=== PATIENT | male | born 1955 | race Caucasian/White ===

== ENCOUNTER 2021-01-30 19:45 | Inpatient (IN) ==
[2021-01-30] MEDS ORDERED: SODIUM CHLORIDE 0.9% 1000ML 2,000 ML IV ONE (20:04)
[2021-01-30 20:20] LABS: Basophils # (auto) 0.01 K/uL (0-0.2); Basophils % (auto) 0.1 %; Eosinophils # (auto) 0.13 K/uL (0-0.5); Eosinophils % (auto) 1.6 %; Hematocrit (blood only) 47.1 % (42-52); Hemoglobin 16.8 g/dL (14.0-18.0); Immature Granulocytes # (auto) 0.02 K/uL (0.00-0.02); Immature Granulocytes % (auto) 0.2 %; Lymphocytes # (auto) 2.66 K/uL (1.2-3.4); Mean Corpuscular Hemoglobin 31.1 pg (25-34); Mean Corpuscular Hgb Conc 35.7 g/dL (32-36); Mean Corpuscular Volume 87.1 fL (80-100); Mean Platelet Volume 11.1 fL (7.4-10.4); Monocytes # (auto) 0.68 K/uL (0.11-0.59); Monocytes % (auto) 8.2 %; Neutrophils % (auto) 57.9 %; Platelet Count 219 K/uL (130-400); RDW Coefficient of Variation 13.7 % (11.5-14.5); RDW Standard Deviation 43.4 fL (36.4-46.3); Red Blood Count 5.41 M/uL (4.7-6.1)
--- NOTE | 2021-01-30 20:26 | XRay Report ---
XR chest 1V portable HISTORY: 65 years-old Male SEPSIS acute sepsis COMPARISON: None TECHNIQUE: Portable AP view of the chest FINDINGS: Cardiomediastinal and hilar silhouettes are within normal limits. No pneumothorax, pleural effusion o r overt pulmonary edema. Ill-defined right lung base airspace opacities. The bones appear grossly int act. IMPRESSION: Right lung base opacities suggest pneumonia versus aspiration pneumonitis. ACT 112: Negative or not required by law. The above report was generated using voice recognition software. It may contain grammatical, syntax o r spelling errors. Electronically signed by: Shukri Vera M.D. 01/30/2021 8:24 PM
[2021-01-30 20:31] LABS: INR 1.1 (0.9-1.1); Partial Thromboplastin Time 26.8 Seconds (21.0-31.0); Prothrombin Time 11.3 Seconds (9.0-12.0)
[2021-01-30] MEDS ORDERED: fentaNYL citrate 100 MCG/2 ML VIAL IV STA (20:40)
[2021-01-30 20:46] LABS: Appearance Urine Clear (Clear); Bacteria Urine Automated Negative (Negative); Bilirubin Urine Negative (Negative); Blood Urine Negative (Negative); Color Urine Dark Yellow; Glucose Urine UA Negative (Negative); Ketones Urine Negative (Negative); Leukocyte Esterase Urine Negative (Negative); Nitrite Urine Negative (Negative); Protein Urine Trace (Negative); RBC Urine Automated 0-4 /hpf (0-4); Specific Gravity Urine 1.019 (1.000-1.030); Urobilinogen Urine Negative (Negative)
[2021-01-30 20:49] LABS: Albumin Globulin Ratio 0.9 (0.9-2); Albumin Level 2.8 gm/dl (3.4-5.0); BUN Creatinine Ratio 12.7 (10-20); Bilirubin,Total 1.3 mg/dl (0.2-1); Calcium 8.6 mg/dl (8.5-10.1); Creatinine Clr Calc Pharmacy 67.3 ml/min; Est GFR (African American) 78.6; Est GFR (Non-African American) 67.8; Magnesium 0.8 mg/dl (1.8-2.4); Potassium 2.8 mmol/L (3.5-5.1); Total Protein 5.8 gm/dl (6.4-8.2); Troponin I 0.025 ng/ml (0-0.045)
[2021-01-30] MEDS ORDERED: POTASSIUM CHLORIDE 10 MEQ TABCR PO STA (20:51)
[2021-01-30] MEDS ORDERED: VANCOMYCIN HCL 2,000 MG in SODIUM CHLORIDE 0.9% 500 ML IV ONE (20:56)
[2021-01-30] MEDS ORDERED: VANCOMYCIN CONSULT ACTIVE PRN (20:56)
[2021-01-30] MEDS ORDERED: CEFEPIME 2,000 MG/20 ML VIAL IV STA (20:56)
[2021-01-30] MEDS: MAGNESIUM SULFATE / D5W 1 GM/100 ML BAG IV SCH ×2 (21:00→22:18)
[2021-01-30] MEDS ORDERED: OPTIRAY 350 500ml IV ONE (21:57)
[2021-01-30 23:00] LABS: Adenovirus PCR Not Detected (NotDetected); Bordetella parapertussis PCR Not Detected (NotDetected); Bordetella pertussis PCR Not Detected (NotDetected); Chlamydia pneumoniae PCR Not Detected (NotDetected); Coronavirus 229E PCR Not Detected (NotDetected); Coronavirus CoV-2 (COVID19)PCR Not Detected (NotDetected); Coronavirus HKU1 PCR Not Detected (NotDetected); Coronavirus NL63 PCR Not Detected (NotDetected); Coronavirus OC43PCR Not Detected (NotDetected); Human Metapneumovirus PCR Not Detected (NotDetected); Influenza A PCR Not Detected (NotDetected); Influenza B PCR Not Detected (NotDetected); Mycoplasma pneumoniae PCR Not Detected (NotDetected); Parainfluenza Virus 1 PCR Not Detected (NotDetected); Parainfluenza Virus 2 PCR Not Detected (NotDetected); Parainfluenza Virus 3 PCR Not Detected (NotDetected); Parainfluenza Virus 4 PCR Not Detected (NotDetected); Respiratory Syncytial VirusPCR Not Detected (NotDetected); Rhinovirus/Enterovirus PCR Not Detected (NotDetected)
[2021-01-30] MEDS ORDERED: STAT IV Infusion **Titration per Protocol STA (23:05)
[2021-01-30] MEDS ORDERED: PHENYLEPHRINE HCL 20 MG in DEXTROSE 5% 500 ML IV SCH (23:15)
[2021-01-30] MEDS ORDERED: SODIUM CHLORIDE 0.9% 1000ML 1,000 ML IV SCH (23:15)
[2021-01-30] MEDS ORDERED: MAGNESIUM OXIDE 400 MG TAB PO STA (23:22)
--- NOTE | 2021-01-30 23:24 | Critical Care Consultation ---
Date of Consultation January 30, 2021 Assessment & Plan (1) Admitted to intensive care unit: Reason Critically Ill: 65-year-old male with severe sepsis with septic shock secondary to RIGHT lower lobe pneumonia requiring close hemodynamic monitoring with addition of vasopressor support in the setting of active extremities. NEURO - * CAM ICU: NEGATIVE * CT Head/Brain w/o acute findings. * Chronic Pain/Anxiety/Depression: * Continue home Rx as tolerated. * Marijuana abuse. CARDIAC/VASCULAR - * Hypotension/Tachycardia: * Compensatory in the setting of profound sepsis w/ hypovolemia as well. * Initially received 3L IVF. * Will add ongoing fluid rate. * Will start w/ Raf as patient is w/ HRs in the 120s-130s. * Will obtain AM echo to assess cardiac status for further appropriate pressor management. * EKG: Sinus Tach @ [address]/T-Wave changes noted. QTc 430 ms * Monitor on telemetry. RESPIRATORY - * RLL Pneumonia: * Concerning as the patient does admit to vomiting several times over the past few months. * Antibiotics broadened to cover anaerobes. * Requiring supplemental O2 currently. * Patient is a vasculopath and I question accuracy of BP/SaO2 monitoring currently. Will check ABG. * Goal SaO2 90% GI/NUTRITION - * NPO while requiring high dose pressors. * Prophylaxis: Famotidine RENAL/LYTES - * Hypokalemia/Hypomagnesemia: * Replaced in the ED. * Will monitor closely, replace as needed. * Hypovolemia: * Trend CVP for IVF resuscitation. * IVF: Normosol @ 150mL/hr - * Bhatti in place - Strict I&Os. ENDO - * Hypothyroidism * Check TSH/Free T4 levels. HEME - * Stable H&H ID - * Severe sepsis w/ septic shock 2/2 RLL Pneumonia: * Received Cefepime, Vanc in the ED. * Agree w/ addition of Zosyn for anaerobic coverage w/ concerns for possible aspiration. * D/C Cefepime. D/C Vanc if MRSA negative. * PCT/Lactate elevated. Will trend. * COVID 19 Negative LINES/IV ACCESS - * PIVs x2 * RIGHT IJ CVL * LEFT Radial Art Line * Bhatti DVT PROPHYLAXIS - * Lovenox * SCDs I have personally spent 68 minutes of critical care time in the direct management of this patient. This is a life/limb threatening event. This includes time spent evaluating patient, direct bedside care, chart review, placing orders, interpretation of diagnostic studies, discussion with consultants, patient, and family members, as well as other required patient management activities. This time is exclusive of all separately billable procedures, and teaching time and separate from and in addition to any other critical care service time. Thank you for allowing us to participate in the care of this patient. Please refer to my attending physician's documentation for any further recommendations. (2) Septic shock: (3) Pneumonia: (4) Right lower lobe pneumonia: (5) Anxiety with depression: (6) Insomnia: (7) COPD (chronic obstructive pulmonary disease): (8) BPH w urinary obs/LUTS: (9) Hypothyroid: (10) GERD (gastroesophageal reflux disease): History of Present Illness History of Present Illness Patient is a 65-year-old male with a significant past medical history of hypothyroidism, chronic pain, previous spinal surgeries, BPH, COPD, prior history of IV drug abuse, and daily marijuana use. Patient's is currently admitted at the [facility] for pneumonia. She is COVID-19 negative. The patient does report that he went to see her a few days ago. He states that he has felt ill and has been out of bed minimally over the last 3 days. Apparently, he is been drinking, but has not been eating much. He states that he smokes marijuana daily and has been taking his daily medications as prescribed. He does admit to smoking meth approximately 3 to 4 days ago. None of these things are atypical for the patient. He presented to the emergency department with hypotension and tachycardia. Chest x-ray and CT concerning for RIGHT lower lobe infiltrate. He received IV cefepime and vancomycin. Potassium and magnesium were both critically low. Despite aggressive IV fluid resuscitation, the patient remained hypotensive. Upon evaluation in the emergency department, the patient is awake, alert, and oriented. He complains of diffuse back pain which she states is not abnormal for him. He describes a cough. He does admit to having vomited several times over the last few months. He is uncertain if he aspirated. Patient denies any complaints of chest pain, shortness of breath, pleuritic pain, abdominal pain, headaches, blurry vision, or double vision. Allergies Allergy/AdvReac Type Severity Reaction Status Date / Time adhesive tape Allergy REDNESS & Verified 01/30/21 21:03 BLACK & BLUE ibuprofen Allergy SWELLING, Verified 01/30/21 21:02 HIVES & SOB Home Medications Medication Instructions Recorded Confirmed Type albuterol sulfate 2 inh INHALATION UD PRN 01/30/21 01/30/21 History dutasteride [Avodart] 0.5 mg PO HS 01/30/21 01/30/21 History finasteride [Proscar] 5 mg PO DAILY 01/30/21 01/30/21 History hydroxyzine HCl 75 - 100 mg PO HS PRN 01/30/21 01/30/21 History levothyroxine 75 mcg PO DAILY 01/30/21 01/30/21 History ondansetron 4 mg PO Q8H PRN 01/30/21 01/30/21 History pantoprazole 40 mg PO DAILY 01/30/21 01/30/21 History pregabalin [Lyrica] 300 mg PO BID 01/30/21 01/30/21 History sucralfate [Carafate] 1 g PO ACHS 01/30/21 01/30/21 History tamsulosin [Flomax] 0.4 mg PO DAILY 01/30/21 01/30/21 History trazodone 150 mg PO HS 01/30/21 01/30/21 History umeclidinium-vilanterol [Anoro 1 inh INHALATION UD 01/30/21 01/30/21 History Ellipta] Patient History Medical History Anxiety with depression BPH w urinary obs/LUTS COPD (chronic obstructive pulmonary disease) GERD (gastroesophageal reflux disease) Hypothyroid Insomnia No pertinent family history Surgical History No pertinent past surgical history Social History Smoking Status: Current every day smoker Tobacco Type: Cigarettes Hx Substance Use: Yes Beliefs That Will Affect Care: None Current Living Situation: Family Feels Safe at Home: Yes Safety Concerns: Feels Safe At This Time Review of Systems Review of Systems: A complete 10 point review of systems was reviewed with the patient with pertinent positives and negatives as per history of present illness. All else were negative. Physical Exam Physical Exam: VITAL SIGNS - Vital signs and nursing notes were reviewed. GENERAL - 65-year-old male appearing his stated age who is in no acute distress. Communicates well with provider and answers questions appropriately. SKIN - Diffuse areas of ecchymosis noted. HEAD - NC/AT. EYES - PERRL with EOMI bilaterally. Sclera anicteric. EARS - No deformities of external structures noted on gross examination bilaterally. NOSE - Midline and without cyanosis. MOUTH/OROPHARYNX - Without perioral cyanosis. Buccal mucosa pink and dry. NECK - Neck with FROM. Supple to palpation. No lymphadenopathy noted. No nuchal rigidity. LUNGS - Chest wall symmetric without accessory muscle use, intercostals retractions, or central cyanosis. Normal vesicular breath sounds CTA B/L. CARDIAC - RRR with S1/S2. No murmur, rubs, or gallops appreciated. ABDOMEN - Abdominal contour flat without pulsations or visible masses. BS normoactive all four quadrants. No tenderness, palpable masses, hepatosplenomegaly, or ascites noted. EXTREMITIES - No clubbing or peripheral cyanosis. No pretibial edema present. +3/5 radial pulses palpated throughout. +5/5 strength noted in UE/LE bilaterally. NEUROLOGIC - Cranial nerves II through XII grossly intact. Sensory intact to light touch throughout. PSYCH - A&Ox3 and cooperates fully with examiner. Pt is very pleasant and interacts well with examiner. Results & Data Results & Data ([facility]) Vital Signs (Past 12 Hours) Vital Signs Temp Pulse Pulse Resp BP Pulse Ox 01/30/21 22:26 124 H 20 78/63 L 98 01/30/21 22:25 133 H 17 99 01/30/21 22:24 74/53 L 98 01/30/21 21:47 142 H 18 93 01/30/21 21:45 142 H 15 74/55 L 92 01/30/21 21:44 130 H 15 81/63 L 01/30/21 21:42 141 H 15 90 01/30/21 21:40 133 H 19 94/60 L 92 01/30/21 21:39 145 H 23 66/46 L 88 L 01/30/21 21:37 129 H 21 93 01/30/21 21:36 140 H 18 72/44 L 94 01/30/21 21:01 147 H 16 95/68 L 96 04/30/21 21:00 146 H 27 H 95 01/30/21 20:50 91 01/30/21 20:46 154 H 17 91 01/30/21 20:45 161 H 27 H 85/68 L 90 01/30/21 20:43 157 H 15 80/60 L 93 01/30/21 20:33 163 H 17 95 01/30/21 20:32 166 H 20 123/93 92 01/30/21 20:30 164 H 20 68/50 L 71 L 01/30/21 20:18 162 H 28 H 88/67 L 93 01/30/21 20:15 143 H 23 94 01/30/21 20:08 92 01/30/21 20:01 138 H 19 72/51 L 90 01/30/21 20:00 147 H 23 90 01/30/21 19:59 149 H 17 88 L 01/30/21 19:54 36.1 C L 141 H 16 72/51 L 92 Coding Level of Care Code Critical Care 1st 30-74 mins Diagnoses Admitted to intensive care unit Z78.9 Septic shock A41.9; R65.21 Pneumonia J18.9 Laterality: right Lung location: lower lobe of lung Pneumonia type: due to unspecified organism Right lower lobe pneumonia J18.9 Anxiety with depression F41.8 Insomnia G47.00 COPD (chronic obstructive pulmonary disease) J44.9 BPH w urinary obs/LUTS N40.1; N13.8 Hypothyroid E03.9 GERD (gastroesophageal reflux disease) K21.9 Time Spent (min) 68 (1) Pneumonia Laterality: right Lung location: lower lobe of lung Pneumonia type: due to unspecified organism Qualified Code(s): J18.9 - Pneumonia, unspecified organism
--- NOTE | 2021-01-30 23:27 | History & Physical Report ---
Date of Service January 30, 2021 Assessment & Plan (1) Admitted to intensive care unit: Admitted to ICU/septic shock/right lower lobe pneumonia/COPD- Vancomycin IV per pharmacokinetic monitoring Zosyn 4.5 g IV every 8 hours Duonebs every 4 hours while awake and every 2 hours when necessary. Nasal cannula oxygen, titrate to keep pulse ox 94 to 95% Consult road boss Pressor support norepinephrine/phenylephrine per protocol Normosol IV Present on Admission?: Yes (2) Septic shock: See above Present on Admission?: Yes (3) Right lower lobe pneumonia: See above Present on Admission?: Yes (4) GERD (gastroesophageal reflux disease): Pantoprazole 40 mg p.o. daily Famotidine 20 mg IV every 12 hours Present on Admission?: Yes (5) Hypothyroid: Continue levothyroxine 75 mcg daily Present on Admission?: Yes (6) BPH w urinary obs/LUTS: Continue tamsulosin, dutasteride and finasteride Present on Admission?: Yes (7) Anxiety with depression: Anxiety with depression/insomnia Continue pregabalin, trazodone and as needed hydroxyzine Present on Admission?: Yes (8) Insomnia: See above Present on Admission?: Yes (9) COPD (chronic obstructive pulmonary disease): See above Present on Admission?: Yes History of Present Illness Chief Complaint: The patient presents to the emergency department with complaint of generalized weakness over the past few days Primary Care Provider: NO PCP The patient is a 65-year-old male with a past medical history including BPH with LUTS, hypothyroidism, GERD, anxiety, insomnia and COPD. He reports that his is recently been hospitalized, and since has been noted to take care of him at home, he has been lying in bed the past several days and smoking marijuana every day. He reports history of drug abuse in the past, but nothing anytime recently. He said history of alcohol abuse but stopped drinking 1 year ago. Work-up in the emergency department included following abnormal laboratories: Potassium 2.8, magnesium 0.8, total bilirubin 1.3, albumin 2.8. Pulse ox at his lowest was 71% on room air. Blood pressure at its lowest was 66/46, and did not improve significantly above the mid 70s despite IV fluid rehydration. Due to sepsis and hypotension, patient was started on pressors while in ED, and will be admitted to the ICU. Imaging studies: Chest x-ray and CT of chest showed right lower lobe pneumonia. CT head was negative. CT cervical spine showed hardware fusion at C3-7 levels Allergies Allergy/AdvReac Type Severity Reaction Status Date / Time adhesive tape Allergy REDNESS & Verified 01/30/21 21:03 BLACK & BLUE ibuprofen Allergy SWELLING, Verified 01/30/21 21:02 HIVES & SOB Home Medications Medication Instructions Recorded Confirmed Type albuterol sulfate 2 inh INHALATION UD PRN 01/30/21 01/30/21 History dutasteride [Avodart] 0.5 mg PO HS 01/30/21 01/30/21 History finasteride [Proscar] 5 mg PO DAILY 01/30/21 01/30/21 History hydroxyzine HCl 75 - 100 mg PO HS PRN 01/30/21 01/30/21 History levothyroxine 75 mcg PO DAILY 01/30/21 01/30/21 History ondansetron 4 mg PO Q8H PRN 01/30/21 01/30/21 History pantoprazole 40 mg PO DAILY 01/30/21 01/30/21 History pregabalin [Lyrica] 300 mg PO BID 01/30/21 01/30/21 History sucralfate [Carafate] 1 g PO ACHS 01/30/21 01/30/21 History tamsulosin [Flomax] 0.4 mg PO DAILY 01/30/21 01/30/21 History trazodone 150 mg PO HS 01/30/21 01/30/21 History umeclidinium-vilanterol [Anoro 1 inh INHALATION UD 01/30/21 01/30/21 History Ellipta] Past Med/Surg History Medical History (Updated 01/31/21 @ 04:09 by Martin Jimenez MD) Anxiety with depression BPH w urinary obs/LUTS COPD (chronic obstructive pulmonary disease) GERD (gastroesophageal reflux disease) Hypothyroid Insomnia No pertinent family history Surgical History (Updated 01/30/21 @ 23:47 by Yosef Hughes) No pertinent past surgical history Social History Smoking Status: Current every day smoker Tobacco Type: Cigarettes Hx Substance Use: Yes Beliefs That Will Affect Care: None Current Living Situation: Family Feels Safe at Home: Yes Safety Concerns: Feels Safe At This Time Review of Systems Review of Systems: The patient denies chest pain, palpitations, lower extremity swelling, sore throat, fevers, chills, sweats, nausea, vomiting, diarrhea , constipation, abdominal pain, pelvic pain, blood in urine or stool, loss of consciousness, rash, abnormal bruising or bleeding, imbalance, focal weakness, numbness or tingling in arms or legs, neck pain, or night sweats. The review of systems is otherwise negative other than for that already noted above, and at least 10 systems have been reviewed. Physical Exam Physical Exam: The patient is awake, alert and oriented 3, normocephalic and atraumatic, lying in bed and in no acute distress. HEENT--PERRL, EOMI, mucous membranes and oropharynx dry. Neck--supple. No JVD. No bruits. Thyroid normal, trachea midline, no adenopathy. Heart--normal S1 and S2. No murmurs, rubs or gallops. Lungs--coarse breath sounds bilaterally, right base worse than left. no respiratory distress, no accessory muscle use. Abdomen--normal bowel sounds and soft. Nontender. Nondistended, no hernias or masses, no organomegaly. Extremities/dermatologic--no cyanosis or clubbing. No edema. Neurologic--cranial nerves II through XII grossly intact. Rheumatologic--normal range of motion. Psychiatric--normal affect. Results & Data Results & Data ([facility]) Vital Signs (Past 12 Hours) Vital Signs Temp Pulse Pulse Resp BP Pulse Ox 01/30/21 22:26 124 H 20 78/63 L 98 01/30/21 22:25 133 H 17 99 01/30/21 22:24 74/53 L 98 01/30/21 21:47 142 H 18 93 01/30/21 21:45 142 H 15 74/55 L 92 01/30/21 21:44 130 H 15 81/63 L 01/30/21 21:42 141 H 15 90 01/30/21 21:40 133 H 19 94/60 L 92 01/30/21 21:39 145 H 23 66/46 L 88 L 01/30/21 21:37 129 H 21 93 01/30/21 21:36 140 H 18 72/44 L 94 01/30/21 21:01 147 H 16 95/68 L 96 01/30/21 21:00 146 H 27 H 95 01/30/21 20:50 91 01/30/21 20:46 154 H 17 91 01/30/21 20:45 161 H 27 H 85/68 L 90 01/30/21 20:43 157 H 15 80/60 L 93 01/30/21 20:33 163 H 17 95 01/30/21 20:32 166 H 20 123/93 92 01/30/21 20:30 164 H 20 68/50 L 71 L 01/30/21 20:18 162 H 28 H 88/67 L 93 01/30/21 20:15 143 H 23 94 01/30/21 20:08 92 01/30/21 20:01 138 H 19 72/51 L 90 01/30/21 20:00 147 H 23 90 01/30/21 19:59 149 H 17 88 L 01/30/21 19:54 97.0 F L 141 H 16 72/51 L 92 Laboratory Results Laboratory Results WBC 8.30 K/uL (4.8-10.8) 01/30/21 20:00 RBC 5.41 M/uL (4.7-6.1) 01/30/21 20:00 Hgb 16.8 g/dL (14.0-18.0) 01/30/21 20:00 Hct 47.1 % (42-52) 01/30/21 20:00 MCV 87.1 fL (80-100) 01/30/21 20:00 MCH 31.1 pg (25-34) 01/30/21 20:00 MCHC 35.7 g/dL (32-36) 01/30/21 20:00 RDW Std Deviation 43.4 fL (36.4-46.3) 01/30/21 20:00 RDW Coeff of Karen 13.7 % (11.5-14.5) 01/30/21 20:00 Plt Count 219 K/uL (130-400) 01/30/21 20:00 MPV 11.1 fL (7.4-10.4) H 01/30/21 20:00 Immature Gran % (Auto) 0.2 % 01/30/21 20:00 Neut % (Auto) 57.9 % 01/30/21 20:00 Lymph % (Auto) 32.0 % 01/30/21 20:00 [facility] % (Auto) 8.2 % 01/30/21 20:00 Eos % (Auto) 1.6 % 01/30/21 20:00 Baso % (Auto) 0.1 % 01/30/21 20:00 Neut # (Auto) 4.80 K/uL (1.4-6.5) 01/30/21 20:00 Lymph # (Auto) 2.66 K/uL (1.2-3.4) 01/30/21 20:00 [facility] # (Auto) 0.68 K/uL (0.11-0.59) H 01/30/21 20:00 Eos # (Auto) 0.13 K/uL (0-0.5) 01/30/21 20:00 Baso # (Auto) 0.01 K/uL (0-0.2) 01/30/21 20:00 Immature Gran # (Auto) 0.02 K/uL (0.00-0.02) 01/30/21 20:00 PT 11.3 Seconds (9.0-12.0) 01/30/21 20:00 INR 1.1 (0.9-1.1) 01/30/21 20:00 APTT 26.8 Seconds (21.0-31.0) 01/30/21 20:00 PTT Ratio 1.0 01/30/21 20:00 POC pH 7.30 (7.35-7.45) L 01/31/21 02:35 POC pCO2 32 mmHg (35-46) L 01/31/21 02:35 POC pO2 82 mmHg (80-95) 01/31/21 02:35 POC HCO3 16 remy/L (19-24) L 01/31/21 02:35 POC Total CO2 17 mmol/L (24-31) L 01/31/21 02:35 POC Base Excess -11.0 remy/L (-9-1.8) L 01/31/21 02:35 POC ABG O2 Sat 95.0 % (90-95) 01/31/21 02:35 Sodium 141 mmol/L (136-145) 01/30/21 20:00 Potassium 2.8 mmol/L (3.5-5.1) L 01/30/21 20:00 Chloride 110 mmol/L (98-107) H 01/30/21 20:00 Carbon Dioxide 24 mmol/L (21-32) 01/30/21 20:00 Anion Gap 7.0 (3-11) 01/30/21 20:00 BUN 14 mg/dl (7-18) 01/30/21 20:00 Creatinine 1.13 mg/dl (0.6-1.4) 01/30/21 20:00 Est Cr Clr Drug Dosing 67.3 ml/min 01/30/21 20:00 Est GFR ( Amer) 78.6 01/30/21 20:00 Est GFR (Non-Af Amer) 67.8 01/30/21 20:00 BUN/Creatinine Ratio 12.7 (10-20) 01/30/21 20:00 Glucose 144 mg/dl (70-99) H 01/30/21 20:00 Lactate 3.2 mmol/L (0.4-2.0) H* 01/30/21 22:53 Calcium 8.6 mg/dl (8.5-10.1) 01/30/21 20:00 Magnesium 0.8 mg/dl (1.8-2.4) L* 01/30/21 20:00 Total Bilirubin 1.3 mg/dl (0.2-1) H 01/30/21 20:00 AST 14 U/L (15-37) L 01/30/21 20:00 ALT 18 U/L (12-78) 01/30/21 20:00 Alkaline Phosphatase 90 U/L (45-117) 01/30/21 20:00 Total Creatine Kinase 76 U/L (39-308) 01/30/21 20:00 Troponin I 0.025 ng/ml (0-0.045) 01/30/21 20:00 Total Protein 5.8 gm/dl (6.4-8.2) L 01/30/21 20:00 Albumin 2.8 gm/dl (3.4-5.0) L 01/30/21 20:00 Globulin 3.0 gm/dl (2.5-4.0) 01/30/21 20:00 Albumin/Globulin Ratio 0.9 (0.9-2) 01/30/21 20:00 Lipase 84 U/L (73-393) 01/30/21 20:00 Procalcitonin 5.49 ng/ml (0-0.5) H 01/30/21 20:00 Urine Color Dark Yellow 01/30/21 20:30 Urine Appearance Clear (Clear) 01/30/21 20:30 Urine pH 6.0 (4.5-7.5) 01/30/21 20:30 Ur Specific [place] 1.019 (1.000-1.030) 01/30/21 20:30 Urine Protein Trace (Negative) H 01/30/21 20:30 Urine Glucose (UA) Negative (Negative) 01/30/21 20:30 Urine Ketones Negative (Negative) 01/30/21 20:30 Urine Blood Negative (Negative) 01/30/21 20:30 Urine Nitrite Negative (Negative) 01/30/21 20:30 Urine Bilirubin Negative (Negative) 01/30/21 20:30 Urine Urobilinogen Negative (Negative) 01/30/21 20:30 Ur Leukocyte Esterase Negative (Negative) 01/30/21 20:30 Urine WBC (Auto) 1-5 /hpf (0-5) 01/30/21 20:30 Urine RBC (Auto) 0-4 /hpf (0-4) 01/30/21 20:30 U Hyaline Cast (Auto) 1-5 /lpf (0-5) 01/30/21 20:30 U Epithel Cells (Auto) 5-10 /lpf (0-5) H 01/30/21 20:30 Urine Bacteria (Auto) Negative (Negative) 01/30/21 20:30 Adenovirus (PCR) Not Detected (NotDetected) 01/30/21 20:30 B. pertussis DNA (PCR) Not Detected (NotDetected) 01/30/21 20:30 B.parapertussis DNA PCR Not Detected (NotDetected) 01/30/21 20:30 C. pneumoniae DNA (PCR) Not Detected (NotDetected) 01/30/21 20:30 Coronavirus OC43 (PCR) Not Detected (NotDetected) 01/30/21 20:30 Coronavirus HKU1 (PCR) Not Detected (NotDetected) 01/30/21 20:30 Coronavirus 229E (PCR) Not Detected (NotDetected) 01/30/21 20:30 COVID-19 Eval Order RESPNP at [facility] 01/30/21 20:30 SARS-CoV-2 (PCR) Not Detected (NotDetected) 01/30/21 20:30 Coronavirus NL63 (PCR) Not Detected (NotDetected) 01/30/21 20:30 Human Metapneumovir PCR Not Detected (NotDetected) 01/30/21 20:30 Influenza Type A (PCR) Not Detected (NotDetected) 01/30/21 20:30 Influenza Type B (PCR) Not Detected (NotDetected) 01/30/21 20:30 M. pneumoniae (PCR) Not Detected (NotDetected) 01/30/21 20:30 Parainfluenza 1 (PCR) Not Detected (NotDetected) 01/30/21 20:30 Parainfluenza 2 (PCR) Not Detected (NotDetected) 01/30/21 20:30 Parainfluenza 3 (PCR) Not Detected (NotDetected) 01/30/21 20:30 Parainfluenza 4 (PCR) Not Detected (NotDetected) 01/30/21 20:30 RSV (PCR) Not Detected (NotDetected) 01/30/21 20:30 Entero/Rhino (PCR) Not Detected (NotDetected) 01/30/21 20:30 Diagnostic Findings [facility] Patient: KRISTAL OLIVEROS (Male) : 55 Status: ER Date: 01/30/21 22:13 Room #: History: SEPSIS SOB Slices: [id number] Priors: Tech: Shawn Harding @ [phone] Exams: CT CHEST With Contrast Contrast: IV Amt: 120 Accession Numbers: [id number] Preliminary Findings Only See Final Report For Complete Findings CT CHEST With Contrast: No pulmonary embolism. No acute aortic syndrome. Right lower lobe airspace opacity consistent with pneumonia. Radiologist: Ted Whittington MD Study ready at 22:21 and initial results transmitted at 22:25 *This report constitutes a preliminary interpretation only. Non-acute findings felt to be unrelated to the clinical presentation may not be discussed in this report. The study will be interpreted and a final report will be generated by the local Radiologist the following shift. To reach the hospital radiology department call [phone]. If a discrepancy is found between the preliminary and final interpretations of this study, please notify us via our Client Portal at [email or web address]: [email or web address] under [email or web address] [email or web address].You can also fax this report with a description of the discrepancy, or include the final report, to our daytime fax number [phone].If faxing, please indicate the severity of discrepancy using one of the following categories: [ ] 1 - Agree/Informational [ ] 2 - Unlikely to Affect Management [ ] 3 - Possible Eventual Change of Management [ ] 4 - Probable Immediate Change of Management For all other patient related information, please fax us at [phone]. [id number] [facility] Patient: KRISTAL OLIVEROS (Male) : 55 Status: ER Date: 01/30/21 21:37 Room #: History: FALL Slices: [id number] Priors: Tech: Shawn Harding @ [phone] Exams: CT HEAD Contrast: Accession Numbers: [id number] Preliminary Findings Only See Final Report For Complete Findings CT HEAD: No ICH, mass effect or edema. No skull fracture. Partial mastoid effusions. Radiologist: Ted Whittington MD Study ready at 21:39 and initial results transmitted at 21:51 *This report constitutes a preliminary interpretation only. Non-acute findings felt to be unrelated to the clinical presentation may not be discussed in this report. The study will be interpreted and a final report will be generated by the local Radiologist the following shift. To reach the hospital radiology department call [phone]. If a discrepancy is found between the preliminary and final interpretations of this study, please notify us via our Client Portal at [email or web address] under [email or web address].You can also fax this report with a description of the discrepancy, or include the final report, to our daytime fax number [phone].If faxing, please indicate the severity of discrepancy using one of the following categories: [ ] 1 - Agree/Informational [ ] 2 - Unlikely to Affect Management [ ] 3 - Possible Eventual Change of Management [ ] 4 - Probable Immediate Change of Management For all other patient related information, please fax us at [phone]. [id number] [facility] Patient: KRISTAL OLIVEROS (Male) : 55 Status: ER Date: 01/30/21 21:37 Room #: History: FALL Slices: [id number] Priors: Tech: [place], Shawn @ [phone] Exams: CT C SPINE Contrast: Accession Numbers: [id number] Preliminary Findings Only See Final Report For Complete Findings CT C SPINE: No acute fracture. C3-7 instrumented fusion and multilevel decompression without hardware complication. Radiologist: Ted Whittington MD Study ready at 21:49 and initial results transmitted at 21:54 *This report constitutes a preliminary interpretation only. Non-acute findings felt to be unrelated to the clinical presentation may not be discussed in this report. The study will be interpreted and a final report will be generated by the local Radiologist the following shift. To reach the hospital radiology department call [phone]. If a discrepancy is found between the preliminary and final interpretations of this study, please notify us via our Client Portal at [email or web address] under [email or web address].You can also fax this report with a description of the discrepancy, or include the final report, to our daytime fax number [phone].If faxing, please indicate the severity of discrepancy using one of the following categories: [ ] 1 - Agree/Informational [ ] 2 - Unlikely to Affect Management [ ] 3 - Possible Eventual Change of Management [ ] 4 - Probable Immediate Change of Management For all other patient related information, please fax us at [phone]. [id number] [facility] Patient: KRISTAL OLIVEROS (Male) : 55 Status: ER Date: 01/30/21 21:38 Room #: History: FALL SEPSIS Slices: [id number] Priors: Tech: Meaghan, Shawn @ [phone] Exams: CT ABDOMEN & PELVIS With Contrast Contrast: IV Amt: 88 Accession Numbers: [id number] Preliminary Findings Only See Final Report For Complete Findings CT ABDOMEN & PELVIS With Contrast: Airspace opacity in the right lower lobe most likely representing pneumonia. Somewhat groundglass appearance of this opacity and well demarcated border suggests that coronary infarct could have a similar appearance. Correlate clinically. No traumatic injury. Severe degenerative spondylosis in the lumbar spine. No acute abnormality along the GI tract. No free fluid, fluid collection, or free air. Radiologist: Ted Whittington MD Study ready at 21:40 and initial results transmitted at 21:56 *This report constitutes a preliminary interpretation only. Non-acute findings felt to be unrelated to the clinical presentation may not be discussed in this report. The study will be interpreted and a final report will be generated by the local Radiologist the following shift. To reach the hospital radiology department call [phone]. If a discrepancy is found between the preliminary and final interpretations of this study, please notify us via our Client Portal at [email or web address] under [email or web address].You can also fax this report with a description of the discrepancy, or include the final report, to our daytime fax number [phone].If faxing, please indicate the severity of discrepancy using one of the following categories: [ ] 1 - Agree/Informational [ ] 2 - Unlikely to Affect Management [ ] 3 - Possible Eventual Change of Management [ ] 4 - Probable Immediate Change of Management For all other patient related information, please fax us at [phone]. [id number] Code Status & VTE Plan Code Status Full code VTE Prophylaxis Plan VTE Prophylaxis will be ordered: Yes Critical Care Time Critical Care Time: Yes Total Critical Care Time: 45 PG Care Time/CCT Total # of Minutes Spent Total Time Spent with Patient: Total time spent is greater than 50% in coordination of care (as documented) at patient's floor/unit and/or counseling patient: Critical Care Time: Yes Total Critical Care Time: 45 Coding Level of Care Code 99065 Initial Inpt Care Lvl 3 Diagnoses Admitted to intensive care unit Z78.9 Septic shock A41.9; R65.21 Right lower lobe pneumonia J18.9 GERD (gastroesophageal reflux disease) K21.9 Hypothyroid E03.9 BPH w urinary obs/LUTS N40.1; N13.8 Anxiety with depression F41.8 Insomnia G47.00 COPD (chronic obstructive pulmonary disease) J44.9 Additional Codes Critical Care Time - Critical Care Time: Yes ([id number]) Time Spent (min) 45
--- NOTE | 2021-01-30 23:46 | Emergency Department Note ---
History of Present Illness General Chief complaint: Weakness Time Seen by Provider: 01/30/21 20:03 History of Present Illness Provider complaint: Weakness Maximum Pain Intensity: 8 Associated symptoms: + weakness; no chest pain, no cough, no fever/chills, no headaches, no nausea/vomiting and no shortness of breath 65-year-old male presents emergency department with weakness. Patient states he has felt weak over the last few days. Patient states he has been lying in bed all day. He states that his was recently admitted to an outside facility with pneumonia. He states she tested negative for Covid. He states since she has been gone there is no one to take care of him. Patient states he has been lying in bed and smoking marijuana every day. He states he smokes marijuana every day since the age of 11. Patient states he has not done any other illicit substances but has a history of drug abuse in the past. Patient states he stopped drinking a year ago. Patient states he did fall recently. He is reporting lower back pain. No chest pain or difficulty breathing. Patient is reporting dysuria also. No hematuria. No fevers. Patient is not vaccinated against COVID-19. No loss of taste or smell. Home Medications Medication Instructions Recorded Confirmed Type albuterol sulfate 2 inh INHALATION UD PRN 01/30/21 01/30/21 History dutasteride [Avodart] 0.5 mg PO HS 01/30/21 01/30/21 History finasteride [Proscar] 5 mg PO DAILY 01/30/21 01/30/21 History hydroxyzine HCl 75 - 100 mg PO HS PRN 01/30/21 01/30/21 History levothyroxine 75 mcg PO DAILY 01/30/21 01/30/21 History ondansetron 4 mg PO Q8H PRN 01/30/21 01/30/21 History pantoprazole 40 mg PO DAILY 01/30/21 01/30/21 History pregabalin [Lyrica] 300 mg PO BID 01/30/21 01/30/21 History sucralfate [Carafate] 1 g PO ACHS 01/30/21 01/30/21 History tamsulosin [Flomax] 0.4 mg PO DAILY 01/30/21 01/30/21 History trazodone 150 mg PO HS 01/30/21 01/30/21 History umeclidinium-vilanterol [Anoro 1 inh INHALATION UD 01/30/21 01/30/21 History Ellipta] Allergies Allergy/AdvReac Type Severity Reaction Status Date / Time adhesive tape Allergy REDNESS & Verified 01/30/21 21:03 BLACK & BLUE ibuprofen Allergy SWELLING, Verified 01/30/21 21:02 HIVES & SOB Past Med/Surg History Medical History (Updated 01/31/21 @ 00:00 by Yosef Hughes) GERD (gastroesophageal reflux disease) Hypothyroid No pertinent family history Surgical History (Updated 01/30/21 @ 23:47 by Yosef Hughes) No pertinent past surgical history Social History Smoking Status: Current every day smoker Tobacco Type: Cigarettes Feels Safe at Home: Yes Review of Systems A total of 10 systems reviewed and were otherwise negative Physical Exam Vital Signs Vital Signs - 24 hr 01/30/21 19:54 01/30/21 19:59 01/30/21 20:00 Temperature 36.1 C L Temperature Source Oral Pulse Rate 141 H 149 H 147 H Pulse Rate [Right Radial] Pulse Rate from SpO2 Sensor 148 H 146 H Pulse Rhythm [Right Radial] Respiratory Rate 16 17 23 Respiratory Effort / Characteristics Respiratory Depth Normal Blood Pressure 72/51 L Blood Pressure Mean 58 Pulse Oximetry 92 88 L 90 Oxygen Delivery Method Room Air Oxygen Flow Rate Sepsis Recent Fever Within 48 Hours No Sepsis New/Unexplained Change in Mental Status No Sepsis Action Taken by Nursing No Action Required 01/30/21 20:01 01/30/21 20:08 01/30/21 20:15 Temperature Temperature Source Pulse Rate 138 H 143 H Pulse Rate [Right Radial] Pulse Rate from SpO2 Sensor 136 H 143 H Pulse Rhythm [Right Radial] Respiratory Rate 19 23 Respiratory Effort / Characteristics Non-Labored Spontaneous Respiratory Depth Blood Pressure 72/51 L Blood Pressure Mean 58 Pulse Oximetry 90 92 94 Oxygen Delivery Method Room Air Oxygen Flow Rate Sepsis Recent Fever Within 48 Hours Sepsis New/Unexplained Change in Mental Status Sepsis Action Taken by Nursing 01/30/21 20:18 01/30/21 20:30 01/30/21 20:32 Temperature Temperature Source Pulse Rate 162 H 164 H 166 H Pulse Rate [Right Radial] Pulse Rate from SpO2 Sensor 161 H 169 H 164 H Pulse Rhythm [Right Radial] Respiratory Rate 28 H 20 20 Respiratory Effort / Characteristics Respiratory Depth Blood Pressure 88/67 L 68/50 L 123/93 Blood Pressure Mean 74 56 103 Pulse Oximetry 93 71 L 92 Oxygen Delivery Method Oxygen Flow Rate Sepsis Recent Fever Within 48 Hours Sepsis New/Unexplained Change in Mental Status Sepsis Action Taken by Nursing 01/30/21 20:33 01/30/21 20:43 01/30/21 20:45 Temperature Temperature Source Pulse Rate 157 H 161 H Pulse Rate [Right Radial] 163 H Pulse Rate from SpO2 Sensor 152 H 164 H Pulse Rhythm [Right Radial] Regular Respiratory Rate 17 15 27 H Respiratory Effort / Characteristics Respiratory Depth Blood Pressure 80/60 L 85/68 L Blood Pressure Mean 66 73 Pulse Oximetry 95 93 90 Oxygen Delivery Method Room Air Oxygen Flow Rate Sepsis Recent Fever Within 48 Hours Sepsis New/Unexplained Change in Mental Status Sepsis Action Taken by Nursing 01/30/21 20:46 01/30/21 20:50 01/30/21 21:00 Temperature Temperature Source Pulse Rate 154 H 146 H Pulse Rate [Right Radial] Pulse Rate from SpO2 Sensor 151 H 146 H Pulse Rhythm [Right Radial] Respiratory Rate 17 27 H Respiratory Effort / Characteristics Non-Labored Spontaneous Respiratory Depth Blood Pressure Blood Pressure Mean Pulse Oximetry 91 91 95 Oxygen Delivery Method Room Air Oxygen Flow Rate 3 Sepsis Recent Fever Within 48 Hours Sepsis New/Unexplained Change in Mental Status Sepsis Action Taken by Nursing 01/30/21 21:01 01/30/21 21:36 01/30/21 21:37 Temperature Temperature Source Pulse Rate 147 H 140 H 129 H Pulse Rate [Right Radial] Pulse Rate from SpO2 Sensor 144 H 139 H 127 H Pulse Rhythm [Right Radial] Respiratory Rate 16 18 21 Respiratory Effort / Characteristics Respiratory Depth Blood Pressure 95/68 L 72/44 L Blood Pressure Mean 77 53 Pulse Oximetry 96 94 93 Oxygen Delivery Method Oxygen Flow Rate Sepsis Recent Fever Within 48 Hours Sepsis New/Unexplained Change in Mental Status Sepsis Action Taken by Nursing 01/30/21 21:39 01/30/21 21:40 01/30/21 21:42 Temperature Temperature Source Pulse Rate 145 H 133 H 141 H Pulse Rate [Right Radial] Pulse Rate from SpO2 Sensor 141 H 134 H 141 H Pulse Rhythm [Right Radial] Respiratory Rate 23 19 15 Respiratory Effort / Characteristics Respiratory Depth Blood Pressure 66/46 L 94/60 L Blood Pressure Mean 52 71 Pulse Oximetry 88 L 92 90 Oxygen Delivery Method Oxygen Flow Rate Sepsis Recent Fever Within 48 Hours Sepsis New/Unexplained Change in Mental Status Sepsis Action Taken by Nursing 01/30/21 21:44 01/30/21 21:45 01/30/21 21:47 Temperature Temperature Source Pulse Rate 130 H 142 H 142 H Pulse Rate [Right Radial] Pulse Rate from SpO2 Sensor 139 H 142 H Pulse Rhythm [Right Radial] Respiratory Rate 15 15 18 Respiratory Effort / Characteristics Respiratory Depth Blood Pressure 81/63 L 74/55 L Blood Pressure Mean 69 61 Pulse Oximetry 92 93 Oxygen Delivery Method Oxygen Flow Rate Sepsis Recent Fever Within 48 Hours Sepsis New/Unexplained Change in Mental Status Sepsis Action Taken by Nursing 01/30/21 22:24 01/30/21 22:25 01/30/21 22:26 Temperature Temperature Source Pulse Rate 133 H 124 H Pulse Rate [Right Radial] Pulse Rate from SpO2 Sensor 119 H 136 H 124 H Pulse Rhythm [Right Radial] Respiratory Rate 17 20 Respiratory Effort / Characteristics Respiratory Depth Blood Pressure 74/53 L 78/63 L Blood Pressure Mean 60 68 Pulse Oximetry 98 99 98 Oxygen Delivery Method Oxygen Flow Rate Sepsis Recent Fever Within 48 Hours Sepsis New/Unexplained Change in Mental Status Sepsis Action Taken by Nursing 01/30/21 22:27 01/30/21 22:30 01/30/21 22:31 Temperature Temperature Source Pulse Rate 122 H 121 H 120 H Pulse Rate [Right Radial] Pulse Rate from SpO2 Sensor 122 H 121 H 122 H Pulse Rhythm [Right Radial] Respiratory Rate 16 16 19 Respiratory Effort / Characteristics Respiratory Depth Blood Pressure 80/52 L Blood Pressure Mean 61 Pulse Oximetry 98 99 100 Oxygen Delivery Method Oxygen Flow Rate Sepsis Recent Fever Within 48 Hours Sepsis New/Unexplained Change in Mental Status Sepsis Action Taken by Nursing 01/30/21 22:45 01/30/21 22:46 01/30/21 23:00 Temperature Temperature Source Pulse Rate 116 H 126 H 112 H Pulse Rate [Right Radial] Pulse Rate from SpO2 Sensor 116 H 124 H 113 H Pulse Rhythm [Right Radial] Respiratory Rate 17 24 26 H Respiratory Effort / Characteristics Respiratory Depth Blood Pressure 75/54 L 68/56 L Blood Pressure Mean 61 60 Pulse Oximetry 96 95 94 Oxygen Delivery Method Oxygen Flow Rate Sepsis Recent Fever Within 48 Hours Sepsis New/Unexplained Change in Mental Status Sepsis Action Taken by Nursing 01/30/21 23:01 01/30/21 23:02 01/30/21 23:15 Temperature Temperature Source Pulse Rate 112 H 128 H 123 H Pulse Rate [Right Radial] Pulse Rate from SpO2 Sensor 113 H 129 H 127 H Pulse Rhythm [Right Radial] Respiratory Rate 23 19 18 Respiratory Effort / Characteristics Respiratory Depth Blood Pressure 78/62 L 97/60 L Blood Pressure Mean 67 72 Pulse Oximetry 94 95 92 Oxygen Delivery Method Oxygen Flow Rate Sepsis Recent Fever Within 48 Hours Sepsis New/Unexplained Change in Mental Status Sepsis Action Taken by Nursing 01/30/21 23:16 01/30/21 23:30 01/30/21 23:31 Temperature Temperature Source Pulse Rate 135 H 123 H 122 H Pulse Rate [Right Radial] Pulse Rate from SpO2 Sensor 136 H 123 H 122 H Pulse Rhythm [Right Radial] Respiratory Rate 18 17 16 Respiratory Effort / Characteristics Respiratory Depth Blood Pressure 80/60 L Blood Pressure Mean 66 Pulse Oximetry 92 91 91 Oxygen Delivery Method Oxygen Flow Rate Sepsis Recent Fever Within 48 Hours Sepsis New/Unexplained Change in Mental Status Sepsis Action Taken by Nursing 01/30/21 23:45 01/30/21 23:46 Temperature Temperature Source Pulse Rate 125 H 124 H Pulse Rate [Right Radial] Pulse Rate from SpO2 Sensor 124 H 124 H Pulse Rhythm [Right Radial] Respiratory Rate 17 16 Respiratory Effort / Characteristics Respiratory Depth Blood Pressure 79/58 L Blood Pressure Mean 65 Pulse Oximetry 90 91 Oxygen Delivery Method Oxygen Flow Rate Sepsis Recent Fever Within 48 Hours Sepsis New/Unexplained Change in Mental Status Sepsis Action Taken by Nursing Physical Exam GENERAL: Patient is ill-appearing. HENT: Exam performed. - Head: Normocephalic and atraumatic. - Right Ear: External ear normal. No mastoid tenderness. - Left Ear: External ear normal. No mastoid tenderness. - Mouth/Throat: The oropharynx is clear and moist. No trismus in the jaw. No dental abscesses or uvula swelling. No oropharyngeal exudate or tonsillar abscesses. EYES: Conjunctivae and EOM are normal. Pupils are equal, round, and reactive to light. Right eye exhibits no discharge. Left eye exhibits no discharge. No scleral icterus. NECK: Normal range of motion. Neck supple. No JVD present. No spinous process tenderness present. No carotid bruit present. No rigidity. No tracheal deviation and normal range of motion present. No Brudzinski's sign and no Kernig's sign noted. CV: Tachycardic rate, regular rhythm, normal heart sounds and intact distal pulses. There is no peripheral edema. Palpable radial pulses bue. PULM/CHEST: Rhonchi bilaterally. ABD: The abdomen is soft. MUSC/SKEL: Pelvis stable. LYMPH: No cervical adenopathy. NEURO: He is alert and oriented to person, place, and time. He has normal strength. No cranial nerve deficit or sensory deficit. Coordination and gait normal. GCS eye subscore is 4. GCS verbal subscore is 5. GCS motor subscore is 6. Cerebellar tests wnl. SKIN: Diffuse ecchymosis of the bilateral upper extremities. Course Course 2002: The patient was evaluated in room B3. A complete history and physical exam was performed Cardiac monitoring: An order was placed for continuous cardiac monitoring. The monitor shows a rate of 140 with sinus tachycardia rhythm Patient was found to be tachycardic and hypotensive. Sepsis protocols were initiated. 2100: Patient's blood pressure improved with IV fluids. Labs show magnesium of 0.8 and potassium of 2.8. Magnesium were replaced first in the emergency department and then potassium. X-ray shows right-sided pneumonia. Patient will be treated with cefepime and vancomycin for his severe sepsis. 2145: On arrival from CT scan the patient was found to have a 20 point differential and systolic blood pressures between his upper extremities. Left upper extremity has systolic blood pressure in the 90s and right upper extremity had a systolic blood pressure in the 70s. Patient has received 2 L of normal saline. There is concern with the patient's tachycardia hypotension and differential and the blood pressures the upper extremities to the patient could have dissection. Patient will be sent back to CT for rule out dissection. 2320: Imaging shows no dissection. Lactic acid is elevated at 4.3. Procalcitonin is elevated at 5.49. Bio fire negative. Urinalysis negative. Patient will be admitted to the [facility] Hospitalist team for sepsis antibiotic started. Patient has received 3 L IV fluid bolus and is starting on maintenance was 125 an hour. Discussed with [facility] hospitalist Dr. Chamberlain. [facility] ICU PA has been notified and will come down to evaluate the patient. Administered Medications Phenylephrine HCl 20 mg/ (Dextrose) 502 mls @ 56.927 mls/hr IV .Q8H50M [facility]; Protocol Stop: 03/01/21 23:14 Last Admin: 01/30/21 23:43 Dose: 0.5 mcg/kg/min, 56.9 mls/hr Documented by: Discontinued Medications Fentanyl Citrate (Fentanyl Citrate 100 Mcg/2 Ml Vial) 50 mcg IV NOW STA Stop: 01/30/21 20:41 Last Admin: 01/30/21 20:45 Dose: 50 mcg Documented by: [id number] Sodium Chloride (Nss 1000ml) 2,000 mls @ 999 mls/hr IV .Q2H1M ONE Stop: 01/30/21 22:04 Last Infusion: 01/30/21 22:38 Dose: 0 mls/hr Documented by: [id number] Admin: 01/30/21 20:09 Dose: 999 mls/hr Documented by: [id number] Magnesium Sulfate/Dextrose (Magnesium Sulfate / D5w) 1 gm in 100 mls @ 100 mls/hr IV Q1H MARAL Stop: 01/30/21 22:50 Last Infusion: 01/30/21 23:18 Dose: 0 mls/hr Documented by: [id number] Admin: 01/30/21 22:18 Dose: 100 mls/hr Documented by: [id number] Infusion: 01/30/21 22:00 Dose: 100 mls/hr Documented by: [id number] Admin: 01/30/21 21:00 Dose: 100 mls/hr Documented by: [id number] Cefepime HCl (Maxipime) 2,000 mg in 20 mls @ 5 mls/min IV NOW STA; Protocol Stop: 01/30/21 20:59 Last Admin: 01/30/21 21:41 Dose: 5 mls/min Documented by: [id number] Vancomycin HCl 2,000 mg/ (Sodium Chloride) 540 mls @ 200 mls/hr IV NOW ONE Stop: 01/30/21 23:37 Last Admin: 01/30/21 22:18 Dose: 200 mls/hr Documented by: [id number] Sodium Chloride (Nss 1000ml) 1,000 mls @ 125 mls/hr IV .Q8H MARAL Stop: 03/01/21 23:14 Last Admin: 01/30/21 23:10 Dose: 125 mls/hr Documented by: [id number] Ioversol (Optiray 350 500ml) 120 ml IV ONCE ONE Stop: 01/30/21 21:58 Last Admin: 01/30/21 22:01 Dose: 120 ml Documented by: [id number] Potassium Chloride (Potassium Chloride 10 Meq Tabcr) 40 meq PO NOW STA Stop: 01/30/21 20:52 Last Admin: 01/30/21 21:00 Dose: 40 meq Documented by: [id number] Critical Care Time Critical Care Time: Yes Total Critical Care Time: 120 I have personally spent greater than 120 minutes of critical care time in the direct management of this patient. This includes bedside care, interpretation of diagnostic studies, and testing, discussion with consultants, patient, and family members, and other required patient management activities. This 120 minutes is in excess of all separately billable procedures. Medical Decision Making Laboratory Data Result diagrams: 01/30/21 20:00 01/30/21 20:00 Lab Results 01/30/21 01/30/21 01/30/21 Range/Units 20:00 20:00 20:00 WBC 8.30 (4.8-10.8) K/uL RBC 5.41 (4.7-6.1) M/uL Hgb 16.8 (14.0-18.0) g/dL Hct 47.1 (42-52) % MCV 87.1 (80-100) fL MCH 31.1 (25-34) pg MCHC 35.7 (32-36) g/dL RDW Std Deviation 43.4 (36.4-46.3) fL RDW Coeff of Karen 13.7 (11.5-14.5) % Plt Count 219 (130-400) K/uL MPV 11.1 H (7.4-10.4) fL Immature Gran % (Auto) 0.2 % Neut % (Auto) 57.9 % Lymph % (Auto) 32.0 % [place] % (Auto) 8.2 % Eos % (Auto) 1.6 % Baso % (Auto) 0.1 % Neut # (Auto) 4.80 (1.4-6.5) K/uL Lymph # (Auto) 2.66 (1.2-3.4) K/uL [place] # (Auto) 0.68 H (0.11-0.59) K/uL Eos # (Auto) 0.13 (0-0.5) K/uL Baso # (Auto) 0.01 (0-0.2) K/uL Immature Gran # (Auto) 0.02 (0.00-0.02) K/uL PT 11.3 (9.0-12.0) Seconds INR 1.1 (0.9-1.1) APTT 26.8 (21.0-31.0) Seconds PTT Ratio 1.0 Sodium 141 (136-145) mmol/L Potassium 2.8 L (3.5-5.1) mmol/L Chloride 110 H (98-107) mmol/L Carbon Dioxide 24 (21-32) mmol/L Anion Gap 7.0 (3-11) BUN 14 (7-18) mg/dl Creatinine 1.13 (0.6-1.4) mg/dl Est Cr Clr Drug Dosing 67.3 ml/min Est GFR ( Amer) 78.6 Est GFR (Non-Af Amer) 67.8 BUN/Creatinine Ratio 12.7 (10-20) Glucose 144 H (70-99) mg/dl Lactate (0.4-2.0) mmol/L Calcium 8.6 (8.5-10.1) mg/dl Magnesium 0.8 L* (1.8-2.4) mg/dl Total Bilirubin 1.3 H (0.2-1) mg/dl AST 14 L (15-37) U/L ALT 18 (12-78) U/L Alkaline Phosphatase 90 (45-117) U/L Total Creatine Kinase 76 (39-308) U/L Troponin I 0.025 (0-0.045) ng/ml Total Protein 5.8 L (6.4-8.2) gm/dl Albumin 2.8 L (3.4-5.0) gm/dl Globulin 3.0 (2.5-4.0) gm/dl Albumin/Globulin Ratio 0.9 (0.9-2) Lipase 84 (73-393) U/L Procalcitonin (0-0.5) ng/ml Urine Color Urine Appearance (Clear) Urine pH (4.5-7.5) Ur Specific [place] (1.000-1.030) Urine Protein (Negative) Urine Glucose (UA) (Negative) Urine Ketones (Negative) Urine Blood (Negative) Urine Nitrite (Negative) Urine Bilirubin (Negative) Urine Urobilinogen (Negative) Ur Leukocyte Esterase (Negative) Urine WBC (Auto) (0-5) /hpf Urine RBC (Auto) (0-4) /hpf U Hyaline Cast (Auto) (0-5) /lpf U Epithel Cells (Auto) (0-5) /lpf Urine Bacteria (Auto) (Negative) Adenovirus (PCR) (NotDetected) B. pertussis DNA (PCR) (NotDetected) B.parapertussis DNA PCR (NotDetected) C. pneumoniae DNA (PCR) (NotDetected) Coronavirus OC43 (PCR) (NotDetected) Coronavirus HKU1 (PCR) (NotDetected) Coronavirus 229E (PCR) (NotDetected) COVID-19 Eval Order SARS-CoV-2 (PCR) (NotDetected) Coronavirus NL63 (PCR) (NotDetected) Human Metapneumovir PCR (NotDetected) Influenza Type A (PCR) (NotDetected) Influenza Type B (PCR) (NotDetected) M. pneumoniae (PCR) (NotDetected) Parainfluenza 1 (PCR) (NotDetected) Parainfluenza 2 (PCR) (NotDetected) Parainfluenza 3 (PCR) (NotDetected) Parainfluenza 4 (PCR) (NotDetected) RSV (PCR) (NotDetected) Entero/Rhino (PCR) (NotDetected) 01/30/21 01/30/21 01/30/21 Range/Units 20:00 20:27 20:30 WBC (4.8-10.8) K/uL RBC (4.7-6.1) M/uL Hgb (14.0-18.0) g/dL Hct (42-52) % MCV (80-100) fL MCH (25-34) pg MCHC (32-36) g/dL RDW Std Deviation (36.4-46.3) fL RDW Coeff of Karen (11.5-14.5) % Plt Count (130-400) K/uL MPV (7.4-10.4) fL Immature Gran % (Auto) % Neut % (Auto) % Lymph % (Auto) % [place] % (Auto) % Eos % (Auto) % Baso % (Auto) % Neut # (Auto) (1.4-6.5) K/uL Lymph # (Auto) (1.2-3.4) K/uL [place] # (Auto) (0.11-0.59) K/uL Eos # (Auto) (0-0.5) K/uL Baso # (Auto) (0-0.2) K/uL Immature Gran # (Auto) (0.00-0.02) K/uL PT (9.0-12.0) Seconds INR (0.9-1.1) APTT (21.0-31.0) Seconds PTT Ratio Sodium (136-145) mmol/L Potassium (3.5-5.1) mmol/L Chloride (98-107) mmol/L Carbon Dioxide (21-32) mmol/L Anion Gap (3-11) BUN (7-18) mg/dl Creatinine (0.6-1.4) mg/dl Est Cr Clr Drug Dosing ml/min Est GFR ( Amer) Est GFR (Non-Af Amer) BUN/Creatinine Ratio (10-20) Glucose (70-99) mg/dl Lactate 4.3 H* (0.4-2.0) mmol/L Calcium (8.5-10.1) mg/dl Magnesium (1.8-2.4) mg/dl Total Bilirubin (0.2-1) mg/dl AST (15-37) U/L ALT (12-78) U/L Alkaline Phosphatase (45-117) U/L Total Creatine Kinase (39-308) U/L Troponin I (0-0.045) ng/ml Total Protein (6.4-8.2) gm/dl Albumin (3.4-5.0) gm/dl Globulin (2.5-4.0) gm/dl Albumin/Globulin Ratio (0.9-2) Lipase (73-393) U/L Procalcitonin 5.49 H (0-0.5) ng/ml Urine Color Dark Yellow Urine Appearance Clear (Clear) Urine pH 6.0 (4.5-7.5) Ur Specific [place] 1.019 (1.000-1.030) Urine Protein Trace H (Negative) Urine Glucose (UA) Negative (Negative) Urine Ketones Negative (Negative) Urine Blood Negative (Negative) Urine Nitrite Negative (Negative) Urine Bilirubin Negative (Negative) Urine Urobilinogen Negative (Negative) Ur Leukocyte Esterase Negative (Negative) Urine WBC (Auto) 1-5 (0-5) /hpf Urine RBC (Auto) 0-4 (0-4) /hpf U Hyaline Cast (Auto) 1-5 (0-5) /lpf U Epithel Cells (Auto) 5-10 H (0-5) /lpf Urine Bacteria (Auto) Negative (Negative) Adenovirus (PCR) (NotDetected) B. pertussis DNA (PCR) (NotDetected) B.parapertussis DNA PCR (NotDetected) C. pneumoniae DNA (PCR) (NotDetected) Coronavirus OC43 (PCR) (NotDetected) Coronavirus HKU1 (PCR) (NotDetected) Coronavirus 229E (PCR) (NotDetected) COVID-19 Eval Order SARS-CoV-2 (PCR) (NotDetected) Coronavirus NL63 (PCR) (NotDetected) Human Metapneumovir PCR (NotDetected) Influenza Type A (PCR) (NotDetected) Influenza Type B (PCR) (NotDetected) M. pneumoniae (PCR) (NotDetected) Parainfluenza 1 (PCR) (NotDetected) Parainfluenza 2 (PCR) (NotDetected) Parainfluenza 3 (PCR) (NotDetected) Parainfluenza 4 (PCR) (NotDetected) RSV (PCR) (NotDetected) Entero/Rhino (PCR) (NotDetected) 01/30/21 01/30/21 01/30/21 Range/Units 20:30 20:30 22:53 WBC (4.8-10.8) K/uL RBC (4.7-6.1) M/uL Hgb (14.0-18.0) g/dL Hct (42-52) % MCV (80-100) fL MCH (25-34) pg MCHC (32-36) g/dL RDW Std Deviation (36.4-46.3) fL RDW Coeff of Karen (11.5-14.5) % Plt Count (130-400) K/uL MPV (7.4-10.4) fL Immature Gran % (Auto) % Neut % (Auto) % Lymph % (Auto) % [place] % (Auto) % Eos % (Auto) % Baso % (Auto) % Neut # (Auto) (1.4-6.5) K/uL Lymph # (Auto) (1.2-3.4) K/uL [place] # (Auto) (0.11-0.59) K/uL Eos # (Auto) (0-0.5) K/uL Baso # (Auto) (0-0.2) K/uL Immature Gran # (Auto) (0.00-0.02) K/uL PT (9.0-12.0) Seconds INR (0.9-1.1) APTT (21.0-31.0) Seconds PTT Ratio Sodium (136-145) mmol/L Potassium (3.5-5.1) mmol/L Chloride (98-107) mmol/L Carbon Dioxide (21-32) mmol/L Anion Gap (3-11) BUN (7-18) mg/dl Creatinine (0.6-1.4) mg/dl Est Cr Clr Drug Dosing ml/min Est GFR ( Amer) Est GFR (Non-Af Amer) BUN/Creatinine Ratio (10-20) Glucose (70-99) mg/dl Lactate 3.2 H* (0.4-2.0) mmol/L Calcium (8.5-10.1) mg/dl Magnesium (1.8-2.4) mg/dl Total Bilirubin (0.2-1) mg/dl AST (15-37) U/L ALT (12-78) U/L Alkaline Phosphatase (45-117) U/L Total Creatine Kinase (39-308) U/L Troponin I (0-0.045) ng/ml Total Protein (6.4-8.2) gm/dl Albumin (3.4-5.0) gm/dl Globulin (2.5-4.0) gm/dl Albumin/Globulin Ratio (0.9-2) Lipase (73-393) U/L Procalcitonin (0-0.5) ng/ml Urine Color Urine Appearance (Clear) Urine pH (4.5-7.5) Ur Specific [place] (1.000-1.030) Urine Protein (Negative) Urine Glucose (UA) (Negative) Urine Ketones (Negative) Urine Blood (Negative) Urine Nitrite (Negative) Urine Bilirubin (Negative) Urine Urobilinogen (Negative) Ur Leukocyte Esterase (Negative) Urine WBC (Auto) (0-5) /hpf Urine RBC (Auto) (0-4) /hpf U Hyaline Cast (Auto) (0-5) /lpf U Epithel Cells (Auto) (0-5) /lpf Urine Bacteria (Auto) (Negative) Adenovirus (PCR) Not Detected (NotDetected) B. pertussis DNA (PCR) Not Detected (NotDetected) B.parapertussis DNA PCR Not Detected (NotDetected) C. pneumoniae DNA (PCR) Not Detected (NotDetected) Coronavirus OC43 (PCR) Not Detected (NotDetected) Coronavirus HKU1 (PCR) Not Detected (NotDetected) Coronavirus 229E (PCR) Not Detected (NotDetected) COVID-19 Eval Order [facility] at [facility] SARS-CoV-2 (PCR) Not Detected (NotDetected) Coronavirus NL63 (PCR) Not Detected (NotDetected) Human Metapneumovir PCR Not Detected (NotDetected) Influenza Type A (PCR) Not Detected (NotDetected) Influenza Type B (PCR) Not Detected (NotDetected) M. pneumoniae (PCR) Not Detected (NotDetected) Parainfluenza 1 (PCR) Not Detected (NotDetected) Parainfluenza 2 (PCR) Not Detected (NotDetected) Parainfluenza 3 (PCR) Not Detected (NotDetected) Parainfluenza 4 (PCR) Not Detected (NotDetected) RSV (PCR) Not Detected (NotDetected) Entero/Rhino (PCR) Not Detected (NotDetected) Imaging Data Radiologist's Impression: Chest X-Ray 01/30/21 20:04 XR chest 1V portable HISTORY: 65 years-old Male SEPSIS acute sepsis COMPARISON: None TECHNIQUE: Portable AP view of the chest FINDINGS: Cardiomediastinal and hilar silhouettes are within normal limits. No pneumo thorax, pleural effusion or overt pulmonary edema. Ill-defined right lung base airspace opacities. The bones appear grossly intact. IMPRESSION: Right lung base opacities suggest pneumonia versus aspiration pneumonitis. ACT 112: Negative or not required by law. The above report was generated using voice recognition software. It may contain grammatical, syntax or spelling errors. Electronically signed by: Shukri Vera M.D. 01/30/2021 8:24 PM Preliminary Findings Only See Final Report For Complete Findings CT CHEST With Contrast: No pulmonary embolism. No acute aortic syndrome. Right lower lobe airspace opacity consistent with pneumonia. Radiologist: Ted Whittington MD Study ready at 22:21 and initial results transmitted at 22:25 Preliminary Findings Only See Final Report For Complete Findings CT HEAD: No ICH, mass effect or edema. No skull fracture. Partial mastoid effusions. Radiologist: Ted Whittington MD Study ready at 21:39 and initial results transmitted at 21:51 Preliminary Findings Only See Final Report For Complete Findings CT C SPINE: No acute fracture. C3-7 instrumented fusion and multilevel decompression without hardware complication. Radiologist: Ted Whittington MD Study ready at 21:49 and initial results transmitted at 21:54 Preliminary Findings Only See Final Report For Complete Findings CT ABDOMEN & PELVIS With Contrast: Airspace opacity in the right lower lobe most likely representing pneumonia. Somewhat groundglass appearance of this opacity and well demarcated border suggests that coronary infarct could have a similar appearance. Correlate clinically. No traumatic injury. Severe degenerative spondylosis in the lumbar spine. No acute abnormality along the GI tract. No free fluid, fluid collection, or free air. Radiologist: Ted Whittington MD Study ready at 21:40 and initial results transmitted at 21:56 ECG Data Additional Comments: EKG #1 in 1953: Sinus tachycardia with a rate of 157. VT and QTc intervals within normal limits. QRS 74. PVCs present. No ST elevation or ST depression. EKG #2 at 2151: Sinus tachycardia with rate of 138. VT and QTc intervals are within normal limits. QRS 74. No ST elevation or ST depression. MDM Narrative 2002: The patient was evaluated in room B3. A complete history and physical exam was performed Cardiac monitoring: An order was placed for continuous cardiac monitoring. The monitor shows a rate of 140 with sinus tachycardia rhythm Patient was found to be tachycardic and hypotensive. Sepsis protocols were initiated. 2100: Patient's blood pressure improved with IV fluids. Labs show magnesium of 0.8 and potassium of 2.8. Magnesium were replaced first in the emergency department and then potassium. X-ray shows right-sided pneumonia. Patient will be treated with cefepime and vancomycin for his severe sepsis. 5: On arrival from CT scan the patient was found to have a 20 point differential and systolic blood pressures between his upper extremities. Left upper extremity has systolic blood pressure in the 90s and right upper extremity had a systolic blood pressure in the 70s. Patient has received 2 L of normal saline. There is concern with the patient's tachycardia hypotension and differential and the blood pressures the upper extremities to the patient could have dissection. Patient will be sent back to CT for rule out dissection. 2320: Imaging shows no dissection. Lactic acid is elevated at 4.3. Procalcitonin is elevated at 5.49. Bio fire negative. Urinalysis negative. Patient will be admitted to the [facility]ist team for sepsis antibiotic started. Patient has received 3 L IV fluid bolus and is starting on maintenance was 125 an hour. Discussed with [facility] hospitalist Dr. Chamberlain. [facility] ICU PA has been notified and will come down to evaluate the patient. Impression & Plan Septic shock, Pneumonia Discharge Plan Visit Data Chief Complaint: Weakness ED Provider: Yosef Hughes Discharge Problem: Septic shock, Pneumonia Patient Disposition: Admitted As Inpatient Forms Stand Alone Forms: My [facility] Prescriptions Prescriptions: No Action sucralfate [Carafate] 1 gram tablet 1 g PO ACHS RF: 0 hydroxyzine HCl 50 mg tablet 75 - 100 mg PO HS PRN (Reason: sleep/anxiety) RF: 0 levothyroxine 75 mcg tablet 75 mcg PO DAILY RF: 0 tamsulosin [Flomax] 0.4 mg capsule 0.4 mg PO DAILY RF: 0 pantoprazole 40 mg Tablet,Delayed Release (Dr/Ec) 40 mg PO DAILY RF: 0 trazodone 150 mg tablet 150 mg PO HS RF: 0 albuterol sulfate 90 mcg/actuation HFA aerosol inhaler 2 inh INHALATION UD PRN (Reason: Shortness Of Breath Or Wheezing) RF: 0 ondansetron 4 mg Tablet,Disintegrating 4 mg PO Q8H PRN (Reason: Nausea) RF: 0 finasteride [Proscar] 5 mg tablet 5 mg PO DAILY RF: 0 dutasteride [Avodart] 0.5 mg capsule 0.5 mg PO HS RF: 0 pregabalin [Lyrica] 300 mg capsule 300 mg PO BID RF: 0 Anoro Ellipta 62.5-25 mcg/actuation blister with device 1 inh INHALATION UD RF: 0 Referrals Referrals: PCP,NO [Primary Care Provider] - Discharge Problem: Pneumonia Qualifiers: Pneumonia type: due to unspecified organism Laterality: right Lung location: lower lobe of lung Qualified Code(s): J18.9 - Pneumonia, unspecified organism
[2021-01-31] MEDS ORDERED: metroNIDAZOLE 500 MG/100 ML BAG IV SCH
[2021-01-31] MEDS ORDERED: VANCOMYCIN CONSULT ACTIVE PRN (00:32)
[2021-01-31] MEDS ORDERED: ICU PROTOCOL FOR HYPERGLYCEMIA PRN ×2 (00:32→21:54)
[2021-01-31] MEDS ORDERED: hydrOXYzine HCl 25 MG TAB PO PRN (00:32)
[2021-01-31] MEDS ORDERED: PIPERACILL/TAZOBAC CONSULT ACTIVE PRN (00:32)
[2021-01-31] MEDS ORDERED: PNEUMOCOCCAL POLYSACCHARIDES 25 MCG/0.5 ML VIAL/SYR IM ONE (00:54)
[2021-01-31] MEDS ORDERED: PNEUMOCOCCAL ADMINISTRATION CHARGE ONE (00:54)
--- NOTE | 2021-01-31 01:35 | Procedure Note ---
Procedure Note Date of Service January 31, 2021 Procedure: Internal Jugular Central Line Placement Attending: Dr. Do APC: Jared Tabor PA-C Indication: Central Drug Administration, Poor Venous Access, Multiple Lab Draws Necessary, etc. Anesthesia: Lidocaine 1% Emergent consent implied in the setting of actively decompensating patient requiring escalating doses of vasopressors as well as multiple drips with poor peripheral access and the patient with a history of IV drug abuse. Risks, benefits, and alternatives discussed the patient. He verbally consents to any/all procedures necessary. A time-out was completed verifying correct patient, procedure, site, positioning, and implants(s) or special equipment if applicable. Patients RIGHT Neck was cleansed and draped in the typical sterile fashion using Chloraprep. The Internal Jugular Vein and Carotid Artery were identified using ultrasound. The superficial tissue was anesthetized using 4.0 mL of 1% lidocaine without epinephrine under direct visualization with the ultrasound. After adequate anesthetization was achieved, the Internal Jugular vein was cannulated under dir ect ultrasound guidance using an introducer needle on a syringe. Good venous blood return was maintained prior to removal of syringe from introducer needle. Using Seldinger Technique, a guide wire was advanced through the introducer needle without resistance. The introducer needle was removed and ultrasound images were obtained of the guide wire within the Internal Jugular Vein and saved to the patients medical record. The dilator was advanced to the vessel without resistance. The dilator was exchanged for the triple lumen catheter which was advanced into the vessel without resistance. The guide wire was removed intact from the catheter without issue. Claves were placed on each catheter tip with confirmation of good blood flow from each lumen. Each port was easily flushed with sterile saline. The catheter was placed at 16 cm and sutured in place. BioPatch was applied to the catheter and a sterile Tegaderm dressing was applied over the catheter with careful attention to sterility. Pat ient tolerated procedure well. No immediate complications were met. Post procedure x-ray was completed, placement was appropriate and no pneumothorax was noted. Images obtained are saved for permanent record Procedural Ultrasound Guidance: Procedure Date: 01/31/2021 Indication: Pressors, Poor Peripheral Access, Frequent lab draws Attending: Dr. Do APC: Jared Tabor PA-C Artery AND Vein visualized: YES Compressible Vein: YES Guidewire or Short Catheter seen in vein prior to dilation: YES Line confirmed in Vein with ultrasound: YES Images obtained are saved for permanent record. Coding CPT Codes Tubes, Drains, and Vasc Access - Tubes, Drains, and Vasc Access: [id number] Insertion Of Non-tunneled Catheter Age 5 Yrs> ([id number]) Tubes, Drains, and Vasc Access - Tubes, Drains, and Vasc Access: [id number] Ultrasound Guidance For Vascular ([id number]) [facility] [place] Procedure Codes (Charges) Tubes, Drains, and Vasc Access Procedure 1: Tubes, Drains, and Vasc Access: [id number] Insertion Of Non-tunneled Catheter Age 5 Yrs> Procedure 2: Tubes, Drains, and Vasc Access: [id number] Ultrasound Guidance For Vascular
[2021-01-31] MEDS: NORMOSOL-R 1,000 ML IV SCH ×3 (01:40→06:07)
[2021-01-31] MEDS: POTASSIUM CHLORIDE / WTR 10 MEQ/100 ML PLCT IV SCH ×2 (01:52→02:46)
[2021-01-31] MEDS: FAMOTIDINE 20 MG in SYRINGE 3 ML IV SCH ×3 (01:54→21:05)
--- NOTE | 2021-01-31 01:55 | Procedure Note ---
Procedure Note Date of Service January 31, 2021 Procedure: Arterial Line Placement Attending: Dr. Do APC: Jared Tabor PA-C Indication: Monitoring on Pressors Anesthesia: Lidocaine 1% Emergent consent implied in the setting of actively decompensating patient requiring escalating doses of vasopressors as well as multiple drips with poor peripheral access and the patient with a history of IV drug abuse. Risks, benefits, and alternatives discussed the patient. He verbally consents to any/all procedures necessary. A time-out was completed verifying correct patient, procedure, site, positioning, and implant(s) or special equipment if applicable. Allens test was performed to ensure adequate perfusion. Patients RIGHT wrist was prepped and draped in the usual sterile fashion. Ultrasound guidance was used to aid needle placement. A 20g Arrow arterial line was introduced into the RIGHT Radial artery. Catheter was threaded, and the needle was removed with appropriate blood return. Good waveform was observed. The patient tolerated the procedure well. Confirmation of placement with ultrasound. Blood Loss: Minimal Complications: On initial attempt on the LEFT wrist, I was unable to thread catheter despite appropriate arterial blood return. Attempt was aborted as CVL was more necessary at the time. Procedural Ultrasound Guidance: Procedure Date: 01/31/2021 Indication: Pressors, Frequent labs, Poor peripheral access. Attending: Dr. Do APC: Jared Tabor PA-C Artery Identified: YES Line confirmed in Artery with ultrasound: YES Complications: NONE Patient tolerated procedure: WELL Coding CPT Codes Tubes, Drains, and Vasc Access - Tubes, Drains, and Vasc Access: [id number] Place Catheter In Artery ([id number]) [facility] [place] C[place] (Charges) Tubes, Drains, and Vasc Access Procedure 3: Tubes, Drains, and Vasc Access: [id number] Place Catheter In Artery
[2021-01-31] MEDS ORDERED: PIPERACILLIN/TAZOBACTAM 3.375 GM in DEXTROSE 5% 100 ML IV ONE (02:00)
[2021-01-31] MEDS: PREGABALIN 150 MG CAP PO SCH ×3 (02:07→21:13)
[2021-01-31] MEDS ORDERED: STAT IV Infusion **Titration per Protocol STA ×2 (02:36→11:06)
[2021-01-31] MEDS ORDERED: NOREPINEPHRINE/D5W 8 MG/508 ML IV ONE ×2 (02:40→18:04)
[2021-01-31] MEDS ORDERED: NOREPINEPHRINE/D5W 8 MG/508 ML BAG IV SCH (02:45)
[2021-01-31 02:48] LABS: iSTAT Arterial Blood Gas HCO3 16 meg/L (19-24); iSTAT Arterial Blood Gas pCO2 32 mmHg (35-46); iSTAT Arterial Blood Gas pO2 82 mmHg (80-95); iSTAT Carbon Dioxide 17 mmol/L (24-31)
[2021-01-31] MEDS ORDERED: NORMOSOL-R 1,000 ML IV ONE ×2 (03:26→03:30)
[2021-01-31] MEDS: PHENYLEPHRINE HCL 40 MG in DEXTROSE 5% 500 ML IV SCH ×4 (03:36→17:35)
[2021-01-31 05:28] LABS: INR 1.3 (0.9-1.1); Partial Thromboplastin Ratio 1.5; Partial Thromboplastin Time 40.4 Seconds (21.0-31.0); Prothrombin Time 13.1 Seconds (9.0-12.0)
[2021-01-31 05:43] LABS: Albumin Level 1.8 gm/dl (3.4-5.0); BUN Creatinine Ratio 16.1 (10-20); Calcium 6.5 mg/dl (8.5-10.1); Est GFR (African American) 91.1; Est GFR (Non-African American) 78.6; Magnesium 1.4 mg/dl (1.8-2.4); Potassium 3.9 mmol/L (3.5-5.1)
[2021-01-31 05:51] LABS: Albumin Globulin Ratio 0.8 (0.9-2); Globulin 2.3 gm/dl (2.5-4.0); Thyroid Stimulating Hormone 0.131 uIu/ml (0.300-4.500); Total Protein 4.1 gm/dl (6.4-8.2)
[2021-01-31 06:04] LABS: T4 Free Thyroxine 1.83 ng/dl (0.8-1.6)
[2021-01-31] MEDS ORDERED: POTASSIUM PHOS 3 MMOL/1 ML INFUSION IV STA (06:04)
[2021-01-31] MEDS: LEVOTHYROXINE SODIUM 75 MCG TABLET PO SCH (06:04)
[2021-01-31] MEDS ORDERED: CALCIUM GLUCONATE 10% 2,000 MG in SODIUM CHLORIDE 0.9% 50 ML IV ONE (06:04)
[2021-01-31] MEDS: PIPERACILLIN/TAZOBACTAM 3.375 GM in DEXTROSE 5% 100 ML IV SCH ×3 (06:04→21:07)
[2021-01-31 06:21] LABS: Basophils # (auto) 0.02 K/uL (0-0.2); Basophils % (auto) 0.4 %; Eosinophils # (auto) 0.07 K/uL (0-0.5); Eosinophils % (auto) 1.4 %; Hematocrit (blood only) 38.4 % (42-52); Hemoglobin 13.6 g/dL (14.0-18.0); Lymphocytes # (auto) 1.95 K/uL (1.2-3.4); Lymphocytes % (auto) 38.8 %; Mean Corpuscular Hemoglobin 30.4 pg (25-34); Mean Corpuscular Hgb Conc 35.4 g/dL (32-36); Mean Corpuscular Volume 85.9 fL (80-100); Mean Platelet Volume 11.1 fL (7.4-10.4); Monocytes # (auto) 0.38 K/uL (0.11-0.59); Monocytes % (auto) 7.6 %; Neutrophils # (auto) 2.61 K/uL (1.4-6.5); Neutrophils % (auto) 51.8 %; Platelet Count 190 K/uL (130-400); RDW Coefficient of Variation 13.7 % (11.5-14.5); Red Blood Count 4.47 M/uL (4.7-6.1); White Blood Count 5.03 K/uL (4.8-10.8)
[2021-01-31] MEDS: MAGNESIUM SULFATE / D5W 1 GM/100 ML BAG IV SCH ×2 (06:33→08:43)
[2021-01-31] MEDS: ALBUT/IPRATROP 3MG/0.5MG NEB 3 ML VIAL INH SCH ×4 (07:09→19:47)
[2021-01-31] MEDS ORDERED: POTASSIUM PHOSPHATE 24 MMOL in SODIUM CHLORIDE 0.9% 500 ML IV ONE (07:15)
--- NOTE | 2021-01-31 07:29 | CT Scan Report ---
CT head/brain wo con CLINICAL HISTORY: Pain status post trauma COMPARISON STUDY: No previous studies for comparison. TECHNIQUE: Axial CT of the brain is performed from the vertex to the skull base. IV contrast was not administered for this examination. A dose lowering technique was utilized adhering to the principles of ALARA. CT DOSE: FINDINGS: No intra or extra-axial mass lesions are visualized. There is no CT evidence of acute cortical infarc tion. There is no evidence of midline shift. There is no acute hemorrhage. No calvarial fractures ar e visualized. There are patchy white matter hypodensities likely on a small vessel basis. There is no evidence of pathologic ventricular dilatation. There are bilateral mastoid effusions right larger than left. IMPRESSION: No acute intracranial findings ACT 112: Negative or not required by law. Electronically signed by: Tramaine Jo M.D. 01/31/2021 7:28 AM
--- NOTE | 2021-01-31 07:45 | CT Scan Report ---
CT cervical spine wo con CLINICAL HISTORY: 65 years-old Male with fall. Acute head and neck injury status post fall COMPARISON: Head CT of same day TECHNIQUE: Multiple axial CT images of the cervical spine were obtained without contrast. A dose low ering technique was utilized adhering to the principles of ALARA. FINDINGS: Posterior interbody ananth and screw fusion hardware at 3-C7. Screws extend into facet articul ations bilaterally. Lucency surrounds the bilateral C7 screws. Discectomy changes at C3-C4 through C6 -C7. The disc spacer at the C6 and C7 interspace extends 3 mm anterior to the anterior cortex. There is partial incomplete bony fusion of the fused levels. Moderate disc space narrowing with vacuum disc phenomenon at C7-T1. Multilevel spondylitic spurring. No acute fracture or subluxation. Mid cervical dextroscoliosis. Small left and large right mastoid effusions. Metallic density foci are noted withi n the right neck and oral cavity distribution. Multilevel neural foraminal narrowing. Lung apices are clear. No pneumothorax. No prevertebral edema. IMPRESSION: 1. No acute fracture or subluxation. 2. Discectomy with posterior interbody ananth and screw fusion at C3-C7. Lucency surrounding the C7 pedi willem screws suggests loosening. The C6-C7 intervertebral disc spacer extend 3 mm volar to the anterior cortex. ACT 112: Negative or not required by law. The above report was generated using voice recognition software. It may contain grammatical, syntax o r spelling errors. Electronically signed by: Shukri Vera M.D. 01/31/2021 7:44 AM
[2021-01-31] MEDS: SUCRALFATE 1 GM TAB PO SCH ×4 (07:58→21:06)
[2021-01-31] MEDS: FINASTERIDE 5 MG TAB PO SCH (07:59)
[2021-01-31] MEDS: ENOXAPARIN INJ 30 MG/0.3 ML SYR SQ SCH (07:59)
[2021-01-31] MEDS: TAMSULOSIN HCL 0.4 MG CAP PO SCH (07:59)
[2021-01-31] MEDS: PANTOprazole 40 MG TAB PO SCH (07:59)
[2021-01-31] MEDS ORDERED: AVODART~ORDER AWAITING ACTION SCH (08:00)
--- NOTE | 2021-01-31 08:14 | CT Scan Report ---
CT SCAN OF THE ABDOMEN AND PELVIS WITHOUT CONTRAST CLINICAL HISTORY: Sepsis. Dysuria. Trauma. COMPARISON STUDY: No previous studies for comparison. TECHNIQUE: CT scan of the abdomen and pelvis was performed from the lung bases to the proximal femurs . Images are reviewed in the axial, sagittal, and coronal planes. IV contrast was not administered fo r this examination. A dose lowering technique was utilized adhering to the principles of ALARA. CT DOSE: 1617.94 mGy.cm FINDINGS: Lower chest: There are right lower lobe airspace opacities suspicious for pneumonia. Liver: The unenhanced liver is normal in size, contour, and attenuation. There is no intrahepatic elvi iary ductal dilatation. Gallbladder: Unremarkable. Spleen: Normal in size and attenuation. Pancreas: Unremarkable. Adrenal glands: Unremarkable. Kidneys: A punctate right renal calcifications likely vascular. No ureteral or bladder calculi are vi sualized. Bowel: There are no transition zones indicate bowel obstruction. There is no evidence of acute divert iculitis. The appendix appears normal. Peritoneum: There is no intraperitoneal free air or abdominal ascites. Vasculature: The abdominal aorta is normal in course and caliber. Adenopathy: None. Pelvic viscera: There is an indwelling Bhatti catheter. There is bladder wall thickening. There is art ifact From a total left hip arthroplasty Skeletal structures: There are postsurgical changes present within the lumbar spine. There are advanc ed arthritic changes present. There is discogenic endplate erosive change. There is retrolisthesis of L3 and L4 and L2 on L3. There is evidence for prior L1 vertebroplasty. There is a spinal catheter pr esent. IMPRESSION: 1. Right lower lobe pulmonary airspace opacity suspicious for pneumonia 2. No evidence of bowel obstruction. No evidence of free air 3. Normal appendix. No evidence of acute diverticulitis 4. No renal, ureteral, or bladder calculi identified 5. Bladder wall thickening. Indwelling Bhatti catheter ACT 112: Negative or not required by law. Electronically signed by: Tramaine Jo M.D. 01/31/2021 8:13 AM
--- NOTE | 2021-01-31 08:28 | CT Scan Report ---
CT angiography OF THE CHEST WITHOUT AND WITH IV CONTRAST CLINICAL HISTORY: Atypical chest pain. Possible dissection COMPARISON STUDY: No previous studies for comparison. TECHNIQUE: Noncontrast images were obtained through the thorax. Following the IV administration of 12 0 mL of Optiray, CT angiography of the thorax was performed from the thoracic inlet to the lung bases . MIP images were acquired. Images are reviewed in the axial, sagittal, and coronal planes. IV contra st was administered without complication. A dose lowering technique was utilized adhering to the monie sergei of LUANNE. CT DOSE: 624.35 mGy.cm FINDINGS: Thyroid: Imaged portions of the thyroid gland are normal in appearance. Thoracic aorta: Noncontrast images reveal no evidence of acute thoracic hematoma. Postcontrast images reveal atheromatous changes within the thoracic aorta. There is no evidence of dissection. Pulmonary vasculature: The pulmonary trunk is normal in caliber. There are no central filling defects identified to suggest pulmonary embolus. Note that this examination was not protocoled for the evalu ation of pulmonary emboli. HEART: There are coronary artery calcifications. There is no significant pericardial effusion. Lungs and pleural spaces: There are no pleural effusions. There is dense consolidation of the right l ower lobe consistent with a pneumonia. There is a small right pleural effusion. Mediastinum: There is no evidence of pathologic mediastinal lymphadenopathy. Shannan: There is no evidence of pathologic hilar adenopathy. Axilla: There is no is a pathologic axillary lymphadenopathy. Upper abdomen: Partially visualized upper abdominal viscera is within normal limits. Skeletal structures: There are no lytic or blastic osseous lesions. IMPRESSION: 1. No evidence of thoracic aortic aneurysm or dissection 2. No evidence of acute pulmonary embolism 3. Right lower lobe pulmonary consolidation consistent with pneumonia. Radiographic follow-up recomme nded 4. Small right pleural effusion ACT 112: Negative or not required by law. Electronically signed by: Tramaine Jo M.D. 01/31/2021 8:27 AM
--- NOTE | 2021-01-31 08:40 | XRay Report ---
XR chest 1V portable CLINICAL HISTORY: Chest x-ray status post central line placement COMPARISON STUDY: 01/30/2021 FINDINGS: The heart is the upper limits of normal in size. There is been interval placement of a righ t internal jugular central venous catheter. The tip projects over the superior vena cava. There is no pneumothorax. There is radiographic evidence of mild congestive failure/fluid overload. There is a s ubpulmonic right pleural effusion. There are right basilar airspace opacities consistent with pneumon ia or asymmetric edema.[ IMPRESSION: 1. No evidence of pneumothorax status post placement of a right internal jugular central venous sree ter 2. Mild pulmonary vascular congestion with a small right pleural effusion 3. Right lower lung zone airspace opacities consistent with pneumonia, or asymmetric edema. ACT 112: Negative or not required by law. Electronically signed by: Tramaine Jo M.D. 01/31/2021 8:39 AM
[2021-01-31] MEDS: Double Conc 32mcg/mL; 16mg in 500mL IV SCH ×3 (09:04→22:09)
--- NOTE | 2021-01-31 09:39 | XCELERA ---
[id number] \\[id number]
[2021-01-31] MEDS: VANCOMYCIN HCL 1,000 MG in SODIUM CHLORIDE 0.9% 250 ML IV SCH ×2 (10:21→21:06)
--- NOTE | 2021-01-31 11:08 | Pharmacy Report ---
Pharmacy Abx Dose Short Note - Date of Service January 31, 2021 - Assessment & Plan Assessment 65 year presenting with hypotension, tachycardia. Chest xray concerning for lower lobe infiltrate. PMHx significant for COPD, prior hx of IV drug abuse, daily marijuana use. Per notes, patient's currently admitted at OSH for pneumonia. Started on zosyn and vancomycin empirically. Plan Vancomycin * Received loading dose of vancomycin 2000 mg x 1 last evening * Started on vanco 1 gm iv q 12 hrs based upon vancomycin AUC nomogram dosing * Trough level ordered for tomorrow AM * Blood cultures with Gm positive cocci - likely can deescalate once finalized. MRSA swab negative Zosyn * 3.375 gm iv q 8 hr - continue same Pharmacy will continue to follow and will adjust dose/frequency as necessary. Thank you.
--- NOTE | 2021-01-31 11:12 | Critical Care Progress Note ---
Date of Service January 31, 2021 Assessment & Plan (1) Admitted to intensive care unit: Reason Critically Ill: 65-year-old male with severe sepsis with septic shock secondary to RIGHT lower lobe pneumonia requiring close hemodynamic monitoring with addition of vasopressor support in the setting of active extremities. NEURO - * CAM ICU: NEGATIVE * CT Head/Brain w/o acute findings. * Chronic Pain/Anxiety/Depression: * Continue home Rx as tolerated. * Marijuana abuse. CARDIAC/VASCULAR - * Septic shock. Maintain mean arterial pressures above 65. Echo reviewed with a normal LVEF. We will hold on fluid administration at this time. We will titrate titrate phenylephrine off and add vasopressin to help wean down the Levophed. Patient continues to have significant sinus tachycardia. Will consider the addition of esmolol. Adding hydrocortisone for stress dose steroids. RESPIRATORY - * RLL Pneumonia: * Likely aspiration pneumonia. * Antibiotics broadened to cover anaerobes. * Requiring supplemental O2 currently. * Patient is a vasculopath and I question accuracy of BP/SaO2 monitoring cur rently. Will check ABG. * Goal SaO2 90% * Low threshold for intubation. GI/NUTRITION - * NPO while requiring high dose pressors. * Prophylaxis: Famotidine RENAL/LYTES - * Hypokalemia/Hypomagnesemia: * Replaced in the ED. * Will monitor closely, replace as needed. * Hypovolemia: * Trend CVP for IVF resuscitation. * IVF: We will hold fluids as the patient is becoming hypoxic and has an increased work of breathing. - * Bhatti in place - Strict I&Os. ENDO - * Hypothyroidism * Check TSH/Free T4 levels. HEME - * Stable H&H ID - * Severe sepsis w/ septic shock 2/ RLL Pneumonia: * Blood cultures growing gram-positive cocci. Continue vancomycin and Zosyn. MRSA screen from the blood cultures pending. LINES/IV ACCESS - * PIVs x2 * RIGHT IJ CVL * LEFT Radial Art Line * Bhatti DVT PROPHYLAXIS - * Lovenox * SCDs I have personally spent 40 minutes of critical care time in the direct management of this patient. This is a life/limb threatening event. This includes time spent evaluating patient, direct bedside care, chart review, placing orders, interpretation of diagnostic studies, discussion with consultants, patient, and family members, as well as other required patient management activities. This time is exclusive of all separately billable procedures, and teaching time and separate from and in addition to any other critical care service time. Thank you for allowing us to participate in the care of this patient. Please refer to my attending physician's documentation for any further recommendations. (2) Septic shock: (3) Pneumonia: (4) Right lower lobe pneumonia: (5) Anxiety with depression: (6) Insomnia: (7) COPD (chronic obstructive pulmonary disease): (8) BPH w urinary obs/LUTS: (9) Hypothyroid: (10) GERD (gastroesophageal reflux disease): Admission and Anticipated Discharge Date Admission Date: January 30, 2021 Subjective Patient seen and examined. He is delirious at times but follows simple commands. Falls asleep easily. He is currently on 7 L of oxygen via oxygen mask. He is requiring high doses of norepinephrine and phenylephrine. He has received approximately 5 L of fluid since hospital admission. Review of Systems Review of Systems: All systems reviewed & are unremarkable except as noted in HPI & below Physical Exam Physical Exam: VITAL SIGNS - Vital signs and nursing notes were reviewed. GENERAL - 65-year-old male appearing his stated age who is in no acute distress. Communicates well with provider and answers questions appropriately. SKIN - Diffuse areas of ecchymosis noted. HEAD - NC/AT. EYES - PERRL with EOMI bilaterally. Sclera anicteric. EARS - No deformities of external structures noted on gross examination bilaterally. NOSE - Midline and without cyanosis. MOUTH/OROPHARYNX - Without perioral cyanosis. Buccal mucosa pink and dry. NECK - Neck with FROM. Supple to palpation. No lymphadenopathy noted. No nuchal rigidity. LUNGS - Chest wall symmetric without accessory muscle use, intercostals retractions, or central cyanosis. Normal vesicular breath sounds CTA B/L. CARDIAC - RRR with S1/S2. No murmur, rubs, or gallops appreciated. ABDOMEN - Abdominal contour flat without pulsations or visible masses. BS normoactive all four quadrants. No tenderness, palpable masses, hepatosplenomegaly, or ascites noted. EXTREMITIES - No clubbing or peripheral cyanosis. No pretibial edema present. +3/5 radial pulses palpated throughout. +5/5 strength noted in UE/LE bilaterally. NEUROLOGIC - Cranial nerves II through XII grossly intact. Sensory intact to light touch throughout. PSYCH - A&Ox3 and cooperates fully with examiner. Pt is very pleasant and interacts well with examiner. Results & Data Results & Data ([facility]) Vital Signs (Past 12 Hours) Vital Signs Temp Pulse Pulse Pulse Resp BP BP 01/31/21 09:00 118 H 16 91/67 L 01/31/21 08:00 104 H 19 100/63 01/31/21 07:10 113 H 18 01/31/21 07:00 101 H 25 H 93/67 L 01/31/21 06:15 118 H 21 75/57 L 01/31/21 06:10 117 H 23 86/65 L 01/31/21 06:05 103 H 12 102/60 01/31/21 06:00 105 H 13 88/57 L 01/31/21 05:55 106 H 18 105/68 01/31/21 05:50 104 H 7 L 84/54 L 01/31/21 05:45 104 H 21 96/53 L 01/31/21 05:40 112 H 10 L 85/58 L 01/31/21 05:35 101 H 12 93/58 L 01/31/21 05:30 120 H 15 77/66 L 01/31/21 05:25 113 H 11 L 77/38 L 01/31/21 05:20 109 H 19 77/57 L 01/31/21 05:15 109 H 17 88/62 L 01/31/21 05:10 116 H 23 84/62 L 01/31/21 05:05 119 H 27 H 88/66 L 01/31/21 05:00 116 H 16 99/63 L 01/31/21 04:55 102 H 15 79/54 L 01/31/21 04:46 111 H 14 01/31/21 04:45 108 H 17 89/53 L 01/31/21 04:40 105 H 22 82/54 L 01/31/21 04:35 107 H 16 103/77 01/31/21 04:30 100 H 14 93/66 L 01/31/21 04:25 101 H 13 90/61 L 01/31/21 04:20 102 H 23 102/65 01/31/21 04:15 101 H 12 95/66 L 01/31/21 04:00 97.3 F L 106 H 20 118/71 01/31/21 03:55 99 H 32 H 99/64 L 01/31/21 03:50 98 H 17 95/64 L 01/31/21 03:46 101 H 10 L 01/31/21 03:45 95 H 8 L 100/63 01/31/21 03:40 98 H 9 L 93/60 L 01/31/21 03:34 108 H 15 88/59 L 01/31/21 03:30 104 H 16 75/58 L 01/31/21 03:25 103 H 11 L 81/54 L 01/31/21 03:19 105 H 18 72/53 L 01/31/21 03:15 100 H 14 77/64 L 01/31/21 03:09 106 H 10 L 78/57 L 01/31/21 03:04 105 H 31 H 89/58 L 01/31/21 02:59 105 H 17 77/56 L 01/31/21 02:54 105 H 21 80/58 L 01/31/21 02:49 106 H 14 73/54 L 01/31/21 02:44 110 H 19 63/53 L 01/31/21 02:39 105 H 20 68/53 L 01/31/21 02:34 106 H 18 76/54 L 01/31/21 02:29 109 H 20 81/55 L 01/31/21 02:24 116 H 17 89/64 L 01/31/21 02:20 121 H 21 84/63 L 01/31/21 02:16 118 H 22 87/57 L 01/31/21 02:15 119 H 33 H 01/31/21 02:09 124 H 18 85/53 L 01/31/21 01:54 117 H 25 H 77/57 L 01/31/21 01:44 122 H 18 84/64 L 01/31/21 01:40 125 H 16 71/53 L 01/31/21 01:35 122 H 37 H 108/71 01/31/21 01:29 118 H 22 90/57 L 01/31/21 01:24 119 H 24 78/57 L 01/31/21 01:19 120 H 33 H 82/56 L 01/31/21 01:15 124 H 24 73/57 L 01/31/21 01:09 131 H 26 H 89/62 L 01/31/21 01:04 121 H 21 84/62 L 01/31/21 00:59 121 H 24 85/58 L 01/31/21 00:54 126 H 20 101/76 01/31/21 00:50 131 H 25 H 85/60 L 01/31/21 00:48 97.3 F L 139 H 22 67/51 L 01/31/21 00:47 126 H 27 H 84/61 L 01/31/21 00:45 132 H 22 01/30/21 23:46 124 H 16 01/30/21 23:45 125 H 17 79/58 L 01/30/21 23:31 122 H 16 01/30/21 23:30 123 H 17 80/60 L 01/30/21 23:16 135 H 18 01/30/21 23:15 123 H 18 97/60 L Pulse Ox 01/31/21 09:00 91 01/31/21 08:00 92 01/31/21 07:10 92 01/31/21 07:00 91 01/31/21 06:15 93 01/31/21 06:10 94 01/31/21 06:05 01/31/21 06:00 01/31/21 05:55 01/31/21 05:50 01/31/21 05:45 01/31/21 05:40 93 01/31/21 05:35 01/31/21 05:30 94 01/31/21 05:25 01/31/21 05:20 01/31/21 05:15 01/31/21 05:10 01/31/21 05:05 01/31/21 05:00 01/31/21 04:55 01/31/21 04:46 92 01/31/21 04:45 92 01/31/21 04:40 91 01/31/21 04:35 90 01/31/21 04:30 95 01/31/21 04:25 93 01/31/21 04:20 01/31/21 04:15 01/31/21 04:00 01/31/21 03:55 01/31/21 03:50 01/31/21 03:46 94 01/31/21 03:45 93 01/31/21 03:40 93 01/31/21 03:34 93 01/31/21 03:30 93 01/31/21 03:25 93 01/31/21 03:19 94 01/31/21 03:15 92 01/31/21 03:09 93 01/31/21 03:04 93 01/31/21 02:59 95 01/31/21 02:54 94 01/31/21 02:49 97 01/31/21 02:44 96 01/31/21 02:39 94 01/31/21 02:34 94 01/31/21 02:29 85 L 01/31/21 02:24 94 01/31/21 02:20 92 01/31/21 02:16 92 01/31/21 02:15 91 01/31/21 02:09 01/31/21 01:54 01/31/21 01:44 94 01/31/21 01:40 95 01/31/21 01:35 92 01/31/21 01:29 97 01/31/21 01:24 01/31/21 01:19 01/31/21 01:15 01/31/21 01:09 93 01/31/21 01:04 94 01/31/21 00:59 01/31/21 00:54 97 01/31/21 00:50 97 01/31/21 00:48 89 L 01/31/21 00:47 90 01/31/21 00:45 01/30/21 23:46 91 01/30/21 23:45 90 01/30/21 23:31 91 01/30/21 23:30 91 01/30/21 23:16 92 01/30/21 23:15 92 vital signs, labs and imaging reviewed. CT chest with evidence of significant right-sided infiltrate. Coding Level of Care Code Critical Care 1st 30-74 mins Diagnoses Admitted to intensive care unit Z78.9 Septic shock A41.9; R65.21 Pneumonia J18.9 Laterality: right Lung location: lower lobe of lung Pneumonia type: due to unspecified organism Right lower lobe pneumonia J18.9 Anxiety with depression F41.8 Insomnia G47.00 COPD (chronic obstructive pulmonary disease) J44.9 BPH w urinary obs/LUTS N40.1; N13.8 Hypothyroid E03.9 GERD (gastroesophageal reflux disease) K21.9 Time Spent (min) 40 (1) Pneumonia Laterality: right Lung location: lower lobe of lung Pneumonia type: due to unspecified organism Qualified Code(s): J18.9 - Pneumonia, unspecified organism
[2021-01-31] MEDS: VASOPRESSIN 20 UNITS in 0.9 % SODIUM CHLORIDE 100 ML IV SCH ×2 (11:37→17:06)
[2021-01-31] MEDS: HYDROCORTISONE SOD 50 MG in SYRINGE 0 ML IV SCH ×3 (11:38→23:29)
--- NOTE | 2021-01-31 12:08 | Hospitalist Progress Note ---
Date of Service January 31, 2021 Assessment & Plan (1) Right lower lobe pneumonia: 65-year-old male with a past medical history including BPH with LUTS, hypothyroidism, GERD, anxiety, insomnia and COPD presents with generalized weakness admitted with severe sepsis with septic shock secondary to RLL PNA requiring close hemodynamic monitoring with addition of vasopressor support. 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 MRSA screen pending -Vancomycin IV per pharmacokinetic monitoring, Zosyn 4.5 g IV every 8 hours for anaerobes -Duonebs every 4 hours while awake and every 2 hours when necessary. -Nasal cannula oxygen, titrate to keep pulse ox 94 to 95%. Wean as tolerated -Pressor support norepinephrine/phenylephrine per protocol -Echo reviewed with a normal LVEF GERD -Pantoprazole 40 mg p.o. daily -Famotidine 20 mg IV every 12 hours Hypothyroidism Continue levothyroxine 75 mcg daily BPH w urinary obs/LUTS: -Continue tamsulosin, dutasteride and finasteride Anxiety with depression/insomnia -Continue pregabalin, trazodone and as needed hydroxyzine Hypokalemia/Hypomagnesemia/Hypophosphatemia -trend daily and replete as needed FEN/GI: HH Diet DVT PROPHYLAXIS: Lovenox, SCDs CODE STATUS: Full Code Dispo: Remains in ICU Admission and Anticipated Discharge Date Admission Date: January 30, 2021 Supervising Physician Co-Signing Physician Notes I personally examined the patient and verified all silver points of history and exam, discussed case, and agree with decision making with Dr Reid no HPI or ROS vitals noted in bed on oxygen mask on multiple drips. Breathing unlabored at the time I see him. No focal neuro deficits at rest. Severe community-acquired pneumonia with sepsis/septic shock present on admissioncontinue antibiotics, supportive care, ICU level care. Otherwise as above Subjective Seen at bedside, no acute overnight events. Pt falls asleep easily, subjective somewhat limited. Able to follow commands. On 6 L oxymask. Still requiring high doses of norepinephrine and phenylephrine. No other acute concerns or complaints. Review of Systems Review of Systems: All systems reviewed & are unremarkable except as noted in HPI & below Physical Exam Constitutional: WD/WN, vitals as above Eyes: PERRL, conjunctivae normal, anicteric sclerae ENMT: external ear and nose normal, oropharynx normal Respiratory: normal respiratory effort; no respiratory distress and no labored breathing Auscultation: + lungs not clear to auscultation (coarse b/l) Cardiovascular: Rate/Rhythm: regular rhythm and + tachycardic Gastrointestinal (Abdomen): normal bowel sounds, soft, nontender, no hepatosplenomegaly Skin: no rashes, warm and dry Psychiatric: A+Ox3, euthymic affect Results & Data Results & Data ([facility]) Vital Signs (Past 12 Hours) Vital Signs Temp Pulse Pulse Pulse Resp BP BP 01/31/21 11:00 132 H 17 88/56 L 01/31/21 10:00 117 H 21 99/61 L 01/31/21 09:00 118 H 16 91/67 L 01/31/21 08:00 104 H 19 100/63 01/31/21 07:10 113 H 18 01/31/21 07:00 101 H 25 H 93/67 L 01/31/21 06:15 118 H 21 75/57 L 01/31/21 06:10 117 H 23 86/65 L 01/31/21 06:05 103 H 12 102/60 01/31/21 06:00 105 H 13 88/57 L 01/31/21 05:55 106 H 18 105/68 01/31/21 05:50 104 H 7 L 84/54 L 01/31/21 05:45 104 H 21 96/53 L 01/31/21 05:40 112 H 10 L 85/58 L 01/31/21 05:35 101 H 12 93/58 L 01/31/21 05:30 120 H 15 77/66 L 01/31/21 05:25 113 H 11 L 77/38 L 01/31/21 05:20 109 H 19 77/57 L 01/31/21 05:15 109 H 17 88/62 L 01/31/21 05:10 116 H 23 84/62 L 01/31/21 05:05 119 H 27 H 88/66 L 01/31/21 05:00 116 H 16 99/63 L 01/31/21 04:55 102 H 15 79/54 L 01/31/21 04:46 111 H 14 01/31/21 04:45 108 H 17 89/53 L 01/31/21 04:40 105 H 22 82/54 L 01/31/21 04:35 107 H 16 103/77 01/31/21 04:30 100 H 14 93/66 L 01/31/21 04:25 101 H 13 90/61 L 01/31/21 04:20 102 H 23 102/65 01/31/21 04:15 101 H 12 95/66 L 01/31/21 04:00 36.3 C L 106 H 20 118/71 01/31/21 03:55 99 H 32 H 99/64 L 01/31/21 03:50 98 H 17 95/64 L 01/31/21 03:46 101 H 10 L 01/31/21 03:45 95 H 8 L 100/63 01/31/21 03:40 98 H 9 L 93/60 L 01/31/21 03:34 108 H 15 88/59 L 01/31/21 03:30 104 H 16 75/58 L 01/31/21 03:25 103 H 11 L 81/54 L 01/31/21 03:19 105 H 18 72/53 L 01/31/21 03:15 100 H 14 77/64 L 01/31/21 03:09 106 H 10 L 78/57 L 01/31/21 03:04 105 H 31 H 89/58 L 01/31/21 02:59 105 H 17 77/56 L 01/31/21 02:54 105 H 21 80/58 L 01/31/21 02:49 106 H 14 73/54 L 01/31/21 02:44 110 H 19 63/53 L 01/31/21 02:39 105 H 20 68/53 L 01/31/21 02:34 106 H 18 76/54 L 01/31/21 02:29 109 H 20 81/55 L 01/31/21 02:24 116 H 17 89/64 L 01/31/21 02:20 121 H 21 84/63 L 01/31/21 02:16 118 H 22 87/57 L 01/31/21 02:15 119 H 33 H 01/31/21 02:09 124 H 18 85/53 L 01/31/21 01:54 117 H 25 H 77/57 L 01/31/21 01:44 122 H 18 84/64 L 01/31/21 01:40 125 H 16 71/53 L 01/31/21 01:35 122 H 37 H 108/71 01/31/21 01:29 118 H 22 90/57 L 01/31/21 01:24 119 H 24 78/57 L 01/31/21 01:19 120 H 33 H 82/56 L 01/31/21 01:15 124 H 24 73/57 L 01/31/21 01:09 131 H 26 H 89/62 L 01/31/21 01:04 121 H 21 84/62 L 01/31/21 00:59 121 H 24 85/58 L 01/31/21 00:54 126 H 20 101/76 01/31/21 00:50 131 H 25 H 85/60 L 01/31/21 00:48 36.3 C L 139 H 22 67/51 L 01/31/21 00:47 126 H 27 H 84/61 L 01/31/21 00:45 132 H 22 Pulse Ox 01/31/21 11:00 91 01/31/21 10:00 01/31/21 09:00 01/31/21 08:00 92 01/31/21 07:10 92 01/31/21 07:00 91 01/31/21 06:15 93 01/31/21 06:10 94 01/31/21 06:05 01/31/21 06:00 01/31/21 05:55 01/31/21 05:50 01/31/21 05:45 01/31/21 05:40 01/31/21 05:35 01/31/21 05:30 01/31/21 05:25 94 01/31/21 05:20 01/31/21 05:15 01/31/21 05:10 01/31/21 05:05 01/31/21 05:00 01/31/21 04:55 01/31/21 04:46 01/31/21 04:45 01/31/21 04:40 91 01/31/21 04:35 90 01/31/21 04:30 95 01/31/21 04:25 93 01/31/21 04:20 93 01/31/21 04:15 01/31/21 04:00 92 01/31/21 03:55 93 01/31/21 03:50 92 01/31/21 03:46 94 01/31/21 03:45 93 01/31/21 03:40 93 01/31/21 03:34 93 01/31/21 03:30 93 01/31/21 03:25 93 01/31/21 03:19 94 01/31/21 03:15 92 01/31/21 03:09 93 01/31/21 03:04 93 01/31/21 02:59 95 01/31/21 02:54 94 01/31/21 02:49 97 01/31/21 02:44 96 01/31/21 02:39 94 01/31/21 02:34 94 01/31/21 02:29 85 L 01/31/21 02:24 94 01/31/21 02:20 92 01/31/21 02:16 92 01/31/21 02:15 91 01/31/21 02:09 01/31/21 01:54 01/31/21 01:44 94 01/31/21 01:40 95 01/31/21 01:35 92 01/31/21 01:29 97 01/31/21 01:24 01/31/21 01:19 01/31/21 01:15 01/31/21 01:09 93 01/31/21 01:04 94 01/31/21 00:59 01/31/21 00:54 97 01/31/21 00:50 97 01/31/21 00:48 89 L 01/31/21 00:47 90 01/31/21 00:45 Laboratory Results Laboratory Results - last 24 hr 01/30/21 01/30/21 01/30/21 20:00 20:00 20:00 WBC 8.30 RBC 5.41 Hgb 16.8 Hct 47.1 MCV 87.1 MCH 31.1 MCHC 35.7 RDW Std Deviation 43.4 RDW Coeff of Karen 13.7 Plt Count 219 MPV 11.1 H Immature Gran % (Auto) 0.2 Neut % (Auto) 57.9 Lymph % (Auto) 32.0 Thayer % (Auto) 8.2 Eos % (Auto) 1.6 Baso % (Auto) 0.1 Neut # (Auto) 4.80 Lymph # (Auto) 2.66 Thayer # (Auto) 0.68 H Eos # (Auto) 0.13 Baso # (Auto) 0.01 Immature Gran # (Auto) 0.02 PT 11.3 INR 1.1 APTT 26.8 PTT Ratio 1.0 POC pH POC pCO2 POC pO2 POC HCO3 POC Total CO2 POC Base Excess POC ABG O2 Sat Sodium 141 Potassium 2.8 L Chloride 110 H Carbon Dioxide 24 Anion Gap 7.0 BUN 14 Creatinine 1.13 Est Cr Clr Drug Dosing 67.3 Est GFR ( Amer) 78.6 Est GFR (Non-Af Amer) 67.8 BUN/Creatinine Ratio 12.7 Glucose 144 H Lactate Calcium 8.6 Phosphorus Magnesium 0.8 L* Total Bilirubin 1.3 H AST 14 L ALT 18 Alkaline Phosphatase 90 Total Creatine Kinase 76 Troponin I 0.025 Total Protein 5.8 L Albumin 2.8 L Globulin 3.0 Albumin/Globulin Ratio 0.9 Lipase 84 Procalcitonin TSH Free T4 Random Cortisol Urine Color Urine Appearance Urine pH Ur Specific Thayer Urine Protein Urine Glucose (UA) Urine Ketones Urine Blood Urine Nitrite Urine Bilirubin Urine Urobilinogen Ur Leukocyte Esterase Urine WBC (Auto) Urine RBC (Auto) U Hyaline Cast (Auto) U Epithel Cells (Auto) Urine Bacteria (Auto) Nasal Screen MRSA (PCR) Adenovirus (PCR) B. pertussis DNA (PCR) B.parapertussis DNA PCR C. pneumoniae DNA (PCR) Coronavirus OC43 (PCR) Coronavirus HKU1 (PCR) Coronavirus 229E (PCR) COVID-19 Eval Order SARS-CoV-2 (PCR) Coronavirus NL63 (PCR) Human Metapneumovir PCR Influenza Type A (PCR) Influenza Type B (PCR) M. pneumoniae (PCR) Parainfluenza 1 (PCR) Parainfluenza 2 (PCR) Parainfluenza 3 (PCR) Parainfluenza 4 (PCR) RSV (PCR) Entero/Rhino (PCR) 01/30/21 01/30/21 01/30/21 20:00 20:27 20:30 WBC RBC Hgb Hct MCV MCH MCHC RDW Std Deviation RDW Coeff of Karen Plt Count MPV Immature Gran % (Auto) Neut % (Auto) Lymph % (Auto) Thayer % (Auto) Eos % (Auto) Baso % (Auto) Neut # (Auto) Lymph # (Auto) Thayer # (Auto) Eos # (Auto) Baso # (Auto) Immature Gran # (Auto) PT INR APTT PTT Ratio POC pH POC pCO2 POC pO2 POC HCO3 POC Total CO2 POC Base Excess POC ABG O2 Sat Sodium Potassium Chloride Carbon Dioxide Anion Gap BUN Creatinine Est Cr Clr Drug Dosing Est GFR ( Amer) Est GFR (Non-Af Amer) BUN/Creatinine Ratio Glucose Lactate 4.3 H* Calcium Phosphorus Magnesium Total Bilirubin AST ALT Alkaline Phosphatase Total Creatine Kinase Troponin I Total Protein Albumin Globulin Albumin/Globulin Ratio Lipase Procalcitonin 5.49 H TSH Free T4 Random Cortisol Urine Color Dark Yellow Urine Appearance Clear Urine pH 6.0 Ur Specific Thayer 1.019 Urine Protein Trace H Urine Glucose (UA) Negative Urine Ketones Negative Urine Blood Negative Urine Nitrite Negative Urine Bilirubin Negative Urine Urobilinogen Negative Ur Leukocyte Esterase Negative Urine WBC (Auto) 1-5 Urine RBC (Auto) 0-4 U Hyaline Cast (Auto) 1-5 U Epithel Cells (Auto) 5-10 H Urine Bacteria (Auto) Negative Nasal Screen MRSA (PCR) Adenovirus (PCR) B. pertussis DNA (PCR) B.parapertussis DNA PCR C. pneumoniae DNA (PCR) Coronavirus OC43 (PCR) Coronavirus HKU1 (PCR) Coronavirus 229E (PCR) COVID-19 Eval Order SARS-CoV-2 (PCR) Coronavirus NL63 (PCR) Human Metapneumovir PCR Influenza Type A (PCR) Influenza Type B (PCR) M. pneumoniae (PCR) Parainfluenza 1 (PCR) Parainfluenza 2 (PCR) Parainfluenza 3 (PCR) Parainfluenza 4 (PCR) RSV (PCR) Entero/Rhino (PCR) 01/30/21 01/30/21 01/30/21 20:30 20:30 22:53 WBC RBC Hgb Hct MCV MCH MCHC RDW Std Deviation RDW Coeff of Karen Plt Count MPV Immature Gran % (Auto) Neut % (Auto) Lymph % (Auto) Thayer % (Auto) Eos % (Auto) Baso % (Auto) Neut # (Auto) Lymph # (Auto) Thayer # (Auto) Eos # (Auto) Baso # (Auto) Immature Gran # (Auto) PT INR APTT PTT Ratio POC pH POC pCO2 POC pO2 POC HCO3 POC Total CO2 POC Base Excess POC ABG O2 Sat Sodium Potassium Chloride Carbon Dioxide Anion Gap BUN Creatinine Est Cr Clr Drug Dosing Est GFR ( Amer) Est GFR (Non-Af Amer) BUN/Creatinine Ratio Glucose Lactate 3.2 H* Calcium Phosphorus Magnesium Total Bilirubin AST ALT Alkaline Phosphatase Total Creatine Kinase Troponin I Total Protein Albumin Globulin Albumin/Globulin Ratio Lipase Procalcitonin TSH Free T4 Random Cortisol Urine Color Urine Appearance Urine pH Ur Specific Thayer Urine Protein Urine Glucose (UA) Urine Ketones Urine Blood Urine Nitrite Urine Bilirubin Urine Urobilinogen Ur Leukocyte Esterase Urine WBC (Auto) Urine RBC (Auto) U Hyaline Cast (Auto) U Epithel Cells (Auto) Urine Bacteria (Auto) Nasal Screen MRSA (PCR) Adenovirus (PCR) Not Detected B. pertussis DNA (PCR) Not Detected B.parapertussis DNA PCR Not Detected C. pneumoniae DNA (PCR) Not Detected Coronavirus OC43 (PCR) Not Detected Coronavirus HKU1 (PCR) Not Detected Coronavirus 229E (PCR) Not Detected COVID-19 Eval Order RESPNP at [facility] SARS-CoV-2 (PCR) Not Detected Coronavirus NL63 (PCR) Not Detected Human Metapneumovir PCR Not Detected Influenza Type A (PCR) Not Detected Influenza Type B (PCR) Not Detected M. pneumoniae (PCR) Not Detected Parainfluenza 1 (PCR) Not Detected Parainfluenza 2 (PCR) Not Detected Parainfluenza 3 (PCR) Not Detected Parainfluenza 4 (PCR) Not Detected RSV (PCR) Not Detected Entero/Rhino (PCR) Not Detected 01/31/21 01/31/21 01/31/21 00:30 02:35 05:06 WBC 5.03 RBC 4.47 L Hgb 13.6 L D Hct 38.4 L MCV 85.9 MCH 30.4 MCHC 35.4 RDW Std Deviation 43.0 RDW Coeff of Karen 13.7 Plt Count 190 MPV 11.1 H Immature Gran % (Auto) 0.0 Neut % (Auto) 51.8 Lymph % (Auto) 38.8 Thayer % (Auto) 7.6 Eos % (Auto) 1.4 Baso % (Auto) 0.4 Neut # (Auto) 2.61 Lymph # (Auto) 1.95 Thayer # (Auto) 0.38 Eos # (Auto) 0.07 Baso # (Auto) 0.02 Immature Gran # (Auto) 0.00 PT INR APTT PTT Ratio POC pH 7.30 L POC pCO2 32 L POC pO2 82 POC HCO3 16 L POC Total CO2 17 L POC Base Excess -11.0 L POC ABG O2 Sat 95.0 Sodium Potassium Chloride Carbon Dioxide Anion Gap BUN Creatinine Est Cr Clr Drug Dosing Est GFR ( Amer) Est GFR (Non-Af Amer) BUN/Creatinine Ratio Glucose Lactate Calcium Phosphorus Magnesium Total Bilirubin AST ALT Alkaline Phosphatase Total Creatine Kinase Troponin I Total Protein Albumin Globulin Albumin/Globulin Ratio Lipase Procalcitonin TSH Free T4 Random Cortisol Urine Color Urine Appearance Urine pH Ur Specific Thayer Urine Protein Urine Glucose (UA) Urine Ketones Urine Blood Urine Nitrite Urine Bilirubin Urine Urobilinogen Ur Leukocyte Esterase Urine WBC (Auto) Urine RBC (Auto) U Hyaline Cast (Auto) U Epithel Cells (Auto) Urine Bacteria (Auto) Nasal Screen MRSA (PCR) Negative Adenovirus (PCR) B. pertussis DNA (PCR) B.parapertussis DNA PCR C. pneumoniae DNA (PCR) Coronavirus OC43 (PCR) Coronavirus HKU1 (PCR) Coronavirus 229E (PCR) COVID-19 Eval Order SARS-CoV-2 (PCR) Coronavirus NL63 (PCR) Human Metapneumovir PCR Influenza Type A (PCR) Influenza Type B (PCR) M. pneumoniae (PCR) Parainfluenza 1 (PCR) Parainfluenza 2 (PCR) Parainfluenza 3 (PCR) Parainfluenza 4 (PCR) RSV (PCR) Entero/Rhino (PCR) 01/31/21 01/31/21 01/31/21 05:06 05:06 05:06 WBC RBC Hgb Hct MCV MCH MCHC RDW Std Deviation RDW Coeff of Karen Plt Count MPV Immature Gran % (Auto) Neut % (Auto) Lymph % (Auto) Thayer % (Auto) Eos % (Auto) Baso % (Auto) Neut # (Auto) Lymph # (Auto) Thayer # (Auto) Eos # (Auto) Baso # (Auto) Immature Gran # (Auto) PT 13.1 H INR 1.3 H APTT 40.4 H PTT Ratio 1.5 POC pH POC pCO2 POC pO2 POC HCO3 POC Total CO2 POC Base Excess POC ABG O2 Sat Sodium 140 Potassium 3.9 D Chloride 112 H Carbon Dioxide 21 Anion Gap 7.0 BUN 16 Creatinine 1.00 Est Cr Clr Drug Dosing 76.0 Est GFR ( Amer) 91.1 Est GFR (Non-Af Amer) 78.6 BUN/Creatinine Ratio 16.1 Glucose 195 H Lactate 3.0 H* Calcium 6.5 L D Phosphorus 1.0 L* Magnesium 1.4 L Total Bilirubin 1.0 AST 14 L ALT 12 Alkaline Phosphatase 51 Total Creatine Kinase Troponin I Total Protein 4.1 L D Albumin 1.8 L Globulin 2.3 L Albumin/Globulin Ratio 0.8 L Lipase Procalcitonin TSH 0.131 L Free T4 1.83 H Random Cortisol Urine Color Urine Appearance Urine pH Ur Specific Thayer Urine Protein Urine Glucose (UA) Urine Ketones Urine Blood Urine Nitrite Urine Bilirubin Urine Urobilinogen Ur Leukocyte Esterase Urine WBC (Auto) Urine RBC (Auto) U Hyaline Cast (Auto) U Epithel Cells (Auto) Urine Bacteria (Auto) Nasal Screen MRSA (PCR) Adenovirus (PCR) B. pertussis DNA (PCR) B.parapertussis DNA PCR C. pneumoniae DNA (PCR) Coronavirus OC43 (PCR) Coronavirus HKU1 (PCR) Coronavirus 229E (PCR) COVID-19 Eval Order SARS-CoV-2 (PCR) Coronavirus NL63 (PCR) Human Metapneumovir PCR Influenza Type A (PCR) Influenza Type B (PCR) M. pneumoniae (PCR) Parainfluenza 1 (PCR) Parainfluenza 2 (PCR) Parainfluenza 3 (PCR) Parainfluenza 4 (PCR) RSV (PCR) Entero/Rhino (PCR) 01/31/21 01/31/21 01/31/21 05:06 05:06 08:52 WBC RBC Hgb Hct MCV MCH MCHC RDW Std Deviation RDW Coeff of Karen Plt Count MPV Immature Gran % (Auto) Neut % (Auto) Lymph % (Auto) Thayer % (Auto) Eos % (Auto) Baso % (Auto) Neut # (Auto) Lymph # (Auto) Thayer # (Auto) Eos # (Auto) Baso # (Auto) Immature Gran # (Auto) PT INR APTT PTT Ratio POC pH POC pCO2 POC pO2 POC HCO3 POC Total CO2 POC Base Excess POC ABG O2 Sat Sodium Potassium Chloride Carbon Dioxide Anion Gap BUN Creatinine Est Cr Clr Drug Dosing Est GFR ( Amer) Est GFR (Non-Af Amer) BUN/Creatinine Ratio Glucose Lactate 3.0 H* Calcium Phosphorus Magnesium Total Bilirubin AST ALT Alkaline Phosphatase Total Creatine Kinase Troponin I Total Protein Albumin Globulin Albumin/Globulin Ratio Lipase Procalcitonin 28.06 H TSH Free T4 Random Cortisol 17.46 Urine Color Urine Appearance Urine pH Ur Specific Thayer Urine Protein Urine Glucose (UA) Urine Ketones Urine Blood Urine Nitrite Urine Bilirubin Urine Urobilinogen Ur Leukocyte Esterase Urine WBC (Auto) Urine RBC (Auto) U Hyaline Cast (Auto) U Epithel Cells (Auto) Urine Bacteria (Auto) Nasal Screen MRSA (PCR) Adenovirus (PCR) B. pertussis DNA (PCR) B.parapertussis DNA PCR C. pneumoniae DNA (PCR) Coronavirus OC43 (PCR) Coronavirus HKU1 (PCR) Coronavirus 229E (PCR) COVID-19 Eval Order SARS-CoV-2 (PCR) Coronavirus NL63 (PCR) Human Metapneumovir PCR Influenza Type A (PCR) Influenza Type B (PCR) M. pneumoniae (PCR) Parainfluenza 1 (PCR) Parainfluenza 2 (PCR) Parainfluenza 3 (PCR) Parainfluenza 4 (PCR) RSV (PCR) Entero/Rhino (PCR) Medications Administered Current Inpatient Medications Albuterol (Albut/Ipratrop 3mg/0.5mg Neb 3 Ml Vial) 3 ml INH QIDR MARAL Stop: 03/02/21 06:59 Last Admin: 01/31/21 11:12 Dose: Not Given Documented by: Dutasteride (Dutasteride) 1 ea PO HS MARAL Stop: 03/02/21 20:59 Enoxaparin Sodium (Enoxaparin Inj 30 Mg/0.3 Ml Syr) 30 mg SQ Q24H MARAL Stop: 03/02/21 08:59 Last Admin: 01/31/21 07:59 Dose: 30 mg Documented by: Finasteride (Finasteride 5 Mg Tab) 5 mg PO DAILY MARAL Stop: 03/02/21 08:59 Last Admin: 01/31/21 07:59 Dose: 5 mg Documented by: Hydroxyzine HCl (Hydroxyzine Hcl 25 Mg Tab) 75 mg PO HS PRN PRN Reason: sleep/anxiety Stop: 03/02/21 00:31 Famotidine 20 mg/ Syringe 5 mls @ 2.5 mls/min IV Q12 MARAL Stop: 03/02/21 00:31 Last Admin: 01/31/21 08:01 Dose: 2.5 mls/min Documented by: Vancomycin HCl 1,000 mg/ (Sodium Chloride) 270 mls @ 200 mls/hr IV Q12H MARAL; Protocol Stop: 02/07/21 08:59 Last Admin: 01/31/21 10:21 Dose: 200 mls/hr Documented by: Piperacillin Sod/Tazobactam (Sod 3.375 gm/ Dextrose) 115 mls @ 28.75 mls/hr IV Q8H MARAL; Protocol Stop: 02/07/21 05:59 Last Infusion: 01/31/21 10:20 Dose: Infused Documented by: Phenylephrine HCl 40 mg/ (Dextrose) 504 mls @ 125.738 mls/hr IV .Q4H1M MARAL; Protocol Stop: 03/02/21 03:29 Last Titration: 01/31/21 10:38 Dose: Infused Documented by: Norepinephrine Bitartrate (Levophed/D5w) 16 mg in 500 mls @ 43.013 mls/hr IV .[id number] [facility]; Protocol Stop: 03/02/21 05:59 Last Titration: 01/31/21 10:38 Dose: 0.31 mcg/kg/min, 43 mls/hr Documented by: Potassium Phosphate 24 mmol/ (Sodium Chloride) 508 mls @ 88 mls/hr IV ONE ONE Stop: 01/31/21 13:01 Last Admin: 01/31/21 07:57 Dose: 88 mls/hr Documented by: Vasopressin 20 units/ Sodium (Chloride) 101 mls @ 12.12 mls/hr IV .Q8H20M [facility] Stop: 03/02/21 11:14 Last Admin: 01/31/21 11:37 Dose: 0.04 unit/min, 12.1 mls/hr Documented by: Hydrocortisone Sodium (Succinate 50 mg/ Syringe) 1 mls @ 4 mls/min IV Q6H [facility] Stop: 03/02/21 11:14 Last Admin: 01/31/21 11:38 Dose: 4 mls/min Documented by: Levothyroxine Sodium (Levothyroxine Sodium 75 Mcg Tablet) 75 mcg PO DAILYBB [facility] Stop: 03/02/21 06:29 Last Admin: 01/31/21 06:04 Dose: 75 mcg Documented by: Miscellaneous (Icu Protocol For Hyperglycemia) 1 ea N/A PRN PRN; Protocol PRN Reason: Hyperglycemia Protocol Stop: 02/02/21 00:31 Miscellaneous Information (Vancomycin Consult Active) 1 ea N/A UD PRN PRN Reason: Consult Stop: 03/02/21 00:31 Miscellaneous Information (Piperacill/Tazobac Consult Active) 1 ea N/A UD PRN PRN Reason: Consult Stop: 03/02/21 00:31 Pantoprazole Sodium (Pantoprazole 40 Mg Tab) 40 mg PO DAILY MARAL Stop: 03/02/21 08:59 Last Admin: 01/31/21 07:59 Dose: 40 mg Documented by: Pregabalin (Pregabalin 150 Mg Cap) 300 mg PO BID MARAL Stop: 03/02/21 00:31 Last Admin: 01/31/21 08:01 Dose: 300 mg Documented by: Sucralfate (Sucralfate 1 Gm Tab) 1 gm PO ACHS MARAL Stop: 03/02/21 07:29 Last Admin: 01/31/21 07:58 Dose: 1 gm Documented by: Tamsulosin HCl (Tamsulosin Hcl 0.4 Mg Cap) 0.4 mg PO DAILY MARAL Stop: 03/02/21 08:59 Last Admin: 01/31/21 07:59 Dose: 0.4 mg Documented by: Trazodone HCl (Trazodone Hcl 50 Mg Tab) 150 mg PO HS [facility] Stop: 03/02/21 20:59 Resident Activity Tracking Resident Involvement: Resident Care Provided Care Provided: Adult Hospital Medicine
--- NOTE | 2021-01-31 14:01 | Billing Data ---
Date of Service January 31, 2021 Coding Level of Care Code 80222 Subseq Hosp Care Lvl 1
[2021-01-31] MEDS: traZODone HCL 50 MG TAB PO SCH (21:05)
[2021-01-31] MEDS: DUTASTERIDE PO SCH (21:06)
[2021-01-31 22:33] LABS: BUN Creatinine Ratio 16.4 (10-20); Calcium 7.4 mg/dl (8.5-10.1); Creatinine Clr Calc Pharmacy 67.3 ml/min; Est GFR (African American) 78.6; Est GFR (Non-African American) 67.8; Magnesium 1.6 mg/dl (1.8-2.4); Potassium 3.8 mmol/L (3.5-5.1)
[2021-01-31] MEDS ORDERED: INSULIN REGULAR 250 UNITS in SODIUM CHLORIDE 0.9% 247.5 ML IV SCH (22:45)
[2021-01-31] MEDS ORDERED: GLUCOSE 10 TABS/TUBE PO PRN (22:45)
[2021-01-31] MEDS ORDERED: NovoLIN-R BOLUS FROM BAG IV ONE (22:45)
[2021-01-31] MEDS ORDERED: DEXTROSE 50% 50 ML SYRINGE IV PRN (22:45)
[2021-01-31] MEDS ORDERED: GLUCAGON FOR INJ 1 MG VIAL IM PRN (22:45)
[2021-01-31] MEDS ORDERED: GLUCOSE 40% GEL 15 GM TUBE PO PRN (22:45)
[2021-01-31] MEDS ORDERED: CARBOHYDRATES FOR HYPOGLYCEMIA PO PRN (22:45)
[2021-01-31 22:46] LABS: Beta-Hydroxybutyrate 4.48 mg/dl (0.2-2.81)
[2021-01-31 23:06] LABS: Phosphorus 3.9 mg/dl (2.5-4.9)
[2021-01-31] MEDS ORDERED: NORMOSOL-R 250 ML IV ONE (23:15)
[2021-01-31] MEDS ORDERED: NORMOSOL-R 1,000 ML IV SCH (23:15)
[2021-01-31] MEDS ORDERED: MAGNESIUM SULFATE / D5W 1 GM/100 ML BAG IV ONE (23:15)
[2021-01-31] MEDS ORDERED: POTASSIUM CHLORIDE / WTR 20 MEQ/100 ML PLCT IV ONE (23:15)
[2021-02-01] MEDS: VASOPRESSIN 20 UNITS in 0.9 % SODIUM CHLORIDE 100 ML IV SCH ×3 (01:52→19:54)
[2021-02-01] MEDS ORDERED: NOREPINEPHRINE BIT IV SCH ×2 (03:00→03:15)
[2021-02-01] MEDS ORDERED: SODIUM CHLORIDE 0.9% IV SCH ×3 (03:00→06:00)
[2021-02-01 03:45] LABS: Hematocrit (blood only) 36.8 % (42-52); Hemoglobin 13.6 g/dL (14.0-18.0); Mean Corpuscular Hemoglobin 30.9 pg (25-34); Mean Corpuscular Volume 83.6 fL (80-100); Mean Platelet Volume 11.6 fL (7.4-10.4); Platelet Count 149 K/uL (130-400); RDW Coefficient of Variation 13.9 % (11.5-14.5); RDW Standard Deviation 42.4 fL (36.4-46.3); White Blood Count 10.89 K/uL (4.8-10.8)
[2021-02-01 03:56] LABS: Allen Test Pos (Pos); Base Excess ABG -7.9 mEq/L (-9-1.8); HCO3 ABG 16 mmol/L (19-24); Oxygen Saturation ABG 89.1 % (90-95); PCO2 ABG 26 mmHg (35-46); PO2 ABG 53 mmHg (80-95); pH ABG 7.39 (7.35-7.45)
[2021-02-01 04:06] LABS: INR 1.6 (0.9-1.1); Partial Thromboplastin Ratio 1.9; Prothrombin Time 15.5 Seconds (9.0-12.0)
[2021-02-01 04:25] LABS: Albumin Globulin Ratio 0.6 (0.9-2); Albumin Level 1.7 gm/dl (3.4-5.0); BUN Creatinine Ratio 18.1 (10-20); Est GFR (African American) 91.1; Est GFR (Non-African American) 78.6; Globulin 2.7 gm/dl (2.5-4.0); Potassium 3.8 mmol/L (3.5-5.1); Total Protein 4.4 gm/dl (6.4-8.2)
[2021-02-01] MEDS ORDERED: CALCIUM GLUCONATE 10% 2,000 MG in SODIUM CHLORIDE 0.9% 50 ML IV ONE (04:29)
[2021-02-01 04:41] LABS: Beta-Hydroxybutyrate 0.94 mg/dl (0.2-2.81)
[2021-02-01] MEDS: HYDROCORTISONE SOD 50 MG in SYRINGE 0 ML IV SCH ×4 (04:48→22:48)
[2021-02-01 05:01] LABS: Basophils # (auto) 0.01 K/uL (0-0.2); Basophils % (auto) 0.1 %; Echinocytes 1+; Eosinophils # (auto) 0.02 K/uL (0-0.5); Eosinophils % (auto) 0.2 %; Immature Granulocytes # (auto) 0.58 K/uL (0.00-0.02); Immature Granulocytes % (auto) 5.3 %; Lymphocytes # (auto) 0.52 K/uL (1.2-3.4); Lymphocytes % (auto) 4.8 %; Monocytes # (auto) 0.44 K/uL (0.11-0.59); Neutrophils # (auto) 9.32 K/uL (1.4-6.5); Neutrophils % (auto) 85.6 %
[2021-02-01 05:29] LABS: Appearance Urine Clear (Clear); Bacteria Urine Automated Negative (Negative); Bilirubin Urine Negative (Negative); Blood Urine Trace (Negative); Color Urine Yellow; Glucose Urine UA Trace (Negative); Ketones Urine Negative (Negative); Leukocyte Esterase Urine Negative (Negative); Nitrite Urine Negative (Negative); Protein Urine Trace (Negative); RBC Urine Automated >30 /hpf (0-4); Specific Gravity Urine 1.022 (1.000-1.030); Urobilinogen Urine Negative (Negative)
[2021-02-01] MEDS ORDERED: TAZOBACTAM IV SCH (06:00)
[2021-02-01] MEDS ORDERED: PIPERACILLIN IV SCH (06:00)
[2021-02-01] MEDS: LEVOTHYROXINE SODIUM 75 MCG TABLET PO SCH (06:02)
[2021-02-01] MEDS ORDERED: PHARMACY GLYCEMIC MGMT CONSULT PRN (07:22)
[2021-02-01] MEDS: ALBUT/IPRATROP 3MG/0.5MG NEB 3 ML VIAL INH SCH ×2 (07:40→11:29)
[2021-02-01] MEDS ORDERED: VANCOMYCIN TROUGH ONE (08:30)
[2021-02-01] MEDS: PREGABALIN 150 MG CAP PO SCH (08:53)
[2021-02-01] MEDS: FAMOTIDINE 20 MG in SYRINGE 3 ML IV SCH ×2 (08:53→20:17)
[2021-02-01] MEDS: ENOXAPARIN INJ 30 MG/0.3 ML SYR SQ SCH (08:53)
[2021-02-01] MEDS: cefTRIAXone SODIUM 2,000 MG in DEXTROSE 5% 50 ML IV SCH (08:54)
[2021-02-01] MEDS: SUCRALFATE 1 GM TAB PO SCH ×4 (08:54→20:18)
[2021-02-01] MEDS: PANTOprazole 40 MG TAB PO SCH (08:57)
[2021-02-01] MEDS: TAMSULOSIN HCL 0.4 MG CAP PO SCH (08:57)
[2021-02-01] MEDS: FINASTERIDE 5 MG TAB PO SCH (08:57)
[2021-02-01] MEDS: INSULIN ASPART 100 UNITS/ML 3 ML PEN SC SCH ×4 (08:58→23:05)
--- NOTE | 2021-02-01 09:06 | XRay Report ---
XR chest 1V portable CLINICAL HISTORY: Sepsis. Shortness of breath. COMPARISON STUDY: 01/31/2021 FINDINGS: The cardiac and mediastinal contours remain stable. There is aortic tortuosity/ectasia. Pos tsurgical changes are present within the cervical spine. There is no change in position of the right internal jugular central venous catheter. There are persistent right lower lobe airspace opacities. T here is elevation of the interstitium is normal development of left midlung zone airspace opacities, pulmonary edema versus pneumonia. There is a suspected small right pleural effusion[ IMPRESSION: 1. Persistent right lower lobe pulmonary airspace opacities consistent with the patient's reported pn eumonia. Small right pleural effusion 2. Interval development of left midlung zone airspace opacities. Asymmetric pulmonary edema versus a multifocal pneumonia. ACT 112: Negative or not required by law. Electronically signed by: Tramaine Jo M.D. 02/01/2021 9:05 AM
--- NOTE | 2021-02-01 09:11 | Critical Care Progress Note ---
Date of Service February 01, 2021 Assessment & Plan (1) Admitted to intensive care unit: Reason Critically Ill: 65-year-old male with severe sepsis with septic shock secondary to RIGHT lower lobe pneumonia requiring close hemodynamic monitoring with addition of vasopressor support in the setting of active extremities. NEURO - * CAM ICU: NEGATIVE * CT Head/Brain w/o acute findings. * Chronic Pain/Anxiety/Depression: * Continue home Rx as tolerated. * Marijuana abuse. CARDIAC/VASCULAR - * Septic shock. Maintain mean arterial pressures above 65. Echo reviewed with a normal LVEF. We will hold on fluid administration at this time. We will titrate titrate phenylephrine off and add vasopressin to help wean down the Levophed. Patient continues to have significant sinus tachycardia. Will consider the addition of esmolol. Adding hydrocortisone for stress dose steroids. RESPIRATORY - * RLL Pneumonia: * Likely aspiration pneumonia. * Antibiotics broadened to cover anaerobes. * Requiring supplemental O2 currently. * Patient is a vasculopath and I question accuracy of BP/SaO2 monitoring cur rently. Will check ABG. * Goal SaO2 90% * Low threshold for intubation. GI/NUTRITION - * NPO while requiring high dose pressors. * Prophylaxis: Famotidine RENAL/LYTES - * Hypokalemia/Hypomagnesemia: * Replaced in the ED. * Will monitor closely, replace as needed. * Hypovolemia: * Trend CVP for IVF resuscitation. * IVF: We will hold fluids as the patient is becoming hypoxic and has an increased work of breathing. - * Bhatti in place - Strict I&Os. ENDO - * Hypothyroidism * Check TSH/Free T4 levels. HEME - * Stable H&H ID - * Severe sepsis w/ septic shock 2/ RLL Pneumonia: * Blood cultures growing gram-positive cocci. Continue vancomycin and Zosyn. MRSA screen from the blood cultures pending. LINES/IV ACCESS - * PIVs x2 * RIGHT IJ CVL * LEFT Radial Art Line * Bhatti DVT PROPHYLAXIS - * Lovenox * SCDs I have personally spent 40 minutes of critical care time in the direct management of this patient. This is a life/limb threatening event. This includes time spent evaluating patient, direct bedside care, chart review, placing orders, interpretation of diagnostic studies, discussion with consultants, patient, and family members, as well as other required patient management activities. This time is exclusive of all separately billable procedures, and teaching time and separate from and in addition to any other critical care service time. Thank you for allowing us to participate in the care of this patient. Please refer to my attending physician's documentation for any further recommendations. (2) Septic shock: (3) Pneumonia: (4) Right lower lobe pneumonia: (5) Anxiety with depression: (6) Insomnia: (7) COPD (chronic obstructive pulmonary disease): (8) BPH w urinary obs/LUTS: (9) Hypothyroid: (10) GERD (gastroesophageal reflux disease): Admission and Anticipated Discharge Date Admission Date: January 30, 2021 Results & Data Results & Data ([facility]) Vital Signs (Past 12 Hours) Vital Signs Temp Pulse Pulse Resp BP Pulse Ox 02/01/21 07:41 84 20 89 L 02/01/21 05:40 78 16 116/79 89 L 02/01/21 05:36 95 H 12 117/74 02/01/21 05:31 86 17 93 02/01/21 05:30 87 19 123/82 88 L 02/01/21 05:25 88 16 111/76 90 02/01/21 05:20 88 16 117/79 90 02/01/21 05:15 86 15 118/76 88 L 02/01/21 05:10 91 H 21 129/74 90 02/01/21 05:07 99 H 18 132/84 80 L 02/01/21 05:01 97.5 F L 97 H 30 H 85 L 02/01/21 05:00 93 H 19 115/67 93 02/01/21 04:55 94 H 26 H 92/67 L 02/01/21 04:50 94 H 21 92/55 L 02/01/21 04:46 97 H 21 77/54 L 02/01/21 04:40 92 H 17 129/81 81 L 02/01/21 04:36 96 H 25 H 124/87 67 L 02/01/21 04:30 87 18 140/101 H 02/01/21 04:20 92 H 21 123/72 88 L 02/01/21 04:15 90 29 H 109/85 86 L 02/01/21 04:10 89 21 103/69 84 L 02/01/21 04:05 88 22 118/69 88 L 02/01/21 04:01 22 88 L 02/01/21 04:00 100 H 21 121/101 H 83 L 02/01/21 03:55 92 H 29 H 104/74 89 L 02/01/21 03:49 88 24 105/73 90 02/01/21 03:45 89 24 120/72 93 02/01/21 03:40 93 H 19 85/65 L 90 02/01/21 03:35 87 15 114/69 92 02/01/21 03:31 90 20 88 L 02/01/21 03:30 92 H 14 109/67 90 02/01/21 03:25 86 13 103/62 88 L 02/01/21 03:19 85 15 103/71 89 L 02/01/21 03:15 85 13 100/69 90 02/01/21 03:09 85 13 115/72 88 L 02/01/21 03:05 82 16 112/78 92 02/01/21 03:01 86 18 89 L 02/01/21 03:00 84 22 114/74 83 L 02/01/21 02:54 87 20 123/84 91 02/01/21 02:50 83 16 106/75 88 L 02/01/21 02:45 83 21 102/58 L 89 L 02/01/21 02:39 83 13 100/61 88 L 02/01/21 02:34 85 15 108/62 87 L 02/01/21 02:31 84 14 87 L 02/01/21 02:29 86 16 114/68 87 L 02/01/21 02:24 84 13 104/60 90 02/01/21 02:19 80 15 102/68 87 L 02/01/21 02:14 82 13 114/62 89 L 02/01/21 02:10 83 16 102/70 92 02 02:04 84 14 107/63 90 02 02:01 82 21 92 02 00:49 86 13 107/64 91 02 00:44 83 14 110/66 93 02 00:39 84 13 104/73 90 02 00:34 87 13 106/74 91 02 00:30 87 17 92 02 00:29 89 12 103/69 93 02 00:24 90 15 112/68 92 02/01/21 00:19 89 12 110/82 91 02/01/21 00:14 89 14 123/72 91 02/01/21 00:09 80 13 129/79 92 02/01/21 00:04 86 19 142/79 H 92 02/01/21 00:00 97.7 F 98 H 40 H 80 L 01/31/21 23:54 95 H 18 166/88 H 91 01/31/21 23:49 89 13 148/92 H 92 01/31/21 23:44 86 13 139/86 90 01/31/21 23:39 93 H 15 140/98 93 01/31/21 23:34 97 H 18 148/83 H 92 01/31/21 23:30 83 13 93 01/31/21 23:29 81 14 153/82 H 93 01/31/21 23:24 96 H 17 134/83 89 L 01/31/21 23:19 86 21 111/76 90 01/31/21 23:14 93 H 12 115/63 91 01/31/21 23:09 86 12 129/82 91 01/31/21 23:03 100 H 16 133/91 93 01/31/21 23:00 89 17 88 L 01/31/21 22:59 89 15 118/67 88 L 01/31/21 22:54 88 13 106/70 89 L 01/31/21 22:51 86 01/31/21 22:48 87 14 112/63 89 L 01/31/21 22:43 88 13 100/64 88 L 01/31/21 22:39 88 12 104/64 90 01/31/21 22:33 89 15 101/66 90 01/31/21 22:30 87 17 88 L 01/31/21 22:29 90 12 93/64 L 88 L 01/31/21 22:24 91 H 13 99/62 L 86 L 01/31/21 22:18 92 H 12 94/73 L 87 L 01/31/21 22:14 92 H 13 100/65 87 L 01/31/21 22:09 93 H 10 L 110/70 88 L 01/31/21 22:03 98 H 12 110/66 89 L 01/31/21 22:00 97 H 13 90 01/31/21 21:58 96 H 13 105/68 90 01/31/21 21:54 98 H 15 89/63 L 92 01/31/21 21:49 98 H 15 108/74 92 01/31/21 21:43 93 H 26 H 134/81 91 01/31/21 21:39 107 H 20 125/108 H 90 01/31/21 21:34 113 H 21 161/101 H 80 L 01/31/21 21:31 117 H 16 87 L 01/31/21 21:29 110 H 33 H 84 L 01/31/21 21:25 98 H 27 H 115/82 01/31/21 21:18 99 H 19 115/82 94 01/31/21 21:13 94 H 18 102/82 94 Coding Diagnoses Admitted to intensive care unit Z78.9 Septic shock A41.9; R65.21 Pneumonia J18.9 Laterality: right Lung location: lower lobe of lung Pneumonia type: due to unspecified organism Right lower lobe pneumonia J18.9 Anxiety with depression F41.8 Insomnia G47.00 COPD (chronic obstructive pulmonary disease) J44.9 BPH w urinary obs/LUTS N40.1; N13.8 Hypothyroid E03.9 GERD (gastroesophageal reflux disease) K21.9 (1) Pneumonia Laterality: right Lung location: lower lobe of lung Pneumonia type: due to unspecified organism Qualified Code(s): J18.9 - Pneumonia, unspecified organism
[2021-02-01 09:20] LABS: Phosphorus 2.5 mg/dl (2.5-4.9)
[2021-02-01] MEDS ORDERED: FUROSEMIDE 20 MG in SYRINGE 0 ML IV ONE (09:30)
--- NOTE | 2021-02-01 09:35 | Critical Care Progress Note ---
Date of Service February 01, 2021 Assessment & Plan (1) Admitted to intensive care unit: Reason Critically Ill: 65-year-old male with severe sepsis with septic shock secondary to RIGHT lower lobe pneumonia requiring close hemodynamic monitoring with addition of vasopressor support in the setting of active extremities. NEURO - * CAM ICU: NEGATIVE * CT Head/Brain w/o acute findings. * Chronic Pain/Anxiety/Depression: * Continue home Rx as tolerated. * Marijuana abuse. CARDIAC/VASCULAR - * Septic shock. Maintain mean arterial pressures above 65. Echo reviewed with a normal LVEF. Continue Levophed and vasopressin. Continue stress dose steroids. Maintain mean arterial pressure above 65. RESPIRATORY - * RLL Pneumonia: * Blood cultures positive for Streptococcus pneumonia. Follow-up cultures pending. Antibiotics deescalated to ceftriaxone. Patient continues to have mild hypoxia on 6 L of oxygen. Lasix given. GI/NUTRITION - * NPO while requiring high dose pressors. * Prophylaxis: Famotidine RENAL/LYTES - * IV Lasix given today. Continue to monitor creatinine and electrolytes close ly. Evidence of DKA last night. Bicarbonate is improving. - * Bhatti in place - Strict I&Os. ENDO - * TSH is mildly low and free T4 is elevated consistent with possible hyperthyroidism. Patient currently on hydrocortisone which should help prevent peripheral conversion of T4 and T3. HEME - * Stable H&H ID - Septic shock. Patient growing Streptococcus pneumonia in the blood cultures. Repeat blood cultures pending. Antibiotics deescalated to Rocephin. LINES/IV ACCESS - * PIVs x2 * RIGHT IJ CVL * LEFT Radial Art Line * Bhatti DVT PROPHYLAXIS - * Lovenox * SCDs I have personally spent 30 minutes of critical care time in the direct management of this patient. This is a life/limb threatening event. This includes time spent evaluating patient, direct bedside care, chart review, placing or ders, interpretation of diagnostic studies, discussion with consultants, patient, and family members, as well as other required patient management activities. This time is exclusive of all separately billable procedures, and teaching time and separate from and in addition to any other critical care service time. Thank you for allowing us to participate in the care of this patient. Please refer to my attending physician's documentation for any further recommendations. (2) Septic shock: (3) Pneumonia: (4) Right lower lobe pneumonia: (5) Anxiety with depression: (6) Insomnia: (7) COPD (chronic obstructive pulmonary disease): (8) BPH w urinary obs/LUTS: (9) Hypothyroid: (10) GERD (gastroesophageal reflux disease): Admission and Anticipated Discharge Date Admission Date: January 30, 2021 Subjective Patient seen and examined this morning. Agitated at times. Follows commands intermittently. Blood sugars continue to creep up overnight and he is currently on an insulin drip. Remains on Levophed and vasopressin. Review of Systems 2 Review of Systems: All systems reviewed & are unremarkable except as noted in HPI & below Physical Exam Physical Exam: VITAL SIGNS - Vital signs and nursing notes were reviewed. GENERAL - 65-year-old male appearing his stated age who is in no acute distress. Communicates well with provider and answers questions appropriately. SKIN - Diffuse areas of ecchymosis noted. HEAD - NC/AT. EYES - PERRL with EOMI bilaterally. Sclera anicteric. EARS - No deformities of external structures noted on gross examination bilaterally. NOSE - Midline and without cyanosis. MOUTH/OROPHARYNX - Without perioral cyanosis. Buccal mucosa pink and dry. NECK - Neck with FROM. Supple to palpation. No lymphadenopathy noted. No nuchal rigidity. LUNGS - Chest wall symmetric without accessory muscle use, intercostals retractions, or central cyanosis. Normal vesicular breath sounds CTA B/L. CARDIAC - RRR with S1/S2. No murmur, rubs, or gallops appreciated. ABDOMEN - Abdominal contour flat without pulsations or visible masses. BS normoactive all four quadrants. No tenderness, palpable masses, hepatosple nomegaly, or ascites noted. EXTREMITIES - No clubbing or peripheral cyanosis. No pretibial edema present. +3/5 radial pulses palpated throughout. +5/5 strength noted in UE/LE bilaterally. NEUROLOGIC - Cranial nerves II through XII grossly intact. Sensory intact to light touch throughout. PSYCH - A&Ox3 and cooperates fully with examiner. Pt is very pleasant and interacts well with examiner. Results & Data Results & Data ([facility]) Vital Signs (Past 12 Hours) Vital Signs Temp Pulse Pulse Resp BP Pulse Ox 02/01/21 09:30 94 H 19 92 02/01/21 09:16 99 H 24 111/67 90 02/01/21 09:11 98 H 25 H 93 02/01/21 09:06 87 19 120/92 90 02/01/21 09:00 103 H 26 H 108/85 92 02/01/21 08:57 104 H 22 129/82 91 02/01/21 08:51 95 H 25 H 113/53 L 88 L 02/01/21 08:45 92 H 15 124/72 87 L 02/01/21 08:41 92 H 17 126/65 86 L 02/01/21 08:36 91 H 15 126/74 88 L 02/01/21 08:30 92 H 17 88 L 02/01/21 08:20 98 H 15 114/70 87 L 02/01/21 08:15 89 19 107/68 87 L 02/01/21 08:10 95 H 19 113/77 89 L 02/01/21 08:02 98.1 F 93 H 19 117/65 02/01/21 08:00 103 H 18 90 02/01/21 07:55 90 13 119/67 90 02/01/21 07:50 88 16 123/73 91 02/01/21 07:46 87 15 117/72 90 02/01/21 07:41 91 H 84 18 112/80 89 L 02/01/21 07:35 86 12 117/73 87 L 02/01/21 07:30 87 13 112/77 86 L 02/01/21 07:26 86 15 129/68 90 02/01/21 07:20 83 15 113/68 02/01/21 07:15 82 14 123/74 88 L 02/01/21 07:10 82 16 125/74 02/01/21 07:06 92 H 17 128/69 91 02/01/21 07:01 90 22 02/01/21 07:00 81 15 114/72 02/01/21 05:40 78 16 116/79 89 L 02/01/21 05:36 95 H 12 117/74 02 05:31 86 17 93 02 05:30 87 19 123/82 88 L 02 05:25 88 16 111/76 90 02/01/21 05:20 88 16 117/79 90 02/01/21 05:15 86 15 118/76 88 L 02/01/21 05:10 91 H 21 129/74 90 02/01/21 05:07 99 H 18 132/84 80 L 05/02/21 05:01 97.5 F L 97 H 30 H 85 L 02/01/21 05:00 93 H 19 115/67 93 02/01/21 04:55 94 H 26 H 92/67 L 02/01/21 04:50 94 H 21 92/55 L 02/01/21 04:46 97 H 21 77/54 L 02/01/21 04:40 92 H 17 129/81 81 L 02/01/21 04:36 96 H 25 H 124/87 67 L 02/01/21 04:30 87 18 140/101 H 02/01/21 04:20 92 H 21 123/72 88 L 02/01/21 04:15 90 29 H 109/85 86 L 02/01/21 04:10 89 21 103/69 84 L 02/01/21 04:05 88 22 118/69 88 L 02/01/21 04:01 22 88 L 02/01/21 04:00 100 H 21 121/101 H 83 L 02/01/21 03:55 92 H 29 H 104/74 89 L 02/01/21 03:49 88 24 105/73 90 02/01/21 03:45 89 24 120/72 93 02/01/21 03:40 93 H 19 85/65 L 90 02/01/21 03:35 87 15 114/69 92 02/01/21 03:31 90 20 88 L 02/01/21 03:30 92 H 14 109/67 90 02/01/21 03:25 86 13 103/62 88 L 02/01/21 03:19 85 15 103/71 89 L 02/01/21 03:15 85 13 100/69 90 02/01/21 03:09 85 13 115/72 88 L 02/01/21 03:05 82 16 112/78 92 02/01/21 03:01 86 18 89 L 02/01/21 03:00 84 22 114/74 83 L 02/01/21 02:54 87 20 123/84 91 02/01/21 02:50 83 16 106/75 88 L 02/01/21 02:45 83 21 102/58 L 89 L 02/01/21 02:39 83 13 100/61 88 L 02/01/21 02:34 85 15 108/62 87 L 02/01/21 02:31 84 14 87 L 02/01/21 02:29 86 16 114/68 87 L 02/01/21 02:24 84 13 104/60 90 02/01/21 02:19 80 15 102/68 87 L 02/01/21 02:14 82 13 114/62 89 L 02/01/21 02:10 83 16 102/70 92 02/01/21 02:04 84 14 107/63 90 02/01/21 02:01 82 21 92 02/01/21 00:49 86 13 107/64 91 02/01/21 00:44 83 14 110/66 93 02/01/21 00:39 84 13 104/73 90 02/01/21 00:34 87 13 106/74 91 02/01/21 00:30 87 17 92 02/01/21 00:29 89 12 103/69 93 02/01/21 00:24 90 15 112/68 92 02/01/21 00:19 89 12 110/82 91 02/01/21 00:14 89 14 123/72 91 02/01/21 00:09 80 13 129/79 92 02/01/21 00:04 86 19 142/79 H 92 02/01/21 00:00 97.7 F 98 H 40 H 80 L 01/31/21 23:54 95 H 18 166/88 H 91 01/31/21 23:49 89 13 148/92 H 92 01/31/21 23:44 86 13 139/86 90 01/31/21 23:39 93 H 15 140/98 93 01/31/21 23:34 97 H 18 148/83 H 92 01/31/21 23:30 83 13 93 01/31/21 23:29 81 14 153/82 H 93 01/31/21 23:24 96 H 17 134/83 89 L 01/31/21 23:19 86 21 111/76 90 01/31/21 23:14 93 H 12 115/63 91 01/31/21 23:09 86 12 129/82 91 01/31/21 23:03 100 H 16 133/91 93 01/31/21 23:00 89 17 88 L 01/31/21 22:59 89 15 118/67 88 L 01/31/21 22:54 88 13 106/70 89 L 01/31/21 22:51 86 01/31/21 22:48 87 14 112/63 89 L 01/31/21 22:43 88 13 100/64 88 L 01/31/21 22:39 88 12 104/64 90 01/31/21 22:33 89 15 101/66 90 01/31/21 22:30 87 17 88 L 01/31/21 22:29 90 12 93/64 L 88 L 01/31/21 22:24 91 H 13 99/62 L 86 L 01/31/21 22:18 92 H 12 94/73 L 87 L 01/31/21 22:14 92 H 13 100/65 87 L 01/31/21 22:09 93 H 10 L 110/70 88 L 01/31/21 22:03 98 H 12 110/66 89 L 01/31/21 22:00 97 H 13 90 01/31/21 21:58 96 H 13 105/68 90 01/31/21 21:54 98 H 15 89/63 L 92 01/31/21 21:49 98 H 15 108/74 92 01/31/21 21:43 93 H 26 H 134/81 91 01/31/21 21:39 107 H 20 125/108 H 90 Vital signs, labs and imaging reviewed Coding Level of Care Code Critical Care 1st 30-74 mins Diagnoses Admitted to intensive care unit Z78.9 Septic shock A41.9; R65.21 Pneumonia J18.9 Laterality: right Lung location: lower lobe of lung Pneumonia type: due to unspecified organism Right lower lobe pneumonia J18.9 Anxiety with depression F41.8 Insomnia G47.00 COPD (chronic obstructive pulmonary disease) J44.9 BPH w urinary obs/LUTS N40.1; N13.8 Hypothyroid E03.9 GERD (gastroesophageal reflux disease) K21.9 Time Spent (min) 30 (1) Pneumonia Laterality: right Lung location: lower lobe of lung Pneumonia type: due to unspecified organism Qualified Code(s): J18.9 - Pneumonia, unspecified organism
[2021-02-01] MEDS: Double Conc 32mcg/mL; 16mg in 500mL IV SCH (09:48)
--- NOTE | 2021-02-01 10:50 | Pharmacy Report ---
Pharmacy Glycemic Short Note 2 - Date of Service February 01, 2021 - Glycemic Short BSG Results (Last 24 hours): 01/31/21 01/31/21 02/01/21 21:39 22:03 00:05 Glucose 397 H* POC Glucose (other) 390 H* 352 H* 02/01/21 02/01/21 02/01/21 01:09 02:04 03:04 Glucose POC Glucose (other) 356 H* 351 H* 321 H 02/01/21 02/01/21 02/01/21 03:30 04:15 06:00 Glucose 320 H* POC Glucose (other) 283 H 216 H 02/01/21 02/01/21 02/01/21 06:59 08:19 09:19 Glucose POC Glucose (other) 184 H 148 H 125 H OUTPATIENT ANTIDIABETIC REGIMEN: * n/a ASSESSMENT: * 65-year-old male with severe sepsis with septic shock secondary to RLL pneumonia, on IV ceftriaxone for strep pneumonia growing in BCs, on pressors * Insulin drip started last night per ICU protocol, currently running at 6.6 units/hr with blood sugars at goal. PLAN FOR INPATIENT GLYCEMIC CONTROL: * Continue IV insulin infusion * goal 110-180mg/dl * Bolus insulin * NovoLog per scale ACHS for CHO consumed * CR per drip protocol
[2021-02-01] MEDS ORDERED: ALBUT/IPRATROP 3MG/0.5MG NEB 3 ML VIAL INH PRN (11:28)
--- NOTE | 2021-02-01 12:19 | Hospitalist Progress Note ---
Date of Service February 01, 2021 Assessment & Plan (1) Right lower lobe pneumonia: 65-year-old male with a past medical history including BPH with LUTS, hypothyroidism, GERD, anxiety, insomnia and COPD presents with generalized weakness admitted with severe sepsis with septic shock secondary to RLL PNA requiring close hemodynamic monitoring with addition of vasopressor support. Septic shock /2 RLL PNA w/underlying COPD -Admitted to ICU -Repeat CXR 02/01: Persistent right lower lobe pulmonary airspace opacities. Small right pleural effusion. Interval development of left midlung zone airspace opacities. Asymmetric pulmonary edema versus a multifocal pneumonia. -Blood cultures positive for Streptococcus pneumonia. Follow-up cultures pending -DC'd Vancomycin and Zosyn. Antibiotics deescalated to ceftriaxone -Duonebs every 4 hours while awake and every 2 hours when necessary. -Nasal cannula oxygen, titrate to keep pulse ox 94 to 95%. Wean as tolerated. Still on 6 L oxymask -Pressor support norepinephrine/phenylephrine per protocol. Continue stress dose steroids -Echo reviewed with a normal LVEF GERD -Pantoprazole 40 mg p.o. daily -Famotidine 20 mg IV every 12 hours Hypothyroidism -Continue levothyroxine 75 mcg daily BPH w urinary obs/LUTS: -Continue tamsulosin, dutasteride and finasteride Anxiety with depression/insomnia -Continue pregabalin, trazodone and as needed hydroxyzine Hypokalemia/Hypomagnesemia/Hypophosphatemia -trend daily and replete as needed FEN/GI: HH Diet DVT PROPHYLAXIS: Lovenox, SCDs CODE STATUS: Full Code Dispo: Remains in ICU Admission and Anticipated Discharge Date Admission Date: January 30, 2021 Supervising Physician Co-Signing Physician Notes I personally examined the patient and verified all silver points of history and exam, discussed case, and agree with decision making with Dr Reid no HPI or ROS obtainable from patient. Nursing notes that he will desaturate fairly easily as he pulls his oxygen mask off, and will take quite a while to climb back to reasonable O2 sats. vitals noted in bed on oxygen mask on multiple drips. Lungs show very coarse rales all throughout the right, seem to be referred to the left, although can be heard diffusely. Severe community-acquired pneumonia with sepsis/septic shock present on admission as well as bacteremiapresumably strep pneumoniaecontinue antibiotics, supportive care, ICU level care. Otherwise as above Subjective Seen at bedside, no acute overnight events. Pt falls asleep easily, subjective somewhat limited. Mostly agitated. Able to follow commands. On 6 L oxymask. Still requiring high doses of norepinephrine and phenylephrine. No other acute concerns or complaints Review of Systems Review of Systems: All systems reviewed & are unremarkable except as noted in HPI & below Physical Exam Constitutional: WD/WN, vitals as above Eyes: PERRL, conjunctivae normal, anicteric sclerae ENMT: external ear and nose normal, oropharynx normal Respiratory: normal respiratory effort; no respiratory distress and no labored breathing Auscultation: + lungs not clear to auscultation (coarse b/l) Cardiovascular: Rate/Rhythm: regular rhythm and + tachycardic Gastrointestinal (Abdomen): normal bowel sounds, soft, nontender, no hepatosplenomegaly Skin: no rashes, warm and dry Psychiatric: A+Ox3, euthymic affect Results & Data Results & Data ([facility]) Vital Signs (Past 12 Hours) Vital Signs Temp Pulse Pulse Resp BP Pulse Ox 02/01/21 09:30 94 H 19 92 02/01/21 09:16 99 H 24 111/67 90 02/01/21 09:11 98 H 25 H 93 02/01/21 09:06 87 19 120/92 90 02/01/21 09:00 103 H 26 H 108/85 92 02/01/21 08:57 104 H 22 129/82 91 02/01/21 08:51 95 H 25 H 113/53 L 88 L 02/01/21 08:45 92 H 15 124/72 87 L 02/01/21 08:41 92 H 17 126/65 86 L 02/01/21 08:36 91 H 15 126/74 88 L 02/01/21 08:30 92 H 17 88 L 02/01/21 08:20 98 H 15 114/70 87 L 02/01/21 08:15 89 19 107/68 87 L 02/01/21 08:10 95 H 19 113/77 89 L 02/01/21 08:02 36.7 C 93 H 19 117/65 02/01/21 08:00 103 H 18 90 02/01/21 07:55 90 13 119/67 90 02/01/21 07:50 88 16 123/73 91 02/01/21 07:46 87 15 117/72 90 02/01/21 07:41 91 H 84 18 112/80 89 L 02/01/21 07:35 86 12 117/73 87 L 02/01/21 07:30 87 13 112/77 86 L 02/01/21 07:26 86 15 129/68 90 02/01/21 07:20 83 15 113/68 02/01/21 07:15 82 14 123/74 88 L 02/01/21 07:10 82 16 125/74 02/01/21 07:06 92 H 17 128/69 91 02/01/21 07:01 90 22 02/01/21 07:00 81 15 114/72 02/01/21 05:40 78 16 116/79 89 L 02/01/21 05:36 95 H 12 117/74 02/01/21 05:31 86 17 93 02/01/21 05:30 87 19 123/82 88 L 02/01/21 05:25 88 16 111/76 90 02/01/21 05:20 88 16 117/79 90 02/01/21 05:15 86 15 118/76 88 L 02/01/21 05:10 91 H 21 129/74 90 02/01/21 05:07 99 H 18 132/84 80 L 02/01/21 05:01 36.4 C L 97 H 30 H 85 L 02/01/21 05:00 93 H 19 115/67 93 02/01/21 04:55 94 H 26 H 92/67 L 02/01/21 04:50 94 H 21 92/55 L 02/01/21 04:46 97 H 21 77/54 L 02/01/21 04:40 92 H 17 129/81 81 L 02/01/21 04:36 96 H 25 H 124/87 67 L 02/01/21 04:30 87 18 140/101 H 02/01/21 04:20 92 H 21 123/72 88 L 02/01/21 04:15 90 29 H 109/85 86 L 02/01/21 04:10 89 21 103/69 84 L 02/01/21 04:05 88 22 118/69 88 L 02/01/21 04:01 22 88 L 02/01/21 04:00 100 H 21 121/101 H 83 L 02/01/21 03:55 92 H 29 H 104/74 89 L 02/01/21 03:49 88 24 105/73 90 02/01/21 03:45 89 24 120/72 93 02/01/21 03:40 93 H 19 85/65 L 90 02/01/21 03:35 87 15 114/69 92 02/01/21 03:31 90 20 88 L 02/01/21 03:30 92 H 14 109/67 90 02/01/21 03:25 86 13 103/62 88 L 02/01/21 03:19 85 15 103/71 89 L 02/01/21 03:15 85 13 100/69 90 02/01/21 03:09 85 13 115/72 88 L 02/01/21 03:05 82 16 112/78 92 02/01/21 03:01 86 18 89 L 02/01/21 03:00 84 22 114/74 83 L 02/01/21 02:54 87 20 123/84 91 02/01/21 02:50 83 16 106/75 88 L 02/01/21 02:45 83 21 102/58 L 89 L 02/01/21 02:39 83 13 100/61 88 L 02/01/21 02:34 85 15 108/62 87 L 02/01/21 02:31 84 14 87 L 02/01/21 02:29 86 16 114/68 87 L 02/01/21 02:24 84 13 104/60 90 02/01/21 02:19 80 15 102/68 87 L 02/01/21 02:14 82 13 114/62 89 L 02/01/21 02:10 83 16 102/70 92 02/01/21 02:04 84 14 107/63 90 02/01/21 02:01 82 21 92 02/01/21 00:49 86 13 107/64 91 02 00:44 83 14 110/66 93 02 00:39 84 13 104/73 90 02 00:34 87 13 106/74 91 02 00:30 87 17 92 02 00:29 89 12 103/69 93 02 00:24 90 15 112/68 92 02/01/21 00:19 89 12 110/82 91 02/01/21 00:14 89 14 123/72 91 Laboratory Results Laboratory Results - last 24 hr 01/31/21 01/31/21 01/31/21 21:39 22:03 22:03 WBC RBC Hgb Hct MCV MCH MCHC RDW Std Deviation RDW Coeff of Karen Plt Count MPV Immature Gran % (Auto) Neut % (Auto) Lymph % (Auto) [place] % (Auto) Eos % (Auto) Baso % (Auto) Neut # (Auto) Lymph # (Auto) [place] # (Auto) Eos # (Auto) Baso # (Auto) Immature Gran # (Auto) Echinocytes PT INR APTT PTT Ratio ABG pH ABG pCO2 ABG pO2 ABG HCO3 ABG O2 Saturation ABG Base Excess Juan Manuel Test Barometric Pressure Oxygen Given Sodium 137 Potassium 3.8 Chloride 110 H Carbon Dioxide 14 L Anion Gap 13.0 H BUN 19 H Creatinine 1.13 Est Cr Clr Drug Dosing 67.3 Est GFR ( Amer) 78.6 Est GFR (Non-Af Amer) 67.8 BUN/Creatinine Ratio 16.4 Glucose 397 H* POC Glucose (other) 390 H* Estimat Average Glucose Hemoglobin A1c Lactate 5.3 H* Calcium 7.4 L Phosphorus 3.9 D Magnesium 1.6 L Total Bilirubin AST ALT Alkaline Phosphatase Total Protein Albumin Globulin Albumin/Globulin Ratio Beta-Hydroxybutyric Acd 4.48 H Procalcitonin Urine Color Urine Appearance Urine pH Ur Specific [place] Urine Protein Urine Glucose (UA) Urine Ketones Urine Blood Urine Nitrite Urine Bilirubin Urine Urobilinogen Ur Leukocyte Esterase Urine WBC (Auto) Urine RBC (Auto) U Hyaline Cast (Auto) U Epithel Cells (Auto) Urine Bacteria (Auto) 02/01/21 02/01/21 02/01/21 00:05 01:09 02:04 WBC RBC Hgb Hct MCV MCH MCHC RDW Std Deviation RDW Coeff of Karen Plt Count MPV Immature Gran % (Auto) Neut % (Auto) Lymph % (Auto) [place] % (Auto) Eos % (Auto) Baso % (Auto) Neut # (Auto) Lymph # (Auto) [place] # (Auto) Eos # (Auto) Baso # (Auto) Immature Gran # (Auto) Echinocytes PT INR APTT PTT Ratio ABG pH ABG pCO2 ABG pO2 ABG HCO3 ABG O2 Saturation ABG Base Excess Juan Manuel Test Barometric Pressure Oxygen Given Sodium Potassium Chloride Carbon Dioxide Anion Gap BUN Creatinine Est Cr Clr Drug Dosing Est GFR ( Amer) Est GFR (Non-Af Amer) BUN/Creatinine Ratio Glucose POC Glucose (other) 352 H* 356 H* 351 H* Estimat Average Glucose Hemoglobin A1c Lactate Calcium Phosphorus Magnesium Total Bilirubin AST ALT Alkaline Phosphatase Total Protein Albumin Globulin Albumin/Globulin Ratio Beta-Hydroxybutyric Acd Procalcitonin Urine Color Urine Appearance Urine pH Ur Specific [place] Urine Protein Urine Glucose (UA) Urine Ketones Urine Blood Urine Nitrite Urine Bilirubin Urine Urobilinogen Ur Leukocyte Esterase Urine WBC (Auto) Urine RBC (Auto) U Hyaline Cast (Auto) U Epithel Cells (Auto) Urine Bacteria (Auto) 02/01/21 02/01/21 02/01/21 03:04 03:30 03:30 WBC 10.89 H RBC 4.40 L Hgb 13.6 L Hct 36.8 L MCV 83.6 MCH 30.9 MCHC 37.0 H RDW Std Deviation 42.4 RDW Coeff of Karen 13.9 Plt Count 149 MPV 11.6 H Immature Gran % (Auto) 5.3 Neut % (Auto) 85.6 Lymph % (Auto) 4.8 [place] % (Auto) 4.0 Eos % (Auto) 0.2 Baso % (Auto) 0.1 Neut # (Auto) 9.32 H Lymph # (Auto) 0.52 L [place] # (Auto) 0.44 Eos # (Auto) 0.02 Baso # (Auto) 0.01 Immature Gran # (Auto) 0.58 H Echinocytes 1+ PT 15.5 H INR 1.6 H APTT 51.0 H* PTT Ratio 1.9 ABG pH ABG pCO2 ABG pO2 ABG HCO3 ABG O2 Saturation ABG Base Excess Juan Manuel Test Barometric Pressure Oxygen Given Sodium Potassium Chloride Carbon Dioxide Anion Gap BUN Creatinine Est Cr Clr Drug Dosing Est GFR ( Amer) Est GFR (Non-Af Amer) BUN/Creatinine Ratio Glucose POC Glucose (other) 321 H Estimat Average Glucose Hemoglobin A1c Lactate Calcium Phosphorus Magnesium Total Bilirubin AST ALT Alkaline Phosphatase Total Protein Albumin Globulin Albumin/Globulin Ratio Beta-Hydroxybutyric Acd Procalcitonin Urine Color Urine Appearance Urine pH Ur Specific [place] Urine Protein Urine Glucose (UA) Urine Ketones Urine Blood Urine Nitrite Urine Bilirubin Urine Urobilinogen Ur Leukocyte Esterase Urine WBC (Auto) Urine RBC (Auto) U Hyaline Cast (Auto) U Epithel Cells (Auto) Urine Bacteria (Auto) 02/01/21 02/01/21 02/01/21 03:30 03:30 03:30 WBC RBC Hgb Hct MCV MCH MCHC RDW Std Deviation RDW Coeff of Karen Plt Count MPV Immature Gran % (Auto) Neut % (Auto) Lymph % (Auto) [place] % (Auto) Eos % (Auto) Baso % (Auto) Neut # (Auto) Lymph # (Auto) [place] # (Auto) Eos # (Auto) Baso # (Auto) Immature Gran # (Auto) Echinocytes PT INR APTT PTT Ratio ABG pH ABG pCO2 ABG pO2 ABG HCO3 ABG O2 Saturation ABG Base Excess Juan Manuel Test Barometric Pressure Oxygen Given Sodium 138 Potassium 3.8 Chloride 111 H Carbon Dioxide 17 L Anion Gap 10.0 BUN 18 Creatinine 1.00 Est Cr Clr Drug Dosing 76.0 Est GFR ( Amer) 91.1 Est GFR (Non-Af Amer) 78.6 BUN/Creatinine Ratio 18.1 Glucose 320 H* POC Glucose (other) Estimat Average Glucose Pending Hemoglobin A1c Pending Lactate 4.5 H* Calcium 7.0 L Phosphorus 2.5 D Magnesium 2.0 Total Bilirubin 1.0 AST 23 ALT 16 Alkaline Phosphatase 49 Total Protein 4.4 L Albumin 1.7 L Globulin 2.7 Albumin/Globulin Ratio 0.6 L Beta-Hydroxybutyric Acd 0.94 Procalcitonin Urine Color Urine Appearance Urine pH Ur Specific [place] Urine Protein Urine Glucose (UA) Urine Ketones Urine Blood Urine Nitrite Urine Bilirubin Urine Urobilinogen Ur Leukocyte Esterase Urine WBC (Auto) Urine RBC (Auto) U Hyaline Cast (Auto) U Epithel Cells (Auto) Urine Bacteria (Auto) 02/01/21 02/01/21 02/01/21 03:30 03:30 04:15 WBC RBC Hgb Hct MCV MCH MCHC RDW Std Deviation RDW Coeff of Karen Plt Count MPV Immature Gran % (Auto) Neut % (Auto) Lymph % (Auto) [place] % (Auto) Eos % (Auto) Baso % (Auto) Neut # (Auto) Lymph # (Auto) [place] # (Auto) Eos # (Auto) Baso # (Auto) Immature Gran # (Auto) Echinocytes PT INR APTT PTT Ratio ABG pH 7.39 ABG pCO2 26 L ABG pO2 53 L ABG HCO3 16 L ABG O2 Saturation 89.1 L ABG Base Excess -7.9 Juan Manuel Test Pos Barometric Pressure 726.6 Oxygen Given 6L Sodium Potassium Chloride Carbon Dioxide Anion Gap BUN Creatinine Est Cr Clr Drug Dosing Est GFR ( Amer) Est GFR (Non-Af Amer) BUN/Creatinine Ratio Glucose POC Glucose (other) 283 H Estimat Average Glucose Hemoglobin A1c Lactate Calcium Phosphorus Magnesium Total Bilirubin AST ALT Alkaline Phosphatase Total Protein Albumin Globulin Albumin/Globulin Ratio Beta-Hydroxybutyric Acd Procalcitonin 33.32 H Urine Color Urine Appearance Urine pH Ur Specific [place] Urine Protein Urine Glucose (UA) Urine Ketones Urine Blood Urine Nitrite Urine Bilirubin Urine Urobilinogen Ur Leukocyte Esterase Urine WBC (Auto) Urine RBC (Auto) U Hyaline Cast (Auto) U Epithel Cells (Auto) Urine Bacteria (Auto) 02/01/21 02/01/21 02/01/21 04:20 06:00 06:59 WBC RBC Hgb Hct MCV MCH MCHC RDW Std Deviation RDW Coeff of Karen Plt Count MPV Immature Gran % (Auto) Neut % (Auto) Lymph % (Auto) [place] % (Auto) Eos % (Auto) Baso % (Auto) Neut # (Auto) Lymph # (Auto) [place] # (Auto) Eos # (Auto) Baso # (Auto) Immature Gran # (Auto) Echinocytes PT INR APTT PTT Ratio ABG pH ABG pCO2 ABG pO2 ABG HCO3 ABG O2 Saturation ABG Base Excess Juan Manuel Test Barometric Pressure Oxygen Given Sodium Potassium Chloride Carbon Dioxide Anion Gap BUN Creatinine Est Cr Clr Drug Dosing Est GFR ( Amer) Est GFR (Non-Af Amer) BUN/Creatinine Ratio Glucose POC Glucose (other) 216 H 184 H Estimat Average Glucose Hemoglobin A1c Lactate Calcium Phosphorus Magnesium Total Bilirubin AST ALT Alkaline Phosphatase Total Protein Albumin Globulin Albumin/Globulin Ratio Beta-Hydroxybutyric Acd Procalcitonin Urine Color Yellow Urine Appearance Clear Urine pH 5.0 Ur Specific [place] 1.022 Urine Protein Trace H Urine Glucose (UA) Trace H Urine Ketones Negative Urine Blood Trace H Urine Nitrite Negative Urine Bilirubin Negative Urine Urobilinogen Negative Ur Leukocyte Esterase Negative Urine WBC (Auto) 1-5 Urine RBC (Auto) >30 H U Hyaline Cast (Auto) 5-10 H U Epithel Cells (Auto) 10-20 H Urine Bacteria (Auto) Negative 02/01/21 02/01/21 02/01/21 08:19 09:19 10:44 WBC RBC Hgb Hct MCV MCH MCHC RDW Std Deviation RDW Coeff of Karen Plt Count MPV Immature Gran % (Auto) Neut % (Auto) Lymph % (Auto) [place] % (Auto) Eos % (Auto) Baso % (Auto) Neut # (Auto) Lymph # (Auto) [place] # (Auto) Eos # (Auto) Baso # (Auto) Immature Gran # (Auto) Echinocytes PT INR APTT PTT Ratio ABG pH ABG pCO2 ABG pO2 ABG HCO3 ABG O2 Saturation ABG Base Excess Juan Manuel Test Barometric Pressure Oxygen Given Sodium Potassium Chloride Carbon Dioxide Anion Gap BUN Creatinine Est Cr Clr Drug Dosing Est GFR ( Amer) Est GFR (Non-Af Amer) BUN/Creatinine Ratio Glucose POC Glucose (other) 148 H 125 H 90 Estimat Average Glucose Hemoglobin A1c Lactate Calcium Phosphorus Magnesium Total Bilirubin AST ALT Alkaline Phosphatase Total Protein Albumin Globulin Albumin/Globulin Ratio Beta-Hydroxybutyric Acd Procalcitonin Urine Color Urine Appearance Urine pH Ur Specific [place] Urine Protein Urine Glucose (UA) Urine Ketones Urine Blood Urine Nitrite Urine Bilirubin Urine Urobilinogen Ur Leukocyte Esterase Urine WBC (Auto) Urine RBC (Auto) U Hyaline Cast (Auto) U Epithel Cells (Auto) Urine Bacteria (Auto) 02/01/21 11:52 WBC RBC Hgb Hct MCV MCH MCHC RDW Std Deviation RDW Coeff of Karen Plt Count MPV Immature Gran % (Auto) Neut % (Auto) Lymph % (Auto) [place] % (Auto) Eos % (Auto) Baso % (Auto) Neut # (Auto) Lymph # (Auto) [place] # (Auto) Eos # (Auto) Baso # (Auto) Immature Gran # (Auto) Echinocytes PT INR APTT PTT Ratio ABG pH ABG pCO2 ABG pO2 ABG HCO3 ABG O2 Saturation ABG Base Excess Juan Manuel Test Barometric Pressure Oxygen Given Sodium Potassium Chloride Carbon Dioxide Anion Gap BUN Creatinine Est Cr Clr Drug Dosing Est GFR ( Amer) Est GFR (Non-Af Amer) BUN/Creatinine Ratio Glucose POC Glucose (other) 94 Estimat Average Glucose Hemoglobin A1c Lactate Calcium Phosphorus Magnesium Total Bilirubin AST ALT Alkaline Phosphatase Total Protein Albumin Globulin Albumin/Globulin Ratio Beta-Hydroxybutyric Acd Procalcitonin Urine Color Urine Appearance Urine pH Ur Specific [place] Urine Protein Urine Glucose (UA) Urine Ketones Urine Blood Urine Nitrite Urine Bilirubin Urine Urobilinogen Ur Leukocyte Esterase Urine WBC (Auto) Urine RBC (Auto) U Hyaline Cast (Auto) U Epithel Cells (Auto) Urine Bacteria (Auto) Medications Administered Current Inpatient Medications Albuterol (Albut/Ipratrop 3mg/0.5mg Neb 3 Ml Vial) 3 ml INH Q4R PRN PRN Reason: Wheezing Stop: 02/08/21 11:27 Dextrose (Dextrose 50% 50 Ml Syringe) 25 - 50 ml IV UD PRN; Protocol PRN Reason: Hypoglycemia Protocol Stop: 03/02/21 22:44 Dutasteride (Dutasteride) 1 ea PO HS [facility]AL Stop: 03/02/21 20:59 Last Admin: 01/31/21 21:06 Dose: 1 ea Documented by: Enoxaparin Sodium (Enoxaparin Inj 30 Mg/0.3 Ml Syr) 30 mg SQ Q24H [facility]AL Stop: 03/02/21 08:59 Last Admin: 02/01/21 08:53 Dose: 30 mg Documented by: Finasteride (Finasteride 5 Mg Tab) 5 mg PO DAILY [facility]AL Stop: 03/02/21 08:59 Last Admin: 02/01/21 08:57 Dose: 5 mg Documented by: Glucagon (Glucagon For Inj 1 Mg Vial) 1 mg IM UD PRN; Protocol PRN Reason: Hypoglycemia Protocol Stop: 03/02/21 22:44 Glucose (Glucose 40% Gel 15 Gm Tube) 15 - 30 gm PO UD PRN; Protocol PRN Reason: Hypoglycemia Protocol Stop: 03/02/21 22:44 Glucose (Glucose 10 Tabs/Tube) 4 - 8 tabs PO UD PRN; Protocol PRN Reason: Hypoglycemia Protocol Stop: 03/02/21 22:44 Hydroxyzine HCl (Hydroxyzine Hcl 25 Mg Tab) 75 mg PO HS PRN PRN Reason: sleep/anxiety Stop: 03/02/21 00:31 Famotidine 20 mg/ Syringe 5 mls @ 2.5 mls/min IV Q12 [facility]AL Stop: 03/02/21 00:31 Last Admin: 02/01/21 08:53 Dose: 2.5 mls/min Documented by: Vasopressin 20 units/ Sodium (Chloride) 101 mls @ 12.12 mls/hr IV .[id number] [facility] Stop: 03/02/21 11:14 Last Admin: 02/01/21 11:03 Dose: 0.04 unit/min, 12.1 mls/hr Documented by: Hydrocortisone Sodium (Succinate 50 mg/ Syringe) 1 mls @ 4 mls/min IV Q6H [facility] Stop: 03/02/21 11:14 Last Admin: 02/01/21 11:07 Dose: 4 mls/min Documented by: Insulin Human Regular 250 (units/ Sodium Chloride) 250 mls @ 6.6 mls/hr IV .Q24H [facility]; Protocol Stop: 03/02/21 22:44 Last Titration: 02/01/21 07:08 Dose: 6.6 units/hr, 6.6 mls/hr Documented by: Norepinephrine Bitartrate 16 (mg/ Sodium Chloride) 500 mls @ 13.875 mls/hr IV .[id number] [facility]; Protocol Stop: 03/03/21 02:59 Last Titration: 02/01/21 10:13 Dose: 0.1 mcg/kg/min, 13.9 mls/hr Documented by: Ceftriaxone Sodium 2,000 mg/ (Dextrose) 70 mls @ 100 mls/hr IV DAILY [facility]; Protocol Stop: 02/15/21 08:59 Last Infusion: 02/01/21 09:50 Dose: Infused Documented by: Insulin Aspart (Insulin Aspart 100 Units/Ml 3 Ml Pen) 0 units SC ACHS [facility] Stop: 03/03/21 07:29 Last Admin: 02/01/21 11:03 Dose: Not Given Documented by: Levothyroxine Sodium (Levothyroxine Sodium 75 Mcg Tablet) 75 mcg PO DAILYBB [facility] Stop: 03/02/21 06:29 Last Admin: 02/01/21 06:02 Dose: Not Given Documented by: Miscellaneous (Carbohydrates For Hypoglycemia ) 15 - 30 gm PO PRN PRN PRN Reason: Hypoglycemia Treatment Stop: 03/02/21 22:44 Miscellaneous Information (Pharmacy Glycemic Mgmt Consult) 1 ea N/A UD PRN PRN Reason: Consult Stop: 03/03/21 07:21 Pantoprazole Sodium (Pantoprazole 40 Mg Tab) 40 mg PO DAILY [facility] Stop: 03/02/21 08:59 Last Admin: 02/01/21 08:57 Dose: 40 mg Documented by: Pregabalin (Pregabalin 150 Mg Cap) 300 mg PO BID [facility] Stop: 03/02/21 00:31 Last Admin: 02/01/21 08:53 Dose: 300 mg Documented by: Sucralfate (Sucralfate 1 Gm Tab) 1 gm PO ACHS [facility] Stop: 03/02/21 07:29 Last Admin: 02/01/21 11:03 Dose: 1 gm Documented by: Tamsulosin HCl (Tamsulosin Hcl 0.4 Mg Cap) 0.4 mg PO DAILY [facility] Stop: 03/02/21 08:59 Last Admin: 02/01/21 08:57 Dose: 0.4 mg Documented by: Trazodone HCl (Trazodone Hcl 50 Mg Tab) 150 mg PO HS [facility] Stop: 03/02/21 20:59 Last Admin: 01/31/21 21:05 Dose: 150 mg Documented by: Resident Activity Tracking Resident Involvement: Resident Care Provided Care Provided: Adult [facility] Medicine
--- NOTE | 2021-02-01 14:34 | Billing Data ---
Date of Service February 01, 2021 Coding Level of Care Code 91090 Subseq Hosp Care Lvl 1
[2021-02-01] MEDS ORDERED: HYDROmorphone INJ 0.5 MG/0.5 ML SYR IV STA (15:03)
[2021-02-01] MEDS ORDERED: HYDROmorphone INJ 0.5 MG/0.5 ML SYR IV ONE (18:30)
[2021-02-01] MEDS: traZODone HCL 50 MG TAB PO SCH (20:17)
[2021-02-01] MEDS: DUTASTERIDE PO SCH (20:17)
--- NOTE | 2021-02-01 20:59 | Electrocardiogram Report ---
Test Reason : Blood Pressure : / mmHG Vent. Rate : 157 BPM Atrial Rate : 157 BPM P-R Int : 118 ms QRS Dur : 074 ms QT Int : 258 ms P-R-T Axes : 034 -34 065 degrees QTc Int : 417 ms Sinus tachycardia with Premature atrial complexes and Premature ventricular complexes or Fusion compl exes Left axis deviation Inferior infarct , age undetermined Abnormal ECG No previous ECGs available Confirmed by Dakota Rueda ([id number]) on 02/01/2021 8:59:13 PM Referred By: REFERRED SELF Confirmed By:Dakota Rueda
--- NOTE | 2021-02-01 21:02 | Electrocardiogram Report ---
Test Reason : Blood Pressure : / mmHG Vent. Rate : 138 BPM Atrial Rate : 138 BPM P-R Int : 126 ms QRS Dur : 074 ms QT Int : 284 ms P-R-T Axes : 039 -26 046 degrees QTc Int : 430 ms Sinus tachycardia Low voltage QRS Borderline ECG When compared with ECG of 30-JAN-2021 19:54, (unconfirmed) Premature ventricular complexes are no longer Present Premature atrial complexes are no longer Present Confirmed by Dakota Rueda ([id number]) on 02/01/2021 9:02:12 PM Referred By: REFERRED SELF Confirmed By:Dakota Rueda
[2021-02-02 05:13] LABS: Hematocrit (blood only) 36.6 % (42-52); Hemoglobin 13.4 g/dL (14.0-18.0); Immature Granulocytes # (auto) 0.24 K/uL (0.00-0.02); Lymphocytes # (auto) 0.58 K/uL (1.2-3.4); Lymphocytes % (auto) 4.8 %; Mean Corpuscular Hemoglobin 30.2 pg (25-34); Mean Corpuscular Hgb Conc 36.6 g/dL (32-36); Mean Corpuscular Volume 82.4 fL (80-100); Mean Platelet Volume 11.6 fL (7.4-10.4); Monocytes # (auto) 0.69 K/uL (0.11-0.59); Monocytes % (auto) 5.7 %; Neutrophils % (auto) 87.5 %; Platelet Count 106 K/uL (130-400); RDW Coefficient of Variation 13.8 % (11.5-14.5); Red Blood Count 4.44 M/uL (4.7-6.1); White Blood Count 12.11 K/uL (4.8-10.8)
[2021-02-02 05:26] LABS: INR 1.1 (0.9-1.1); Partial Thromboplastin Ratio 1.5; Partial Thromboplastin Time 39.8 Seconds (21.0-31.0); Prothrombin Time 11.4 Seconds (9.0-12.0)
[2021-02-02 05:31] LABS: Albumin Level 1.9 gm/dl (3.4-5.0); BUN Creatinine Ratio 25.3 (10-20); Calcium 8.5 mg/dl (8.5-10.1); Creatinine Clr Calc Pharmacy 91.6 ml/min; Est GFR (Non-African American) 92.3; Magnesium 1.7 mg/dl (1.8-2.4); Potassium 2.8 mmol/L (3.5-5.1)
[2021-02-02 05:39] LABS: Albumin Globulin Ratio 0.6 (0.9-2); Bilirubin,Total 1.2 mg/dl (0.2-1); Globulin 3.2 gm/dl (2.5-4.0); Total Protein 5.1 gm/dl (6.4-8.2)
[2021-02-02] MEDS: HYDROCORTISONE SOD 50 MG in SYRINGE 0 ML IV SCH ×3 (06:02→21:26)
[2021-02-02] MEDS: INSULIN ASPART 100 UNITS/ML 3 ML PEN SC SCH ×4 (06:02→20:13)
[2021-02-02] MEDS: LEVOTHYROXINE SODIUM 75 MCG TABLET PO SCH (06:03)
[2021-02-02] MEDS ORDERED: MAGNESIUM SULFATE / D5W 1 GM/100 ML BAG IV ONE (06:27)
[2021-02-02] MEDS: POTASSIUM CHLORIDE / WTR 20 MEQ/100 ML PLCT IV SCH ×3 (06:42→11:03)
[2021-02-02 06:53] LABS: Estimated Average Glucose 171 mg/dl; Hemoglobin A1C 7.6 % (4.5-5.6)
--- NOTE | 2021-02-02 08:06 | XRay Report ---
XR chest 1V portable HISTORY: 65 years-old Male f/u acute shortness of breath COMPARISON: Chest radiograph 02/01/2021 TECHNIQUE: Portable AP view of the chest FINDINGS: Cardiac mediastinal and hilar silhouettes are within normal limits. Right IJ central venous catheter distal tip projects over the inferior SVC. No pneumothorax or pleural effusion. Pulmonary vascular co ngestion with interstitial coarsening and ill-defined bilateral airspace opacities, mildly improved i n the interval. Cervical spinal fusion hardware. Bones appear grossly intact. IMPRESSION: Pulmonary vascular congestion with mild improvement of the bilateral pulmonary opacities. ACT 112: Negative or not required by law. The above report was generated using voice recognition software. It may contain grammatical, syntax o r spelling errors. Electronically signed by: Shukri Vera M.D. 02/02/2021 8:04 AM
[2021-02-02] MEDS: ENOXAPARIN INJ 30 MG/0.3 ML SYR SQ SCH (08:35)
[2021-02-02] MEDS: PANTOprazole 40 MG TAB PO SCH ×2 (08:35→12:26)
[2021-02-02] MEDS: FINASTERIDE 5 MG TAB PO SCH ×2 (08:35→12:27)
[2021-02-02] MEDS: SUCRALFATE 1 GM TAB PO SCH ×5 (08:35→21:27)
[2021-02-02] MEDS: cefTRIAXone SODIUM 2,000 MG in DEXTROSE 5% 50 ML IV SCH (08:41)
[2021-02-02] MEDS: FAMOTIDINE 20 MG in SYRINGE 3 ML IV SCH (08:41)
--- NOTE | 2021-02-02 08:45 | Critical Care Progress Note ---
Date of Service February 02, 2021 Assessment & Plan (1) Admitted to intensive care unit: Reason Critically Ill: 65-year-old male with severe sepsis with septic shock secondary to RIGHT lower lobe pneumonia and pneumococcal bacteremia requiring close hemodynamic monitoring with addition of vasopressor support in the setting of active extremities. 24-hour events: The patient has been weaned off of vasopressor agents. He remains on oxygen anywhere between 4 and 8 L. He intermittently becomes agitated and did require restraints for period of time. He is able to be redirected and is reasonably calm this morning. He is asking about a diet. There was some concern about potential aspiration events with his diet yesterday. Recommendations: NEURO - History of substance abuse. He becomes intermittently agitated and may have so me role. We will continue to follow. No acute intervention required currently. CARDIAC/VASCULAR - * Septic shock. Maintain mean arterial pressures above 65. Echo reviewed with a normal LVEF. Continue Levophed and vasopressin. Continue initiate wean of steroids and will decrease down to every 8 dosing. If he does okay within the next 24 to 48 hours can go to twice daily and then likely discontinuation. RESPIRATORY - * RLL Pneumonia: * Blood cultures positive for Streptococcus pneumonia. Follow-up cultures pending. Antibiotics deescalated to ceftriaxone. Patient continues to have mild hypoxia on 6 L of oxygen. Lasix given again today. Follow serum creatinine.. GI/NUTRITION - * Advancing diet. Swallow evaluation given possible aspiration issues. RENAL/LYTES - * IV Lasix given again today. Continue to monitor creatinine and electrolytes closely. ICU repletion protocol - * Bhatti in place - Strict I&Os. ENDO - * TSH is mildly low and free T4 is elevated consistent with possible hyperthyroidism. Patient currently on hydrocortisone which should help prevent peripheral conversion of T4 and T3. May represent sick euthyroid HEME - * Stable H&H ID - Septic shock. Patient growing Streptococcus pneumonia in the blood cultures. Repeat blood cultures negative to date. Will need at least 7 to 10 days of Rocephin. ID consultation may be beneficial. LINES/IV ACCESS - * PIVs x2 * RIGHT IJ CVL * LEFT Radial Art Line * Bhatti DVT PROPHYLAXIS - * Lovenox * SCDs Patient is no longer on vasopressor agents. At this point time I think he is okay to 3 out of the intensive care unit for long-term management to the hospitalist. Pulmonary critical care to sign off. Feel free to contact us if we can be of additional assistance. Patient was discussed with the bedside critical care nurse as well as on multidisciplinary rounds. A total of 35 minutes was spent evaluating managing and coordinating care including discussion with critical care overnight BUCKY in the off going fancy sewer. (2) Septic shock: (3) Pneumonia: (4) Right lower lobe pneumonia: (5) Anxiety with depression: (6) Insomnia: (7) COPD (chronic obstructive pulmonary disease): (8) BPH w urinary obs/LUTS: (9) Hypothyroid: (10) GERD (gastroesophageal reflux disease): Admission and Anticipated Discharge Date Admission Date: January 30, 2021 Subjective Patient is awake alert and conversant. When he removes his oxygen, his oxygen saturations do decrease significantly and he becomes tachycardic. He has intermittent periods of agitation but on my evaluation he is calm and able to answer questions. He states that he will leave his oxygen on if the restraints are removed. He does have somewhat of an appetite. He otherwise offers no new complaints. Review of Systems Review of Systems: All systems reviewed & are unremarkable except as noted in HPI & below Physical Exam Physical Exam: VITAL SIGNS - Vital signs and nursing notes were reviewed. GENERAL - 65-year-old male appearing his stated age who is in no acute distress. Communicates well with provider and answers questions appropriately. SKIN - Diffuse areas of ecchymosis noted. HEAD - NC/AT. EYES - PERRL with EOMI bilaterally. Sclera anicteric. EARS - No deformities of external structures noted on gross examination bilaterally. NOSE - Midline and without cyanosis. MOUTH/OROPHARYNX - Without perioral cyanosis. Buccal mucosa pink and dry. NECK - Neck with FROM. Supple to palpation. No lymphadenopathy noted. No nuchal rigidity. LUNGS - Chest wall symmetric without accessory muscle use, intercostals retractions, or central cyanosis. Normal vesicular breath sounds CTA B/L. CARDIAC - RRR with S1/S2. No murmur, rubs, or gallops appreciated. ABDOMEN - Abdominal contour flat without pulsations or visible masses. BS normoactive all four quadrants. No tenderness, palpable masses, hepatosplenomegaly, or ascites noted. EXTREMITIES - No clubbing or peripheral cyanosis. No pretibial edema present. +3/5 radial pulses palpated throughout. +5/5 strength noted in UE/LE bilaterally. NEUROLOGIC - Cranial nerves II through XII grossly intact. Sensory intact to light touch throughout. PSYCH - A&Ox3 and cooperates fully with examiner. Pt is very pleasant and interacts well with examiner. Results & Data Results & Data ([facility]) Vital Signs (Past 12 Hours) Vital Signs Temp Pulse Resp BP Pulse Ox 02/02/21 06:18 95 H 23 138/82 82 L 02/02/21 06:08 62 19 140/81 89 L 02/02/21 06:00 72 17 88 L 02/02/21 05:58 70 19 115/73 85 L 02/02/21 05:49 100 H 17 116/84 81 L 02/02/21 05:38 57 L 17 113/71 90 02/02/21 05:30 63 19 91 02/02/21 05:28 88 21 106/67 93 02/02/21 05:18 94 H 25 H 124/69 93 02/02/21 05:00 116 H 27 H 02/02/21 04:58 106 H 19 127/75 70 L 02/02/21 04:49 68 17 136/71 86 L 02/02/21 04:38 101 H 23 129/80 91 02/02/21 04:30 60 12 85 L 02/02/21 04:28 64 16 108/62 87 L 02/02/21 04:08 60 10 L 104/63 83 L 02/02/21 04:00 72 17 95 02/02/21 03:58 75 13 106/58 L 88 L 02/02/21 03:48 67 13 117/69 78 L 02/02/21 03:38 88 16 110/63 88 L 02/02/21 03:30 77 17 89 L 02/02/21 03:28 78 13 116/68 87 L 02/02/21 03:17 78 20 129/75 02/02/21 03:08 110 H 20 123/70 02/02/21 03:00 77 15 93 02/02/21 02:58 81 10 L 122/61 93 02/02/21 02:47 66 13 103/71 92 02/02/21 02:39 78 14 91 02/02/21 02:38 36.6 C 79 12 101/58 L 93 02/02/21 02:30 71 10 L 90 02/02/21 02:27 75 10 L 111/63 92 02/02/21 02:17 70 12 104/84 91 02/02/21 02:08 93 H 9 L 108/65 91 02/02/21 02:00 80 12 89 L 02/02/21 01:58 74 14 119/85 89 L 02/02/21 01:47 91 H 11 L 126/66 91 02/02/21 01:37 87 15 120/65 89 L 02/02/21 01:30 82 13 87 L 02/02/21 01:27 80 14 109/63 87 L 02/02/21 01:17 81 14 112/56 L 92 02/02/21 01:07 104 H 11 L 121/70 93 02/02/21 01:00 94 H 11 L 92 02/02/21 00:57 105 H 12 93/68 L 91 02/02/21 00:47 105 H 12 87/63 L 92 02/02/21 00:37 91 H 12 117/60 89 L 02/02/21 00:30 108 H 11 L 89 L 02/02/21 00:27 87 11 L 98/59 L 90 02/02/21 00:17 112 H 12 98/63 L 88 L 02/02/21 00:07 102 H 14 102/54 L 88 L 02/02/21 00:00 104 H 16 92 02/01/21 23:58 111 H 13 78/51 L 91 02/01/21 23:57 108 H 12 76/55 L 91 02/01/21 23:47 113 H 13 98/65 L 91 02/01/21 23:37 106 H 12 97/54 L 89 L 02/01/21 23:30 113 H 13 90 02/01/21 23:27 112 H 14 115/48 L 90 02/01/21 23:17 113 H 14 102/68 89 L 02/01/21 23:07 117 H 15 129/66 91 02/01/21 23:00 36.4 C L 104 H 15 85 L 02/01/21 22:58 112 H 17 85 L 02/01/21 22:57 117 H 15 126/71 86 L 02/01/21 22:47 122 H 14 126/71 89 L 02/01/21 22:37 118 H 15 128/78 88 L 02/01/21 22:30 116 H 14 90 02/01/21 22:27 110 H 18 135/75 90 02/01/21 22:17 107 H 15 115/79 89 L 02/01/21 22:08 105 H 19 145/80 H 93 02/01/21 22:00 108 H 18 91 02/01/21 21:57 100 H 19 116/68 92 02/01/21 21:48 98 H 21 97 02/01/21 21:47 77 37 H 129/67 93 02/01/21 21:46 76 31 H 142/85 H 88 L 02/01/21 21:37 66 33 H 148/98 H 91 02/01/21 21:30 93 H 25 H 91 02/01/21 21:27 83 24 143/75 H 89 L 02/01/21 21:17 69 24 151/75 H 91 02/01/21 21:07 82 21 126/69 92 02/01/21 21:00 90 19 90 02/01/21 20:57 81 20 126/87 92 02/01/21 20:47 81 19 134/79 83 L I/O: -[id number] Cumulative +[id number] Laboratory Results 02/02/21 05:00 Chemistry panel this morning: Sodium 141, potassium 2.8, chloride 108, bicarb 28, BUN 21, creatinine 0.83 procal decreasing from 33 to 24 surveillance cultures negative to date. Diagnostic Findings Chest x-ray from today was independently reviewed and compared to prior chest x- ray from 02/01/2021. There is improvement of the airspace opacity at the right lung base. Diaphragm is more readily visualized. Partial clearance of the left midlung zone airspace opacity also noted. Persistent bilateral patchy infiltr ates persist but overall aeration is improved. Echo unremarkable. Coding Level of Care Code 23988 Subseq Hosp Care Lvl 3 Diagnoses Admitted to intensive care unit Z78.9 Septic shock A41.9; R65.21 Pneumonia J18.9 Laterality: right Lung location: lower lobe of lung Pneumonia type: due to unspecified organism Right lower lobe pneumonia J18.9 Anxiety with depression F41.8 Insomnia G47.00 COPD (chronic obstructive pulmonary disease) J44.9 BPH w urinary obs/LUTS N40.1; N13.8 Hypothyroid E03.9 GERD (gastroesophageal reflux disease) K21.9 (1) Pneumonia Laterality: right Lung location: lower lobe of lung Pneumonia type: due to unspecified organism Qualified Code(s): J18.9 - Pneumonia, unspecified organism
[2021-02-02] MEDS ORDERED: FUROSEMIDE 20 MG in SYRINGE 0 ML IV ONE (09:00)
[2021-02-02 09:29] LABS: iSTAT Ionized Calcium 1.13 mmol/l (1.12-1.32); iSTAT Potassium 2.7 mmol/L (3.3-5.0)
--- NOTE | 2021-02-02 12:57 | Hospitalist Progress Note ---
Date of Service February 02, 2021 Assessment & Plan (1) Right lower lobe pneumonia: 65-year-old male with a past medical history of COPD presents with generalized weakness, found to have severe sepsis with septic shock secondary to RLL PNA. He was initially in the ICU for close hemodynamic monitoring with addition of vasopressor support. Last night he was able to be weaned off both vasopressors, MAPs remaining > 65. He is stable for ICU downgrade. Severe sepsis with Septic shock 2/2 RLL PNA - Patient is now hemodynamically stable without pressor support. - Repeat CXR 02/02 showing improvement of bibasilar opacities - Lactate normalized. WBC 12 up from 10. Procal trending down. - Blood cultures positive for Streptococcus pneumonia. Follow-up cultures pending but negative to date - currently satting 89% on 5L via NC. Goal 02 sat 85-89 given underlying COPD - Continue ceftriaxone; recommend duration 7-10 days. - patient was placed on stress dose hydrocortisone in the ICU - currently weaning 50mg IV q8hr Bacteremia - Initial blood cultures + for Strep Pneumo - repeat cultures ordered, but negative to date. - Continue Ceftriaxone - RLL PNA is suspected source Leukocytosis - WBC mildly elevated to 12 - suspect either from acute infection vs. steroids vs. multifactorial - Procal trending down, O2 requirement reduced. No concern for worsening of infection at this time - trend CBC Chronic COPD with exacerbation - Duonebs every 4 hours prn for wheezing - Supplemental O2 as needed to maintain saturation 85-89% - continue home Anoro Ellipta inhaler - will add prednisone once hydrocortisone lowered further. GERD -Pantoprazole 40 mg p.o. daily Hypothyroidism - TSH is mildly low and free T4 is elevated consistent with possible hyperthyroidism - Patient currently on hydrocortisone which should help prevent peripheral conversion of T4 and T3. - May represent sick euthyroid. - Continue levothyroxine 75 mcg daily BPH w urinary obs/LUTS: -Continue tamsulosin, dutasteride and finasteride Anxiety with depression/insomnia -Continue pregabalin, trazodone and as needed hydroxyzine Hypokalemia/Hypomagnesemia/Hypophosphatemia -trend daily and replete as needed FEN/GI: HH Diet DVT PROPHYLAXIS: Lovenox, SCDs CODE STATUS: Full Code Dispo: downgraded to PCU Admission and Anticipated Discharge Date Admission Date: January 30, 2021 Supervising Physician Co-Signing Physician Notes Resident Physician Supervision Note: I independently interviewed and examined the patient and verified the silver history and physical, reviewed labs and image studies, discussed the case with the resident Dr. Dawson and agree with the findings and care plan. Subjective Patient in ICU - no acute events overnight. He is doing "well" this am. -Patient apparently has some baseline O2 requirement - but he is unable to say how much oxygen he uses.; sounds to be prn Review of Systems Review of Systems: All systems reviewed & are unremarkable except as noted in HPI & below Physical Exam Constitutional: well developed and well nourished; no acute distress Eyes: + anicteric sclerae ENMT: external ear and nose normal, oropharynx normal Neck: normal visual inspection and trachea midline Respiratory: normal respiratory effort Auscultation: + rhonchi (throughout ) Cardiovascular: RRR, no murmur, no edema Heart Sounds: normal S1 and normal S2 Gastrointestinal (Abdomen): normal bowel sounds, soft, nontender, no hepatosplenomegaly Skin: no rashes, warm and dry Psychiatric: Orientation: oriented to person; + not oriented to place and + not oriented to time Results & Data Results & Data ([facility]) Vital Signs (Past 12 Hours) Vital Signs Temp Pulse Pulse Resp BP BP Pulse Ox 02/02/21 10:07 36.7 C 67 18 151/95 H 89 L 02/02/21 09:00 17 90 02/02/21 08:29 115 H 22 124/84 86 L 02/02/21 08:00 37.0 C 97 H 02/02/21 06:58 58 L 32 H 138/77 84 L 02/02/21 06:18 95 H 23 138/82 82 L 02/02/21 06:08 62 19 140/81 89 L 02/02/21 06:00 72 17 88 L 02/02/21 05:58 70 19 115/73 85 L 02/02/21 05:49 100 H 17 116/84 81 L 02/02/21 05:38 57 L 17 113/71 90 02/02/21 05:30 63 19 91 02/02/21 05:28 88 21 106/67 93 02/02/21 05:18 94 H 25 H 124/69 93 02/02/21 05:00 116 H 27 H 02/02/21 04:58 106 H 19 127/75 70 L 02/02/21 04:49 68 17 136/71 86 L 02/02/21 04:38 101 H 23 129/80 91 02/02/21 04:30 60 12 85 L 02/02/21 04:28 64 16 108/62 87 L 02/02/21 04:08 60 10 L 104/63 83 L 02/02/21 04:00 72 17 95 02/02/21 03:58 75 13 106/58 L 88 L 02/02/21 03:48 67 13 117/69 78 L 02/02/21 03:38 88 16 110/63 88 L 02/02/21 03:30 77 17 89 L 02/02/21 03:28 78 13 116/68 87 L 02/02/21 03:17 78 20 129/75 02/02/21 03:08 110 H 20 123/70 02/02/21 03:00 77 15 93 02/02/21 02:58 81 10 L 122/61 93 02/02/21 02:47 66 13 103/71 92 02/02/21 02:39 78 14 91 02/02/21 02:38 36.6 C 79 12 101/58 L 93 02/02/21 02:30 71 10 L 90 02/02/21 02:27 75 10 L 111/63 92 02/02/21 02:17 70 12 104/84 91 02/02/21 02:08 93 H 9 L 108/65 91 02/02/21 02:00 80 12 89 L 02/02/21 01:58 74 14 119/85 89 L 02/02/21 01:47 91 H 11 L 126/66 91 02/02/21 01:37 87 15 120/65 89 L 02/02/21 01:30 82 13 87 L 02/02/21 01:27 80 14 109/63 87 L 02/02/21 01:17 81 14 112/56 L 92 02/02/21 01:07 104 H 11 L 121/70 93 02/02/21 01:00 94 H 11 L 92 02/02/21 00:57 105 H 12 93/68 L 91 Resident Activity Tracking Resident Involvement: Resident Care Provided Care Provided: Adult Hospital Medicine
[2021-02-02] MEDS ORDERED: Nursing to Pharmacy Communication SCH (14:00)
[2021-02-02] MEDS ORDERED: ICU ELECTROLYTE REPLACEMENT PROTOCOL SCH (18:00)
[2021-02-02] MEDS: UMECLIDINIUM/VILANTEROL 62.5/25MCG 7 PUFFS/INHALER INH SCH (18:14)
[2021-02-02] MEDS: DUTASTERIDE PO SCH (21:26)
[2021-02-02] MEDS: traZODone HCL 50 MG TAB PO SCH (21:27)
[2021-02-03] MEDS: HYDROCORTISONE SOD 50 MG in SYRINGE 0 ML IV SCH (05:58)
[2021-02-03] MEDS: LEVOTHYROXINE SODIUM 75 MCG TABLET PO SCH (05:58)
[2021-02-03 06:52] LABS: Hematocrit (blood only) 37.9 % (42-52); Hemoglobin 13.5 g/dL (14.0-18.0); Mean Corpuscular Hemoglobin 29.8 pg (25-34); Mean Corpuscular Hgb Conc 35.6 g/dL (32-36); Mean Corpuscular Volume 83.7 fL (80-100); Mean Platelet Volume 12.3 fL (7.4-10.4); Platelet Count 89 K/uL (130-400); RDW Standard Deviation 42.9 fL (36.4-46.3); Red Blood Count 4.53 M/uL (4.7-6.1); White Blood Count 8.84 K/uL (4.8-10.8)
[2021-02-03 06:53] LABS: Dohle Bodies 1+; Giant Platelets 2+; Immature Granulocytes # (auto) 0.06 K/uL (0.00-0.02); Immature Granulocytes % (auto) 0.7 %; Lymphocytes # (auto) 0.65 K/uL (1.2-3.4); Lymphocytes % (auto) 7.4 %; Monocytes # (auto) 0.89 K/uL (0.11-0.59); Monocytes % (auto) 10.1 %; Neutrophils # (auto) 7.24 K/uL (1.4-6.5); Neutrophils % (auto) 81.8 %; Platelet Estimate Decreased (Normal)
[2021-02-03 07:09] LABS: BUN Creatinine Ratio 34.5 (10-20); Creatinine Clr Calc Pharmacy 111.4 ml/min; Est GFR (African American) 116.2; Est GFR (Non-African American) 100.2; Magnesium 1.5 mg/dl (1.8-2.4); Potassium 2.6 mmol/L (3.5-5.1)
[2021-02-03 07:13] LABS: Phosphorus 2.3 mg/dl (2.5-4.9)
[2021-02-03] MEDS: cefTRIAXone SODIUM 2,000 MG in DEXTROSE 5% 50 ML IV SCH (07:58)
[2021-02-03] MEDS: ENOXAPARIN INJ 40 MG/0.4 ML SYR SQ SCH (07:59)
[2021-02-03] MEDS: UMECLIDINIUM/VILANTEROL 62.5/25MCG 7 PUFFS/INHALER INH SCH (08:00)
[2021-02-03] MEDS: FINASTERIDE 5 MG TAB PO SCH (08:09)
[2021-02-03] MEDS: PANTOprazole 40 MG TAB PO SCH (08:09)
[2021-02-03] MEDS: SUCRALFATE 1 GM TAB PO SCH ×4 (08:10→20:41)
[2021-02-03] MEDS ORDERED: POTASSIUM PHOS 3 MMOL/1 ML INFUSION IV STA ×3 (08:25→17:36)
[2021-02-03] MEDS ORDERED: POTASSIUM CHLORIDE CRTAB 20 MEQ TABCR PO STA (08:25)
[2021-02-03] MEDS: INSULIN ASPART 100 UNITS/ML 3 ML PEN SC SCH ×4 (08:48→20:42)
--- NOTE | 2021-02-03 09:07 | Pharmacy Report ---
Pharmacy Glycemic Sign Off Nt - Date of Service February 03, 2021 - Assessment & Plan ASSESSMENT: * Pharmacy was consulted by Jared Tabor PA-C, on 01/31/21 for glycemic control and to write orders per [facility] inpatient glycemic control protocol. * Major changes made by pharmacy to antidiabetic regimen include: * Transitioning patient off insulin drip to bolus insulin regimen * Patient has required only 3 units of bolus insulin for adequate glycemic control since coming off the drip on 02/01/21 * BSGs ranging 94-144 mg/dl * Regimen has only required minor adjustments over the past 48hrs to achieve this level of control * Do not anticipate further changes in patient status that would quickly deteriorate glycemic control (i.e. patient to be NPO for upcoming procedure, steroids tapering, starting tube feedings, etc). * Please see recommendations for outpatient antidiabetic regimen below. PLAN FOR INPATIENT GLYCEMIC CONTROL: No changes needed to current regimen. * No basal insulin needed * Continue NovoLog per scale ACHS/Q6hrs while NPO * Goal range = 110-140 mg/dl * CF = 35 mg/dl/unit * CR = 1 unit for ever 12 g CHO consumed * Pharmacy is signing off of glycemic consult and will no longer be making adjustments to inpatient regimen. Please feel free to re-consult if needed. Thank you. DISCHARGE RECOMMENDATIONS: * A1c 7.6% on 02/01/21 * Start metformin 500 mg ER once daily with dinner. Continue to titrate metformin dosing upwards as recommended. Dosage increases should be made in increments of 500 mg weekly, up to 2,000 mg/day PO, given in divided doses. Doses above 2000 mg/day may be better tolerated if divided and given 3 times per day with meals. Max: 2,550 mg/day PO, in divided doses. B12 supplementation may be necessary with exterminator termite metformin.
[2021-02-03] MEDS ORDERED: POTASSIUM PHOSPHATE 40 MMOL in SODIUM CHLORIDE 0.9% 1000ML 1,000 ML IV ONE (09:15)
[2021-02-03] MEDS: MAGNESIUM SULFATE / D5W 1 GM/100 ML BAG IV SCH ×3 (09:16→13:14)
[2021-02-03] MEDS: POTASSIUM CHLORIDE / WTR 10 MEQ/100 ML PLCT IV SCH ×8 (09:16→20:40)
--- NOTE | 2021-02-03 13:07 | Hospitalist Progress Note ---
Date of Service February 03, 2021 Assessment & Plan (1) Right lower lobe pneumonia: 65-year-old male with a past medical history of COPD presents with generalized weakness, found to have severe sepsis with septic shock secondary to RLL PNA. He was initially in the ICU for close hemodynamic monitoring with addition of vasopressor support. He was downgraded on 02/02/21 as hemodynamic status stabilized. He has a central line in place - plan to remove tomorrow, 02/04/21. Severe sepsis with Septic shock 2/2 RLL PNA with bacteremia - Patient is now hemodynamically stable without pressor support. - Repeat CXR 02/02 showing improvement of bibasilar opacities - Lactate normalized. WBC normalized. Procal downtrending. - Blood cultures positive for Streptococcus pneumonia. Follow-up cultures pending but negative to date - currently satting 89% on 5L via NC. Goal 02 sat 85-89 given underlying COPD - Continue ceftriaxone (currently on day 5); recommended duration 7-10 days. - patient was placed on hydrocortisone in the ICU for septic shock - currently weaning 50mg IV q12hr -> discontinue 02/04/21 Metabolic encephalopathy - Continue to treat infection. - Likely also with some degree of hospital acquired delirium. follow Acute respiratory failure - Sec to pneumonia with underlying copd. - Currently on 4L NC - Supplemental O2 as needed to maintain saturation 85-89% Chronic COPD with exacerbation - Duonebs every 4 hours prn for wheezing - continue home Anoro Ellipta inhaler - will initiate prednisone 40mg, daily for the next 3 days Chronic back pain with ?chronic ambulatory dysfunction - patient has dilaudid pump embedded in buttock (follows with outside pain management) - medical marijuana card for additional pain control - follows with pain management as outpatient - will get history from family regarding baseline ambulatory function status GERD -Pantoprazole 40 mg p.o. daily Hypothyroidism - TSH is mildly low and free T4 is elevated consistent with possible hyperthyroidism - Patient currently on hydrocortisone which should help prevent peripheral conversion of T4 and T3. - May represent sick euthyroid. - Continue levothyroxine 75 mcg daily Type II diabetes Mellitus - HbA1c returned at 7.6 - new diagnosis for patient - recommend patient start metformin + high intensity statin upon discharge BPH w urinary obs/LUTS: -Continue tamsulosin, dutasteride and finasteride Hepatitis C - patient infected (per ); planning to undergo treatment in [place] later this month Anxiety with depression/insomnia -Continue pregabalin, trazodone and as needed hydroxyzine Hypokalemia/Hypomagnesemia/Hypophosphatemia -trend daily and replete as needed FEN/GI: HH Diet DVT PROPHYLAXIS: Lovenox, SCDs CODE STATUS: Full Code Dispo: PCU; suspect patient will require rehab stay upon discharge. (2) Diabetes mellitus type 2 in nonobese: Admission and Anticipated Discharge Date Admission Date: January 30, 2021 Supervising Physician Co-Signing Physician Notes Resident Physician Supervision Note: I independently interviewed and examined the patient and verified the silver history and physical, reviewed labs and image studies, discussed the case with the resident Dr. Dawson and agree with the findings and care plan. Subjective No acute events overnight. Spoke with patient's over the phone this morning: she says he has a history of chronic low back pain for which he has an embedded Diluadid pump - this is managed by a provider in the [place], [place] area. She says he has been on disability for his back pain since 1998. When asked about his day-to-day baseline, she reports he is dependent on her for caregiving. He wakes up each day - uses his bedside urinal, takes his morning pills, smokes a bowel of marijuana, and then falls back asleep. He will wake up and call out to the kitchen and ask her to make him breakfast - which is usually eggs and grits. It sounds as though his mobility around his house is limited - his reports he has "little motivation to do anything." He is not on any oxygen at home for his COPD. He also is positive for hepatitis C and is planning to undergo treatment later this month in [place]. When asked how he is doing this morning, Mr. Hearn reports unintelligible words. When asked if anything is bothering him, he does state his "breathing," but he is unable to elaborate. Review of Systems Review of Systems: All systems reviewed & are unremarkable except as noted in HPI & below Physical Exam Constitutional: well developed and well nourished; no acute distress Eyes: + anicteric sclerae ENMT: external ear and nose normal, oropharynx normal Neck: normal visual inspection and trachea midline Respiratory: normal respiratory effort Auscultation: + rhonchi (improved from exam on 02/02/21) Cardiovascular: RRR, no murmur, no edema Heart Sounds: normal S1 and normal S2 Gastrointestinal (Abdomen): normal bowel sounds, soft, nontender, no hepatosplenomegaly Skin: no rashes, warm and dry Psychiatric: Orientation: alert; + not oriented to person, + not oriented to place and + not oriented to time Results & Data Results & Data ([facility]) Vital Signs (Past 12 Hours) Vital Signs Temp Pulse Pulse Resp BP BP Pulse Ox 02/03/21 11:03 36.8 C 64 18 161/57 H 91 02/03/21 07:23 94 H 02/03/21 06:59 36.5 C 93 H 18 172/79 H 91 02/03/21 04:00 36.7 C 79 20 166/81 H 91 Resident Activity Tracking Resident Involvement: Resident Care Provided Care Provided: Adult Hospital Medicine
[2021-02-03 13:46] LABS: BUN Creatinine Ratio 36.2 (10-20); Calcium 8.8 mg/dl (8.5-10.1); Creatinine Clr Calc Pharmacy 114.7 ml/min; Est GFR (African American) 117.6; Est GFR (Non-African American) 101.5; Potassium 2.8 mmol/L (3.5-5.1)
[2021-02-03] MEDS ORDERED: HYDROCORTISONE SOD 50 MG in SYRINGE 0 ML IV SCH (18:00)
[2021-02-03] MEDS ORDERED: POTASSIUM PHOSPHATE 21 MMOL in SODIUM CHLORIDE 0.9% 500 ML IV ONE (18:00)
[2021-02-03] MEDS: DUTASTERIDE PO SCH (20:42)
[2021-02-03] MEDS: traZODone HCL 50 MG TAB PO SCH (20:44)
[2021-02-04] MEDS: LEVOTHYROXINE SODIUM 75 MCG TABLET PO SCH (05:48)
[2021-02-04] MEDS: SUCRALFATE 1 GM TAB PO SCH ×3 (07:29→16:38)
[2021-02-04 07:54] LABS: Mean Corpuscular Hgb Conc 36.4 g/dL (32-36)
[2021-02-04 07:58] LABS: Hematocrit (blood only) 37.4 % (42-52); Hemoglobin 13.6 g/dL (14.0-18.0); Mean Corpuscular Hemoglobin 30.3 pg (25-34); Mean Corpuscular Volume 83.3 fL (80-100); RDW Coefficient of Variation 14.1 % (11.5-14.5); RDW Standard Deviation 42.8 fL (36.4-46.3); Red Blood Count 4.49 M/uL (4.7-6.1); White Blood Count 9.26 K/uL (4.8-10.8)
[2021-02-04 07:59] LABS: Platelet Count 75 K/uL (130-400)
[2021-02-04] MEDS: INSULIN ASPART 100 UNITS/ML 3 ML PEN SC SCH ×3 (08:10→17:12)
[2021-02-04] MEDS: ENOXAPARIN INJ 40 MG/0.4 ML SYR SQ SCH (08:12)
[2021-02-04] MEDS: cefTRIAXone SODIUM 2,000 MG in DEXTROSE 5% 50 ML IV SCH (08:12)
[2021-02-04] MEDS: PANTOprazole 40 MG TAB PO SCH (08:13)
[2021-02-04] MEDS: UMECLIDINIUM/VILANTEROL 62.5/25MCG 7 PUFFS/INHALER INH SCH (08:13)
[2021-02-04] MEDS: FINASTERIDE 5 MG TAB PO SCH (08:13)
[2021-02-04 08:18] LABS: BUN Creatinine Ratio 40.2 (10-20); Calcium 8.9 mg/dl (8.5-10.1); Creatinine Clr Calc Pharmacy 126.7 ml/min; Est GFR (African American) 122.3; Est GFR (Non-African American) 105.5; Magnesium 1.5 mg/dl (1.8-2.4); Potassium 2.8 mmol/L (3.5-5.1)
[2021-02-04 08:19] LABS: Phosphorus 2.7 mg/dl (2.5-4.9)
[2021-02-04 08:20] LABS: Basophils # (auto) 0.01 K/uL (0-0.2); Basophils % (auto) 0.1 %; Eosinophils # (auto) 0.01 K/uL (0-0.5); Eosinophils % (auto) 0.1 %; Giant Platelets 1+; Immature Granulocytes # (auto) 0.05 K/uL (0.00-0.02); Immature Granulocytes % (auto) 0.5 %; Lymphocytes # (auto) 1.45 K/uL (1.2-3.4); Lymphocytes % (auto) 15.7 %; Monocytes # (auto) 1.27 K/uL (0.11-0.59); Monocytes % (auto) 13.7 %; Neutrophils # (auto) 6.47 K/uL (1.4-6.5); Neutrophils % (auto) 69.9 %
[2021-02-04] MEDS ORDERED: predniSONE 20 MG TAB PO SCH (09:00)
[2021-02-04] MEDS: POTASSIUM CHLORIDE / WTR 10 MEQ/100 ML PLCT IV SCH ×6 (09:07→14:52)
[2021-02-04] MEDS: MAGNESIUM SULFATE / D5W 1 GM/100 ML BAG IV SCH ×4 (09:07→15:56)
--- NOTE | 2021-02-04 11:01 | Hospitalist Progress Note ---
Date of Service February 04, 2021 Assessment & Plan (1) Right lower lobe pneumonia: 65-year-old male with a past medical history of COPD presents with generalized weakness, found to have severe sepsis with septic shock secondary to RLL PNA. He was initially in the ICU for close hemodynamic monitoring with addition of vasopressor support. He was downgraded on 02/02/21 as hemodynamic status stabilized. Objective signs suggest improvement from an infectious standpoint, however patient's mental status remains altered. Severe sepsis with Septic shock 2/2 RLL PNA with bacteremia - Patient is now hemodynamically stable without pressor support. - Repeat CXR 02/02 showing improvement of bibasilar opacities - Lactate normalized. WBC normalized. Procal downtrending. - Blood cultures positive for Streptococcus pneumonia. Follow-up cultures pending but negative to date - currently satting 89% on 5L via NC. Goal 02 sat 85-89 given underlying COPD - Continue ceftriaxone (currently on day 6); recommended duration 7-10 days. - patient was placed on hydrocortisone in the ICU for septic shock - discontinued Metabolic encephalopathy - ongoing - Continue to treat infection. - Na and Ca normal. TSH near normal. glucose normal. - head CT ordered today to rule out anatomic cause - Likely also with some degree of hospital acquired delirium. follow Acute respiratory failure - Sec to pneumonia with underlying copd. - Continuing to need 4L NC - Supplemental O2 as needed to maintain saturation 85-89% Chronic COPD with exacerbation - Duonebs every 4 hours prn for wheezing - continue home Anoro Ellipta inhaler - will initiate prednisone 40mg, daily for the next 3 days (end 02/06/21) Chronic back pain with ?chronic ambulatory dysfunction - patient has dilaudid pump embedded in buttock - medical marijuana card for additional pain control - follows with pain management as outpatient GERD -Pantoprazole 40 mg p.o. daily Hypothyroidism - TSH is mildly low and free T4 is elevated consistent with possible hyperthyroidism - May represent sick euthyroid. - Continue levothyroxine 75 mcg daily Type II diabetes Mellitus - HbA1c returned at 7.6 - new diagnosis for patient - recommend patient start metformin + high intensity statin upon discharge BPH w urinary obs/LUTS: -Continue tamsulosin, dutasteride and finasteride Hepatitis C - patient infected (per ); planning to undergo treatment in [place] later this month Anxiety with depression/insomnia -Continue pregabalin, trazodone and as needed hydroxyzine Hypokalemia/Hypomagnesemia/Hypophosphatemia -trend daily and replete as needed FEN/GI: HH Diet, Carb consistent DVT PROPHYLAXIS: Lovenox, SCDs CODE STATUS: Full Code Dispo: Med/Surg with tele; suspect patient will require rehab stay upon discharge. (2) Diabetes mellitus type 2 in nonobese: Admission and Anticipated Discharge Date Admission Date: January 30, 2021 Supervising Physician Co-Signing Physician Notes Resident Physician Supervision Note: I independently interviewed and examined the patient and verified the silver history and physical, reviewed labs and image studies, discussed the case with the resident Dr. Dawson and agree with the findings and care plan. Subjective no acute events overnight. reports he ambulates around the house with a walker Review of Systems Review of Systems: Unobtainable due to cognitive status Physical Exam Constitutional: well developed and well nourished; no acute distress Eyes: + anicteric sclerae ENMT: external ear and nose normal, oropharynx normal Neck: normal visual inspection and trachea midline Respiratory: normal respiratory effort Auscultation: + rhonchi (improved from exam on 02/02/21) Cardiovascular: RRR, no murmur, no edema Heart Sounds: normal S1 and normal S2 Extremities: + vascular access device (central line) Gastrointestinal (Abdomen): normal bowel sounds, soft, nontender, no hepatosplenomegaly Skin: no rashes, warm and dry Psychiatric: Orientation: alert; + not oriented to person, + not oriented to place and + not oriented to time Results & Data Results & Data ([facility]) Vital Signs (Past 12 Hours) Vital Signs Temp Pulse Pulse Resp BP Pulse Ox 02/04/21 07:39 84 02/04/21 07:19 36.7 C 118 H 20 133/93 88 L 02/04/21 02:19 36.6 C 84 20 137/91 92 02/04/21 00:46 58 L 02/04/21 00:44 87 02/03/21 23:04 36.5 C 84 20 147/76 H 90 Resident Activity Tracking Resident Involvement: Resident Care Provided Care Provided: Adult Hospital Medicine
[2021-02-04 15:12] LABS: BUN Creatinine Ratio 35.9 (10-20); Calcium 8.6 mg/dl (8.5-10.1); Creatinine Clr Calc Pharmacy 120.7 ml/min; Est GFR (African American) 119.9; Est GFR (Non-African American) 103.4; Magnesium 1.9 mg/dl (1.8-2.4); Potassium 3.3 mmol/L (3.5-5.1)
--- NOTE | 2021-02-04 15:28 | CT Scan Report ---
CT head/brain wo con CLINICAL HISTORY: Acute change in mental status COMPARISON STUDY: 01/30/2021 TECHNIQUE: Axial CT of the brain is performed from the vertex to the skull base. IV contrast was not administered for this examination. A dose lowering technique was utilized adhering to the principles of ALARA. CT DOSE: 823.94 mGycm FINDINGS: There is an acute left hemispheric subdural hematoma with a thickness of 12 mm. There is mild mass ef fect with effacement of the left hemispheric cortical sulci. There is no parenchymal hemorrhage. Ther e is no intraventricular hemorrhage. There is 2 mm of [id number] midline shift. No calvarial fractures are visualized. There is no evidence of pathologic ventricular dilatation. There are chronic bilateral mastoid effusions right larger than left. There are metallic projectile fragments visualized posterior lateral to the C1 arch. IMPRESSION: 1. Acute left hemispheric subdural hematoma with a maximal thickness of 12 mm. There is mild mass eff ect with effacement of the left hemispheric cortical sulci. ACT 112: Negative or not required by law. Electronically signed by: Tramaine Jo M.D. 02/04/2021 3:27 PM
--- NOTE | 2021-02-04 16:28 | Discharge Summary ---
Date of Service February 04, 2021 Admission HPI Per Admitting Provider The patient is a 65-year-old male with a past medical history including BPH with LUTS, hypothyroidism, GERD, anxiety, insomnia and COPD. He reports that his is recently been hospitalized, and since has been noted to take care of him at home, he has been lying in bed the past several days and smoking marijuana every day. He reports history of drug abuse in the past, but nothing anytime recently. He said history of alcohol abuse but stopped drinking 1 year ago. Work-up in the emergency department included following abnormal laboratories: Potassium 2.8, magnesium 0.8, total bilirubin 1.3, albumin 2.8. Pulse ox at his lowest was 71% on room air. Blood pressure at its lowest was 66/46, and did not improve significantly above the mid 70s despite IV fluid rehydration. Due to sepsis and hypotension, patient was started on pressors while in ED, and will be admitted to the ICU. Imaging studies: Chest x-ray and CT of chest showed right lower lobe pneumonia. CT head was negative. CT cervical spine showed hardware fusion at C3-7 levels Admission Exam Per Admitting Provider The patient is awake, alert and oriented 3, normocephalic and atraumatic, lying in bed and in no acute distress. HEENT--PERRL, EOMI, mucous membranes and oropharynx dry. Neck--supple. No JVD. No bruits. Thyroid normal, trachea midline, no adenopathy. Heart--normal S1 and S2. No murmurs, rubs or gallops. Lungs--coarse breath sounds bilaterally, right base worse than left. no respiratory distress, no accessory muscle use. Abdomen--normal bowel sounds and soft. Nontender. Nondistended, no hernias or masses, no organomegaly. Extremities/dermatologic--no cyanosis or clubbing. No edema. Neurologic--cranial nerves II through XII grossly intact. Rheumatologic--normal range of motion. Psychiatric--normal affect. Principal Diagnosis Subdural Hematoma Discharge Exam Constitutional well developed and well nourished; no acute distress Eyes + anicteric sclerae Pupils are pinpoint ENMT external ear and nose normal, oropharynx normal Neck normal visual inspection and trachea midline Respiratory normal respiratory effort Auscultation: + rhonchi (improved from exam on 02/02/21) Cardiovascular RRR, no murmur, no edema Heart Sounds: normal S1 and normal S2 Extremities: + vascular access device (central line) Gastrointestinal (Abdomen) normal bowel sounds, soft, nontender, no hepatosplenomegaly Skin no rashes, warm and dry Neurologic + confused Motor/Sensory: no tremor Does not follow commands Psychiatric Orientation: alert; + not oriented to person, + not oriented to place and + not oriented to time Discharge Data Allergies Allergy/AdvReac Type Severity Reaction Status Date / Time adhesive tape Allergy REDNESS & Verified 01/30/21 21:03 BLACK & BLUE ibuprofen Allergy SWELLING, Verified 01/30/21 21:02 HIVES & SOB Consultations 01/30/21 22:26 ED Decision to Admit Stat 01/31/21 00:32 Consult Painter Plate Routine 02/04/21 16:03 Burn CD for patient Stat Ordered Studies 01/30/21 20:09 CT abd pelvis wo con Urgent CT cervical spine wo con Urgent CT head/brain wo con Urgent 01/30/21 21:49 CT angio chest dissec wo/w con Urgent 01/31/21 00:56 US point of care ultrasound Urgent 02/04/21 13:30 CT head/brain wo con Routine Hospital Course (1) Right lower lobe pneumonia: 65-year-old male with a past medical history of COPD presents with generalized weakness, found to have severe sepsis with septic shock secondary to RLL PNA. He was initially in the ICU for close hemodynamic monitoring with addition of vasopressor support. He was downgraded on 02/02/21 as hemodynamic status stabilized. Objective signs suggest improvement from an infectious standpoint, however patient's mental status has become progressivley altered since leaving the ICU. A non-contrast head CT was obtained today at 1:30pm, which came back showing an acute left hemispheric subdural hematoma with a thickness of 12 mm. There is mild mass effect with effacement of the left hemispheric cortical sulci. There is no parenchymal hemorrhage. There is no intraventricular hemorrhage. There is 2 mm of [id number]-[id number] midline shift. Patient is not on a blood thinner or daily aspirin. His subcutaneous Lovenox (DVT prophylaxis) was immediately discontinued. Neurosurgery at [facility] was contacted - they accepted patient as a transfer. COVID 19 testing was repeated prior to transfer and was negative Severe sepsis with Septic shock 2/2 RLL PNA with bacteremia - Patient is now hemodynamically stable without pressor support. - Repeat CXR 02/02 showing improvement of bibasilar opacities - Lactate normalized. WBC normalized. Procal downtrending. - Blood cultures positive for Streptococcus pneumonia. Follow-up cultures pending but negative to date - currently satting 89% on 5L via NC. Goal 02 sat 85-89 given underlying COPD - Continue ceftriaxone IV 2g/day (currently on day 6); recommended duration 7-10 days. - patient was placed on hydrocortisone in the ICU for septic shock - tapered and discontinued today Metabolic encephalopathy - ongoing - Na and Ca normal. TSH near normal. glucose normal. - head CT ordered today to rule out anatomic cause: returned showing an acute left hemispheric subdural hematoma with a thickness of 12 mm. There is mild mass effect with effacement of the left hemispheric cortical sulci. There is no parenchymal hemorrhage. There is no intraventricular hemorrhage. There is 2 mm of vzka-ya-ufexr midline shift. Acute respiratory failure - Sec to pneumonia with underlying copd. - Continuing to need O2 - 3L NC - Supplemental O2 as needed to maintain saturation 88-92% Chronic COPD with exacerbation - Duonebs every 4 hours prn for wheezing - continue home Anoro Ellipta inhaler - will initiate prednisone 40mg, daily for the next 3 days (end 02/06/21) Chronic back pain with ?chronic ambulatory dysfunction - patient has dilaudid pump embedded in buttock - medical marijuana card for additional pain control - follows with pain management as outpatient GERD -Pantoprazole 40 mg p.o. daily Hypothyroidism - TSH is mildly low and free T4 is elevated consistent with possible hyperthyroidism - May represent sick euthyroid. - Continue levothyroxine 75 mcg daily Type II diabetes Mellitus - HbA1c returned at 7.6 - new diagnosis for patient - recommend patient start metformin + high intensity statin upon discharge BPH w urinary obs/LUTS: -Continue tamsulosin, dutasteride and finasteride Hepatitis C - patient infected (per ); planning to undergo treatment in [place] later this month Anxiety with depression/insomnia -Continue pregabalin, trazodone and as needed hydroxyzine Hypokalemia/Hypomagnesemia/Hypophosphatemia -trend daily and replete as needed Dipso: Transfer to [facility], where neurosurgery service is available Code: Full Code (2) Diabetes mellitus type 2 in nonobese: Total Time Total Time Spent Total Time Spent (In Minutes): see attending attestation Discharge Plan Discharge Items Patient Disposition: Transfer Acute Care Hospital Reason For Visit: SEPSIS, HYPOTENSION, PNEUMONIA Discharge Diagnosis: Subdural Hematoma Activity: Resume your previous activity Non-emergency contact: Primary Care Provider Call non-emergency contact if: you have any medication questions Follow-up/Referrals: PCP,NO [Primary Care Provider] - Diet: Carb Consistent or DM2 and Heart Healthy Addtl Attending Provider Instructions: 65-year-old male with a past medical history of COPD presents with generalized weakness, found to have severe sepsis with septic shock secondary to RLL PNA. He was initially in the ICU for close hemodynamic monitoring with addition of vasopressor support. He was downgraded on 02/02/21 as hemodynamic status stabilized. Objective signs suggest improvement from an infectious standpoint, however patient's mental status has become progressivley altered since leaving the ICU. A non-contrast head CT was obtained today at 1:30pm, which came back showing an acute left hemispheric subdural hematoma with a thickness of 12 mm. There is mild mass effect with effacement of the left hemispheric cortical sulci. There is no parenchymal hemorrhage. There is no intraventricular hemorrhage. There is 2 mm of icbu-go-yctfr midline shift. Patient is not on a blood thinner or daily aspirin. His subcutaneous Lovenox (DVT prophylaxis) was immediately discontinued. Neurosurgery at [facility] was contacted - they accepted patient as a transfer. COVID 19 testing was repeated prior to transfer and was negative Severe sepsis with Septic shock 2/2 RLL PNA with bacteremia - Patient is now hemodynamically stable without pressor support. - Repeat CXR 02/02 showing improvement of bibasilar opacities - Lactate normalized. WBC normalized. Procal downtrending. - Blood cultures positive for Streptococcus pneumonia. Follow-up cultures pending but negative to date - currently satting 89% on 5L via NC. Goal 02 sat 85-89 given underlying COPD - Continue ceftriaxone IV 2g/day (currently on day 6); recommended duration 7-10 days. - patient was placed on hydrocortisone in the ICU for septic shock - tapered and discontinued today Metabolic encephalopathy - ongoing - Na and Ca normal. TSH near normal. glucose normal. - head CT ordered today to rule out anatomic cause: returned showing an acute left hemispheric subdural hematoma with a thickness of 12 mm. There is mild mass effect with effacement of the left hemispheric cortical sulci. There is no parenchymal hemorrhage. There is no intraventricular hemorrhage. There is 2 mm of [id number]-[id number] midline shift. - Continue to treat infection. - Likely also with some degree of hospital acquired delirium. Acute respiratory failure - Sec to pneumonia with underlying copd. - Continuing to need 3L NC - Supplemental O2 as needed to maintain saturation 88-92% Chronic COPD with exacerbation - Duonebs every 4 hours prn for wheezing - continue home Anoro Ellipta inhaler - will initiate prednisone 40mg, daily for the next 3 days (end 02/06/21) Chronic back pain with ?chronic ambulatory dysfunction - patient has dilaudid pump embedded in buttock - medical marijuana card for additional pain control - follows with pain management as outpatient GERD -Pantoprazole 40 mg p.o. daily Hypothyroidism - TSH is mildly low and free T4 is elevated consistent with possible hyperthyroidism - May represent sick euthyroid. - Continue levothyroxine 75 mcg daily Type II diabetes Mellitus - HbA1c returned at 7.6 - new diagnosis for patient - recommend patient start metformin + high intensity statin upon discharge BPH w urinary obs/LUTS: -Continue tamsulosin, dutasteride and finasteride Hepatitis C - patient infected (per ); planning to undergo treatment in [place] later this month Anxiety with depression/insomnia -Continue pregabalin, trazodone and as needed hydroxyzine Hypokalemia/Hypomagnesemia/Hypophosphatemia -trend daily and replete as needed Dipso: Transfer to [facility], where neurosurgery service is available Code: Full Code Pending Studies at Discharge: No Stand-Alone Forms: [facility] Skilled Items Patient informed of condition?: Yes DNR: No Discharge Level of Care: Other Communicable Disease: Yes Discharge Prognosis: Stable Lines: Mid-Line Urinary Catheter: Yes Medications and DC Order Prescriptions: New ipratropium-albuterol 0.5 mg-3 mg(2.5 mg base)/3 mL Solution For Nebulization 3 ml inhalation Q4R 30 Days RF: 0 prednisone 20 mg Tablet 40 mg PO DAILY 2 Days Qty: 4 RF: 0 Continued sucralfate [Carafate] 1 gram tablet 1 g PO ACHS RF: 0 hydroxyzine HCl 50 mg tablet 75 - 100 mg PO HS PRN (Reason: sleep/anxiety) RF: 0 levothyroxine 75 mcg tablet 75 mcg PO DAILY RF: 0 tamsulosin [Flomax] 0.4 mg capsule 0.4 mg PO DAILY RF: 0 pantoprazole 40 mg Tablet,Delayed Release (Dr/Ec) 40 mg PO DAILY RF: 0 trazodone 150 mg tablet 150 mg PO HS RF: 0 albuterol sulfate 90 mcg/actuation HFA aerosol inhaler 2 inh INHALATION UD PRN (Reason: Shortness Of Breath Or Wheezing) RF: 0 ondansetron 4 mg Tablet,Disintegrating 4 mg PO Q8H PRN (Reason: Nausea) RF: 0 finasteride [Proscar] 5 mg tablet 5 mg PO DAILY RF: 0 dutasteride [Avodart] 0.5 mg capsule 0.5 mg PO HS RF: 0 pregabalin [Lyrica] 300 mg capsule 300 mg PO BID RF: 0 Anoro Ellipta 62.5-25 mcg/actuation blister with device 1 inh INHALATION UD RF: 0 Discharge Orders: Discharge Order (Routine); Ordered 02/04/21 Ordered By: Do Dawson Admission Data Admit Date/Time: 01/30/21 23:20 Attending Provider: Karo Decker Admit Provider: Martin Jimenez Primary Care Provider: PCP,NO Other Providers: Giovanni Bacon ; Martin Jimenez ; Vick Do Supervising Physician Co-Signing Physician Notes Resident Physician Supervision Note: I independently interviewed and examined the patient and verified the silver history and physical, reviewed labs and image studies, discussed the case with the resident Dr. Dawson and agree with the findings and care plan. Resident Activity Tracking Resident Involvement: Resident Care Provided Care Provided: Adult Hospital Medicine
== END 2021-02-04 20:44 | disposition short-term general hospital (02) | DRG 871 ==
LOC: ED 19:45 → SUATTDRO 23:20 → 1E 23:20 → 2W 02-02 10:06 → 2N 02-03 21:29

== ENCOUNTER 2022-01-22 12:14 | Inpatient (IN) ==
[2022-01-22] MEDS ORDERED: SODIUM CHLORIDE 0.9% 1000ML 1,000 ML IV STA (12:22)
[2022-01-22] MEDS ORDERED: VANCOMYCIN HCL 1,500 MG in SODIUM CHLORIDE 0.9% 500 ML IV ONE (12:22)
[2022-01-22] MEDS ORDERED: VANCOMYCIN CONSULT ACTIVE PRN (12:22)
[2022-01-22] MEDS ORDERED: cefTRIAXone SODIUM 1,000 MG/50 ML BAG IV STA (12:22)
--- NOTE | 2022-01-22 12:38 | Emergency Department Note ---
Impression & Plan Postoperative abscess, Infection of intrathecal pump, Angio-edema ED Provider Note NAME: KRISTAL OLIVEROS AGE: 66 SEX: M : 1955 ARRIVES VIA: Walk-In INFORMANT: Patient, ED PROVIDER(S): Jose Duron DO CHIEF COMPLAINT: Back pain HPI: The patient is a 66-year-old male who presented to the emergency department for an evaluation of back pain. The patient had an intrathecal pump implanted. He started having pain and drainage from that area. He was seen at the wound care center and had a wound VAC placed. The wound VAC started to put out much more purulent material than previous and the patient was sent for CT. The CAT scan appears to be consistent with an abscess which is cutaneous surrounding the loop section of the catheter. 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 The patient was started on clindamycin previously. He was sent to the emergency department for further evaluation and possible transfer. The patient states he does have some discomfort in his lower back. He denies having any fever or vomiting. He de nies having any chest pain or difficulty breathing. He states has been compliant with his outpatient medications otherwise. ROS: See above HPI for pertinent positives & negatives. A total of 10 systems reviewed and were otherwise negative. PAST MEDICAL HISTORY: See Below PAST SURGICAL HISTORY: See Below FAMILY HISTORY: See Below SOCIAL HISTORY: See Below HOME MEDICATIONS: See Below ALLERGIES: See Below VITALS: See Below PHYSICAL EXAMINATION: GENERAL: The patient is awake and alert. He is somewhat anxious appearing. EYES: The conjunctivae are clear. The pupils are round and reactive. EARS, NOSE, MOUTH AND THROAT: The nose is without any evidence of any deformity. NECK: The neck is nontender and supple. RESPIRATORY: Normal respiratory effort is noted there is no evidence of wheezing rhonchi or rales CARDIOVASCULAR: Regular rate and rhythm noted there no murmurs rubs or gallops normal S1 normal S2. GASTROINTESTINAL: The abdomen is soft. Abdomen is nontender. BACK: There is no midline tenderness noted. There is a fistula noted in the left paravertebral musculature in the lumbar spine region. There is purulent drainage noted. MUSCULOSKELETAL/EXTREMITIES: There is no evidence of gross deformity full range of motion is noted in the hips and shoulders. SKIN: Trace pedal edema was noted bilaterally. NEUROLOGIC: Patient is awake alert and oriented x3 MEDICAL DECISION MAKING: The patient is a 66-year-old male who presented to the emergency department for an evaluation of infection. The patient had an intrathecal pump placed at the end of December. The patient had a dehiscence of the wound which was being managed at the wound care center. They did notice an increase in the output of the wound VAC and ordered a CAT scan which revealed an abscess associated with the infection. He was sent to the emergency department for further evaluation. I discussed patient's laboratory and radiographic studies with him. Initially I discussed his case with his primary pain specialist who no longer has privileges at the facility where he had the pump placed and they recommended we try to manage the patient's condition otherwise. I did discuss the case with our general surgical group and then [facility]. Patient was going to be transferred but then we discussed the case with our pain specialist who was agreeable to evaluate the patient to determine if they could remove his pump here and continue treatment for infection. The patient did develop angioedema after receiving vancomycin. He was treated in usual fashion for allergic reaction and significantly improved. He was reevaluated multiple times. I also discussed his case with the on-call [facility] hospitalist group. They have agreed to evaluate the patient in the emergency department for further management and disposition. Triage Nursing notes reviewed. Prior medical records reviewed Vital Signs: reviewed and remarkable for no significant abnormalities Differential diagnosis: Cellulitis, abscess, MRSA infection, DVT, necrotizing fasciitis, dermatitis, drug eruption, allergic reaction, as well as other pathologies. ER treatment provided: See below Diagnostics interpreted by me: ECG: none Cardiac Monitoring: An order was placed for continuous cardiac monitoring. The monitor shows a rate of 58 bpm with sinus rhythm. Laboratory studies: As stated above and show below. Imaging studies: See below Consultation(s): Discussed this case with the patient's physician, Dr. Zhao. He does not have privileges and would recommend we contact a surgeon to have the pump removed. Discussed this case with Ankita who is on for general surgery. They will evaluate the patient in the emergency department. Discussed this case with Dr. Mahoney who is on-call for orthopedic spine surgery. I discussed this case with Dr. Alexander who is on-call for general surgery at [facility]. I discussed this case with Dr. Raza at [facility] who is on for transfer evaluation physician. Discussed this case with Dr. Hayes who is on-call for anesthesia. I discussed this case with Dr. Hardin who is on-call for the [facility] hospitalist group. I discussed this case with Dr. Kumar who is on for pain management. She would like the patient to be admitted to medicine for medical management but they would likely remove the pump as soon as possible surgically. ED COURSE: The patient received IV Rocephin and then approximately 20 minutes later received IV vancomycin. He started to have difficulty breathing. He started having flushing. He was treated with Solu-Medrol and Benadryl. On my evaluation he appears to have some degree of angioedema of the tongue and the lower lip. He states he feels much better after the IV medications for allergic reaction. Past Med/Surg History Medical History Anxiety with depression BPH w urinary obs/LUTS COPD (chronic obstructive pulmonary disease) Diabetes mellitus type 2 in nonobese GERD (gastroesophageal reflux disease) Hypothyroid Insomnia Lumbar post-laminectomy syndrome No pertinent family history Opioid dependence Postoperative abscess Presence of intrathecal pump Surgical wound dehiscence Surgical History History of lumbar fusion Hx of fusion of cervical spine S/P hip replacement Social History Smoking Status: Current every day smoker Tobacco Type: Cigarettes Cigarettes Per Day: 1 pack; Hx Alcohol Use: No Hx Substance Use: Yes Last Used Substance: Hours (ago) Preferred Language: Ethiopian Communication Ability: Effective Consultant Technology Required: No Beliefs That Will Affect Care: None Current Living Situation: Spouse Feels Safe at Home: Yes Assistive Devices: Walker Allergies Allergies Allergy/AdvReac Type Severity Reaction Status Date / Time adhesive tape Allergy REDNESS & Verified 01/22/22 14:52 BLACK & BLUE ibuprofen Allergy SWELLING, Verified 01/22/22 14:52 HIVES & SOB Home Meds Home Medications Medication Instructions Recorded Confirmed albuterol sulfate 90 mcg/actuation 2 inh INHALATION UD PRN 01/30/21 01/22/22 aerosol inhaler dutasteride 0.5 mg capsule 0.5 mg PO QAM 01/30/21 01/22/22 (Avodart) hydroxyzine HCl 50 mg tablet 75 - 100 mg PO HS PRN 01/30/21 01/22/22 levothyroxine 75 mcg tablet 75 mcg PO DAILYBB 01/30/21 01/22/22 pantoprazole 40 mg tablet,delayed 40 mg PO QAM 01/30/21 01/22/22 release pregabalin 300 mg capsule (Lyrica) 300 mg PO BID 01/30/21 01/22/22 sucralfate 1 gram tablet (Carafate) 1 g PO ACHS PRN 01/30/21 01/22/22 tamsulosin 0.4 mg capsule (Flomax) 0.4 mg PO BID 01/30/21 01/22/22 umeclidinium 62.5 mcg-vilanterol 1 inh INHALATION UD 01/30/21 01/22/22 25 mcg/actuation powdr for inhalation (Anoro Ellipta) polyethylene glycol 3350 17 17 g PO DAILY PRN 01/11/22 01/22/22 gram/dose oral powder (Miralax) clindamycin HCl 300 mg capsule 300 mg PO TID 01/21/22 01/22/22 cholecalciferol (vitamin D3) 25 0 mcg PO QAM 01/22/22 01/22/22 mcg (1,000 unit) tablet (Vitamin D3) citicoline 500 mg capsule 500 mg PO HS 01/22/22 01/22/22 (Cognitive Health) cyanocobalamin (vitamin B-12) 500 0 mcg PO QAM 01/22/22 01/22/22 mcg tablet (Vitamin B-12) glucosamine sulfate 500 mg tablet 1,000 mg PO HS 01/22/22 01/22/22 (Glucosamine) krill oil 500 mg capsule 500 mg PO HS 01/22/22 01/22/22 melatonin 10 mg tablet 10 mg PO HS PRN 01/22/22 01/22/22 oxymetazoline 0.05 % nasal spray 2 spray INTRANASAL Q12H PRN 01/22/22 01/22/22 (Afrin Sinus (oxymetazoline)) peg 400-propylene glycol (PF) 0.4 1 drp OPB BID PRN 01/22/22 01/22/22 %-0.3 % eye drops in a dropperette (Systane (PF)) vitamin B complex 1 tab PO QAM 01/22/22 01/22/22 Results & Data (ED) Vital Signs Vital Signs - 24 hr 01/22/22 12:17 01/22/22 13:45 01/22/22 15:00 Temperature 36.7 C Temperature Source Temporal Artery Scan Pulse Rate 73 77 Pulse Rate [Left Apical] 74 Pulse Rate from SpO2 Sensor 69 Pulse Rhythm Regular Pulse Rhythm [Left Apical] Regular Pulse Strength Normal Pulse Strength [Left Apical] Normal Respiratory Rate 20 17 19 Respiratory Effort / Characteristics Non-Labored Spontaneous Non-Labored Spontaneous Respiratory Depth Normal Normal Respiratory Pattern Regular Regular Blood Pressure 122/81 130/76 Blood Pressure [Left Arm] 144/81 H Blood Pressure Mean 94 94 Blood Pressure Mean [Left Arm] 102 Blood Pressure Position Sitting Blood Pressure Position [Left Arm] Lying Pulse Oximetry 98 97 91 Oxygen Delivery Method Room Air Room Air Sepsis Recent Fever Within 48 Hours No Sepsis New/Unexplained Change in Mental Status No Sepsis Action Taken by Nursing No Action Required 01/22/22 15:30 Temperature Temperature Source Pulse Rate 57 L Pulse Rate [Left Apical] Pulse Rate from SpO2 Sensor 58 L Pulse Rhythm Pulse Rhythm [Left Apical] Pulse Strength Pulse Strength [Left Apical] Respiratory Rate 17 Respiratory Effort / Characteristics Respiratory Depth Respiratory Pattern Blood Pressure 150/100 H Blood Pressure [Left Arm] Blood Pressure Mean 116 Blood Pressure Mean [Left Arm] Blood Pressure Position Blood Pressure Position [Left Arm] Pulse Oximetry 96 Oxygen Delivery Method Sepsis Recent Fever Within 48 Hours Sepsis New/Unexplained Change in Mental Status Sepsis Action Taken by Skilled Nursing Medications Current Medication List: was personally reviewed by me Laboratory Data Attestation: I reviewed the patient's lab results. Result diagrams: 01/23/22 05:23 01/23/22 05:23 Lab Results 01/22/22 01/22/22 01/22/22 Range/Units 12:38 12:38 12:38 WBC 7.30 (4.8-10.8) K/uL RBC 4.30 L (4.7-6.1) M/uL Hgb 12.6 L (14.0-18.0) g/dL Hct 37.3 L (42-52) % MCV 86.7 (80-100) fL MCH 29.3 (25-34) pg MCHC 33.8 (32-36) g/dL RDW Std Deviation 44.9 (36.4-46.3) fL RDW Coeff of Karen 14.2 (11.5-14.5) % Plt Count 193 (130-400) K/uL MPV 11.6 H (7.4-10.4) fL Immature Gran % (Auto) 0.1 % Neut % (Auto) 45.6 % Lymph % (Auto) 38.6 % Dukes % (Auto) 7.4 % Eos % (Auto) 7.8 % Baso % (Auto) 0.5 % Neut # (Auto) 3.32 (1.4-6.5) K/uL Lymph # (Auto) 2.82 (1.2-3.4) K/uL Dukes # (Auto) 0.54 (0.11-0.59) K/uL Eos # (Auto) 0.57 H (0-0.5) K/uL Baso # (Auto) 0.04 (0-0.2) K/uL Immature Gran # (Auto) 0.01 (0.00-0.02) K/uL ESR 44 H (0-20) mm/hr PT 10.8 (9.0-12.0) Seconds INR 1.0 (0.9-1.1) APTT 30.5 (21.0-31.0) Seconds PTT Ratio 1.1 Sodium (136-145) mmol/L Potassium (3.5-5.1) mmol/L Chloride (98-107) mmol/L Carbon Dioxide (21-32) mmol/L Anion Gap (3-11) BUN (6-23) mg/dl Creatinine (0.6-1.4) mg/dl Est Cr Clr Drug Dosing ml/min Est GFR ( Amer) ml/min Est GFR (Non-Af Amer) ml/min BUN/Creatinine Ratio (10-20) Glucose (70-99(Fasting)) mg/dl Lactate (0.4-2.0) mmol/L Calcium (8.5-10.1) mg/dl Total Bilirubin (0.2-1.0) mg/dl AST (13-39) U/L ALT (7-52) U/L Alkaline Phosphatase (34-104) U/L C-Reactive Protein (0-0.5) mg/dl Total Protein (6.0-8.3) gm/dl Albumin (3.4-5.0) gm/dl Globulin (2.5-4.0) gm/dl Albumin/Globulin Ratio (0.9-2) Procalcitonin (0-0.5) ng/ml SARS-CoV-2, RNA, NAAT (NEGATIVE) 01/22/22 01/22/22 01/22/22 Range/Units 12:38 12:38 12:38 WBC (4.8-10.8) K/uL RBC (4.7-6.1) M/uL Hgb (14.0-18.0) g/dL Hct (42-52) % MCV (80-100) fL MCH (25-34) pg MCHC (32-36) g/dL RDW Std Deviation (36.4-46.3) fL RDW Coeff of Karen (11.5-14.5) % Plt Count (130-400) K/uL MPV (7.4-10.4) fL Immature Gran % (Auto) % Neut % (Auto) % Lymph % (Auto) % Dukes % (Auto) % Eos % (Auto) % Baso % (Auto) % Neut # (Auto) (1.4-6.5) K/uL Lymph # (Auto) (1.2-3.4) K/uL Dukes # (Auto) (0.11-0.59) K/uL Eos # (Auto) (0-0.5) K/uL Baso # (Auto) (0-0.2) K/uL Immature Gran # (Auto) (0.00-0.02) K/uL ESR (0-20) mm/hr PT (9.0-12.0) Seconds INR (0.9-1.1) APTT (21.0-31.0) Seconds PTT Ratio Sodium 136 (136-145) mmol/L Potassium 3.7 (3.5-5.1) mmol/L Chloride 104 (98-107) mmol/L Carbon Dioxide 25 (21-32) mmol/L Anion Gap 7 (3-11) BUN 14 (6-23) mg/dl Creatinine 0.74 (0.6-1.4) mg/dl Est Cr Clr Drug Dosing 95.8 ml/min Est GFR ( Amer) 111.4 ml/min Est GFR (Non-Af Amer) 96.1 ml/min BUN/Creatinine Ratio 18.9 (10-20) Glucose 129 H (70-99(Fasting)) mg/dl Lactate 1.3 (0.4-2.0) mmol/L Calcium 9.2 (8.5-10.1) mg/dl Total Bilirubin 0.4 (0.2-1.0) mg/dl AST 16 (13-39) U/L ALT 10 (7-52) U/L Alkaline Phosphatase 72 (34-104) U/L C-Reactive Protein 1.87 H (0-0.5) mg/dl Total Protein 7.1 (6.0-8.3) gm/dl Albumin 3.6 (3.4-5.0) gm/dl Globulin 3.5 (2.5-4.0) gm/dl Albumin/Globulin Ratio 1.0 (0.9-2) Procalcitonin < 0.05 (0-0.5) ng/ml SARS-CoV-2, RNA, NAAT (NEGATIVE) 01/22/22 Range/Units 14:45 WBC (4.8-10.8) K/uL RBC (4.7-6.1) M/uL Hgb (14.0-18.0) g/dL Hct (42-52) % MCV (80-100) fL MCH (25-34) pg MCHC (32-36) g/dL RDW Std Deviation (36.4-46.3) fL RDW Coeff of Karen (11.5-14.5) % Plt Count (130-400) K/uL MPV (7.4-10.4) fL Immature Gran % (Auto) % Neut % (Auto) % Lymph % (Auto) % Dukes % (Auto) % Eos % (Auto) % Baso % (Auto) % Neut # (Auto) (1.4-6.5) K/uL Lymph # (Auto) (1.2-3.4) K/uL Dukes # (Auto) (0.11-0.59) K/uL Eos # (Auto) (0-0.5) K/uL Baso # (Auto) (0-0.2) K/uL Immature Gran # (Auto) (0.00-0.02) K/uL ESR (0-20) mm/hr PT (9.0-12.0) Seconds INR (0.9-1.1) APTT (21.0-31.0) Seconds PTT Ratio Sodium (136-145) mmol/L Potassium (3.5-5.1) mmol/L Chloride (98-107) mmol/L Carbon Dioxide (21-32) mmol/L Anion Gap (3-11) BUN (6-23) mg/dl Creatinine (0.6-1.4) mg/dl Est Cr Clr Drug Dosing ml/min Est GFR ( Amer) ml/min Est GFR (Non-Af Amer) ml/min BUN/Creatinine Ratio (10-20) Glucose (70-99(Fasting)) mg/dl Lactate (0.4-2.0) mmol/L Calcium (8.5-10.1) mg/dl Total Bilirubin (0.2-1.0) mg/dl AST (13-39) U/L ALT (7-52) U/L Alkaline Phosphatase (34-104) U/L C-Reactive Protein (0-0.5) mg/dl Total Protein (6.0-8.3) gm/dl Albumin (3.4-5.0) gm/dl Globulin (2.5-4.0) gm/dl Albumin/Globulin Ratio (0.9-2) Procalcitonin (0-0.5) ng/ml SARS-CoV-2, RNA, NAAT NEGATIVE (NEGATIVE) Administered Medications Cyanocobalamin (Cyanocobalamin (B-12) 500 Mcg Tablet) 500 mcg PO QAM [facility] Stop: 02/22/22 08:59 Last Admin: 01/23/22 08:09 Dose: 500 mcg Documented by: [id number] Daptomycin 275 mg/ Syringe 5.5 mls @ 2.75 mls/min IV Q24H [facility]; Protocol Stop: 01/29/22 19:29 Last Admin: 01/22/22 22:36 Dose: 2.75 mls/min Documented by: [id number] Piperacillin Sod/Tazobactam (Sod 3.375 gm/ Dextrose) 115 mls @ 28.75 mls/hr IV Q8H [facility]; Protocol Stop: 01/30/22 00:00 Last Admin: 01/23/22 04:20 Dose: 28.8 mls/hr Documented by: [id number] Insulin Aspart (Insulin Aspart Per Unit) 0 units SC ACHS [facility] Stop: 02/21/22 20:59 Last Admin: 01/23/22 08:02 Dose: 4 units Documented by: [id number] Cosigned by: [id number] Admin: 01/22/22 23:03 Dose: 5 units Documented by: [id number] Cosigned by: [id number] Levothyroxine Sodium (Levothyroxine Sodium 75 Mcg Tablet) 75 mcg PO DAILYBB [facility] Stop: 02/22/22 06:29 Last Admin: 01/23/22 06:03 Dose: 75 mcg Documented by: [id number] Miscellaneous (Dutasteride [Avodart] 0.5 Mg ~ Order Awaiting Action) 1 ea N/A QS [facility] Stop: 02/22/22 00:00 Last Admin: 01/23/22 08:03 Dose: Not Given Documented by: [id number] Admin: 01/22/22 23:06 Dose: Not Given Documented by: [id number] Oxycodone HCl (Oxycodone Hcl Ir 5 Mg Tab (Immediate Release)) 5 mg PO Q4H PRN PRN Reason: MODERATE Pain (1,2,3,4) Stop: 02/05/22 17:48 Last Admin: 01/23/22 04:25 Dose: 5 mg Documented by: [id number] Oxycodone HCl (Oxycodone Hcl 20 Mg Tabcr (Oxycontin)) 40 mg PO Q12H [facility] Stop: 02/05/22 20:59 Last Admin: 01/23/22 08:08 Dose: 40 mg Documented by: [id number] Admin: 01/22/22 22:44 Dose: 40 mg Documented by: [id number] Pantoprazole Sodium (Pantoprazole 40 Mg Tab) 40 mg PO QAM [facility] Stop: 02/22/22 08:59 Last Admin: 01/23/22 08:09 Dose: 40 mg Documented by: [id number] Pregabalin (Pregabalin 150 Mg Cap) 300 mg PO BID [facility] Stop: 02/21/22 20:59 Last Admin: 01/23/22 08:08 Dose: 300 mg Documented by: [id number] Admin: 01/22/22 22:44 Dose: 300 mg Documented by: [id number] Tamsulosin HCl (Tamsulosin Hcl 0.4 Mg Cap) 0.4 mg PO BID [facility] Stop: 02/21/22 20:59 Last Admin: 01/23/22 08:10 Dose: 0.4 mg Documented by: [id number] Admin: 01/22/22 22:44 Dose: 0.4 mg Documented by: [id number] Umeclidinium/Vilanterol (Umeclidinium/Vilanterol 62.5/25mcg 7 Puffs/Inhaler) 1 puffs INH DAILY [facility] Stop: 02/21/22 18:15 Last Admin: 01/23/22 08:11 Dose: 1 puffs Documented by: [id number] Admin: 01/22/22 22:15 Dose: Not Given Documented by: [id number] Discontinued Medications Cefazolin Sodium (Cefazolin 330 Mg/Ml 1 Gm Vial) Confirm Administered Dose 2,970 mg .ROUTE .STK-MED ONE Stop: 01/22/22 18:37 Last Admin: 01/22/22 19:58 Dose: 3,000 mg Documented by: [id number] Clonidine HCl (Clonidine Hcl 0.1 Mg/24 Hr Transderm Sys) 1 patch TD Q7D [facility] Stop: 02/21/22 18:59 Last Admin: 01/22/22 22:43 Dose: 1 patch Documented by: [id number] Diphenhydramine HCl (Diphenhydramine 50 Mg/Ml Vial) Confirm Administered Dose 50 mg .ROUTE .STK-MED ONE Stop: 01/22/22 13:31 Last Admin: 01/22/22 13:32 Dose: 50 mg Documented by: [id number] Epinephrine HCl (Epinephrine Adult Auto-Inject 0.3 Mg Syr) Confirm Administered Dose 0.3 mg IM .STK-MED ONE Stop: 01/22/22 13:32 Last Admin: 01/22/22 14:59 Dose: Not Given Documented by: [id number] Hydromorphone HCl (Hydromorphone Inj 1 Mg/Ml Syringe) 0.25 mg IV Q5M PRN PRN Reason: PACU Use Only-Pain Stop: 01/23/22 02:46 Last Admin: 01/22/22 21:15 Dose: 0.25 mg Documented by: [id number] Admin: 01/22/22 21:10 Dose: 0.25 mg Documented by: [id number] Admin: 01/22/22 21:03 Dose: 0.25 mg Documented by: [id number] Admin: 01/22/22 20:56 Dose: 0.25 mg Documented by: [id number] Hydromorphone HCl (Hydromorphone Inj 1 Mg/Ml Syringe) Confirm Administered Dose 1 mg .ROUTE .STK-MED ONE Stop: 01/22/22 20:57 Last Admin: 01/22/22 21:35 Dose: Not Given Documented by: [id number] Ceftriaxone Sodium (Rocephin) 1,000 mg in 50 mls @ 100 mls/hr IV NOW STA Stop: 01/22/22 12:51 Last Infusion: 01/22/22 13:30 Dose: 0 mls/hr Documented by: [id number] Admin: 01/22/22 13:00 Dose: 100 mls/hr Documented by: [id number] Sodium Chloride (Nss 1000ml) 1,000 mls @ 999 mls/hr IV .Q1H1M [facility] Stop: 01/22/22 13:22 Last Infusion: 01/22/22 22:18 Dose: 0 mls/hr Documented by: [id number] Infusion: 01/22/22 14:00 Dose: 0 mls/hr Documented by: [id number] Admin: 01/22/22 13:00 Dose: 999 mls/hr Documented by: [id number] Vancomycin HCl 1,500 mg/ (Sodium Chloride) 530 mls @ 200 mls/hr IV NOW ONE Stop: 01/22/22 15:00 Last Infusion: 01/22/22 22:18 Dose: 0 mls/hr Documented by: [id number] Infusion: 01/22/22 13:20 Dose: 0 mls/hr Documented by: [id number] Admin: 01/22/22 13:00 Dose: 200 mls/hr Documented by: [id number] Piperacillin Sod/Tazobactam (Sod 4.5 gm/ Dextrose) 120 mls @ 200 mls/hr IV NOW ONE; Protocol Stop: 01/22/22 19:35 Last Infusion: 01/22/22 23:25 Dose: 0 mls/hr Documented by: [id number] Admin: 01/22/22 22:43 Dose: 200 mls/hr Documented by: [id number] Methylprednisolone (Methylprednisolone 125 Mg/2 Ml Vial) Confirm Administered Dose 125 mg .ROUTE .STK-MED ONE Stop: 01/22/22 13:36 Last Admin: 01/22/22 13:32 Dose: 125 mg Documented by: [id number] Miscellaneous (Check Clonidine Patch Placement) 1 ea N/A QS [facility] Stop: 02/22/22 00:00 Last Admin: 01/22/22 23:06 Dose: 1 ea Documented by: [id number] Discharge Plan Visit Data Chief Complaint: Skin Problem Stated Complaint: SKIN IRRITATION ON BACK ED Provider: Jose Duron Discharge Problem: Postoperative abscess, Infection of intrathecal pump, Angio-edema Patient Disposition: Admitted As Inpatient Discharge Instructions Interventions: ED Discharge Assessment Last Done: 01/22/22 17:46 Discharge Problem: Infection of intrathecal pump Qualifiers: Encounter type: initial encounter Qualified Code(s): T85.738A - Infection and inflammatory reaction due to other nervous system device, implant or graft, ini tial encounter Angio-edema Qualifiers: Encounter type: initial encounter Qualified Code(s): T78.3XXA - Angioneurotic edema, initial encounter
[2022-01-22 12:57] LABS: Basophils # (auto) 0.04 K/uL (0-0.2); Basophils % (auto) 0.5 %; Eosinophils # (auto) 0.57 K/uL (0-0.5); Eosinophils % (auto) 7.8 %; Hematocrit (blood only) 37.3 % (42-52); Hemoglobin 12.6 g/dL (14.0-18.0); Immature Granulocytes # (auto) 0.01 K/uL (0.00-0.02); Immature Granulocytes % (auto) 0.1 %; Lymphocytes # (auto) 2.82 K/uL (1.2-3.4); Lymphocytes % (auto) 38.6 %; Mean Corpuscular Hemoglobin 29.3 pg (25-34); Mean Corpuscular Hgb Conc 33.8 g/dL (32-36); Mean Corpuscular Volume 86.7 fL (80-100); Mean Platelet Volume 11.6 fL (7.4-10.4); Monocytes # (auto) 0.54 K/uL (0.11-0.59); Monocytes % (auto) 7.4 %; Neutrophils # (auto) 3.32 K/uL (1.4-6.5); Neutrophils % (auto) 45.6 %; Platelet Count 193 K/uL (130-400); RDW Coefficient of Variation 14.2 % (11.5-14.5); RDW Standard Deviation 44.9 fL (36.4-46.3)
[2022-01-22 13:23] LABS: Partial Thromboplastin Ratio 1.1; Partial Thromboplastin Time 30.5 Seconds (21.0-31.0); Prothrombin Time 10.8 Seconds (9.0-12.0)
[2022-01-22 13:27] LABS: Albumin Level 3.6 gm/dl (3.4-5.0); BUN Creatinine Ratio 18.9 (10-20); Bilirubin,Total 0.4 mg/dl (0.2-1.0); C Reactive Protein 1.87 mg/dl (0-0.5); Calcium 9.2 mg/dl (8.5-10.1); Creatinine Clr Calc Pharmacy 95.8 ml/min; Est GFR (African American) 111.4 ml/min; Est GFR (Non-African American) 96.1 ml/min; Globulin 3.5 gm/dl (2.5-4.0); Potassium 3.7 mmol/L (3.5-5.1); Total Protein 7.1 gm/dl (6.0-8.3)
[2022-01-22] MEDS ORDERED: diphenhydrAMINE 50 MG/ML VIAL ONE (13:30)
[2022-01-22] MEDS ORDERED: EPINEPHrine ADULT AUTO-INJECT 0.3 MG SYR IM ONE (13:31)
[2022-01-22] MEDS ORDERED: methylPREDNISolone 125 MG/2 ML VIAL ONE (13:35)
--- NOTE | 2022-01-22 15:50 | History & Physical Report ---
Date of Service January 22, 2022 Assessment & Plan (1) Postoperative abscess: Plan: CT lumbar spine showed a 3.3 x 2.7 x 1.5 cm subcutaneous abscess at the site of his new intrathecal pump. - ED discussed with Dr. Kumar who will remove the pump in the OR. - Patient had a reaction to vancomycin - Start daptomycin & Zosyn. - Follow blood cultures and deep wound culture sampled in the ER. Follow OR cultures once removed. (2) Diabetes mellitus type 2 in nonobese: Plan: A1c was 7.6% in 2020 during a previous admission. Patient not on any diabetic medications at present. - Sliding scale insulin - Repeat A1c (3) COPD (chronic obstructive pulmonary disease): Plan: No wheezing on exam today. No shortness of breath per patient. - Continue home maintenance inhaler (or formulary equivalent) - Albuterol PRN (4) Anxiety with depression: Plan: Not on any psych meds at present. Affect seems normal. - Monitor (5) BPH w urinary obs/LUTS: Plan: Reports some LUTS with urinary hesitancy. - Continue home Avodart (or formulary) and Flomax - Low threshold to check PVRs while inpatient (6) Hypothyroid: Plan: TSH was 0.17 in 2020. No signs/symptoms of hypo-/hyperthyroidism. - Continue home Synthroid 75 mcg - Recheck TSH/FT4 in AM (7) GERD (gastroesophageal reflux disease): Plan: - Continue PPI (8) DVT prophylaxis: Plan: SCDs - Hold heparin until after surgery Conditional code - Patient does not want compressions or shocks. Reports he has DNR ("If I'm , leave me ."), but would be willing to have intubation if needed. History of Present Illness Primary Care Provider: Giovani Almonte PA-C 66yo M w/ hx of COPD, hypothyroidism, DM who presents with infected intrathecal pump. He had one previously, and it stopped working in November. An outside surgeon (Dr. Jm Zhao) put a new intrathecal pump in on 12/25/2021. However, the patient reports a single suture came undone, and the pump site became infected after that. He has been [facility] with a wound vac on, but the site has opened up further, and became acutely pussy. CT back was done on 01/22 showed a 3.3 x 2.7 x 1.5 cm subcutaneous abscess, and he was instructed to come to the ER for removal. He denies any systemic signs of infection such as chest pain, shortness of breath, fevers/chills, nausea, vomiting, change in urination or bowel habits. Allergies Allergy/AdvReac Type Severity Reaction Status Date / Time adhesive tape Allergy REDNESS & Verified 01/22/22 14:52 BLACK & BLUE ibuprofen Allergy SWELLING, Verified 01/22/22 14:52 HIVES & SOB Home Medications Medication Instructions Recorded Confirmed Type albuterol sulfate 90 mcg/actuation 2 inh INHALATION UD PRN 01/30/21 01/22/22 History aerosol inhaler dutasteride 0.5 mg capsule 0.5 mg PO QAM 01/30/21 01/22/22 History (Avodart) hydroxyzine HCl 50 mg tablet 75 - 100 mg PO HS PRN 01/30/21 01/22/22 History levothyroxine 75 mcg tablet 75 mcg PO DAILYBB 01/30/21 01/22/22 History pantoprazole 40 mg tablet,delayed 40 mg PO QAM 01/30/21 01/22/22 History release pregabalin 300 mg capsule (Lyrica) 300 mg PO BID 01/30/21 01/22/22 History sucralfate 1 gram tablet (Carafate) 1 g PO ACHS PRN 01/30/21 01/22/22 History tamsulosin 0.4 mg capsule (Flomax) 0.4 mg PO BID 01/30/21 01/22/22 History umeclidinium 62.5 mcg-vilanterol 1 inh INHALATION UD 01/30/21 01/22/22 History 25 mcg/actuation powdr for inhalation (Anoro Ellipta) polyethylene glycol 3350 17 17 g PO DAILY PRN 01/11/22 01/22/22 History gram/dose oral powder (Miralax) clindamycin HCl 300 mg capsule 300 mg PO TID 01/21/22 01/22/22 History cholecalciferol (vitamin D3) 25 0 mcg PO QAM 01/22/22 01/22/22 History mcg (1,000 unit) tablet (Vitamin D3) citicoline 500 mg capsule 500 mg PO HS 01/22/22 01/22/22 History (Cognitive Health) cyanocobalamin (vitamin B-12) 500 0 mcg PO QAM 01/22/22 01/22/22 History mcg tablet (Vitamin B-12) glucosamine sulfate 500 mg tablet 1,000 mg PO HS 01/22/22 01/22/22 History (Glucosamine) krill oil 500 mg capsule 500 mg PO HS 01/22/22 01/22/22 History melatonin 10 mg tablet 10 mg PO HS PRN 01/22/22 01/22/22 History oxymetazoline 0.05 % nasal spray 2 spray INTRANASAL Q12H PRN 01/22/22 01/22/22 History (Afrin Sinus (oxymetazoline)) peg 400-propylene glycol (PF) 0.4 1 drp OPB BID PRN 01/22/22 01/22/22 History %-0.3 % eye drops in a dropperette (Systane (PF)) vitamin B complex 1 tab PO QAM 01/22/22 01/22/22 History Past Med/Surg History Medical History Anxiety with depression BPH w urinary obs/LUTS COPD (chronic obstructive pulmonary disease) Diabetes mellitus type 2 in nonobese GERD (gastroesophageal reflux disease) Hypothyroid Insomnia Lumbar post-laminectomy syndrome No pertinent family history Opioid dependence Postoperative abscess Presence of intrathecal pump Surgical wound dehiscence Surgical History History of lumbar fusion Hx of fusion of cervical spine S/P hip replacement Social History Smoking Status: Current every day smoker Tobacco Type: Cigarettes Hx Substance Use: Yes Preferred Language: Maori Communication Ability: Unable Beliefs That Will Affect Care: None Current Living Situation: Family Feels Safe at Home: Yes Assistive Devices: Oxygen - Continuous Review of Systems Review of Systems: All systems reviewed & are unremarkable except as noted in HPI & below Physical Exam Constitutional: WD/WN, vitals as above Eyes: EOM intact bilaterally; no conjunctival abnormality ENMT: external ear and nose normal, oropharynx normal Neck: trachea midline, no thyromegaly normal visual inspection Respiratory: normal respiratory effort, lungs clear to auscultation no respiratory distress Cardiovascular: RRR, no murmur, no edema Gastrointestinal (Abdomen): Inspection/Auscultation: abdomen normal to inspection; abdomen not distended Musculoskeletal: no cyanosis or clubbing, extremities motor strength 5/5 Skin: no rashes, warm and dry + ulcer (Lumbar spine - purulent) Neurologic: moves all extremities and awake Psychiatric: Orientation: alert, oriented to person and cooperative Results & Data Results & Data ([facility]) Vital Signs (Past 12 Hours) Vital Signs Temp Pulse Pulse Resp BP BP Pulse Ox 01/22/22 15:00 77 19 130/76 91 01/22/22 13:45 74 17 144/81 H 97 01/22/22 12:17 36.7 C 73 20 122/81 98 Code Status & VTE Plan VTE Prophylaxis Plan VTE Prophylaxis will be ordered: Yes PG Care Time/CCT Total # of Minutes Spent Total Time Spent with Patient: Total time spent is greater than 50% in coordination of care (as documented) at patient's floor/unit and/or counseling patient: Coding Level of Care Code 36683 Initial Inpt Care Lvl 3 Diagnoses Postoperative abscess T81.49XA Diabetes mellitus type 2 in nonobese E11.9 COPD (chronic obstructive pulmonary disease) J44.9 Anxiety with depression F41.8 BPH w urinary obs/LUTS N40.1; N13.8 Hypothyroid E03.9 GERD (gastroesophageal reflux disease) K21.9 DVT prophylaxis Z29.9
--- NOTE | 2022-01-22 16:08 | Anesthesiology Consultation ---
Date of Service January 22, 2022 Assessment & Plan (1) Encounter for pre-operative examination: Chart Review Chart Review: Acceptable Risk for Surgery and Patient NOT seen in Pre Admission Testing Consults Requested none History Surgery Operation Date: 01/22/22 10:25 Proposed Procedures p Explant Intrathecal Pump, Wound Vac Placement - Christine Kumar, Height/Weight Height: 5 ft 9 in Weight: 69 kg Allergies Allergy/AdvReac Type Severity Reaction Status Date / Time adhesive tape Allergy REDNESS & Verified 01/22/22 14:52 BLACK & BLUE ibuprofen Allergy SWELLING, Verified 01/22/22 14:52 HIVES & SOB Medications Home Medications Medication Instructions Recorded Confirmed Last Taken albuterol sulfate 90 mcg/actuation 2 inh INHALATION UD PRN 01/30/21 01/22/22 Unknown aerosol inhaler dutasteride 0.5 mg capsule 0.5 mg PO QAM 01/30/21 01/22/22 01/22/22 (Avodart) hydroxyzine HCl 50 mg tablet 75 - 100 mg PO HS PRN 01/30/21 01/22/22 01/19/22 levothyroxine 75 mcg tablet 75 mcg PO DAILYBB 01/30/21 01/22/22 01/22/22 pantoprazole 40 mg tablet,delayed 40 mg PO QAM 01/30/21 01/22/22 01/22/22 release pregabalin 300 mg capsule (Lyrica) 300 mg PO BID 01/30/21 01/22/22 01/22/22 sucralfate 1 gram tablet (Carafate) 1 g PO ACHS PRN 01/30/21 01/22/22 01/22/22 tamsulosin 0.4 mg capsule (Flomax) 0.4 mg PO BID 01/30/21 01/22/22 01/22/22 umeclidinium 62.5 mcg-vilanterol 1 inh INHALATION UD 01/30/21 01/22/22 01/22/22 25 mcg/actuation powdr for inhalation (Anoro Ellipta) polyethylene glycol 3350 17 17 g PO DAILY PRN 01/11/22 01/22/22 01/22/22 gram/dose oral powder (Miralax) clindamycin HCl 300 mg capsule 300 mg PO TID 01/21/22 01/22/22 01/22/22 cholecalciferol (vitamin D3) 25 0 mcg PO QAM 01/22/22 01/22/22 01/22/22 mcg (1,000 unit) tablet (Vitamin D3) citicoline 500 mg capsule 500 mg PO HS 01/22/22 01/22/22 01/21/22 (Cognitive Health) cyanocobalamin (vitamin B-12) 500 0 mcg PO QAM 01/22/22 01/22/22 01/22/22 mcg tablet (Vitamin B-12) glucosamine sulfate 500 mg tablet 1,000 mg PO HS 01/22/22 01/22/22 01/21/22 (Glucosamine) krill oil 500 mg capsule 500 mg PO HS 01/22/22 01/22/22 01/21/22 melatonin 10 mg tablet 10 mg PO HS PRN 01/22/22 01/22/22 01/19/22 oxymetazoline 0.05 % nasal spray 2 spray INTRANASAL Q12H PRN 01/22/22 01/22/22 01/22/22 (Afrin Sinus (oxymetazoline)) peg 400-propylene glycol (PF) 0.4 1 drp OPB BID PRN 01/22/22 01/22/22 01/21/22 %-0.3 % eye drops in a dropperette (Systane (PF)) vitamin B complex 1 tab PO QAM 01/22/22 01/22/22 01/22/22 Past Medical History Medical History Anxiety with depression BPH w urinary obs/LUTS COPD (chronic obstructive pulmonary disease) GERD (gastroesophageal reflux disease) Hypothyroid Insomnia No pertinent family history Past Surgical History Surgical History No pertinent past surgical history Social History Smoking Status: Current every day smoker Hx Substance Use: Yes substance use type: marijuana Physical Exam Vital Signs Last Vital Signs Temp 36.7 C 01/22/22 12:17 Pulse 57 L 01/22/22 15:30 Resp 17 01/22/22 15:30 BP 150/100 H 01/22/22 15:30 Pulse Ox 96 01/22/22 15:30 Testing Laboratory Results 01/22/22 12:38 01/22/22 12:38 PT 10.8 Seconds (9.0-12.0) 01/22/22 12:38 INR 1.0 (0.9-1.1) 01/22/22 12:38 APTT 30.5 Seconds (21.0-31.0) 01/22/22 12:38 01/22/22 Unknown Gram Stain - Final Back Electrocardiogram Date: 01/30/21 Findings: + ST @ (157) Sinus tachycardia with Premature atrial complexes and Premature ventricular complexes or Fusion complexes Left axis deviation Inferior infarct , age undetermined Abnormal ECG No previous ECGs available Echocardiogram Date: 01/31/21 EF: 70% Other Findings: + diastolic dysfunction (grade 1) Valvular Disease: + no significant valvular disease LV hyperdynamic
--- NOTE | 2022-01-22 17:08 | Pain Management Consultation ---
Date of Consultation January 22, 2022 Assessment & Plan (1) Infection of intrathecal pump: Encounter type: initial encounter Qualified Code(s): T85.738A - Infection and inflammatory reaction due to other nervous system device, implant or graft, initial encounter Present on Admission?: Yes (2) Surgical wound dehiscence: Present on Admission?: Yes (3) Postoperative abscess: Present on Admission?: Yes (4) Presence of intrathecal pump: Present on Admission?: Yes (5) Lumbar post-laminectomy syndrome: Present on Admission?: Yes (6) Opioid dependence: Present on Admission?: Yes 1. Patient has a postoperative abscess at the level of L4-5 and surgical wound dehiscence of his intrathecal catheter site. Recommend explantation of intrathecal pump and catheter at this time. Wound VAC will be placed and wound care will be consulted for assistance with wound management. 2. Appreciate hospitalist's help with management and antibiotic selection. 3. Recommend patient follow-up with Dr. Zhao in [facility] for further evaluation and pain management concerns post discharge. There is no need for the patient to follow-up with the [facility] pain management office. The patient has a previously scheduled follow-up with Dr. Zhao on 01/29/2022 thus a short prescription of oral opiates will be sufficient at discharge. 4. We will interrogate the patient's intrathecal pump prior to explantation and select appropriate opiates. The patient was made aware of potential signs and symptoms of withdrawal with explantation of intrathecal pump and conversion to oral opiates. 5. We will follow the patient during the admission. History of Present Illness History of Present Illness 66-year-old male with a intrathecal pump typically managed by Dr. Zhao (pain management in [place], [place]) had a replacement intrathecal catheter and intrathecal pump for malfunctioning pump on 12/25/2021. He presented to the [facility] wound clinic on 01/11/2022 with wound dehiscence. He was treated with Keflex, clindamycin, and a wound VAC. A CT scan was performed today that showed abscess formation and subsequently patient was sent to the [facility] emergency room for evaluation. Pain management was consulted for explantation of intrathecal pump and catheter with wound VAC placement. He states that he previously has utilized many oral opiates in the past but found best success with oxycodone. He is aware that his intrathecal pump will be removed today. He denies any signs of meningeal irritation, fever, chills, increased pain, withdrawal symptoms, change in bowel or bladder continence, saddle anesthesia at this time. He has pre-existing motor weakness in his left lower extremity status post his DOUG (per patient report). Pain Assessment Full Body Front + Back: 1. 2. [facility] Combined Pain Scale: 4-Mild to Mod - Interrupts ADLs. Decrease in job performance Pain scale - at its best (0-10): 4 Pain scale - at its worst (0-10): 8 Allergies Allergy/AdvReac Type Severity Reaction Status Date / Time adhesive tape Allergy REDNESS & Verified 01/22/22 14:52 BLACK & BLUE ibuprofen Allergy SWELLING, Verified 01/22/22 14:52 HIVES & SOB Home Medications Medication Instructions Recorded Confirmed Type albuterol sulfate 90 mcg/actuation 2 inh INHALATION UD PRN 01/30/21 01/22/22 History aerosol inhaler dutasteride 0.5 mg capsule 0.5 mg PO QAM 01/30/21 01/22/22 History (Avodart) hydroxyzine HCl 50 mg tablet 75 - 100 mg PO HS PRN 01/30/21 01/22/22 History levothyroxine 75 mcg tablet 75 mcg PO DAILYBB 01/30/21 01/22/22 History pantoprazole 40 mg tablet,delayed 40 mg PO QAM 01/30/21 01/22/22 History release pregabalin 300 mg capsule (Lyrica) 300 mg PO BID 01/30/21 01/22/22 History sucralfate 1 gram tablet (Carafate) 1 g PO ACHS PRN 01/30/21 01/22/22 History tamsulosin 0.4 mg capsule (Flomax) 0.4 mg PO BID 01/30/21 01/22/22 History umeclidinium 62.5 mcg-vilanterol 1 inh INHALATION UD 01/30/21 01/22/22 History 25 mcg/actuation powdr for inhalation (Anoro Ellipta) polyethylene glycol 3350 17 17 g PO DAILY PRN 01/11/22 01/22/22 History gram/dose oral powder (Miralax) clindamycin HCl 300 mg capsule 300 mg PO TID 01/21/22 01/22/22 History cholecalciferol (vitamin D3) 25 0 mcg PO QAM 01/22/22 01/22/22 History mcg (1,000 unit) tablet (Vitamin D3) citicoline 500 mg capsule 500 mg PO HS 01/22/22 01/22/22 History (Cognitive Health) cyanocobalamin (vitamin B-12) 500 0 mcg PO QAM 01/22/22 01/22/22 History mcg tablet (Vitamin B-12) glucosamine sulfate 500 mg tablet 1,000 mg PO HS 01/22/22 01/22/22 History (Glucosamine) krill oil 500 mg capsule 500 mg PO HS 01/22/22 01/22/22 History melatonin 10 mg tablet 10 mg PO HS PRN 01/22/22 01/22/22 History oxymetazoline 0.05 % nasal spray 2 spray INTRANASAL Q12H PRN 01/22/22 01/22/22 History (Afrin Sinus (oxymetazoline)) peg 400-propylene glycol (PF) 0.4 1 drp OPB BID PRN 01/22/22 01/22/22 History %-0.3 % eye drops in a dropperette (Systane (PF)) vitamin B complex 1 tab PO QAM 01/22/22 01/22/22 History Pain History Pain Intensity Pain scale - at its best (0-10): 4 Pain scale - at its worst (0-10): 8 Patient History Medical History (Updated 01/22/22 @ 17:05 by Christine Kumar DO) Anxiety with depression BPH w urinary obs/LUTS COPD (chronic obstructive pulmonary disease) Diabetes mellitus type 2 in nonobese GERD (gastroesophageal reflux disease) Hypothyroid Insomnia Lumbar post-laminectomy syndrome No pertinent family history Opioid dependence Postoperative abscess Presence of intrathecal pump Surgical wound dehiscence Surgical History History of lumbar fusion Hx of fusion of cervical spine S/P hip replacement Social History Smoking Status: Current every day smoker Tobacco Type: Cigarettes Hx Substance Use: Yes Preferred Language: Georgian Communication Ability: Unable Beliefs That Will Affect Care: None Current Living Situation: Family Feels Safe at Home: Yes Assistive Devices: Oxygen - Continuous Physical Exam Physical Exam: Constitutional: Well-developed, well-nourished, deconditioned accompanied by his on examination Psych: Awake, alert, and oriented 3 with normal affect and mood. Recent memory appears grossly intact Eyes: Pupils are equally round and reactive to light with normal size pupils, eyelids appear normal Ear, nose, mouth, and throat: Moist nasal and oral membranes, lips and tongues appear normal, no external ear abnormalities are noted Neck: The trachea is midline without deviation and no thyromegaly is noted Respiratory: Normal respiratory effort without distress, no audible wheezes or rhonchi CV: Normal S1 and S2 Chest: Deferred GI/abdomen: Non-tender without guarding, no masses noted. Intrathecal pump is present over left buttock. Musculoskeletal: Head is normocephalic and atraumatic, gait not observed but utilizes a walker for assistance with ambulation Cervical: Lordotic curve: Normal. There is a well-healed ACDF scar anteriorly Range of motion is decreased in all planes Strength: Strength is grossly equal bilaterally with 5 out of 5 strength in all planes Sensation of upper extremities: Intact bilaterally Thoracic: Kyphotic curve: Normal Range of motion is decreased in all planes Tenderness: Moderately tender over the axial midline Myofascial spasm: No appreciable spasm. No discrete trigger points noted Lumbar: Lordotic curve: Complete loss of lumbar lordosis with an extensive axial midline incision Range of motion is decreased in all planes Tenderness: Moderately tender over the axial midline Straight leg raise: Negative bilaterally Step-off injuries: None Strength: Strength is equal right lower extremity with 5 out of 5 strength in all planes, Left lower extremity is globally 4+ out of 5 (patient states this is his baseline) Sensation of lower extremities: Intact bilaterally Deep tendon reflexes: Rated at 1+ in bilateral S1, no obtainable deep tendon reflexes over bilateral L4 (patient states this is his baseline) Myofascial spasm: No appreciable spasm. No discrete trigger points noted Pathologic reflexes noted: None Skin: At the catheter site, there is a thoracolumbar axial wound dehiscence measuring approximately 1.5 x 1 cm. There is surrounding erythema. Purulence noted at the base of the wound but I am unable to express any on examination. The intrathecal pump itself appears well-healed without any erythema fluctuance or drainage. Neuro: No nystagmus noted, the tongue is midline, the patient is able to rotate their head bilaterally, no meningeal signs noted : Deferred Results (Pain Clinic) Diagnostic Review CT: non enhanced, reports reviewed, images reviewed and findings discussed with patient CT Findings: 01/22/22 CT lumbar spine w con HISTORY: Wound dehiscence. Status post intrathecal pump. Assess for abscess. T81.31XA - Disruption of external operation (surgical) wo... TECHNIQUE: Multiaxial CT images of the lumbar spine were performed following the intravenous administration of contrast and reformatted in the sagittal and coronal plane. COMPARISON STUDY: Abdomen and pelvis CT 01/30/2021. FINDINGS: There is left-sided intrathecal pump catheter which is looped at the midline of the lower back. The intrathecal catheter enters the L2 laminectomy space and extends cephalad to the thoracic region. The tip is not included on this study. Focal skin ulceration within the midline of the lumbar region which measures 1.7 cm. There is soft tissue induration and edema within the subcutan eous soft tissues deep to the skin ulceration. A small linear gas tract which extends inferiorly from the skin ulceration to the L4-5 level with a peripheral enhancing gas and fluid collection within the subcutaneous soft tissues surrounding the loop section of the catheter. This fluid collection measures 2.7 x 3.3 x 1.5 cm and is best seen on axial image 238 and sagittal image 35. This is consistent with a small subcutaneous abscess. The small gas tract between the focal skin ulceration and abscess favors a small sinus tract. Anterior discectomy and fusion at L5-S1 is again noted. Removal of the remaining lumbar spinal fusion hardware again noted. There are disc spacers at L2-L3 and L3-L4. The L3-L4 disc spacer is displaced posteriorly along the right side of the thecal sac and results in severe central canal narrowing at this level. This remains unchanged. Endplate irregularity at the L2-L3 and L3-L4 levels with vacuum phenomenon persists. No new erosive changes identified. The L1-L2 vertebral bodies are fused. Prior L1 vertebroplasty again noted. Paravertebral soft tissues are unremarkable. Moderate calcified plaque within the normal caliber abdominal aorta. Additional areas of skin thickening and subcutaneous trace edema within the lumbar region favors a cellulitis. IMPRESSION: 1. There is a 3.3 x 2.7 x 1.5 cm subcutaneous abscess surrounding the loop section of the catheter at the L4-5 level. 2. There is a small linear focus of gas extending from this abscess to the focal skin ulceration at the midline of the lumbar region at the L2-3 level suggesting a small sinus tract. 3. Skin thickening and subcutaneous trace edema within the lumbar region likely representing a cellulitis. 4. Additional chronic changes as described above.
[2022-01-22] MEDS ORDERED: GLUCAGON FOR INJ 1 MG VIAL SQ PRN (17:33)
[2022-01-22] MEDS ORDERED: GLUCOSE 40% GEL 15 GM TUBE PO PRN (17:33)
[2022-01-22] MEDS ORDERED: DEXTROSE 50% 50 ML SYRINGE IV PRN (17:33)
[2022-01-22] MEDS ORDERED: CARBOHYDRATES FOR HYPOGLYCEMIA PO PRN (17:33)
[2022-01-22] MEDS ORDERED: GLUCOSE 10 TABS/TUBE PO PRN (17:33)
[2022-01-22] MEDS ORDERED: oxyCODONE HCL IR 5 MG TAB (IMMEDIATE RELEASE) PO PRN (17:49)
[2022-01-22] MEDS ORDERED: HYDROmorphone INJ 0.5 MG/0.5 ML SYR IV PRN (17:49)
[2022-01-22] MEDS ORDERED: DOCUSATE SODIUM/SENNA 50/8.6MG TAB PO PRN (17:49)
[2022-01-22] MEDS ORDERED: MIRTAZAPINE TAB 15 MG TAB PO PRN (17:49)
[2022-01-22] MEDS ORDERED: NALOXONE HCL INJ 1 MG/ML 2ML SYR INTNAS PRN (17:49)
[2022-01-22] MEDS ORDERED: bisacodyL 5 MG TABEC PO PRN (17:49)
[2022-01-22] MEDS ORDERED: MIDAZOLAM HCL 1 MG/ML 2ML VIAL ONE (18:12)
[2022-01-22] MEDS ORDERED: fentaNYL citrate 100 MCG/2 ML VIAL ONE (18:13)
[2022-01-22] MEDS ORDERED: POLYETHYLENE (MIRALAX) 17 GM PACK PO PRN (18:16)
[2022-01-22] MEDS ORDERED: MoRPHine SULFATE 2 MG/ML CARP IV PRN (18:16)
[2022-01-22] MEDS ORDERED: ALBUTEROL HFA 8 GM INHALER INH PRN (18:16)
[2022-01-22] MEDS ORDERED: PIPERACILLIN/TAZOBACTAM 4.5 GM in DEXTROSE 5% 100 ML IV SCH (18:16)
[2022-01-22] MEDS ORDERED: PIPERACILL/TAZOBAC CONSULT ACTIVE PRN (18:16)
[2022-01-22] MEDS ORDERED: LIDOCAINE 2% 2 ML VIAL/AMP(20MG/ML) INFIL ONE (18:17)
[2022-01-22] MEDS ORDERED: ROCURONIUM BROMIDE 10 MG/ML 5 ML VIAL IV ONE (18:17)
[2022-01-22] MEDS ORDERED: PROPOFOL IV EMULSION 10 MG/ML 20 ML VIAL IV ONE (18:17)
[2022-01-22] MEDS ORDERED: ceFAZolin 330 MG/ML 1 GM VIAL ONE (18:36)
[2022-01-22] MEDS ORDERED: ONDANSETRON INJ 2 MG/ML 2 ML VIAL IV PRN (18:46)
[2022-01-22] MEDS ORDERED: ATROPINE SULFATE 0.1 MG/ML 10ML SYR IV PRN (18:46)
[2022-01-22] MEDS ORDERED: PIPERACILLIN/TAZOBACTAM 4.5 GM in DEXTROSE 5% 100 ML IV ONE (19:00)
[2022-01-22] MEDS ORDERED: cloNIDine HCL 0.1 MG/24 HR TRANSDERM SYS TD SCH (19:00)
[2022-01-22] MEDS ORDERED: ePHEDrine sulfate 50 MG/ML AMP ONE (19:34)
[2022-01-22] MEDS ORDERED: GLYCOPYRROLATE 0.2 MG/ML VIAL ONE ×2 (19:34→19:57)
[2022-01-22] MEDS ORDERED: NEOSTIGMINE METHYLSULFATE 1 MG/ML 10ML VIAL ONE (19:57)
[2022-01-22] MEDS ORDERED: ONDANSETRON INJ 2 MG/ML 2 ML VIAL ONE (19:58)
[2022-01-22] MEDS ORDERED: NALOXONE HCL 0.4 MG/1 ML VIAL/CARP IV PRN (20:23)
--- NOTE | 2022-01-22 20:24 | Fluoroscopy Report ---
FL spine 1V any level CLINICAL HISTORY: PAIN PUMP REMOVAL COMPARISON STUDY: Lumbar spine CT performed earlier today. FLUOROSCOPY TIME: 6.3 seconds. FLUOROSCOPIC IMAGES: 3 FINDINGS: Fluoroscopy was provided during pain pump removal. Postoperative findings within the spine and a one level kyphoplasty are incidentally noted as well as a left hip arthroplasty. IMPRESSION: Fluoroscopy provided during pain pump removal. ACT 112: Negative or not required by law. Electronically signed by: Rashawn Fulton M.D. 01/22/2022 8:23 PM
--- NOTE | 2022-01-22 20:29 | Post Operative Brief Note ---
Immediate Post Op Note v1 Date of Surgery January 22, 2022 Pre & Post Diagnosis Operation Date: 01/22/22 10:25 Pre-Op Diagnosis: INFECTED INTRATHECAL PUMP Post-Op Diagnosis: INFECTED INTRATHECAL PUMP I identified the patient and participated in the time-out.: Yes Procedure Operation Date: 01/22/22 10:25 Actual Procedures p Explantation Intrathecal Pump and catheter, Wound Vac Placement(Not Applicable) - Christine Kumar DO Surgeon Christine Kumar DO Kindergarten Teacher none Estimated Blood Loss 10 Findings Consistent with Post-Op Diagnosis Fluids per anes record Specimens intrathecal catheter intrathecal pump intrathecal pocket culture intrathecal axial wound culture Drains Other (wound vac) Anesthesia Type General Complications none Disposition Accompanied Patient To Recovery: No Disposition: Recovery Room
--- NOTE | 2022-01-22 20:31 | Operative Report ---
Post Operative Report Pre & Post Diagnosis Operation Date: 01/22/22 10:25 Pre-Op Diagnosis: INFECTED INTRATHECAL PUMP Post-Op Diagnosis: INFECTED INTRATHECAL PUMP I identified the patient and participated in the time-out.: Yes Procedure Operation Date: 01/22/22 10:25 Actual Procedures p Explantation Intrathecal Pump and catheter, Wound Vac Placement(Not Appl icable) - Christine Kumar DO Surgeon Christine Kumar, Field Service Manager none Estimated Blood Loss 10 Findings Consistent with Post-Op Diagnosis Specimens 2 cultures 2 specimens Drains wound vac Anesthesia Type General Complications none Disposition Accompanied Patient To Recovery: No Disposition: Recovery Room Indications Infected intrathecal pump Description of Procedure Intrathecal pump and catheter explantation with wound VAC application Incision and Drainage of dehisced surgical wound Surgeon: Dr. Christine Kumar Anesthesia: General EBL: 10 mL IV fluids: 800 mL Indication: Infected intrathecal pump Patient has evidence of abscess surrounding his intrathecal catheter at the level of L4-5 where the catheter loop was located on CT scan from today. Pain management was consulted for explantation of intrathecal pump. Informed consent was obtained and witnessed. The patient is excepting of the risks and benefits of the procedure including infection, bleeding, damage to surrounding structures, persistent dural leak, ongoing infection. IV antibiotics of Rocephin and vancomycin were provided in the ER. The patient was brought to the operating room and induced with general anesthesia. He was then placed in the prone position taking care to pad all pressure points and maintain neutral neck positioning. Next the intrathecal pocket was prepped with DuraPrep and Betadine. The axial open lumbar incision was prepped secondarily with DuraPrep and Betadine. Sterile drapes were applied with the open incision being sterilely covered initially. As the intrathecal pump pocket did not appear to be infected at this time incision was made with a 10 blade scalpel and hemostasis was achieved with electrocautery. The intrathecal catheter was cut at the medial margin of the pump. The intrathecal pump was easily removed and a solitary anchor suture over the 10 o'clock position was removed in entirety. The tissue with in the intrathecal pocket appeared viable and culture was taken. Next a pulse insurance loss assessor with cefazolin was utilized to irrigate the pocket. Primary closure was performed with O strata fix and 3-0 strata fix. Next Prineo and Dermabond were applied with a surgical Aquacel dressing to cover. Next, attention was taken to the axial lumbar wound. The drapes were cut to allow exposure of the infected lumbar wound. The open area of the dehisced incision was extended by approximately 1-1/2 inch inferiorly and culture was taken. A small amount of purulent material was noted and removed with suction. The intrathecal catheter and anchor along with sutures were easily identified. The pump portion of the catheter was identified and removed in its entirety through the axial lumbar wound. Next 2 separate 0 silk pursestring sutures were placed around the intrathecal catheter where it entered the ligament. Valsalva maneuver failed to show any CSF leak. Next, a pulse insurance loss assessor of 2750 mL with cefazolin was utilized to irrigate the wound. Hemostasis was achieved and a small amount of debridement of tissue took place. Next 1 wound VAC sponge was placed with in the open wound and via standard protocol connected to the wound VAC at 125 mmHg. The patient was transferred back to the supine position, emerged from general anesthesia, and was taken to the recovery room. All segments of the intrathecal catheter from the open dehisced wound segment as well as from the intrathecal pump were sent to pathology for culture. I attest to the content of the Intraoperative Record and any orders documented therein. Any exceptions are noted below.
[2022-01-22] MEDS ORDERED: HYDROmorphone INJ 1 MG/ML SYRINGE ONE (20:56)
[2022-01-22] MEDS: HYDROmorphone INJ 1 MG/ML SYRINGE IV PRN ×4 (20:56→21:15)
--- NOTE | 2022-01-22 20:58 | Anesthesiology Progress Note ---
Date of Service January 22, 2022 Anesthesia Post Procedure Vital Signs Vital Signs: Temp Pulse Pulse Pulse Pulse Resp BP 01/22/22 20:45 74 16 01/22/22 20:35 36.0 C L 91 H 18 01/22/22 18:35 36.4 C L 64 16 01/22/22 18:17 36.5 C 55 L 16 01/22/22 18:16 36.5 C 55 L 16 01/22/22 17:46 51 L 20 118/62 01/22/22 17:30 55 L 14 01/22/22 17:00 59 L 13 01/22/22 16:30 66 19 01/22/22 16:00 53 L 14 01/22/22 15:30 57 L 17 150/100 H 01/22/22 15:00 77 19 130/76 01/22/22 13:45 74 17 01/22/22 12:17 36.7 C 73 20 122/81 BP Pulse Ox 01/22/22 20:45 123/80 100 01/22/22 20:35 147/79 H 100 01/22/22 18:35 114/67 99 01/22/22 18:17 124/70 99 01/22/22 18:16 124/70 99 01/22/22 17:46 99 01/22/22 17:30 97 01/22/22 17:00 97 01/22/22 16:30 01/22/22 16:00 96 01/22/22 15:30 96 01/22/22 15:00 91 01/22/22 13:45 144/81 H 97 01/22/22 12:17 98 Transfer of Care Handoff Completed per policy Notes Mental Status: alert / awake / arousable and participated in evaluation Patient Amnestic to Procedure: Yes Nausea / Vomiting: adequately controlled Pain: adequately controlled Airway Patency, RR, SpO2: stable & adequate BP & HR: stable & adequate Hydration State: stable & adequate Anesthetic Complications: no major complications apparent and Pt Satisfied with anesthetic care
[2022-01-22] MEDS ORDERED: Nursing to Pharmacy Communication SCH (22:00)
[2022-01-22] MEDS: UMECLIDINIUM/VILANTEROL 62.5/25MCG 7 PUFFS/INHALER INH SCH (22:15)
[2022-01-22] MEDS: DAPTOmycin 275 MG in SYRINGE 0 ML IV SCH (22:36)
[2022-01-22] MEDS: oxyCODONE HCL 20 MG TABCR (OxyCONTIN) PO SCH (22:44)
[2022-01-22] MEDS: TAMSULOSIN HCL 0.4 MG CAP PO SCH (22:44)
[2022-01-22] MEDS: PREGABALIN 150 MG CAP PO SCH (22:44)
[2022-01-22] MEDS: INSULIN ASPART PER UNIT SC SCH (23:03)
[2022-01-23] MEDS ORDERED: CHECK CLONIDINE PATCH PLACEMENT SCH
[2022-01-23] MEDS: PIPERACILLIN/TAZOBACTAM 3.375 GM in DEXTROSE 5% 100 ML IV SCH ×3 (04:20→20:03)
[2022-01-23] MEDS: LEVOTHYROXINE SODIUM 75 MCG TABLET PO SCH (06:03)
[2022-01-23 06:11] LABS: Hematocrit (blood only) 33.9 % (42-52); Hemoglobin 11.2 g/dL (14.0-18.0); Mean Corpuscular Hemoglobin 28.2 pg (25-34); Mean Corpuscular Volume 85.4 fL (80-100); Mean Platelet Volume 11.9 fL (7.4-10.4); Platelet Count 185 K/uL (130-400); RDW Coefficient of Variation 13.7 % (11.5-14.5); RDW Standard Deviation 43.2 fL (36.4-46.3); Red Blood Count 3.97 M/uL (4.7-6.1); White Blood Count 3.87 K/uL (4.8-10.8)
[2022-01-23 06:23] LABS: BUN Creatinine Ratio 19.1 (10-20); Calcium 8.5 mg/dl (8.5-10.1); Creatinine Clr Calc Pharmacy 106.9 ml/min; Est GFR (African American) 115.3 ml/min; Est GFR (Non-African American) 99.5 ml/min; Potassium 3.9 mmol/L (3.5-5.1)
[2022-01-23 06:40] LABS: Thyroid Stimulating Hormone 0.114 uIu/ml (0.300-4.500)
[2022-01-23 07:13] LABS: T4 Free Thyroxine 1.24 ng/dl (0.61-1.60)
[2022-01-23] MEDS ORDERED: cloNIDine HCL 0.1 MG TAB PO PRN (07:41)
--- NOTE | 2022-01-23 07:49 | Pain Management Progress Note ---
Date of Service January 23, 2022 Assessment & Plan (1) Infection of intrathecal pump: Encounter type: initial encounter Qualified Code(s): T85.738A - Infection and inflammatory reaction due to other nervous system device, implant or graft, initial encounter (2) Surgical wound dehiscence: (3) Postoperative abscess: (4) Presence of intrathecal pump: (5) Lumbar post-laminectomy syndrome: (6) Opioid dependence: Plan: 1. POD #1 s/p explantation of intrathecal pump and catheter at this time. Wound VAC per wound care. Vac changed this AM as it was registering leak last evening. No need to change surgical aquacel dressing over left buttock until recommended by wound. 2. Continue current PO opioids and prn withdrawal sxs meds. Patient satisfied with level of pain control at this time. 3. Recommend patient follow-up with Dr. Zhao in transfer [place] for further evaluation and pain management concerns post discharge. There is no need for the patient to follow-up with the [facility] pain management office. Admission and Anticipated Discharge Date Admission Date: January 22, 2022 Subjective POD #1 s/p intrathecal pump and catheter explantation and wound vac placement. Reports pain 3/10 which is tolerable. Typical pain 3-5/10 with pump in past. Slept ok. No other complaints. Pain Assessment Pain Assessment [facility] Combined Pain Scale: 3-Mild - Interferes with pleasures of life. Stops some activities Physical Exam Physical Exam: Constitutional: Well-developed, well-nourished, deconditioned Psych: Awake, alert, and oriented 3 with normal affect and mood. Recent memory appears grossly intact Eyes: Pupils are equally round and reactive to light with normal size pupils, eyelids appear normal Ear, nose, mouth, and throat: Moist nasal and oral membranes, lips and tongues appear normal, no external ear abnormalities are noted Neck: The trachea is midline without deviation and no thyromegaly is noted Respiratory: Normal respiratory effort without distress, no audible wheezes or rhonchi CV: Normal S1 and S2 Chest: Deferred Musculoskeletal: Head is normocephalic and atraumatic, gait not observed Cervical: Lordotic curve: Normal. There is a well-healed ACDF scar anteriorly Range of motion is decreased in all planes Strength: Strength is grossly equal bilaterally with 5 out of 5 strength in all planes Sensation of upper extremities: Intact bilaterally Thoracic: Kyphotic curve: Normal Range of motion is decreased in all planes Tenderness: Moderately tender over the axial midline Myofascial spasm: No appreciable spasm. No discrete trigger points noted Lumbar: Lordotic curve: Complete loss of lumbar lordosis with an extensive axial midline incision Range of motion is decreased in all planes Tenderness: Moderately tender over the axial midline Straight leg raise: Negative bilaterally Step-off injuries: None Strength: Strength is equal right lower extremity with 5 out of 5 strength in all planes, Left lower extremity is globally 4+ out of 5 (patient states this is his baseline) Sensation of lower extremities: Intact bilaterally Deep tendon reflexes: Rated at 1+ in bilateral S1, no obtainable deep tendon reflexes over bilateral L4 (patient states this is his baseline) Myofascial spasm: No appreciable spasm. No discrete trigger points noted Pathologic reflexes noted: None Skin: At the catheter site, wound vac in place. Aquacel surgical Ag in place over left buttock prior pump site. Clean dry intact. Neuro: No nystagmus noted, the tongue is midline, the patient is able to rotate their head bilaterally, no meningeal signs noted : Deferred Results (Pain Clinic) Diagnostic Review CT: non enhanced, reports reviewed, images reviewed and findings discussed with patient CT Findings: 01/22/22 CT lumbar spine w con HISTORY: Wound dehiscence. Status post intrathecal pump. Assess for abscess. T81.31XA - Disruption of external operation (surgical) wo... TECHNIQUE: Multiaxial CT images of the lumbar spine were performed following the intravenous administration of contrast and reformatted in the sagittal and coronal plane. COMPARISON STUDY: Abdomen and pelvis CT 01/30/2021. FINDINGS: There is left-sided intrathecal pump catheter which is looped at the midline of the lower back. The intrathecal catheter enters the L2 laminectomy space and extends cephalad to the thoracic region. The tip is not included on this study. Focal skin ulceration within the midline of the lumbar region which measures 1.7 cm. There is soft tissue induration and edema within the subcutaneous soft tissues deep to the skin ulceration. A small linear gas tract which extends inferiorly from the skin ulceration to the L4-5 level with a peripheral enhancing gas and fluid collection within the subcutaneous soft tissues surrounding the loop section of the catheter. This fluid collection measures 2.7 x 3.3 x 1.5 cm and is best seen on axial image 238 and sagittal image 35. This is consistent with a small subcutaneous abscess. The small gas tract between the focal skin ulceration and abscess favors a small sinus tract. Anterior discectomy and fusion at L5-S1 is again noted. Removal of the remaining lumbar spinal fusion hardware again noted. There are disc spacers at L2-L3 and L3-L4. The L3-L4 disc spacer is displaced posteriorly along the right side of the thecal sac and results in severe central canal narrowing at this level. This remains unchanged. Endplate irregularity at the L2-L3 and L3-L4 levels with vacuum phenomenon persists. No new erosive changes identified. The L1-L2 vertebral bodies are fused. Prior L1 vertebroplasty again noted. Paravertebral soft tissues are unremarkable. Moderate calcified plaque within the normal caliber abdominal aorta. Additional areas of skin thickening and subcutaneous trace edema within the lumbar region favors a cellulitis. IMPRESSION: 1. There is a 3.3 x 2.7 x 1.5 cm subcutaneous abscess surrounding the loop section of the catheter at the L4-5 level. 2. There is a small linear focus of gas extending from this abscess to the focal skin ulceration at the midline of the lumbar region at the L2-3 level suggesting a small sinus tract. 3. Skin thickening and subcutaneous trace edema within the lumbar region likely representing a cellulitis. 4. Additional chronic changes as described above.
[2022-01-23] MEDS: INSULIN ASPART PER UNIT SC SCH ×4 (08:02→21:11)
[2022-01-23] MEDS: PREGABALIN 150 MG CAP PO SCH ×2 (08:08→20:02)
[2022-01-23] MEDS: oxyCODONE HCL 20 MG TABCR (OxyCONTIN) PO SCH ×2 (08:08→20:02)
[2022-01-23] MEDS: PANTOprazole 40 MG TAB PO SCH (08:09)
[2022-01-23] MEDS: CYANOCOBALAMIN (B-12) 500 MCG TABLET PO SCH (08:09)
[2022-01-23] MEDS: TAMSULOSIN HCL 0.4 MG CAP PO SCH ×2 (08:10→20:02)
[2022-01-23] MEDS: UMECLIDINIUM/VILANTEROL 62.5/25MCG 7 PUFFS/INHALER INH SCH (08:11)
[2022-01-23 08:31] LABS: Estimated Average Glucose 169 mg/dl; Hemoglobin A1C 7.5 % (4.5-5.6)
[2022-01-23] MEDS: ACETAMINOPHEN 325 MG TAB PO PRN (11:33)
--- NOTE | 2022-01-23 11:36 | Electrocardiogram Report ---
Test Reason : Blood Pressure : / mmHG Vent. Rate : 051 BPM Atrial Rate : 051 BPM P-R Int : 154 ms QRS Dur : 088 ms QT Int : 418 ms P-R-T Axes : 027 -02 032 degrees QTc Int : 385 ms Sinus bradycardia Low voltage QRS Borderline ECG When compared with ECG of 30-JAN-2021 21:52, Vent. rate has decreased BY 87 BPM Confirmed by Jose Piper ([id number]) on 01/23/2022 11:35:35 AM Referred By: REFERRED SELF Confirmed By:Jose Piper
[2022-01-23] MEDS: oxyCODONE HCL IR 5 MG TAB (IMMEDIATE RELEASE) PO PRN ×2 (12:40→21:11)
[2022-01-23] MEDS ORDERED: NICOTINE 21 MG/24 HR TDSY TD SCH (16:45)
[2022-01-23] MEDS ORDERED: LANTUS PER UNIT CHARGE SQ STA (16:46)
--- NOTE | 2022-01-23 16:46 | Hospitalist Progress Note ---
Date of Service January 23, 2022 Assessment & Plan (1) Postoperative abscess: Plan: CT lumbar spine showed a 3.3 x 2.7 x 1.5 cm subcutaneous abscess at the site of his new intrathecal pump. -Status post removal of the wound VAC on 01/[address] Read. Cultures pending Currently on daptomycin and Zosyn, consult with wound care, consult with ID - (2) Diabetes mellitus type 2 in nonobese: Plan: A1c was 7.6% in 2020 during a previous admission. Patient not on any diabetic medications at present. -Poorly controlled, started on Jardiance, low-dose Lantus sliding scale insulin -A1c is pending (3) COPD (chronic obstructive pulmonary disease): Plan: No wheezing on exam today. No shortness of breath per patient. - Continue home maintenance inhaler (or formulary equivalent) - Albuterol PRN (4) Anxiety with depression: Plan: Not on any psych meds at present. Affect seems normal. - Monitor (5) BPH w urinary obs/LUTS: Plan: Reports some LUTS with urinary hesitancy. - Continue home Avodart (or formulary) and Flomax - Low threshold to check PVRs while inpatient (6) Hypothyroid: Plan: TSH was 0.17 in 2020. No signs/symptoms of hypo-/hyperthyroidism. - Continue home Synthroid 75 mcg - Recheck TSH/FT4 in AM (7) GERD (gastroesophageal reflux disease): Plan: - Continue PPI (8) DVT prophylaxis: Plan: SCDs - Hold heparin until after surgery Conditional code - Patient does not want compressions or shocks. Reports he has DNR ("If I'm , leave me ."), but would be willing to have intubation if needed. Admission and Anticipated Discharge Date Admission Date: January 22, 2022 Subjective The patient is a 66-year-old male with a past medical history significant for diabetes chronic back pain status post POD #1 requesting nicotine patch Intrathecal pump, history of hypothyroidism, history of COPD who had a second pump placed after removal of the first pump on 12/25/2021 now admitted to the hospital with infection at the pump site status post pump removal on 01/22 and draining of abscess Review of Systems Review of Systems: General: No malaise no weakness Neck: No tenderness no pain HEENT: No eye discharge no ear discharge Chest: No chest pain, no palpitation GI: Not distended, no nausea no vomiting Extremities: No edema no tenderness Neurology: No headache no weakness Psychiatric: No depression no anxiety Physical Exam Constitutional: WD/WN, vitals as above Eyes: EOM intact bilaterally; no conjunctival abnormality ENMT: external ear and nose normal, oropharynx normal Neck: trachea midline, no thyromegaly normal visual inspection Respiratory: normal respiratory effort, lungs clear to auscultation no respiratory distress Cardiovascular: RRR, no murmur, no edema Gastrointestinal (Abdomen): Inspection/Auscultation: abdomen normal to inspection; abdomen not distended Musculoskeletal: no cyanosis or clubbing, extremities motor strength 5/5 Skin: no rashes, warm and dry + ulcer (Lumbar spine - purulent) Neurologic: moves all extremities and awake Psychiatric: Orientation: alert, oriented to person and cooperative Results & Data Results & Data ([facility]) Vital Signs (Past 12 Hours) Vital Signs Temp Pulse Pulse Pulse Resp BP Pulse Ox 01/23/22 15:00 37.0 C 73 16 153/76 H 98 01/23/22 13:53 75 16 121/68 98 01/23/22 11:04 36.6 C 76 18 128/71 97 01/23/22 07:08 37.0 C 58 L 16 105/47 L 97 01/23/22 06:15 73 PG Care Time/CCT Total # of Minutes Spent Total Time Spent with Patient: Total time spent is greater than 50% in coordination of care (as documented) at patient's floor/unit and/or counseling patient: Coding Level of Care Code 01288 Subseq Hosp Care Lvl 3 Diagnoses Postoperative abscess T81.49XA Diabetes mellitus type 2 in nonobese E11.9 COPD (chronic obstructive pulmonary disease) J44.9 Anxiety with depression F41.8 BPH w urinary obs/LUTS N40.1; N13.8 Hypothyroid E03.9 GERD (gastroesophageal reflux disease) K21.9 DVT prophylaxis Z29.9
[2022-01-23] MEDS: NICOTINE POLACRILEX 2 MG GUM MT PRN (17:57)
[2022-01-23] MEDS: metFORMIN HCL 500 MG TAB PO SCH (18:35)
[2022-01-23] MEDS: DAPTOmycin 275 MG in SYRINGE 0 ML IV SCH (21:11)
[2022-01-23] MEDS: hydrOXYzine HCl 25 MG TAB PO PRN (21:42)
[2022-01-23] MEDS: ONDANSETRON INJ 2 MG/ML 2 ML VIAL IV PRN (21:45)
[2022-01-24] MEDS: PIPERACILLIN/TAZOBACTAM 3.375 GM in DEXTROSE 5% 100 ML IV SCH ×2 (03:52→12:58)
[2022-01-24] MEDS: LEVOTHYROXINE SODIUM 75 MCG TABLET PO SCH (06:01)
[2022-01-24] MEDS: oxyCODONE HCL IR 5 MG TAB (IMMEDIATE RELEASE) PO PRN ×2 (07:04→12:59)
[2022-01-24] MEDS: ONDANSETRON INJ 2 MG/ML 2 ML VIAL IV PRN (07:05)
[2022-01-24] MEDS: INSULIN ASPART PER UNIT SC SCH ×4 (09:16→20:42)
[2022-01-24] MEDS: PANTOprazole 40 MG TAB PO SCH (09:17)
[2022-01-24] MEDS: CYANOCOBALAMIN (B-12) 500 MCG TABLET PO SCH (09:17)
[2022-01-24] MEDS: metFORMIN HCL 500 MG TAB PO SCH ×2 (09:17→16:14)
[2022-01-24] MEDS: TAMSULOSIN HCL 0.4 MG CAP PO SCH ×2 (09:17→20:13)
[2022-01-24] MEDS: UMECLIDINIUM/VILANTEROL 62.5/25MCG 7 PUFFS/INHALER INH SCH (09:18)
[2022-01-24] MEDS: oxyCODONE HCL 20 MG TABCR (OxyCONTIN) PO SCH ×2 (09:23→20:12)
[2022-01-24] MEDS: PREGABALIN 150 MG CAP PO SCH ×2 (09:23→20:13)
[2022-01-24] MEDS ORDERED: METOCLOPRAMIDE HCL INJ 5 MG/ML 2 ML VIAL IV PRN (10:17)
[2022-01-24] MEDS ORDERED: LORazepam 2 MG/1 ML VIAL IV ONE (15:28)
[2022-01-24] MEDS: DUTASTERIDE PO SCH (16:13)
--- NOTE | 2022-01-24 17:46 | Hospitalist Progress Note ---
Date of Service January 24, 2022 Assessment & Plan (1) Postoperative abscess: Plan: CT lumbar spine showed a 3.3 x 2.7 x 1.5 cm subcutaneous abscess at the site of his new intrathecal pump. -Status post removal of the wound VAC on 01/[address] Read. Cultures so far growing staph Stop Zosyn Continue daptomycin Consult with ID tomorrow -The wound VAC was leaking and was taken off Wound care will take care of the wound VAC - (2) Diabetes mellitus type 2 in nonobese: Plan: A1c was 7.6% in 2020 during a previous admission. Patient not on any diabetic medications at present. -Poorly controlled, started on metformin 500 mg twice daily, low-dose Lantus sliding scale insulin -A1c is pending (3) COPD (chronic obstructive pulmonary disease): Plan: No wheezing on exam today. No shortness of breath per patient. - Continue home maintenance inhaler (or formulary equivalent) - Albuterol PRN (4) Anxiety with depression: Plan: Not on any psych meds at present. Affect seems normal. - Monitor (5) BPH w urinary obs/LUTS: Plan: Reports some LUTS with urinary hesitancy. - Continue home Avodart (or formulary) and Flomax - Low threshold to check PVRs while inpatient (6) Hypothyroid: Plan: TSH was 0.17 in 2020. No signs/symptoms of hypo-/hyperthyroidism. - Continue home Synthroid 75 mcg - Recheck TSH/FT4 in AM (7) GERD (gastroesophageal reflux disease): Plan: - Continue PPI (8) DVT prophylaxis: Plan: SCDs - Hold heparin until after surgery Conditional code - Patient does not want compressions or shocks. Reports he has DNR ("If I'm , leave me ."), but would be willing to have intubation if needed. Admission and Anticipated Discharge Date Admission Date: January 22, 2022 Subjective The patient is a 66-year-old male with a past medical history significant for diabetes chronic back pain status post POD #2 Today patient chest pain seems like more musculoskeletal EKG is unremarkable, troponin is within normal limit who had a second pump placed after removal of the first pump on 12/25/2021 now admitted to the hospital with infection at the pump site status post pump removal on 01/22, status post draining the abscess, the abscess growing staph Review of Systems Review of Systems: General: No malaise no weakness Neck: No tenderness no pain HEENT: No eye discharge no ear discharge Chest: No chest pain, no palpitation GI: Not distended, no nausea no vomiting Extremities: No edema no tenderness Neurology: No headache no weakness Psychiatric: No depression no anxiety Physical Exam Constitutional: WD/WN, vitals as above Eyes: EOM intact bilaterally; no conjunctival abnormality ENMT: external ear and nose normal, oropharynx normal Neck: trachea midline, no thyromegaly normal visual inspection Respiratory: normal respiratory effort, lungs clear to auscultation no respiratory distress Cardiovascular: RRR, no murmur, no edema Gastrointestinal (Abdomen): Inspection/Auscultation: abdomen normal to inspection; abdomen not distended Musculoskeletal: no cyanosis or clubbing, extremities motor strength 5/5 Skin: no rashes, warm and dry + ulcer (Lumbar spine - purulent) Neurologic: moves all extremities and awake Psychiatric: Orientation: alert, oriented to person and cooperative Results & Data Results & Data ([facility]) Vital Signs (Past 12 Hours) Vital Signs Temp Pulse Pulse Resp BP Pulse Ox 01/24/22 15:09 115 H 18 120/74 99 01/24/22 08:30 36.7 C 85 18 144/82 H 96 PG Care Time/CCT Total # of Minutes Spent Total Time Spent with Patient: Total time spent is greater than 50% in coordination of care (as documented) at patient's floor/unit and/or counseling patient: Coding Level of Care Code 28223 Subseq Hosp Care Lvl 2 Diagnoses Postoperative abscess T81.49XA Diabetes mellitus type 2 in nonobese E11.9 COPD (chronic obstructive pulmonary disease) J44.9 Anxiety with depression F41.8 BPH w urinary obs/LUTS N40.1; N13.8 Hypothyroid E03.9 GERD (gastroesophageal reflux disease) K21.9 DVT prophylaxis Z29.9
[2022-01-24] MEDS: hydrOXYzine HCl 25 MG TAB PO PRN (20:13)
[2022-01-24] MEDS: DAPTOmycin 275 MG in SYRINGE 0 ML IV SCH (21:13)
[2022-01-25] MEDS: oxyCODONE HCL IR 5 MG TAB (IMMEDIATE RELEASE) PO PRN ×5 (02:37→22:51)
[2022-01-25] MEDS: LOPERAMIDE HCL 2 MG CAP PO PRN ×2 (04:34→23:42)
[2022-01-25] MEDS: ACETAMINOPHEN 325 MG TAB PO PRN ×4 (04:36→22:50)
[2022-01-25] MEDS: LEVOTHYROXINE SODIUM 75 MCG TABLET PO SCH (05:32)
[2022-01-25] MEDS: metFORMIN HCL 500 MG TAB PO SCH ×2 (08:30→17:48)
[2022-01-25] MEDS: PREGABALIN 150 MG CAP PO SCH ×2 (08:30→20:07)
[2022-01-25] MEDS: PANTOprazole 40 MG TAB PO SCH (08:30)
[2022-01-25] MEDS: CYANOCOBALAMIN (B-12) 500 MCG TABLET PO SCH (08:30)
[2022-01-25] MEDS: TAMSULOSIN HCL 0.4 MG CAP PO SCH ×2 (08:30→20:07)
[2022-01-25] MEDS: UMECLIDINIUM/VILANTEROL 62.5/25MCG 7 PUFFS/INHALER INH SCH (08:31)
[2022-01-25] MEDS: DUTASTERIDE PO SCH (08:31)
[2022-01-25] MEDS: oxyCODONE HCL 20 MG TABCR (OxyCONTIN) PO SCH ×2 (08:43→20:06)
[2022-01-25] MEDS: INSULIN ASPART PER UNIT SC SCH ×4 (08:51→21:01)
--- NOTE | 2022-01-25 09:01 | Pain Management Progress Note ---
Date of Service January 25, 2022 Assessment & Plan (1) Surgical wound dehiscence: (2) Postoperative abscess: (3) Presence of intrathecal pump: (4) Opioid dependence: (5) Lumbar post-laminectomy syndrome: (6) Infection of intrathecal pump: Encounter type: initial encounter Qualified Code(s): T85.738A - Infection and inflammatory reaction due to other nervous system device, implant or graft, initial encounter Plan: Patient reports adequate pain relief so no changes were made. Continue wound care. Follow up with his pain management clinic at discharge. Will sign off. Please contact with any questions or concerns. Admission and Anticipated Discharge Date Admission Date: January 22, 2022 Subjective Mr. Hearn is status post explantation of intrathecal pump and catheter delivery system. He states that the current medication regimen of OxyContin 40mg twice daily and Oxycodone 10mg x 4 hours is providing adequate pain relief. Patient used the Oxycodone twice yesterday. He did not require the IV Dilaudid for breakthrough pain yesterday. He denies any complaints. Minimal pain at the incision sites. No constipation, drowsiness, headache, chills. Case discussed with Dr. Christine Kumar Physical Exam Physical Exam: GENERAL: This is a 66 year old male. In no acute distress. HEAD/FACE: Normocephalic and atraumatic. EYES: No drainage or conjunctival injection. ENT: Nose without bleeding or discharge. Oral mucosa moist. NECK: Full ROM without apparent pain. No swelling or masses noted. RESPIRATORY: Patient with unlabored breathing. No signs of respiratory distress. CHEST/AXILLA: Chest movement symmetrical. No deformities noted. ABDOMEN/GI: No distension BACK: Moves without difficulty SKIN: 7 cm incision along the thoracolumbar region. Moderate serous drainage. Bandage was changed. Aquacel on the right buttock. MS/EXTREMITY: No swelling, no deformities. Moving extremities appropriately. NEURO: Alert and appears oriented. Speech is fluent. Cranial Nerves are grossly intact. PSYCH: Alert, pleasant, affect is calm
[2022-01-25] MEDS: HYDROmorphone INJ 0.5 MG/0.5 ML SYR IV PRN (14:09)
--- NOTE | 2022-01-25 15:13 | Electrocardiogram Report ---
Test Reason : Blood Pressure : / mmHG Vent. Rate : 101 BPM Atrial Rate : 101 BPM P-R Int : 122 ms QRS Dur : 086 ms QT Int : 330 ms P-R-T Axes : 035 -03 047 degrees QTc Int : 427 ms Sinus tachycardia with Premature atrial complexes Low voltage QRS Borderline ECG When compared with ECG of 22-JAN-2022 16:49, Premature atrial complexes are now Present Vent. rate has increased BY 50 BPM Confirmed by Jose Piper ([id number]) on 01/25/2022 3:12:59 PM Referred By: REFERRED SELF Confirmed By:Jose Piper
--- NOTE | 2022-01-25 18:46 | Hospitalist Progress Note ---
Date of Service January 25, 2022 Assessment & Plan (1) Postoperative abscess: Plan: CT lumbar spine showed a 3.3 x 2.7 x 1.5 cm subcutaneous abscess at the site of his new intrathecal pump. -Status post removal of the wound VAC on 01/[address] Read. Cultures so far growing staph coagulase-negative Stop Zosyn 01/23 We will stop daptomycin on 01/25 -Discussed with Dr. Kumar Awaiting for ID input Started on Rocephin -Wound VAC is placed again Possible discharge tomorrow (2) Diabetes mellitus type 2 in nonobese: Plan: A1c was 7.6% in 2020 during a previous admission. Patient not on any diabetic medications at present. -Poorly controlled, started on metformin 500 mg twice daily, low-dose Lantus sliding scale insulin -A1c is pending (3) COPD (chronic obstructive pulmonary disease): Plan: No wheezing on exam today. No shortness of breath per patient. - Continue home maintenance inhaler (or formulary equivalent) - Albuterol PRN (4) Anxiety with depression: Plan: Not on any psych meds at present. Affect seems normal. - Monitor (5) BPH w urinary obs/LUTS: Plan: Reports some LUTS with urinary hesitancy. - Continue home Avodart (or formulary) and Flomax - Low threshold to check PVRs while inpatient (6) Hypothyroid: Plan: TSH was 0.17 in 2020. No signs/symptoms of hypo-/hyperthyroidism. - Continue home Synthroid 75 mcg - Recheck TSH/FT4 in AM (7) GERD (gastroesophageal reflux disease): Plan: - Continue PPI (8) DVT prophylaxis: Plan: SCDs - Hold heparin until after surgery Conditional code - Patient does not want compressions or shocks. Reports he has DNR ("If I'm , leave me ."), but would be willing to have intubation if needed. Admission and Anticipated Discharge Date Admission Date: January 22, 2022 Subjective Wound culture grew staph coagulase negative Review of Systems Review of Systems: General: No malaise no weakness Neck: No tenderness no pain HEENT: No eye discharge no ear discharge Chest: No chest pain, no palpitation GI: Not distended, no nausea no vomiting Extremities: No edema no tenderness Neurology: No headache no weakness Psychiatric: No depression no anxiety Physical Exam Physical Exam: GENERAL: This is a 66 year old male. In no acute distress. HEAD/FACE: Normocephalic and atraumatic. EYES: No drainage or conjunctival injection. ENT: Nose without bleeding or discharge. Oral mucosa moist. NECK: Full ROM without apparent pain. No swelling or masses noted. RESPIRATORY: Patient with unlabored breathing. No signs of respiratory distress. CHEST/AXILLA: Chest movement symmetrical. No deformities noted. ABDOMEN/GI: No distension BACK: Moves without difficulty SKIN: 7 cm incision along the thoracolumbar region. Moderate serous drainage. Bandage was changed. Aquacel on the right buttock. MS/EXTREMITY: No swelling, no deformities. Moving extremities appropriately. NEURO: Alert and appears oriented. Speech is fluent. Cranial Nerves are grossly intact. PSYCH: Alert, pleasant, affect is calm Constitutional: WD/WN, vitals as above Eyes: EOM intact bilaterally; no conjunctival abnormality ENMT: Mouth: + edentulous Mallampati Class: I Neck: trachea midline, no thyromegaly normal visual inspection Respiratory: normal respiratory effort, lungs clear to auscultation normal respiratory effort; no respiratory distress Auscultation: lungs clear to auscultation bilaterally Cardiovascular: RRR, no murmur, no edema Rate/Rhythm: regular rate and regular rhythm Gastrointestinal (Abdomen): Inspection/Auscultation: abdomen normal to inspection; abdomen not distended Musculoskeletal: no cyanosis or clubbing, extremities motor strength 5/5 Skin: no rashes, warm and dry + ulcer (Lumbar spine - purulent) Neurologic: moves all extremities and awake Psychiatric: Orientation: alert, oriented to person and cooperative Results & Data Results & Data ([facility]) Vital Signs (Past 12 Hours) Vital Signs Temp Pulse Pulse Resp BP Pulse Ox 01/25/22 15:45 36.8 C 83 18 104/70 96 01/25/22 11:35 36.3 C L 102 H 18 119/82 96 01/25/22 08:39 36.5 C 88 16 131/83 98 PG Care Time/CCT Total # of Minutes Spent Total Time Spent with Patient: Total time spent is greater than 50% in coordination of care (as documented) at patient's floor/unit and/or counseling patient: Coding Level of Care Code 66170 Subseq Hosp Care Lvl 2 Diagnoses Postoperative abscess T81.49XA Diabetes mellitus type 2 in nonobese E11.9 COPD (chronic obstructive pulmonary disease) J44.9 Anxiety with depression F41.8 BPH w urinary obs/LUTS N40.1; N13.8 Hypothyroid E03.9 GERD (gastroesophageal reflux disease) K21.9 DVT prophylaxis Z29.9
[2022-01-25] MEDS: hydrOXYzine HCl 25 MG TAB PO PRN (19:20)
[2022-01-25] MEDS ORDERED: DAPTOmycin 300 MG in SYRINGE 0 ML IV SCH (21:00)
[2022-01-25] MEDS: MELATONIN 3 MG TAB PO PRN (21:01)
[2022-01-25] MEDS: ONDANSETRON INJ 2 MG/ML 2 ML VIAL IV PRN (23:19)
[2022-01-25] MEDS ORDERED: FLUTICASONE PROPIONATE NA SPR 16 GM BTL PRN (23:32)
[2022-01-26] MEDS: LEVOTHYROXINE SODIUM 75 MCG TABLET PO SCH (05:32)
[2022-01-26] MEDS: ONDANSETRON INJ 2 MG/ML 2 ML VIAL IV PRN (06:27)
[2022-01-26] MEDS: oxyCODONE HCL IR 5 MG TAB (IMMEDIATE RELEASE) PO PRN ×3 (06:46→14:48)
[2022-01-26] MEDS: DUTASTERIDE PO SCH (07:40)
[2022-01-26] MEDS: metFORMIN HCL 500 MG TAB PO SCH ×2 (07:40→17:54)
[2022-01-26] MEDS: TAMSULOSIN HCL 0.4 MG CAP PO SCH ×2 (07:40→20:29)
[2022-01-26] MEDS: ACETAMINOPHEN 325 MG TAB PO PRN ×3 (07:42→21:09)
[2022-01-26 07:51] LABS: Basophils # (auto) 0.05 K/uL (0-0.2); Basophils % (auto) 0.9 %; Eosinophils # (auto) 0.48 K/uL (0-0.5); Eosinophils % (auto) 8.7 %; Hematocrit (blood only) 40.8 % (42-52); Hemoglobin 13.6 g/dL (14.0-18.0); Lymphocytes # (auto) 2.53 K/uL (1.2-3.4); Lymphocytes % (auto) 46.1 %; Mean Corpuscular Hemoglobin 28.5 pg (25-34); Mean Corpuscular Hgb Conc 33.3 g/dL (32-36); Mean Corpuscular Volume 85.5 fL (80-100); Mean Platelet Volume 11.4 fL (7.4-10.4); Monocytes # (auto) 0.67 K/uL (0.11-0.59); Monocytes % (auto) 12.2 %; Neutrophils # (auto) 1.76 K/uL (1.4-6.5); Neutrophils % (auto) 32.1 %; Platelet Count 192 K/uL (130-400); RDW Coefficient of Variation 13.9 % (11.5-14.5); RDW Standard Deviation 43.5 fL (36.4-46.3); Red Blood Count 4.77 M/uL (4.7-6.1); White Blood Count 5.49 K/uL (4.8-10.8)
[2022-01-26] MEDS: PANTOprazole 40 MG TAB PO SCH (08:48)
[2022-01-26] MEDS: CYANOCOBALAMIN (B-12) 500 MCG TABLET PO SCH (08:48)
[2022-01-26] MEDS: UMECLIDINIUM/VILANTEROL 62.5/25MCG 7 PUFFS/INHALER INH SCH (08:50)
[2022-01-26] MEDS: INSULIN ASPART PER UNIT SC SCH ×4 (08:53→21:08)
[2022-01-26] MEDS: oxyCODONE HCL 20 MG TABCR (OxyCONTIN) PO SCH ×2 (09:04→20:29)
[2022-01-26] MEDS: PREGABALIN 150 MG CAP PO SCH ×2 (09:04→20:28)
[2022-01-26] MEDS ORDERED: OXYMETAZOLINE 0.05% 30 ML BTL PRN (09:58)
[2022-01-26] MEDS ORDERED: TAMSULOSIN HCL 0.4 MG CAP PO ONE (10:45)
[2022-01-26] MEDS: LOPERAMIDE HCL 2 MG CAP PO PRN ×3 (11:58→21:07)
[2022-01-26] MEDS: CYCLOBENZAPRINE HCL 5 MG TAB PO SCH ×2 (13:01→20:30)
[2022-01-26] MEDS: NICOTINE POLACRILEX 2 MG GUM MT PRN (16:24)
[2022-01-26] MEDS: hydrOXYzine HCl 25 MG TAB PO PRN ×2 (16:26→20:28)
[2022-01-26] MEDS ORDERED: cefTRIAXone SODIUM 1,000 MG in DEXTROSE 5% 50 ML IV SCH (19:00)
--- NOTE | 2022-01-26 19:07 | Hospitalist Progress Note ---
Date of Service January 26, 2022 Assessment & Plan (1) Postoperative abscess: Plan: CT lumbar spine showed a 3.3 x 2.7 x 1.5 cm subcutaneous abscess at the site of his new intrathecal pump. -Status post removal of the wound VAC on 01/[address] Kumar Cultures so far growing staph coagulase-negative Stopped Zosyn 01/23 stopped daptomycin on 01/25 -Discussed with Dr. Kumar Awaiting for ID input Started on Rocephin 01/25 -Wound VAC is placed again 01/[address] Rosario recommend to resume vancomycin (2) Diabetes mellitus type 2 in nonobese: Plan: A1c was 7.6% in 2020 during a previous admission. Patient not on any diabetic medications at present. -Poorly controlled, started on metformin 500 mg twice daily, low-dose Lantus sliding scale insulin -A1c is pending (3) COPD (chronic obstructive pulmonary disease): Plan: No wheezing on exam today. No shortness of breath per patient. - Continue home maintenance inhaler (or formulary equivalent) - Albuterol PRN (4) Anxiety with depression: Plan: Not on any psych meds at present. Affect seems normal. - Monitor (5) BPH w urinary obs/LUTS: Plan: Reports some LUTS with urinary hesitancy. - Continue home Avodart (or formulary) and Flomax - Low threshold to check PVRs while inpatient -Had a problem with voiding post residual volume today on 426 was 360 status post straight cath (6) Hypothyroid: Plan: TSH was 0.17 in 2020. No signs/symptoms of hypo-/hyperthyroidism. - Continue home Synthroid 75 mcg -Free T4 within normal limit (7) GERD (gastroesophageal reflux disease): Plan: - Continue PPI (8) DVT prophylaxis: Plan: SCDs - Hold heparin until after surgery Conditional code - Patient does not want compressions or shocks. Reports he has DNR ("If I'm , leave me ."), but would be willing to have intubation if needed. Admission and Anticipated Discharge Date Admission Date: January 22, 2022 Subjective Wound culture grew staph coagulase negative, still waiting for ID input consult was requested yesterday, discussed with microbiology requested to put sensitivity wound culture however I spoke with Dr. Rosario Recommend to resume vancomycin Review of Systems Review of Systems: General: No malaise no weakness Neck: No tenderness no pain HEENT: No eye discharge no ear discharge Chest: No chest pain, no palpitation GI: Not distended, no nausea no vomiting Extremities: No edema no tenderness Neurology: No headache no weakness Psychiatric: No depression no anxiety Physical Exam Physical Exam: GENERAL: This is a 66 year old male. In no acute distress. HEAD/FACE: Normocephalic and atraumatic. EYES: No drainage or conjunctival injection. ENT: Nose without bleeding or discharge. Oral mucosa moist. NECK: Full ROM without apparent pain. No swelling or masses noted. RESPIRATORY: Patient with unlabored breathing. No signs of respiratory distress. CHEST/AXILLA: Chest movement symmetrical. No deformities noted. ABDOMEN/GI: No distension BACK: Moves without difficulty SKIN: 7 cm incision along the thoracolumbar region. Moderate serous drainage. Bandage was changed. Aquacel on the right buttock. MS/EXTREMITY: No swelling, no deformities. Moving extremities appropriately. NEURO: Alert and appears oriented. Speech is fluent. Cranial Nerves are grossly intact. PSYCH: Alert, pleasant, affect is calm Constitutional: WD/WN, vitals as above Eyes: EOM intact bilaterally; no conjunctival abnormality ENMT: Mouth: + edentulous Mallampati Class: I Neck: trachea midline, no thyromegaly normal visual inspection Respiratory: normal respiratory effort, lungs clear to auscultation normal respiratory effort; no respiratory distress Auscultation: lungs clear to auscultation bilaterally Cardiovascular: RRR, no murmur, no edema Rate/Rhythm: regular rate and regular rhythm Gastrointestinal (Abdomen): Inspection/Auscultation: abdomen normal to inspection; abdomen not distended Musculoskeletal: no cyanosis or clubbing, extremities motor strength 5/5 Skin: no rashes, warm and dry + ulcer (Lumbar spine - purulent) Neurologic: moves all extremities and awake Psychiatric: Orientation: alert, oriented to person and cooperative Results & Data Results & Data ([facility]) Vital Signs (Past 12 Hours) Vital Signs Temp Pulse Pulse Resp BP BP Pulse Ox 01/26/22 14:54 36.7 C 123 H 18 142/90 H 97 01/26/22 11:00 36.7 C 115 H 20 119/83 96 01/26/22 07:26 36.6 C 81 18 132/81 98 PG Care Time/CCT Total # of Minutes Spent Total Time Spent with Patient: Total time spent is greater than 50% in coordination of care (as documented) at patient's floor/unit and/or counseling patient: Coding Level of Care Code 58520 Subseq Hosp Care Lvl 2 Diagnoses Postoperative abscess T81.49XA Diabetes mellitus type 2 in nonobese E11.9 COPD (chronic obstructive pulmonary disease) J44.9 Anxiety with depression F41.8 BPH w urinary obs/LUTS N40.1; N13.8 Hypothyroid E03.9 GERD (gastroesophageal reflux disease) K21.9 DVT prophylaxis Z29.9
[2022-01-26] MEDS ORDERED: CONSULT PHARMACY STA (19:12)
[2022-01-26] MEDS ORDERED: VANCOMYCIN CONSULT ACTIVE PRN (19:12)
[2022-01-26] MEDS: MELATONIN 3 MG TAB PO PRN (20:29)
[2022-01-26] MEDS ORDERED: TAMSULOSIN HCL 0.4 MG CAP PO SCH (21:00)
[2022-01-27] MEDS: LEVOTHYROXINE SODIUM 75 MCG TABLET PO SCH (05:33)
[2022-01-27] MEDS ORDERED: VANCOMYCIN HCL 1,000 MG/270 ML BAG IV SCH (06:00)
[2022-01-27] MEDS: ONDANSETRON INJ 2 MG/ML 2 ML VIAL IV PRN ×2 (07:17→14:26)
[2022-01-27] MEDS: ACETAMINOPHEN 325 MG TAB PO PRN ×2 (07:27→11:41)
[2022-01-27] MEDS: oxyCODONE HCL 20 MG TABCR (OxyCONTIN) PO SCH ×2 (08:02→20:42)
[2022-01-27] MEDS: PREGABALIN 150 MG CAP PO SCH ×2 (08:02→20:41)
[2022-01-27] MEDS: DUTASTERIDE PO SCH (08:03)
[2022-01-27] MEDS: CYANOCOBALAMIN (B-12) 500 MCG TABLET PO SCH (08:03)
[2022-01-27] MEDS: CYCLOBENZAPRINE HCL 5 MG TAB PO SCH ×2 (08:03→13:02)
[2022-01-27] MEDS: PANTOprazole 40 MG TAB PO SCH (08:03)
[2022-01-27] MEDS: metFORMIN HCL 500 MG TAB PO SCH ×2 (08:03→17:24)
[2022-01-27] MEDS: TAMSULOSIN HCL 0.4 MG CAP PO SCH ×2 (08:03→20:32)
[2022-01-27] MEDS: UMECLIDINIUM/VILANTEROL 62.5/25MCG 7 PUFFS/INHALER INH SCH (08:04)
[2022-01-27] MEDS: INSULIN ASPART PER UNIT SC SCH ×4 (09:03→21:25)
[2022-01-27] MEDS: HYDROmorphone INJ 0.5 MG/0.5 ML SYR IV PRN ×2 (10:12→21:32)
[2022-01-27] MEDS ORDERED: LINEZOLID CONSULT ACTIVE PRN (13:22)
[2022-01-27] MEDS: NICOTINE POLACRILEX 2 MG GUM MT PRN ×2 (14:12→19:43)
[2022-01-27] MEDS: LINEZOLID 600 MG TAB PO SCH ×2 (14:24→22:43)
[2022-01-27] MEDS: oxyCODONE HCL IR 5 MG TAB (IMMEDIATE RELEASE) PO PRN ×2 (15:30→22:50)
--- NOTE | 2022-01-27 18:58 | Hospitalist Progress Note ---
Date of Service January 27, 2022 Assessment & Plan (1) Postoperative abscess: Plan: CT lumbar spine showed a 3.3 x 2.7 x 1.5 cm subcutaneous abscess at the site of his new intrathecal pump. -Status post removal of the wound VAC on 01/[address] Kumar Cultures so far growing staph coagulase-negative Stopped Zosyn 01/23 stopped daptomycin on 01/25 -Discussed with Dr. Kumar Awaiting for ID input Started on Rocephin 01/25 -Wound VAC is placed again 01/25 -Patient can be discharged tomorrow on Zyvox oral as soon as arrangement is made for wound VAC care by wound clinic (2) Diabetes mellitus type 2 in nonobese: Plan: A1c was 7.6% in 2020 during a previous admission. Patient not on any diabetic medications at present. -Poorly controlled, started on metformin 500 mg twice daily, low-dose Lantus sliding scale insulin -A1c is pending (3) COPD (chronic obstructive pulmonary disease): Plan: No wheezing on exam today. No shortness of breath per patient. - Continue home maintenance inhaler (or formulary equivalent) - Albuterol PRN (4) Anxiety with depression: Plan: Not on any psych meds at present. Affect seems normal. - Monitor (5) BPH w urinary obs/LUTS: Plan: Reports some LUTS with urinary hesitancy. - Continue home Avodart (or formulary) and Flomax - Low threshold to check PVRs while inpatient -Had a problem with voiding post residual volume today on 426 was 360 status post straight cath (6) Hypothyroid: Plan: TSH was 0.17 in 2020. No signs/symptoms of hypo-/hyperthyroidism. - Continue home Synthroid 75 mcg -Free T4 within normal limit (7) GERD (gastroesophageal reflux disease): Plan: - Continue PPI (8) DVT prophylaxis: Plan: SCDs - Hold heparin until after surgery Conditional code - Patient does not want compressions or shocks. Reports he has DNR ("If I'm , leave me ."), but would be willing to have intubation if needed. Admission and Anticipated Discharge Date Admission Date: January 22, 2022 Subjective Patient is ready to be discharged, patient is very adamant he wanted go home unfortunately given we are able to get ID input only after 3 days it is too late to set up for home wound VAC follow-up patient would like to be discharged as soon as possible tomorrow in the morning patient will be discharged on Zyvox for 14 days Review of Systems Review of Systems: General: No malaise no weakness Neck: No tenderness no pain HEENT: No eye discharge no ear discharge Chest: No chest pain, no palpitation GI: Not distended, no nausea no vomiting Extremities: No edema no tenderness Neurology: No headache no weakness Psychiatric: No depression no anxiety Physical Exam Physical Exam: GENERAL: This is a 66 year old male. In no acute distress. HEAD/FACE: Normocephalic and atraumatic. EYES: No drainage or conjunctival injection. ENT: Nose without bleeding or discharge. Oral mucosa moist. NECK: Full ROM without apparent pain. No swelling or masses noted. RESPIRATORY: Patient with unlabored breathing. No signs of respiratory distress. CHEST/AXILLA: Chest movement symmetrical. No deformities noted. ABDOMEN/GI: No distension BACK: Moves without difficulty SKIN: 7 cm incision along the thoracolumbar region. Moderate serous drainage. Bandage was changed. Aquacel on the right buttock. MS/EXTREMITY: No swelling, no deformities. Moving extremities appropriately. NEURO: Alert and appears oriented. Speech is fluent. Cranial Nerves are grossly intact. PSYCH: Alert, pleasant, affect is calm Constitutional: WD/WN, vitals as above Eyes: EOM intact bilaterally; no conjunctival abnormality ENMT: Mouth: + edentulous Mallampati Class: I Neck: trachea midline, no thyromegaly normal visual inspection Respiratory: normal respiratory effort, lungs clear to auscultation normal respiratory effort; no respiratory distress Auscultation: lungs clear to auscultation bilaterally Cardiovascular: RRR, no murmur, no edema Rate/Rhythm: regular rate and regular rhythm Gastrointestinal (Abdomen): Inspection/Auscultation: abdomen normal to inspection; abdomen not distended Musculoskeletal: no cyanosis or clubbing, extremities motor strength 5/5 Skin: no rashes, warm and dry + ulcer (Lumbar spine - purulent) Neurologic: moves all extremities and awake Psychiatric: Orientation: alert, oriented to person and cooperative Results & Data Results & Data ([facility]) Vital Signs (Past 12 Hours) Vital Signs Temp Pulse Resp BP BP Pulse Ox 01/27/22 14:20 37.4 C 58 L 16 118/87 98 01/27/22 11:43 36.8 C 108 H 20 121/73 98 01/27/22 07:00 37.0 C 87 20 143/114 H 96 PG Care Time/CCT Total # of Minutes Spent Total Time Spent with Patient: Total time spent is greater than 50% in coordination of care (as documented) at patient's floor/unit and/or counseling patient: Coding Level of Care Code 26529 Subseq Hosp Care Lvl 3 Diagnoses Postoperative abscess T81.49XA Diabetes mellitus type 2 in nonobese E11.9 COPD (chronic obstructive pulmonary disease) J44.9 Anxiety with depression F41.8 BPH w urinary obs/LUTS N40.1; N13.8 Hypothyroid E03.9 GERD (gastroesophageal reflux disease) K21.9 DVT prophylaxis Z29.9
[2022-01-27] MEDS ORDERED: FAMOTIDINE 20 MG TAB PO STA (19:28)
[2022-01-27] MEDS: hydrOXYzine HCl 25 MG TAB PO PRN (22:43)
[2022-01-28] MEDS: LOPERAMIDE HCL 2 MG CAP PO PRN ×2 (01:01→08:13)
[2022-01-28] MEDS: LEVOTHYROXINE SODIUM 75 MCG TABLET PO SCH (05:27)
[2022-01-28] MEDS: oxyCODONE HCL 20 MG TABCR (OxyCONTIN) PO SCH (08:08)
[2022-01-28] MEDS: NICOTINE POLACRILEX 2 MG GUM MT PRN ×2 (08:09→14:08)
[2022-01-28] MEDS: metFORMIN HCL 500 MG TAB PO SCH (08:09)
[2022-01-28] MEDS: PANTOprazole 40 MG TAB PO SCH (08:09)
[2022-01-28] MEDS: CYANOCOBALAMIN (B-12) 500 MCG TABLET PO SCH (08:09)
[2022-01-28] MEDS: TAMSULOSIN HCL 0.4 MG CAP PO SCH (08:10)
[2022-01-28] MEDS: DUTASTERIDE PO SCH (08:10)
[2022-01-28] MEDS: LINEZOLID 600 MG TAB PO SCH (08:10)
[2022-01-28] MEDS: UMECLIDINIUM/VILANTEROL 62.5/25MCG 7 PUFFS/INHALER INH SCH (08:10)
[2022-01-28] MEDS: PREGABALIN 150 MG CAP PO SCH (08:12)
[2022-01-28] MEDS: INSULIN ASPART PER UNIT SC SCH ×2 (08:59→12:59)
[2022-01-28] MEDS: oxyCODONE HCL IR 5 MG TAB (IMMEDIATE RELEASE) PO PRN (12:21)
--- NOTE | 2022-01-28 12:40 | Discharge Summary ---
Date of Service January 28, 2022 Admission HPI Per Admitting Provider 66yo M w/ hx of COPD, hypothyroidism, DM who presents with infected intrathecal pump. He had one previously, and it stopped working in November. An outside surgeon (Dr. Jm Zhao) put a new intrathecal pump in on 12/25/2021. However, the patient reports a single suture came undone, and the pump site became infected after that. He has been following with [facility] with a wound vac on, but the site has opened up further, and became acutely pussy. CT back was done on 01/22 showed a 3.3 x 2.7 x 1.5 cm subcutaneous abscess, and he was instructed to come to the ER for removal. He denies any systemic signs of infection such as chest pain, shortness of breath, fevers/chills, nausea, vomiting, change in urination or bowel habits. Principal Diagnosis Abscess at intrathecal pump site s/p explantation and I&D Chronic pain syndrome Diabetes Mellitus Type 2 Discharge Exam GENERAL: 66 yo well-developed, well-nourished WM. NAD. LUNGS: Clear to auscultation bilaterally. No W/R/R. CARDIOVASCULAR: Regular rate and rhythm. No M/G/R. ABDOMEN: Soft, non-tender and non-distended. BS normal x 4 quad. EXTREMITIES: No edema. Non-tender. Peripheral pulses +2/4. NEUROLOGIC: A&O x3. PSYCHIATRIC: Cooperative. Appropriate mood and affect. SKIN: Warm, dry, intact. No rashes or lesions. Wound vac in place, wound dressed. Discharge Data Allergies Allergy/AdvReac Type Severity Reaction Status Date / Time adhesive tape Allergy REDNESS & Verified 01/22/22 14:52 BLACK & BLUE ibuprofen Allergy SWELLING, Verified 01/22/22 14:52 HIVES & SOB vancomycin Allergy Hives Unverified 01/28/22 13:13 Consultations 01/22/22 15:09 ED Decision to Admit Stat 01/22/22 18:16 Consult Pain Management Routine 01/25/22 13:06 Consult Infectious Diseases Routine Procedures Performed Operation Date: 01/22/22 10:25 Actual Procedures p Explantation Intrathecal Pump and catheter, Wound Vac Placement(Not Applicable) - Christine Kumar DO Ordered Studies Guidance Fluoroscopy 01/22/22 18:03 FL spine 1V any level CLINICAL HISTORY: PAIN PUMP REMOVAL COMPARISON STUDY: Lumbar spine CT performed earlier today. FLUOROSCOPY TIME: 6.3 seconds. FLUOROSCOPIC IMAGES: 3 FINDINGS: Fluoroscopy was provided during pain pump removal. Postoperative findings within the spine and a one level kyphoplasty are incidentally noted as well as a left hip arthroplasty. IMPRESSION: Fluoroscopy provided during pain pump removal. ACT 112: Negative or not required by law. Electronically signed by: Rashawn Fulton M.D. 01/22/2022 8:23 PM Hospital Course (1) Postoperative abscess: CT lumbar spine showed a 3.3 x 2.7 x 1.5 cm subcutaneous abscess at the site of his new intrathecal pump. Status post wound VAC removal, explant of intrathecal pump, and I&D on 01/[address] Kumar Cultures so far growing staph coagulase-negative Stopped Zosyn 01/23 Stopped daptomycin on 01/25 and started Rocephin ID recommending 14 day course of Zyvox which was started on 01/27 Wound VAC replaced 01/25, changed 01/27 (2) Opioid dependence: Pt has been seen by our pain management group while in house, s/p explant of intrathecal pump Started on a regimen of Oxycontin 40mg BID and OxyIR (dose of 5-10mg dependent on pain scale) for pain management This will be continued at discharge Will arrange from rescue Narcan, 2 doses to be sent to his pharmacy He is to follow up with his established pain management practice and will need to contact them to schedule appointment (3) Diabetes mellitus type 2 in nonobese: A1c was 7.6% in 2020 during a previous admission. Patient not on any diabetic medications at present. Poorly controlled, started on metformin 500 mg twice daily, low-dose Lantus and sliding scale insulin A1c is 7.5% Tolerating Metformin, would continue upon d/c Advise checking blood sugars fasting and at HS on even days and odd days before meals Would take glucometer with him to next PCP appointment Needs to follow diabetic diet Blood sugars have been all under 180 since 01/24 without need for coverage (4) COPD (chronic obstructive pulmonary disease): No wheezing on exam today. No shortness of breath per patient. Continue home maintenance inhaler (or formulary equivalent) Albuterol PRN Continues to smoke, has been counseled about this (5) Anxiety with depression: Not on any psych meds at present. Affect seems normal. (6) BPH w urinary obs/LUTS: Reports some LUTS with urinary hesitancy. Continue home Avodart (or formulary) and Flomax (7) Hypothyroid: TSH was 0.17 in 2020. No signs/symptoms of hypo-/hyperthyroidism. Continue home Synthroid 75 mcg Free T4 within normal limit (8) GERD (gastroesophageal reflux disease): Continue PPI Patient is doing well, he is felt to be medically and hemodynamically stable for discharge from the hospital. He will follow up with his established sign painter. Home health visits will be resumed at discharge for wound care/vac management on and f/u wound care visits on Fridays. He is to complete a 12 day course of Zyvox as recommended by ID. In the interim, weekly CBC and CMP to be sent to his PCP for review. These can be drawn by home health or he can go to the nearest lab. He has also been started on Metformin which will be continued to discharge. Needs to f/u with pcp on blood sugars and ensure that he is following a diabetic diet. Pain med regimen has been sent to his pharmacy. He will need to f/u with his established pain management group. Recommend pcp f/u within 1 week of discharge. Above plan has been d/w Dr. Love who has also seen this patient prior to discharge. Total Time Total Time Spent Total Time Spent (In Minutes): >30 minutes Discharge Plan Discharge Items Patient Disposition: Home - Home Health Services Reason For Visit: INFECTED INTRATHECAL PUMP Discharge Diagnosis: Infected pain pump site with removal of pump and wound vac exchange Activity: Resume your previous activity Non-emergency contact: Primary Care Provider and Specialist Call non-emergency contact if: you have any medication questions, your symptoms worsen, your pain is unusual for you and you have a fever Follow-up/Referrals: Giovani Almonte PA-C [Primary Care Provider] - Diet: Carb Consistent or DM2 Ambulatory Orders: Complete Blood Count with Diff (Routine) Timeframe: 5 Days Location: Determined by Patient Ordered By: Lesvia Martinez Complete Blood Count with Diff (Routine) Timeframe: 12 Day Location: Determined by Patient Ordered By: Lesvia Martinez Comprehensive Metabolic Panel (Routine) Timeframe: 5 Days Location: Determined by Patient Ordered By: Lesvia Martinez Comprehensive Metabolic Panel (Routine) Timeframe: 12 Day Location: Determined by Patient Ordered By: Lesvia Martinez Addtl Attending Provider Instructions: You have been hospitalized due to an infection in the area of your pain pump. As a result, you were taken to the operating room where your pain pump was removed and you underwent incision and drainage in the area of infection and wound vac exchange. You have been started on a regimen of pain medications to help control your pain. You will be prescribed the following medications upon discharge: * Oxycontin 40mg twice daily * OxyIR 5-10mg taken every 4 hours as needed for breakthrough pain according to pain scale Based on the bacteria that you were growing in your wound, infectious disease doctors were consulted and recommended a total of 2 weeks of antibiotics. The antibiotic recommended is called Zyvox. It was started here in the hospital and you will need to continue taking it twice a day for 12 more days. Your next dose is due on 01/28/22 before bed. Your dressing has been changed on 01/27 by our wound care nurse. Visiting nurses will be coming to your home on 01/29 to change your wound vac dressing. You will continue on the same schedule of Tuesday, Tuesday, and Tuesday. You will be arranged for a follow up appointment in the wound clinic for next Tuesday as you were previously scheduled. All medications should be taken as outlined on medication reconciliation. You are being started on a medication for Metformin 500mg to be taken twice a day for your diabetes. This medication generally does not cause low blood sugars. You still should be checking your blood sugars. Would recommend on even days (MW) to check your blood sugar in the morning before eating or drinking and before bed time. On odd days, check your blood sugar before meals. Take this with you to your next PCP appointment. This medication can cause nausea and more commonly diarrhea. Please contact your PCP's office to schedule a follow up (if you do not already have one) to see within 1 week of discharge. Follow up with your sign painter as scheduled. Please contact the [email or web address] number with any questions/concerns that you may have. In the event of a medical emergency, please call 911. Pending Studies at Discharge: No Stand-Alone Forms: My JLGOV, Smoking Cessation Medications and DC Order Prescriptions: New metformin 500 mg Tablet 500 mg PO BIDM Qty: 60 RF: 0 linezolid 600 mg Tablet 600 mg PO BID Qty: 25 RF: 0 oxycodone 5 mg Tablet 5 - 10 mg PO Q4H PRN (Reason: pain-see scale) Qty: 30 RF: 0 oxycodone [OxyContin] 20 mg Tablet,Oral Only,Ext.Rel.12 Hr 40 mg PO Q12H Qty: 6 RF: 0 Continued polyethylene glycol 3350 [Miralax] 17 gram/dose powder 17 g PO DAILY PRN (Reason: Constipation) RF: 0 clindamycin HCl 300 mg capsule 300 mg PO TID RF: 0 glucosamine sulfate [Glucosamine] 500 mg Tablet 1,000 mg PO HS RF: 0 cyanocobalamin (vitamin B-12) [Vitamin B-12] 500 mcg Tablet 0 mcg PO QAM RF: 0 vitamin B complex Tablet 1 tab PO QAM RF: 0 oxymetazoline [Afrin Sinus (oxymetazoline)] 0.05 % [place],Non-Aerosol 2 spray INTRANASAL Q12H PRN (Reason: Congestion) RF: 0 Systane (PF) 0.4-0.3 % Dropperette 1 drp OPB BID PRN (Reason: Dry Eye(S)) RF: 0 cholecalciferol (vitamin D3) [Vitamin D3] 25 mcg (1,000 unit) Tablet 0 mcg PO QAM RF: 0 krill oil 500 mg Capsule 500 mg PO HS RF: 0 melatonin 10 mg Tablet 10 mg PO HS PRN (Reason: Sleep) RF: 0 Cognitive Health 500 mg Capsule 500 mg PO HS RF: 0 sucralfate [Carafate] 1 gram tablet 1 g PO ACHS PRN (Reason: ulcers) RF: 0 hydroxyzine HCl 50 mg tablet 75 - 100 mg PO HS PRN (Reason: sleep/anxiety) RF: 0 levothyroxine 75 mcg tablet 75 mcg PO DAILYBB RF: 0 tamsulosin [Flomax] 0.4 mg capsule 0.4 mg PO BID RF: 0 pantoprazole 40 mg Tablet,Delayed Release (Dr/Ec) 40 mg PO QAM RF: 0 albuterol sulfate 90 mcg/actuation HFA aerosol inhaler 2 inh INHALATION UD PRN (Reason: Shortness Of Breath Or Wheezing) RF: 0 dutasteride [Avodart] 0.5 mg capsule 0.5 mg PO QAM RF: 0 pregabalin [Lyrica] 300 mg capsule 300 mg PO BID RF: 0 Anoro Ellipta 62.5-25 mcg/actuation blister with device 1 inh INHALATION UD RF: 0 Krames/Other Patient Handouts: Managing Type 2 Diabetes Admission Data Admit Date/Time: 01/22/22 15:41 Attending Provider: Telly Love Admit Provider: Byron Hardin Primary Care Provider: Giovani Almonte Other Providers: Byron Hardin ; Christine Kumar ; Moises Kraus ; Octavia Rosario ; Siddhartha Lares I. ; Luke Cosby II ; Wendy De La Fuente ; Igor Collins ; Martinez Wilkerson ; Jacky Holley [facility] Coding Level of Care Code D/C DAY MANAGEMENT >30 MINS Diagnoses Postoperative abscess T81.49XA Diabetes mellitus type 2 in nonobese E11.9 COPD (chronic obstructive pulmonary disease) J44.9 Anxiety with depression F41.8 BPH w urinary obs/LUTS N40.1; N13.8 Hypothyroid E03.9 GERD (gastroesophageal reflux disease) K21.9 Opioid dependence F11.20
== END 2022-01-28 15:01 | disposition home health service (06) | DRG 29 ==
LOC: ED 12:14 → SUATTDRO 15:41 → 3N 15:41 → 2E 21:00 → 3N 01-23 10:55

== ENCOUNTER 2022-05-14 15:28 | Inpatient (IN) ==
--- NOTE | 2022-05-14 15:49 | Emergency Department Note ---
Impression & Plan Cellulitis, Failure of outpatient treatment, Wound infection ED Provider Note NAME: KIRSTAL OLIVEROS AGE: 66 SEX: M : 1955 ARRIVES VIA: Walk-In INFORMANT: [Patient] ED PROVIDER(S): [Remberto James MD] CHIEF COMPLAINT: Abnormal CT imaging HISTORY OF PRESENT ILLNESS: This is a 66-year-old male who presents to the ER with worsening infection in his lower back. Patient states that he has been dealing with an issue in the lower back for around 4 months. He states he initially had a pain pump exchanged by a doctor Tiffanie Zhao in [place]. When he went back for follow- up, the pump was thought to be infected. He was given antibiotics. Things did not improve. The patient was hospitalized and the pump was removed. He was given IV antibiotics. He seemed to be getting better. Since discharge from the hospital, things have slowly gotten worse. He has been seeing the wound center and things just are not improving. He has had some low-grade fevers. No vo miting or diarrhea, no chest pain or shortness of breath. The patient states that today, he had CT imaging of the wound and it was thought to be worse compared to previous imaging. He was sent for hospitalization. REVIEW OF SYSTEMS: See HPI for pertinent positives and negatives. A total of ten systems were reviewed and were otherwise negative. PMHx/PSHx: See Below SOCIAL HISTORY: See Below. PHYSICAL EXAM: GENERAL: Patient is in no acute distress. HEENT: No acute trauma, normocephalic atraumatic, mucous membranes moist, no nasal congestion, no scleral icterus. NECK: No stridor, no adenopathy, no meningismus, trachea is midline. LUNGS: Clear to auscultation bilaterally, no wheeze, no rhonchi, breath sounds equal. HEART: Without murmurs gallops or rubs, regular rate and rhythm. ABDOMEN: Soft, nontender, bowel sounds positive, no peritonitis. EXTREMITIES: No cyanosis or edema, full range of motion of all the joints without pain or difficulty, no signs for acute trauma. NEUROLOGIC: Oriented x 3, no acute motor or sensory deficits, no focal weakness. SKIN: No rash, no jaundice, no diaphoresis. Back: There is an open wound to the mid lower back. The dressing has some yellow discharge consistent with potential infection. Mild tenderness to palpate around the area. No significant erythema. DIFFERENTIAL DIAGNOSIS: Cellulitis, abscess, failed outpatient management, electrolyte imbalance, anemia, osteomyelitis, MRSA, among others. EMERGENCY DEPARTMENT COURSE/PROCEDURES: MEDICAL DECISION MAKING: There is no leukocytosis or concerning anemia. There is a normal platelet count. No coagulopathy. No significant electrolyte abnormality, no renal failure. Lactic acid level is not elevated making severe sepsis less likely. No worrisome liver enzyme elevation. Procalcitonin level was not elevated. Urinalysis did not show infection. On exam, the patient did have some yellowish discharge from the lumbar wound. CT imaging performed outpatient did suggest a worsening cellulitis without abscess. The patient is in need of IV antibiotic therapy and care within the hospital. He has failed outpatient management. I spoke with the patient and case management. The on-call hospitalist was consulted. I did speak briefly with Dr. Kumar of pain management. She did not feel she had much to add to this case as, this is more of a medical issue now-- possible spinal surgery or general surgical issue. Past Med/Surg History Medical History Anxiety with depression BPH w urinary obs/LUTS COPD (chronic obstructive pulmonary disease) Diabetes mellitus type 2 in nonobese GERD (gastroesophageal reflux disease) Hypothyroid Insomnia Lumbar post-laminectomy syndrome No pertinent family history Opioid dependence Postoperative abscess Presence of intrathecal pump Surgical wound dehiscence Surgical History History of lumbar fusion Hx of fusion of cervical spine S/P hip replacement Social History Smoking Status: Current every day smoker Tobacco Type: Cigarettes Cigarettes Per Day: 1 pack; Second Hand Exposure: Yes; Do You Dip or Chew Tobacco: No; Tobacco Cessation Education Requested by Patient: No Hx Alcohol Use: No Hx Substance Use: Yes Last Used Substance: Hours (ago) Preferred Language: Bengali Communication Ability: Effective Workforce Planner Required: No Beliefs That Will Affect Care: None marital status: Current Living Situation: Spouse Other Information That Helps Us Care for You: No Feels Safe at Home: Yes Safety Concerns: Feels Safe At This Time Assistive Devices: Glasses and Walker Allergies Allergies Allergy/AdvReac Type Severity Reaction Status Date / Time ceftriaxone Allergy Severe Anaphylaxis Verified 05/14/22 16:51 ibuprofen Allergy Severe SWELLING, Verified 05/14/22 16:51 HIVES & SOB vancomycin Allergy Severe Anaphylaxis Unverified 05/14/22 16:51 adhesive tape Allergy Intermediate REDNESS & Verified 05/14/22 16:51 BLACK & BLUE procaine Allergy Unknown ON [facility] MED Verified 05/14/22 16:51 LIST Home Meds Home Medications Medication Instructions Recorded Confirmed albuterol sulfate 90 mcg/actuation 2 inh inhalation UD PRN Shortness 01/30/21 05/14/22 aerosol inhaler Of Breath Or Wheezing hydroxyzine HCl 50 mg tablet 75 - 100 mg PO HS PRN sleep/anxiety 01/30/21 05/14/22 levothyroxine 75 mcg tablet 75 mcg PO DAILYBB 01/30/21 05/14/22 pantoprazole 40 mg tablet,delayed 40 mg PO QAM 01/30/21 05/14/22 release pregabalin 300 mg capsule (Lyrica) 300 mg PO BID 01/30/21 05/14/22 sucralfate 1 gram tablet (Carafate) 1 g PO ACHS PRN ulcers 01/30/21 05/14/22 umeclidinium 62.5 mcg-vilanterol 1 inh inhalation DAILY 01/30/21 05/14/22 25 mcg/actuation powdr for inhalation (Anoro Ellipta) polyethylene glycol 3350 17 17 g PO DAILY PRN Constipation 01/11/22 05/14/22 gram/dose oral powder (Miralax) melatonin 10 mg tablet 10 mg PO HS PRN Sleep 01/22/22 05/14/22 oxymetazoline 0.05 % nasal spray 2 spray intranasal Q12H PRN 01/22/22 05/14/22 (Afrin Sinus (oxymetazoline)) Congestion peg 400-propylene glycol (PF) 0.4 1 drp OPB BID PRN Dry Eye(S) 01/22/22 05/14/22 %-0.3 % eye drops in a dropperette (Systane (PF)) Previous Rx's Medication Instructions Recorded metformin 500 mg tablet 500 mg PO BIDM #60 tabs 01/28/22 ondansetron HCl 4 mg tablet 4 mg PO Q6H PRN nausea and 02/08/22 vomiting #20 tabs Results & Data (ED) Vital Signs Vital Signs - 24 hr 05/14/22 15:36 05/14/22 15:50 05/14/22 16:39 Temperature 36.6 C Temperature Source Temporal Artery Scan Pulse Rate 108 H 105 H Pulse Rate from SpO2 Sensor Respiratory Rate 16 13 Respiratory Effort / Characteristics Non-Labored Spontaneous Blood Pressure 138/88 Blood Pressure Mean 104 Pulse Oximetry 95 Oxygen Delivery Method Room Air Sepsis Recent Fever Within 48 Hours No Sepsis New/Unexplained Change in Mental Status No Sepsis Action Taken by Nursing No Action Required 05/14/22 16:39 05/14/22 17:00 05/14/22 17:00 Temperature Temperature Source Pulse Rate 105 H Pulse Rate from SpO2 Sensor 104 H Respiratory Rate 23 Respiratory Effort / Characteristics Blood Pressure 117/89 150/107 H Blood Pressure Mean 98 121 Pulse Oximetry 99 Oxygen Delivery Method Sepsis Recent Fever Within 48 Hours Sepsis New/Unexplained Change in Mental Status Sepsis Action Taken by Shelter Medications Current Medication List: was personally reviewed by me Laboratory Data Attestation: I reviewed the patient's lab results. Result diagrams: 05/15/22 08:39 05/15/22 08:39 Lab Results 05/14/22 05/14/22 05/14/22 Range/Units 15:55 15:55 15:55 WBC 10.06 (4.8-10.8) K/ul RBC 5.24 (4.63-6.08) M/uL Hgb 14.4 (14.0-18.0) g/dl Hct 44.1 (40.1-51.0) % MCV 84.2 (80.0-100.0) fL MCH 27.5 (25.0-34.0) pg MCHC 32.7 (32.0-36.0) g/dL RDW Std Deviation 49.5 H (36.4-46.3) fL RDW Coeff of Karen 16.0 H (11.5-14.5) % Plt Count 270 (130-400) K/uL MPV 11.1 (9.4-12.4) fL Immature Gran % (Auto) 0.4 % Neut % (Auto) 55.0 % Lymph % (Auto) 33.1 % Pierce % (Auto) 6.2 % Eos % (Auto) 4.5 % Baso % (Auto) 0.8 % Neut # (Auto) 5.54 (1.4-6.5) K/uL Lymph # (Auto) 3.33 (1.2-3.4) K/uL Pierce # (Auto) 0.62 (0.24-0.82) K/uL Eos # (Auto) 0.45 (0-0.50) K/uL Baso # (Auto) 0.08 (0-0.2) K/uL Immature Gran # (Auto) 0.04 H (0.00-0.02) K/uL PT 11.1 (9.0-12.0) Seconds INR 1.0 (0.9-1.1) APTT 29.6 (21.0-31.0) Seconds PTT Ratio 1.1 Sodium 135 L (136-145) mmol/L Potassium 3.9 (3.5-5.1) mmol/L Chloride 101 (98-107) mmol/L Carbon Dioxide 25 (21-32) mmol/L Anion Gap 9 (3-11) BUN 19 (6-23) mg/dl Creatinine 0.89 (0.6-1.4) mg/dl Est Cr Clr Drug Dosing Not Reportable Est GFR ( Amer) 103.3 ml/min Est GFR (Non-Af Amer) 89.1 ml/min BUN/Creatinine Ratio 21.3 H (10-20) Glucose 189 H (70-99(Fasting)) mg/dl Lactate (0.4-2.0) mmol/L Calcium 9.4 (8.5-10.1) mg/dl Magnesium 0.9 L* (1.7-2.4) mg/dl Total Bilirubin 0.4 (0.2-1.0) mg/dl AST 17 (13-39) U/L ALT 11 (7-52) U/L Alkaline Phosphatase 113 H (34-104) U/L Total Protein 8.0 (6.0-8.3) gm/dl Albumin 3.9 (3.4-5.0) gm/dl Globulin 4.1 H (2.5-4.0) gm/dl Albumin/Globulin Ratio 1.0 (0.9-2) Procalcitonin (0-0.5) ng/ml Urine Color Urine Appearance (Clear) Urine pH (4.5-7.5) Ur Specific Johnston (1.000-1.030) Urine Protein (Negative) Urine Glucose (UA) (Negative) Urine Ketones (Negative) Urine Blood (Negative) Urine Nitrite (Negative) Urine Bilirubin (Negative) Urine Urobilinogen (Negative) Ur Leukocyte Esterase (Negative) SARS-CoV-2, RNA, NAAT (NEGATIVE) 05/14/22 05/14/22 05/14/22 Range/Units 15:55 16:12 16:55 WBC (4.8-10.8) K/ul RBC (4.63-6.08) M/uL Hgb (14.0-18.0) g/dl Hct (40.1-51.0) % MCV (80.0-100.0) fL MCH (25.0-34.0) pg MCHC (32.0-36.0) g/dL RDW Std Deviation (36.4-46.3) fL RDW Coeff of Karen (11.5-14.5) % Plt Count (130-400) K/uL MPV (9.4-12.4) fL Immature Gran % (Auto) % Neut % (Auto) % Lymph % (Auto) % Pierce % (Auto) % Eos % (Auto) % Baso % (Auto) % Neut # (Auto) (1.4-6.5) K/uL Lymph # (Auto) (1.2-3.4) K/uL Pierce # (Auto) (0.24-0.82) K/uL Eos # (Auto) (0-0.50) K/uL Baso # (Auto) (0-0.2) K/uL Immature Gran # (Auto) (0.00-0.02) K/uL PT (9.0-12.0) Seconds INR (0.9-1.1) APTT (21.0-31.0) Seconds PTT Ratio Sodium (136-145) mmol/L Potassium (3.5-5.1) mmol/L Chloride (98-107) mmol/L Carbon Dioxide (21-32) mmol/L Anion Gap (3-11) BUN (6-23) mg/dl Creatinine (0.6-1.4) mg/dl Est Cr Clr Drug Dosing Est GFR ( Amer) ml/min Est GFR (Non-Af Amer) ml/min BUN/Creatinine Ratio (10-20) Glucose (70-99(Fasting)) mg/dl Lactate 1.9 (0.4-2.0) mmol/L Calcium (8.5-10.1) mg/dl Magnesium (1.7-2.4) mg/dl Total Bilirubin (0.2-1.0) mg/dl AST (13-39) U/L ALT (7-52) U/L Alkaline Phosphatase (34-104) U/L Total Protein (6.0-8.3) gm/dl Albumin (3.4-5.0) gm/dl Globulin (2.5-4.0) gm/dl Albumin/Globulin Ratio (0.9-2) Procalcitonin < 0.05 (0-0.5) ng/ml Urine Color Yellow Urine Appearance Clear (Clear) Urine pH 5.5 (4.5-7.5) Ur Specific Johnston 1.042 H (1.000-1.030) Urine Protein Negative (Negative) Urine Glucose (UA) Negative (Negative) Urine Ketones Negative (Negative) Urine Blood Negative (Negative) Urine Nitrite Negative (Negative) Urine Bilirubin Negative (Negative) Urine Urobilinogen Negative (Negative) Ur Leukocyte Esterase Negative (Negative) SARS-CoV-2, RNA, NAAT (NEGATIVE) 05/14/22 Range/Units 17:01 WBC (4.8-10.8) K/ul RBC (4.63-6.08) M/uL Hgb (14.0-18.0) g/dl Hct (40.1-51.0) % MCV (80.0-100.0) fL MCH (25.0-34.0) pg MCHC (32.0-36.0) g/dL RDW Std Deviation (36.4-46.3) fL RDW Coeff of Karen (11.5-14.5) % Plt Count (130-400) K/uL MPV (9.4-12.4) fL Immature Gran % (Auto) % Neut % (Auto) % Lymph % (Auto) % Pierce % (Auto) % Eos % (Auto) % Baso % (Auto) % Neut # (Auto) (1.4-6.5) K/uL Lymph # (Auto) (1.2-3.4) K/uL Pierce # (Auto) (0.24-0.82) K/uL Eos # (Auto) (0-0.50) K/uL Baso # (Auto) (0-0.2) K/uL Immature Gran # (Auto) (0.00-0.02) K/uL PT (9.0-12.0) Seconds INR (0.9-1.1) APTT (21.0-31.0) Seconds PTT Ratio Sodium (136-145) mmol/L Potassium (3.5-5.1) mmol/L Chloride (98-107) mmol/L Carbon Dioxide (21-32) mmol/L Anion Gap (3-11) BUN (6-23) mg/dl Creatinine (0.6-1.4) mg/dl Est Cr Clr Drug Dosing Est GFR ( Amer) ml/min Est GFR (Non-Af Amer) ml/min BUN/Creatinine Ratio (10-20) Glucose (70-99(Fasting)) mg/dl Lactate (0.4-2.0) mmol/L Calcium (8.5-10.1) mg/dl Magnesium (1.7-2.4) mg/dl Total Bilirubin (0.2-1.0) mg/dl AST (13-39) U/L ALT (7-52) U/L Alkaline Phosphatase (34-104) U/L Total Protein (6.0-8.3) gm/dl Albumin (3.4-5.0) gm/dl Globulin (2.5-4.0) gm/dl Albumin/Globulin Ratio (0.9-2) Procalcitonin (0-0.5) ng/ml Urine Color Urine Appearance (Clear) Urine pH (4.5-7.5) Ur Specific Johnston (1.000-1.030) Urine Protein (Negative) Urine Glucose (UA) (Negative) Urine Ketones (Negative) Urine Blood (Negative) Urine Nitrite (Negative) Urine Bilirubin (Negative) Urine Urobilinogen (Negative) Ur Leukocyte Esterase (Negative) SARS-CoV-2, RNA, NAAT NEGATIVE (NEGATIVE) Administered Medications Acetaminophen (Acetaminophen 325 Mg Tab) 650 mg PO Q6 MARAL Stop: 06/13/22 19:29 Last Admin: 05/15/22 12:29 Dose: 650 mg Documented By: Admin: 05/15/22 06:16 Dose: 650 mg Documented By: Admin: 05/15/22 01:01 Dose: 650 mg Documented By: Admin: 05/14/22 20:42 Dose: 650 mg Documented By: EW Enoxaparin Sodium (Enoxaparin Inj 40 Mg/0.4 Ml Syr) 40 mg SQ Q24H MARAL Stop: 06/13/22 20:59 Last Admin: 05/14/22 20:43 Dose: 40 mg Documented By: EW Piperacillin Sod/Tazobactam (Sod 3.375 gm/ Dextrose) 115 mls @ 28.75 mls/hr IV Q8H ON LICENSE OF [facility]; Protocol Stop: 05/22/22 00:00 Last Infusion: 05/15/22 13:28 Dose: 0 mls/hr Documented By: Admin: 05/15/22 09:41 Dose: 29 mls/hr Documented By: Infusion: 05/15/22 03:18 Dose: 0 mls/hr Documented By: Admin: 05/14/22 23:22 Dose: 28.8 mls/hr Documented By: BETHEL Insulin Aspart (Insulin Aspart Per Unit) 0 units SC ACHS MARAL Stop: 06/13/22 20:59 Last Admin: 05/15/22 13:24 Dose: 2 units Documented By: SIMONE Co-signed By: BRANDON Admin: 05/15/22 09:40 Dose: 3 units Documented By: SIMONE Co-signed By: ELMO Admin: 05/14/22 21:32 Dose: Not Given Documented By: BETHEL Co-signed By: BETO Levothyroxine Sodium (Levothyroxine Sodium 75 Mcg Tablet) 75 mcg PO DAILYBB MARAL Stop: 06/14/22 06:29 Last Admin: 05/15/22 06:16 Dose: 75 mcg Documented By: BETHEL Miscellaneous (Avodart~Order Awaiting Action) 1 each N/A QS ON LICENSE OF [facility] Stop: 06/13/22 19:44 Last Admin: 05/15/22 08:26 Dose: Not Given Documented By: Admin: 05/14/22 23:23 Dose: Not Given Documented By: Admin: 05/14/22 20:09 Dose: Not Given Documented By: EW Nicotine Polacrilex (Nicotine Polacrilex 2 Mg Gum) 1 piece MT PRN PRN PRN Reason: cravings Stop: 06/13/22 17:42 Last Admin: 05/15/22 12:29 Dose: 1 piece Documented By: Admin: 05/15/22 09:41 Dose: 1 piece Documented By: Admin: 05/14/22 23:22 Dose: 1 piece Documented By: BETHEL Ondansetron HCl (Ondansetron Inj 2 Mg/Ml 2 Ml Vial) 4 mg IV Q6H PRN PRN Reason: Nausea Stop: 06/13/22 19:29 Last Admin: 05/15/22 01:06 Dose: 4 mg Documented By: BETHEL Oxycodone HCl (Oxycodone Hcl 40 Mg Tabcr (Oxycontin)) 40 mg PO BID MARAL Stop: 05/28/22 19:59 Last Admin: 05/15/22 09:41 Dose: 40 mg Documented By: Admin: 05/14/22 20:40 Dose: 40 mg Documented By: BETHEL Pantoprazole Sodium (Pantoprazole 40 Mg Tab) 40 mg PO QAM MARAL Stop: 06/14/22 08:59 Last Admin: 05/15/22 09:29 Dose: 40 mg Documented By: SIMONE Pregabalin (Pregabalin 150 Mg Cap) 300 mg PO BID MARAL Stop: 06/14/22 08:59 Last Admin: 05/15/22 09:29 Dose: 300 mg Documented By: SIMONE Umeclidinium/Vilanterol (Umeclidinium/Vilanterol 62.5/25mcg 7 Puffs/Inhaler) 1 puffs INH DAILY MARAL Stop: 06/14/22 08:59 Last Admin: 05/15/22 09:29 Dose: 1 puffs Documented By: SIMONE Vitamin B Complex (Vitamin B Complex Tab) 1 tab PO QAM MARAL Stop: 06/14/22 08:59 Last Admin: 05/15/22 09:28 Dose: 1 tab Documented By: SIMONE Discontinued Medications Sodium Chloride (Nss 1000ml) 1,000 mls @ 999 mls/hr IV .Q1H1M MARAL Stop: 05/14/22 17:00 Last Infusion: 05/14/22 18:36 Dose: 0 mls/hr Documented By: Admin: 05/14/22 16:40 Dose: 999 mls/hr Documented By: ADEOLA Daptomycin 500 mg/ Syringe 10 mls @ 5 mls/min IV ONE ONE; Protocol Stop: 05/14/22 15:51 Last Admin: 05/14/22 16:40 Dose: 5 mls/min Documented By: ADEOLA Clindamycin Phosphate 900 mg/ (Dextrose) 56 mls @ 112 mls/hr IV ONE ONE Stop: 05/14/22 16:19 Last Infusion: 05/14/22 18:31 Dose: 0 mls/hr Documented By: Admin: 05/14/22 18:01 Dose: 112 mls/hr Documented By: ADEOLA Magnesium Sulfate/Dextrose (Magnesium Sulfate / D5w) 1 gm in 100 mls @ 100 mls/hr IV Q1H MARAL Stop: 05/14/22 18:47 Last Infusion: 05/14/22 20:39 Dose: 0 mls/hr Documented By: Admin: 05/14/22 19:00 Dose: 100 mls/hr Documented By: Infusion: 05/14/22 18:25 Dose: 0 mls/hr Documented By: Admin: 05/14/22 17:25 Dose: 100 mls/hr Documented By: ADEOLA Piperacillin Sod/Tazobactam Sod (Zosyn) 4.5 gm in 120 mls @ 240 mls/hr IV ONE STA; Protocol Stop: 05/14/22 18:33 Last Infusion: 05/14/22 19:31 Dose: 0 mls/hr Documented By: Admin: 05/14/22 18:40 Dose: 240 mls/hr Documented By: ADEOLA Magnesium Sulfate/Dextrose (Magnesium Sulfate / D5w) 1 gm in 100 mls @ 50 mls/ hr IV ONE ONE Stop: 05/15/22 02:29 Last Infusion: 05/15/22 03:18 Dose: 0 mls/hr Documented By: Admin: 05/15/22 01:01 Dose: 50 mls/hr Documented By: BETHEL Misgaroaneous (Patient's Height &/Or Weight Needed) 1 each N/A ONE STA Stop: 05/14/22 18:06 Last Admin: 05/14/22 20:08 Dose: 1 each Documented By: BETHEL Rothman (Patient's Height &/Or Weight Needed) 1 each N/A ONE STA Stop: 05/14/22 19:12 Last Admin: 05/14/22 20:14 Dose: Not Given Documented By: BETHEL Pregabalin (Pregabalin 150 Mg Cap) 150 mg PO BID MARAL Stop: 06/13/22 20:59 Last Admin: 05/14/22 20:40 Dose: 150 mg Documented By: BETHEL Pregabalin (Pregabalin 150 Mg Cap) 150 mg PO NOW STA Stop: 05/14/22 23:55 Last Admin: 05/15/22 01:01 Dose: 150 mg Documented By: BETHEL Imaging Data Radiologist's Impression: CT lumbar spine w con CLINICAL HISTORY: Follow-up posterior back infection. Evaluate for Osteomyelitis or abscess COMPARISON STUDY: 02/24/2022 CT DOSE: TECHNIQUE: Standard CT of the Lumbar Spine was performed with 94 mL of Optiray 320 IV contrast. A dose lowering technique was utilized adhering to the principles of ALARA. FINDINGS: Bones: Bones are osteopenic. There is again an old L1 compression fracture with vertebroplasty present. There is again an exaggerated kyphotic curvature of the thoracolumbar spine at this level. There is fusion of the L1 and L2 vertebral bodies again seen. There is no evidence for an acute fracture or malalignment. There is again degenerative retrolisthesis of L2 on L3 and L3 on L4 which is unchanged. There is again old compression deformity of L3. The heights of the remaining lumbar vertebral bodies are maintained. Disc spaces: Moderate to marked disc space narrowing is again seen of L2 on L3 and L3 on L4 with vacuum disc phenomena present. However, there is no change in appearance of the vertebral body endplates with no CT evidence for discitis. Patient is again status post laminectomies at L3 and L4. The vertebral body jacob ical margins are maintained with no CT evidence for osteomyelitis. Facet joints: Hypertrophic facet joint disease again seen involving the lumbar spine. There are again degenerative changes the SI joints. Soft tissues: Compared to the previous examination, increased subcutaneous soft tissue swelling is present along the midline of the back posterior to the spine. Fluid is again seen tracking along the deep subcutaneous fascial plane. There is diffuse enhancement of the soft tissues with air bubbles present. However, no focal fluid collection or enhancing abscess is seen. The findings are still most characteristic of an infectious inflammatory process. There is no enhancing paraspinal soft tissue swelling. IMPRESSION: 1. Compared to the previous examination, increased soft tissue swelling and inflammatory changes are present posterior to the spine with increasing air bubbles present. 2. Diffuse enhancement of the fluid is seen with no walled off focal abscess present. Findings are characteristic of worsening cellulitis, infection and inflammatory change. 3. There is no evidence for adjacent paraspinal abscess, discitis or osteomyelitis. CT thoracic spine w con ADDENDUM This study was performed with 94 mL of Optiray 320 contrast. No abnormal enhancement is demonstrated. Electronically signed by: Jewel Escobar M.D. 05/14/2022 2:[address] thoracic spine w con CLINICAL HISTORY: Back pain. Evaluate for Osteomyelitis or abscess COMPARISON STUDY: No previous studies for comparison. CT DOSE: 1815.45 mGy.cm TECHNIQUE: Standard CT of the Thoracic Spine was performed without IV contrast. A dose lowering technique was utilized adhering to the principles of ALARA. FINDINGS: Bones: The bones are osteopenic. There is no evidence for an acute fracture or malalignment. There is no cortical destruction or CT evidence for osteomyelitis. The heights of the thoracic vertebral bodies are maintained. The vertebral bodies are in anatomic alignment. Disc spaces: There is mild to moderate disc space narrowing throughout the thoracic spine with moderate to marked disc space narrowing at T12-L1. Endplate sclerosis, vacuum disc phenomenon and osteophyte formation are seen at the T12- L1 level. Pedicles::The pedicles are intact bilaterally. Soft tissues: The paraspinal soft tissues are within normal limits. There is no paraspinal soft tissue swelling or evidence for abscess. IMPRESSION: 1. Osteopenia with no acute osseous pathology. 2. Degenerative disc disease. 3. No CT evidence for osteomyelitis or paraspinal abscess. Discharge Plan Visit Data Chief Complaint: Abnormal Labs/Diagnostic Testing Stated Complaint: INFECTION, REF BY DOC, ABNORMAL LAB ED Provider: Remberto James Discharge Problem: Cellulitis, Failure of outpatient treatment, Wound infection Patient Disposition: Admitted As Inpatient Condition: Good Discharge Instructions Interventions: ED Discharge Assessment Last Done: 05/14/22 18:55
[2022-05-14] MEDS ORDERED: DAPTOmycin 500 MG in SYRINGE 0 ML IV ONE (15:50)
[2022-05-14] MEDS ORDERED: CLINDAMYCIN 900 MG in DEXTROSE 5% 50 ML IV ONE (15:50)
[2022-05-14] MEDS ORDERED: SODIUM CHLORIDE 0.9% 1000ML 1,000 ML IV SCH (16:00)
[2022-05-14 16:10] LABS: Basophils # (auto) 0.08 K/uL (0-0.2); Basophils % (auto) 0.8 %; Eosinophils # (auto) 0.45 K/uL (0-0.50); Eosinophils % (auto) 4.5 %; Hematocrit (blood only) 44.1 % (40.1-51.0); Hemoglobin 14.4 g/dl (14.0-18.0); Immature Granulocytes # (auto) 0.04 K/uL (0.00-0.02); Immature Granulocytes % (auto) 0.4 %; Lymphocytes # (auto) 3.33 K/uL (1.2-3.4); Lymphocytes % (auto) 33.1 %; Mean Corpuscular Hemoglobin 27.5 pg (25.0-34.0); Mean Corpuscular Hgb Conc 32.7 g/dL (32.0-36.0); Mean Corpuscular Volume 84.2 fL (80.0-100.0); Mean Platelet Volume 11.1 fL (9.4-12.4); Monocytes # (auto) 0.62 K/uL (0.24-0.82); Monocytes % (auto) 6.2 %; Neutrophils # (auto) 5.54 K/uL (1.4-6.5); Platelet Count 270 K/uL (130-400); RDW Standard Deviation 49.5 fL (36.4-46.3); Red Blood Count 5.24 M/uL (4.63-6.08); White Blood Count 10.06 K/ul (4.8-10.8)
--- NOTE | 2022-05-14 16:15 | History & Physical Report ---
Date of Service May 14, 2022 Assessment & Plan (1) Surgical wound, non healing: Plan: -Admit to medicine -Patient had original intrathecal pain pump replaced in december of 2021, infection/abscess developed, removed and washed out by Dr. Kumar on 01/22/22. -Has been following in the wound clinic, was being treated with Doxy and Penicillin Vee-K for wound cultures from 04/26/22 growing Group B strep and MRSA, unfortunately the wound has not improved -CT imaging today showing cellulitis without signs of abscess or OM -Started on Dapto and Clinda in the ED as patient has allergies to ceftriaxone and vancomycin in his chart listed as anaphylaxis >Spoke with pharmacy as previous DC summary from 01/22 noted patient was on ceftriaxone but they were unable to confirm the reactions >Will continue with Daptomycin and Zosyn broadly for now, can tailor abx off cultures as able -Follow blood cultures and tailor abx as able -Consider ID consult -Will consult Dr. Kumar to follow and assist with management, she recommended consulting orthopedic surgery in case I&D is needed, consult placed -AM CBC, BMP, and Mag (2) Hypomagnesemia: Plan: -Found to be 0.9 today -ED gave 2G IV -Will repeat in the AM to monitor along with BMP (3) Diabetes mellitus type 2 in nonobese: Plan: -Hold metformin -Will start with correction of 35 and carb coverage of 11 -Adjust as needed (4) Opioid dependence: Plan: -Continue COBBLER UPPER pain regimen (5) Lumbar post-laminectomy syndrome: Plan: -COBBLER UPPER pain regimen (6) Tobacco abuse: Plan: -Ordered nicotine gum as the patch tears his skin (7) COPD (chronic obstructive pulmonary disease): Plan: -COBBLER UPPER breathing treatments (8) Anxiety with depression: Plan: -COBBLER UPPER meds (9) BPH w urinary obs/LUTS: Plan: -COBBLER UPPER flomax (10) GERD (gastroesophageal reflux disease): Plan: -COBBLER UPPER protonix and carafate (11) Hypothyroid: Plan: -COBBLER UPPER levothyroxine Plan The patient was discussed with Dr. Barahona at the time of the admission History of Present Illness Chief Complaint: Abnormal imaging results Primary Care Provider: Giovani Almonte PA-C Manjeet is a 66 year old male with a PMH significant for Lumbar post laminectomy syndrome S/P intrathecal pain pump placement 12/25/21 with subsequent infection and abscess, COPD, hypothyroidism, DM who presents to the [facility] ED on 05/14/22 with a chief complaint of worsening lumbar back wound. Per chart review, the patient was admitted to [facility] for removal of the infected pump and washout of abscess by Dr. Kumar on. 01/22/22. Cultures from the abscess grew staph coagulase-negative. The patient was switched from Zosyn and Dapto to Rocephin. ID was consulted and recommended finishing treatment with a 14 day course of Zyvox. The patient has been folowed by the Wound Care clinic since discharge. Wound cultures from 04/26/22 grew Group B strep and MRSA, for which they started him on doxycycline and Pen-Vee K. In the ED the patient was found to be afebrile, hemodynamically stable, and stable on RA. CT of the thoracic and lumbar vertebrae W/Contrast revealed " increased soft tissue swelling and inflammatory changes are present posterior to the spine with increasing air bubbles present. Diffuse enhancement of the fluid is seen with no walled off focal abscess present. Findings are characteristic of worsening cellulitis, infection and inflammatory change.There is no evidence for adjacent paraspinal abscess, discitis or osteomyelitis". Due to the reported anaphylaxis with Vancomycin and ceftriaxone the patient was started on Clindamycin and Daptomycin, the patient was also give a 1L NSS bolus. At the time of the exam the patient was lying in bed in moderate distress due to pain. He states that his baseline pain since having the pump removed is an 8/10. The pain starts at the site of his procedure site and moves symmetrically down both legs. He also has diabetic neuropathy of both lower extremities, which is at it's baseline. He does not have new numbness or weakness since his proce dure. he denies saddle anesthesia and loss of bowel/bladder control. He states that he has been having fevers over the past week but then states the highest temperature is 100.2F. He and his are frustrated with the issues he has been having with the wound. He currently ambulates with the assistance of a rolling walker. Allergies Allergy/AdvReac Type Severity Reaction Status Date / Time ceftriaxone Allergy Severe Anaphylaxis Verified 05/14/22 16:51 ibuprofen Allergy Severe SWELLING, Verified 05/14/22 16:51 HIVES & SOB vancomycin Allergy Severe Anaphylaxis Unverified 05/14/22 16:51 adhesive tape Allergy Intermediate REDNESS & Verified 05/14/22 16:51 BLACK & BLUE procaine Allergy Unknown ON [facility] MED Verified 05/14/22 16:51 LIST Home Medications Medication Instructions Recorded Confirmed Type albuterol sulfate 90 mcg/actuation 2 inh inhalation UD PRN Shortness 01/30/21 05/14/22 History aerosol inhaler Of Breath Or Wheezing hydroxyzine HCl 50 mg tablet 75 - 100 mg PO HS PRN sleep/anxiety 01/30/2109/23 History levothyroxine 75 mcg tablet 75 mcg PO DAILYBB 01/30/21 05/14/22 History pantoprazole 40 mg tablet,delayed 40 mg PO QAM 01/30/21 05/14/22 History release pregabalin 300 mg capsule (Lyrica) 300 mg PO BID 01/30/21 05/14/22 History sucralfate 1 gram tablet (Carafate) 1 g PO ACHS PRN ulcers 01/30/21 05/14/22 History umeclidinium 62.5 mcg-vilanterol 1 inh inhalation DAILY 01/30/21 05/14/22 History 25 mcg/actuation powdr for inhalation (Anoro Ellipta) polyethylene glycol 3350 17 17 g PO DAILY PRN Constipation 01/11/22 05/14/22 History gram/dose oral powder (Miralax) melatonin 10 mg tablet 10 mg PO HS PRN Sleep 01/22/22 05/14/22 History oxymetazoline 0.05 % nasal spray 2 spray intranasal Q12H PRN 01/22/22 05/14/22 History (Afrin Sinus (oxymetazoline)) Congestion peg 400-propylene glycol (PF) 0.4 1 drp OPB BID PRN Dry Eye(S) 01/22/22 05/14/22 History %-0.3 % eye drops in a dropperette (Systane (PF)) metformin 500 mg tablet 500 mg PO BIDM #60 tabs 01/28/22 05/14/22 Rx ondansetron HCl 4 mg tablet 4 mg PO Q6H PRN nausea and 02/08/22 05/14/22 Rx vomiting #20 tabs Past Med/Surg History Medical History Anxiety with depression BPH w urinary obs/LUTS COPD (chronic obstructive pulmonary disease) Diabetes mellitus type 2 in nonobese GERD (gastroesophageal reflux disease) Hypothyroid Insomnia Lumbar post-laminectomy syndrome No pertinent family history Opioid dependence Postoperative abscess Presence of intrathecal pump Surgical wound dehiscence Surgical History History of lumbar fusion Hx of fusion of cervical spine S/P hip replacement Social History Smoking Status: Current every day smoker Tobacco Type: Cigarettes Cigarettes Per Day: 1 pack; Second Hand Exposure: Yes; Do You Dip or Chew Tobacco: No; Tobacco Cessation Education Requested by Patient: No Hx Alcohol Use: No Hx Substance Use: Yes Last Used Substance: Hours (ago) Preferred Language: Icelandic Communication Ability: Effective [employer]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 Physical Exam Physical Exam: Physical Exam: General: In no acute distress, stated age, malnourished, chronically ill- appearing HEENT: Normocephalic, atraumatic, no scleral icterus, pupils around round, symmetrical, and reactive to light, moist mucus membranes, trachea midline, no thyromegaly Chest/Pulm: No respiratory distress, symmetrical chest expansion, clear breath sounds throughout Cardiac: RRR, no murmurs noted Abdomen: Negative for ascites and bruising, normoactive bowel sounds, soft, non-tender to palpation throughout Musculoskeletal: Patient with bandage overlying procedure site showing signs of purulent drainage, upper and lower extremities with full ROM, no atrophy, spasticity, or flaccidity Neuro: Alert and oriented to person, place, month, year, and president, no focal defects, CN II-XII tested and intact, finger to nose test negative, no tremors noted Psych: No acute distress, calm and cooperative during the exam Results & Data Results & Data ([facility]) Vital Signs (Past 12 Hours) Vital Signs Temp Pulse Resp BP Pulse Ox O2 Del Method 05/14/22 15:36 36.6 C 108 H 16 138/88 95 Room Air Laboratory Results Laboratory Results - last 24 hr 05/14/22 05/14/22 05/14/22 15:55 15:55 15:55 WBC 10.06 RBC 5.24 Hgb 14.4 Hct 44.1 MCV 84.2 MCH 27.5 MCHC 32.7 RDW Std Deviation 49.5 H RDW Coeff of Karen 16.0 H Plt Count 270 MPV 11.1 Immature Gran % (Auto) 0.4 Neut % (Auto) 55.0 Lymph % (Auto) 33.1 [place] % (Auto) 6.2 Eos % (Auto) 4.5 Baso % (Auto) 0.8 Neut # (Auto) 5.54 Lymph # (Auto) 3.33 [place] # (Auto) 0.62 Eos # (Auto) 0.45 Baso # (Auto) 0.08 Immature Gran # (Auto) 0.04 H PT 11.1 INR 1.0 APTT 29.6 PTT Ratio 1.1 Sodium 135 L Potassium 3.9 Chloride 101 Carbon Dioxide 25 Anion Gap 9 BUN 19 Creatinine 0.89 Est Cr Clr Drug Dosing Not Reportable Est GFR ( Amer) 103.3 Est GFR (Non-Af Amer) 89.1 BUN/Creatinine Ratio 21.3 H Glucose 189 H Lactate Calcium 9.4 Magnesium 0.9 L* Total Bilirubin 0.4 AST 17 ALT 11 Alkaline Phosphatase 113 H Total Protein 8.0 Albumin 3.9 Globulin 4.1 H Albumin/Globulin Ratio 1.0 Procalcitonin Urine Color Urine Appearance Urine pH Ur Specific [place] Urine Protein Urine Glucose (UA) Urine Ketones Urine Blood Urine Nitrite Urine Bilirubin Urine Urobilinogen Ur Leukocyte Esterase SARS-CoV-2, RNA, NAAT 05/14/22 05/14/22 05/14/22 15:55 16:12 16:55 WBC RBC Hgb Hct MCV MCH MCHC RDW Std Deviation RDW Coeff of Karen Plt Count MPV Immature Gran % (Auto) Neut % (Auto) Lymph % (Auto) [place] % (Auto) Eos % (Auto) Baso % (Auto) Neut # (Auto) Lymph # (Auto) [place] # (Auto) Eos # (Auto) Baso # (Auto) Immature Gran # (Auto) PT INR APTT PTT Ratio Sodium Potassium Chloride Carbon Dioxide Anion Gap BUN Creatinine Est Cr Clr Drug Dosing Est GFR ( Amer) Est GFR (Non-Af Amer) BUN/Creatinine Ratio Glucose Lactate 1.9 Calcium Magnesium Total Bilirubin AST ALT Alkaline Phosphatase Total Protein Albumin Globulin Albumin/Globulin Ratio Procalcitonin < 0.05 Urine Color Yellow Urine Appearance Clear Urine pH 5.5 Ur Specific [place] 1.042 H Urine Protein Negative Urine Glucose (UA) Negative Urine Ketones Negative Urine Blood Negative Urine Nitrite Negative Urine Bilirubin Negative Urine Urobilinogen Negative Ur Leukocyte Esterase Negative SARS-CoV-2, RNA, NAAT 05/14/22 17:01 WBC RBC Hgb Hct MCV MCH MCHC RDW Std Deviation RDW Coeff of Karen Plt Count MPV Immature Gran % (Auto) Neut % (Auto) Lymph % (Auto) [place] % (Auto) Eos % (Auto) Baso % (Auto) Neut # (Auto) Lymph # (Auto) [place] # (Auto) Eos # (Auto) Baso # (Auto) Immature Gran # (Auto) PT INR APTT PTT Ratio Sodium Potassium Chloride Carbon Dioxide Anion Gap BUN Creatinine Est Cr Clr Drug Dosing Est GFR ( Amer) Est GFR (Non-Af Amer) BUN/Creatinine Ratio Glucose Lactate Calcium Magnesium Total Bilirubin AST ALT Alkaline Phosphatase Total Protein Albumin Globulin Albumin/Globulin Ratio Procalcitonin Urine Color Urine Appearance Urine pH Ur Specific [place] Urine Protein Urine Glucose (UA) Urine Ketones Urine Blood Urine Nitrite Urine Bilirubin Urine Urobilinogen Ur Leukocyte Esterase SARS-CoV-2, RNA, NAAT NEGATIVE Diagnostic Findings ADDENDUM This study was performed with 94 mL of Optiray 320 contrast. No abnormal enhancement is demonstrated. Electronically signed by: Jewel Escobar M.D. 05/14/2022 2:[address] thoracic spine w con CLINICAL HISTORY: Back pain. Evaluate for Osteomyelitis or abscess COMPARISON STUDY: No previous studies for comparison. CT DOSE: 1815.45 mGy.cm TECHNIQUE: Standard CT of the Thoracic Spine was performed without IV contrast. A dose lowering technique was utilized adhering to the principles of ALARA. FINDINGS: Bones: The bones are osteopenic. There is no evidence for an acute fracture or malalignment. There is no cortical destruction or CT evidence for osteomyelitis. The heights of the thoracic vertebral bodies are maintained. The vertebral bodies are in anatomic alignment. Disc spaces: There is mild to moderate disc space narrowing throughout the thoracic spine with moderate to marked disc space narrowing at T12-L1. Endplate sclerosis, vacuum disc phenomenon and osteophyte formation are seen at the T12- L1 level. Pedicles::The pedicles are intact bilaterally. Soft tissues: The paraspinal soft tissues are within normal limits. There is no paraspinal soft tissue swelling or evidence for abscess. IMPRESSION: 1. Osteopenia with no acute osseous pathology. 2. Degenerative disc disease. 3. No CT evidence for osteomyelitis or paraspinal abscess. ACT 112: Negative or not required by law. CT lumbar spine w con CLINICAL HISTORY: Follow-up posterior back infection. Evaluate for Osteomyelitis or abscess COMPARISON STUDY: 02/24/2022 CT DOSE: TECHNIQUE: Standard CT of the Lumbar Spine was performed with 94 mL of Optiray 320 IV contrast. A dose lowering technique was utilized adhering to the principles of ALARA. FINDINGS: Bones: Bones are osteopenic. There is again an old L1 compression fracture with vertebroplasty present. There is again an exaggerated kyphotic curvature of the thoracolumbar spine at this level. There is fusion of the L1 and L2 vertebral bodies again seen. There is no evidence for an acute fracture or malalignment. There is again degenerative retrolisthesis of L2 on L3 and L3 on L4 which is unchanged. There is again old compression deformity of L3. The heights of the remaining lumbar vertebral bodies are maintained. Disc spaces: Moderate to marked disc space narrowing is again seen of L2 on L3 and L3 on L4 with vacuum disc phenomena present. However, there is no change in appearance of the vertebral body endplates with no CT evidence for discitis. Patient is again status post laminectomies at L3 and L4. The vertebral body cortical margins are maintained with no CT evidence for osteomyelitis. Facet joints: Hypertrophic facet joint disease again seen involving the lumbar spine. There are again degenerative changes the SI joints. Soft tissues: Compared to the previous examination, increased subcutaneous soft tissue swelling is present along the midline of the back posterior to the spine. Fluid is again seen tracking along the deep subcutaneous fascial plane. There is diffuse enhancement of the soft tissues with air bubbles present. However, no focal fluid collection or enhancing abscess is seen. The findings are still most characteristic of an infectious inflammatory process. There is no enhancing paraspinal soft tissue swelling. IMPRESSION: 1. Compared to the previous examination, increased soft tissue swelling and inflammatory changes are present posterior to the spine with increasing air bubbles present. 2. Diffuse enhancement of the fluid is seen with no walled off focal abscess present. Findings are characteristic of worsening cellulitis, infection and inflammatory change. 3. There is no evidence for adjacent paraspinal abscess, discitis or osteomyelitis. A stat report will be called/faxed to the referring clinician. ACT 112: Positive. There are findings on this exam that require communication between the performing entity and the patient following Patient Test Result Information Act ([place] Act 112) guidelines. Electronically signed by: Jewel Escobar M.D. 05/14/2022 2:02 PM Dictated:05/14/22 1348 Transcribed: 05/14/22 1348 Medications Administered Sodium Chloride (Nss 1000ml) 1,000 mls @ 999 mls/hr IV .Q1H1M MARAL Stop: 05/14/22 17:00 Last Admin: 05/14/22 16:40 Dose: 999 mls/hr Documented By: ADEOLA ECG Additional Comments: -Will obtain admission ECG and review once available Code Status & VTE Plan Code Status full code VTE Prophylaxis Plan VTE Prophylaxis will be ordered: Yes Supervising Physician Co-Signing Physician Notes Patient seen and examined, chart reviewed, case discussed with Carlos Corey PA-C and I agree with the assessment and plan as above except as otherwise noted Labs and images reviewed Very sick 6-year-old male with history of lumbar postlaminectomy syndrome, intrathecal pain pump placed 12/25/2021 and subsequently removed 01/22/2022 for worsening back pain and evidence of infection with abscess. Cultures positive for coag negative staph. ID was consulted during that admission and recommended 2-week course of linezolid. Final cultures were polymicrobial for group B strep and MRSA, patient was treated with doxycycline and penicillin. Patient represents 05/14 with worsening pain, feverish with night sweats, and fatigue. Pain at his surgical site radiates down to the knee of both legs. He does not have saddle anesthesia, loss of strength, urinary retention, or bowel incontinence. On admission repeat CT showed increased left tissue swelling and inflammation without evidence of contained abscess but consistent with worsening cellulitis. No evidence of osteomyelitis was appreciated. Patient is fatigued but nontoxic and in no acute distress. Spinal site with overlying dressing, underlying ulceration with trace purulence, no expanding superficial erythema. Site TTP. Sensation soft touch is intact in hands and feet. Heart rate is regular. Symmetrical chest rise, no worsened work of breathing. No Marquis spots/[place] lesions. No cardiac murmur appreciated. Orthopedics is consulted in case I&D is required, patient does not show evidence of abscess or osteo at this time. Patient is tolerating Dapto/Zosyn, does have a listed history of anaphylaxis to ceftriaxone but appears to have received this subsequently without reaction, reaction was likely due to vanc given at the same time. Continue Dapto/Zosyn broad coverage at this time, CBC daily, trend CRP, ID consult for long-term management given suspected failure of prior regimen, and follow-up blood cultures. PG Care Time/CCT Total # of Minutes Spent Total Time Spent with Patient: Total time spent is greater than 50% in coordination of care (as documented) at patient's floor/unit and/or counseling patient: [place] [address] Initial Inpt Care Lvl 2 Patient Type Established Medical Decision Making Moderate Complexity Diagnoses Surgical wound, non healing T81.89XA Hypomagnesemia E83.42 Diabetes mellitus type 2 in nonobese E11.9 Opioid dependence F11.20 Lumbar post-laminectomy syndrome M96.1 Tobacco abuse Z72.0 COPD (chronic obstructive pulmonary disease) J44.9 COPD type: unspecified COPD Anxiety with depression F41.8 BPH w urinary obs/LUTS N40.1; N13.8 GERD (gastroesophageal reflux disease) K21.9 Hypothyroid E03.9 (1) COPD (chronic obstructive pulmonary disease) COPD type: unspecified COPD Qualified Code(s): J44.9 - Chronic obstructive pulmonary disease, unspecified
[2022-05-14 16:26] LABS: Partial Thromboplastin Ratio 1.1; Partial Thromboplastin Time 29.6 Seconds (21.0-31.0); Prothrombin Time 11.1 Seconds (9.0-12.0)
[2022-05-14 16:38] LABS: Anion Gap 9 (3-11); BUN Creatinine Ratio 21.3 (10-20); Blood Urea Nitrogen 19 mg/dl (6-23); Calcium 9.4 mg/dl (8.5-10.1); Carbon Dioxide 25 mmol/L (21-32); Chloride 101 mmol/L (98-107); Est GFR (African American) 103.3 ml/min; Est GFR (Non-African American) 89.1 ml/min; Glucose 189 mg/dl (70-99(Fasting)); Potassium 3.9 mmol/L (3.5-5.1); Sodium 135 mmol/L (136-145)
[2022-05-14 16:42] LABS: Alanine Aminotransferase 11 U/L (7-52); Albumin Level 3.9 gm/dl (3.4-5.0); Alkaline Phosphatase 113 U/L (34-104); Aspartate Aminotransferase 17 U/L (13-39); Bilirubin,Total 0.4 mg/dl (0.2-1.0); Globulin 4.1 gm/dl (2.5-4.0); Magnesium 0.9 mg/dl (1.7-2.4)
--- NOTE | 2022-05-14 16:43 | XRay Report ---
XR chest 1V portable CLINICAL HISTORY: SEPSIS. COMPARISON STUDY: 02/24/2022 TECHNIQUE: 1 view of the chest FINDINGS: Single frontal view of the chest demonstrates the cardiomediastinal silhouette to be within normal li mits. The lungs are clear of alveolar opacities. There is no evidence for pleural effusion. There is no evidence for vascular congestion. There is no acute osseous pathology. IMPRESSION: 1. No acute cardiopulmonary disease. ACT 112: Negative or not required by law. Electronically signed by: Jewel Escobar M.D. 05/14/2022 4:42 PM
[2022-05-14 17:11] LABS: Appearance Urine Clear (Clear); Bilirubin Urine Negative (Negative); Blood Urine Negative (Negative); Color Urine Yellow; Glucose Urine UA Negative (Negative); Ketones Urine Negative (Negative); Leukocyte Esterase Urine Negative (Negative); Nitrite Urine Negative (Negative); Protein Urine Negative (Negative); Specific Gravity Urine 1.042 (1.000-1.030); Urobilinogen Urine Negative (Negative); pH Urine 5.5 (4.5-7.5)
[2022-05-14] MEDS: MAGNESIUM SULFATE / D5W 1 GM/100 ML BAG IV SCH ×2 (17:25→19:00)
[2022-05-14] MEDS ORDERED: PIPERACILLIN/TAZOBACTAM 4.5 GM/120 ML BAG IV STA (18:04)
[2022-05-14] MEDS ORDERED: Patient's HEIGHT &/or WEIGHT Needed STA ×2 (18:05→19:11)
[2022-05-14] MEDS ORDERED: SUCRALFATE 1 GM TAB PO PRN (19:30)
[2022-05-14] MEDS ORDERED: CARBOHYDRATES FOR HYPOGLYCEMIA PO PRN (19:30)
[2022-05-14] MEDS ORDERED: DEXTROSE 50% 50 ML SYRINGE IV PRN (19:30)
[2022-05-14] MEDS ORDERED: GLUCOSE 10 TAB/TUBE PO PRN (19:30)
[2022-05-14] MEDS ORDERED: oxyCODONE HCL IR 5 MG TAB (IMMEDIATE RELEASE) PO PRN (19:30)
[2022-05-14] MEDS ORDERED: hydrOXYzine HCl 25 MG TAB PO PRN (19:30)
[2022-05-14] MEDS ORDERED: ALBUTEROL HFA 8 GM INHALER INH PRN (19:30)
[2022-05-14] MEDS ORDERED: POLYETHYLENE (MIRALAX) 17 GM PACK PO PRN (19:30)
[2022-05-14] MEDS ORDERED: GLUCAGON FOR INJ 1 MG VIAL SQ PRN (19:30)
[2022-05-14] MEDS ORDERED: GLUCOSE 40% GEL 15 GM TUBE PO PRN (19:30)
[2022-05-14] MEDS ORDERED: ARTIFICIAL TEARS OP PRN (19:37)
[2022-05-14] MEDS ORDERED: MELATONIN 3 MG TAB PO PRN (19:38)
[2022-05-14] MEDS: AVODART~ORDER AWAITING ACTION SCH ×2 (20:09→23:23)
--- NOTE | 2022-05-14 20:32 | Communication Note ---
Date of Service: May 14, 2022 Mg 0.9. repleted w/ 2 bags of IV Mg in ED. Repeated lab: 1.7. Ordering 1 more bag. Recheck level in AM. Patient requesting home dose Lyrica 300mg PO BID. Per chart review, was changed to 150mg PO BID by pharmacy. I have called pharmacy to clarify; will be changed back to 300mg PO BID as this is consistent w/ outside fill records. No renal impairment.
[2022-05-14] MEDS: ACETAMINOPHEN 325 MG TAB PO SCH (20:42)
[2022-05-14] MEDS: ENOXAPARIN INJ 40 MG/0.4 ML SYR SQ SCH (20:43)
[2022-05-14] MEDS ORDERED: PREGABALIN 150 MG CAP PO SCH (21:00)
[2022-05-14] MEDS ORDERED: NON-FORMULARY MEDICATION (Glucosamine Sulfate [Glucosamine] 500 mg Tablet) PO SCH (21:00)
[2022-05-14] MEDS ORDERED: CITICOLINE 500 MG PO SCH (21:00)
[2022-05-14] MEDS: INSULIN ASPART PER UNIT SC SCH (21:32)
[2022-05-14] MEDS: NICOTINE POLACRILEX 2 MG GUM MT PRN (23:22)
[2022-05-14] MEDS: PIPERACILLIN/TAZOBACTAM 3.375 GM in DEXTROSE 5% 100 ML IV SCH (23:22)
[2022-05-14] MEDS ORDERED: PREGABALIN 150 MG CAP PO STA (23:54)
[2022-05-15] MEDS ORDERED: MAGNESIUM SULFATE / D5W 1 GM/100 ML BAG IV ONE (00:30)
[2022-05-15] MEDS: ACETAMINOPHEN 325 MG TAB PO SCH ×5 (01:01→23:39)
[2022-05-15] MEDS: ONDANSETRON INJ 2 MG/ML 2 ML VIAL IV PRN ×2 (01:06→22:19)
[2022-05-15] MEDS: LEVOTHYROXINE SODIUM 75 MCG TABLET PO SCH (06:16)
[2022-05-15] MEDS: AVODART~ORDER AWAITING ACTION SCH ×3 (08:26→23:39)
[2022-05-15 09:05] LABS: Hemoglobin 12.4 g/dl (14.0-18.0); Mean Corpuscular Hemoglobin 26.8 pg (25.0-34.0); Mean Corpuscular Hgb Conc 31.8 g/dL (32.0-36.0); Mean Corpuscular Volume 84.2 fL (80.0-100.0); Mean Platelet Volume 11.5 fL (9.4-12.4); Platelet Count 240 K/uL (130-400); RDW Coefficient of Variation 16.1 % (11.5-14.5); RDW Standard Deviation 49.7 fL (36.4-46.3); Red Blood Count 4.63 M/uL (4.63-6.08); White Blood Count 6.81 K/ul (4.8-10.8)
[2022-05-15] MEDS: VITAMIN B COMPLEX TAB PO SCH (09:28)
[2022-05-15] MEDS: UMECLIDINIUM/VILANTEROL 62.5/25MCG 7 PUFFS/INHALER INH SCH (09:29)
[2022-05-15] MEDS: PANTOprazole 40 MG TAB PO SCH (09:29)
[2022-05-15] MEDS: PREGABALIN 150 MG CAP PO SCH ×2 (09:29→20:09)
[2022-05-15 09:31] LABS: BUN Creatinine Ratio 20.5 (10-20); Calcium 9.2 mg/dl (8.5-10.1); Creatinine Clr Calc Pharmacy 85.9 ml/min; Est GFR (African American) 106.3 ml/min; Est GFR (Non-African American) 91.7 ml/min; Magnesium 1.8 mg/dl (1.7-2.4); Potassium 4.3 mmol/L (3.5-5.1)
[2022-05-15] MEDS: INSULIN ASPART PER UNIT SC SCH ×4 (09:40→21:24)
[2022-05-15] MEDS: NICOTINE POLACRILEX 2 MG GUM MT PRN ×5 (09:41→23:42)
[2022-05-15] MEDS: PIPERACILLIN/TAZOBACTAM 3.375 GM in DEXTROSE 5% 100 ML IV SCH ×3 (09:41→23:39)
--- NOTE | 2022-05-15 09:43 | Orthopedic Consultation ---
Date of Consultation May 15, 2022 Assessment & Plan (1) Surgical wound, non healing: At this time I do recommend continued management with the wound center. He may require more extensive debridement which I will defer to general or plastic surgery. Do not appreciate any need for spinal surgery at this time. History of Present Illness Reason for Consultation: Infection of a intrathecal pump site Attending Physician: Dewayne Lay MD History of Present Illness This is a 66-year-old male admitted yesterday with worsening infection from a pain pump site. This morning he seems most concerned regarding his cardiac diet. He is requesting salt. He does note chronic persistent back and bilateral leg pain but no gross motor deficits. He has a history of multiple surgeries he states 15 in total to his lumbar spine. Allergies Allergy/AdvReac Type Severity Reaction Status Date / Time ceftriaxone Allergy Severe Anaphylaxis Verified 05/14/22 16:51 ibuprofen Allergy Severe SWELLING, Verified 05/14/22 16:51 HIVES & SOB vancomycin Allergy Severe Anaphylaxis Unverified 05/14/22 16:51 adhesive tape Allergy Intermediate REDNESS & Verified 05/14/22 16:51 BLACK & BLUE procaine Allergy Unknown ON [facility] MED Verified 05/14/22 16:51 LIST Home Medications Medication Instructions Recorded Confirmed Type albuterol sulfate 90 mcg/actuation 2 inh inhalation UD PRN Shortness 01/30/21 05/14/22 History aerosol inhaler Of Breath Or Wheezing hydroxyzine HCl 50 mg tablet 75 - 100 mg PO HS PRN sleep/anxiety 01/30/21 05/14/22 History levothyroxine 75 mcg tablet 75 mcg PO DAILYBB 01/30/21 05/14/22 History pantoprazole 40 mg tablet,delayed 40 mg PO QAM 01/30/21 05/14/22 History release pregabalin 300 mg capsule (Lyrica) 300 mg PO BID 01/30/21 05/14/22 History sucralfate 1 gram tablet (Carafate) 1 g PO ACHS PRN ulcers 01/30/21 05/14/22 History umeclidinium 62.5 mcg-vilanterol 1 inh inhalation DAILY 01/30/21 05/14/22 History 25 mcg/actuation powdr for inhalation (Anoro Ellipta) polyethylene glycol 3350 17 17 g PO DAILY PRN Constipation 01/11/22 05/14/22 History gram/dose oral powder (Miralax) melatonin 10 mg tablet 10 mg PO HS PRN Sleep 01/22/22 05/14/22 History oxymetazoline 0.05 % nasal spray 2 spray intranasal Q12H PRN 01/22/22 05/14/22 History (Afrin Sinus (oxymetazoline)) Congestion peg 400-propylene glycol (PF) 0.4 1 drp OPB BID PRN Dry Eye(S) 01/22/22 05/14/22 History %-0.3 % eye drops in a dropperette (Systane (PF)) metformin 500 mg tablet 500 mg PO BIDM #60 tabs 01/28/22 05/14/22 Rx ondansetron HCl 4 mg tablet 4 mg PO Q6H PRN nausea and 02/08/22 05/14/22 Rx vomiting #20 tabs Patient History Medical History Anxiety with depression BPH w urinary obs/LUTS COPD (chronic obstructive pulmonary disease) Diabetes mellitus type 2 in nonobese GERD (gastroesophageal reflux disease) Hypothyroid Insomnia Lumbar post-laminectomy syndrome No pertinent family history Opioid dependence Postoperative abscess Presence of intrathecal pump Surgical wound dehiscence Surgical History History of lumbar fusion Hx of fusion of cervical spine S/P hip replacement Social History Smoking Status: Current every day smoker Tobacco Type: Cigarettes Cigarettes Per Day: 1 pack; Second Hand Exposure: Yes; Do You Dip or Chew Tobacco: No; Tobacco Cessation Education Requested by Patient: No Hx Alcohol Use: No Hx Substance Use: Yes Last Used Substance: Hours (ago) Preferred Language: Chinese Communication Ability: Effective Media Strategist Required: No Beliefs That Will Affect Care: None marital status: Current Living Situation: Spouse Other Information That Helps Us Care for You: No Feels Safe at Home: Yes Safety Concerns: Feels Safe At This Time Assistive Devices: Glasses and Walker Physical Exam Physical Exam: On exam he is neurologically intact. He is able to sit up for me. The dressing is in place. There is no gross erythema or drainage. Results & Data ([facility]) Vital Signs (Past 12 Hours) Vital Signs Temp Pulse Resp BP Pulse Ox O2 Del Method 05/15/22 07:37 36.5 C 64 18 116/71 96 Room Air 05/14/22 21:52 36.6 C 81 18 143/91 H 96 Room Air
--- NOTE | 2022-05-15 11:54 | Electrocardiogram Report ---
Test Reason : Blood Pressure : / mmHG Vent. Rate : 098 BPM Atrial Rate : 098 BPM P-R Int : 124 ms QRS Dur : 078 ms QT Int : 340 ms P-R-T Axes : 030 -11 052 degrees QTc Int : 434 ms Poor data quality, interpretation may be adversely affected Normal sinus rhythm Low voltage QRS Borderline ECG When compared with ECG of 24-FEB-2022 11:52, No significant change was found Confirmed by Jose Piper ([id number]) on 05/15/2022 11:53:53 AM Referred By: Elsie Austin Confirmed By:Jose Piper
--- NOTE | 2022-05-15 14:45 | Hospitalist Progress Note ---
Date of Service May 15, 2022 Assessment & Plan (1) Surgical wound, non healing: Plan: -Admit to medicine -Patient had original intrathecal pain pump replaced in december of 2021, infection/abscess developed, removed and washed out by Dr. Kumar on 01/22/22. -Has been following in the wound clinic, was being treated with Doxy and Penicillin Vee-K for wound cultures from 04/26/22 growing Group B strep and MRSA, unfortunately the wound has not improved -CT imaging today showing cellulitis without signs of abscess or OM -Started on Dapto and Clinda in the ED as patient has allergies to ceftriaxone and vancomycin in his chart listed as anaphylaxis * Spoke with pharmacy as previous DC summary from 01/22 noted patient was on ceftriaxone but they were unable to confirm the reactions * Will continue with Daptomycin and Zosyn broadly for now, can tailor abx off cu ltures as able -Wound culture from 04/26/22 with growth of GBS and MRSA -Blood cultures thus far yield NGTD -Consulted Dr. Kumar to follow and assist with management, she recommended consulting orthopedic surgery in case I&D is needed, consult placed but Dr. Mahoney did not appreciate any need for orthopsine involvement, advised f/u with wound care center and if more extensive debridement needed to consult general surgery -AM CBC, BMP, and Mag -Consult general surgery for possible debridement & ID consult for IV v. PO abx choice/duration (2) Hypomagnesemia: Plan: -Found to be 0.9 today -ED gave 2G IV -Will repeat in the AM this morning better at 1.7, additional 1g of Mag Sulfate given -Repeat in AM (3) Diabetes mellitus type 2 in nonobese: Plan: -Hold metformin -Will start with correction of 35 and carb coverage of 11 -Adjust as needed -Continue carb consistent diet (4) Opioid dependence: Plan: -Continue pain regimen (5) Lumbar post-laminectomy syndrome: Plan: -pain regimen, Lyrica resumed 300mg BID (6) Tobacco abuse: Plan: -Ordered nicotine gum as the patch tears his skin (7) COPD (chronic obstructive pulmonary disease): Plan: -breathing treatments (8) Anxiety with depression: Plan: -resume home meds (9) BPH w urinary obs/LUTS: Plan: -flomax (10) GERD (gastroesophageal reflux disease): Plan: -protonix and carafate (11) Hypothyroid: Plan: -levothyroxine Plan Local wound care, IV abx, general surgery consult for possible debridement. ID consult for antibiotic guidance given failure of oral course of antibiotics. Repeat labs in AM. Plan has been d/w Dr. Lay. Admission and Anticipated Discharge Date Admission Date: May 14, 2022 Subjective Patient seen on daily rounds this morning. He is resting in bed, offers no new complaints. He denies fever/chills. Pt with chronic pain but no worse than usual. Denies cp or dyspnea. Notes that he has been following with wound care as outpatient but feels that his wound continues to be infected and needs IV antibiotics which his insurance would not authorize for him to get as an outpatient. Review of Systems Review of Systems: All systems reviewed and are unremarkable except as noted in HPI and below. Denies fever, chills, fatigue, headache, nasal congestion, sore throat, cough, chest pain, shortness of breath, palpitations, orthopnea, PND, abdominal pain, n/v/d, constipation, dysuria, hematuria, frequency, back pain, joint pain or swelling, easy bruising or bleeding. Physical Exam Physical Exam: GENERAL: 66 yo Well-developed, well-nourished WM. NAD. LUNGS: Clear to auscultation bilaterally. No W/R/R. CARDIOVASCULAR: Regular rate and rhythm. No M/G/R. No JVD. ABDOMEN: Soft, non-tender and non-distended. BS normoactive x 4 quad. EXTREMITIES: No edema. Non-tender. Peripheral pulses +2/4. NEUROLOGIC: A&O x3. Nonfocal PSYCHIATRIC: Cooperative. Appropriate mood and affect. SKIN: Wound noted to lower midback - dressed with optifoam Results & Data Results & Data ([facility]) Vital Signs (Past 12 Hours) Vital Signs Temp Pulse Resp BP Pulse Ox O2 Del Method 05/15/22 07:37 36.5 C 64 18 116/71 96 Room Air Laboratory Results 05/15/22 08:39 05/15/22 08:39 PG Care Time/CCT Total # of Minutes Spent Total Time Spent with Patient: Total time spent is greater than 50% in coordination of care (as documented) at patient's floor/unit and/or counseling patient: Coding Level of Care Code 46537 Subseq Hosp Care Lvl 2 Diagnoses Surgical wound, non healing T81.89XA Hypomagnesemia E83.42 Diabetes mellitus type 2 in nonobese E11.9 Opioid dependence F11.20 Lumbar post-laminectomy syndrome M96.1 Tobacco abuse Z72.0 COPD (chronic obstructive pulmonary disease) J44.9 COPD type: unspecified COPD Anxiety with depression F41.8 BPH w urinary obs/LUTS N40.1; N13.8 GERD (gastroesophageal reflux disease) K21.9 Hypothyroid E03.9 (1) COPD (chronic obstructive pulmonary disease) COPD type: unspecified COPD Qualified Code(s): J44.9 - Chronic obstructive pulmonary disease, unspecified
[2022-05-15] MEDS: DAPTOmycin 275 MG in SYRINGE 0 ML IV SCH (17:48)
[2022-05-15] MEDS: ENOXAPARIN INJ 40 MG/0.4 ML SYR SQ SCH (20:21)
[2022-05-16] MEDS: NICOTINE POLACRILEX 2 MG GUM MT PRN ×7 (01:49→23:43)
[2022-05-16] MEDS ORDERED: Nursing to Pharmacy Communication SCH (05:45)
[2022-05-16] MEDS: LEVOTHYROXINE SODIUM 75 MCG TABLET PO SCH (05:59)
[2022-05-16] MEDS: ACETAMINOPHEN 325 MG TAB PO SCH ×4 (05:59→23:43)
[2022-05-16] MEDS ORDERED: INSULIN ASPART PER UNIT SC SCH (06:00)
--- NOTE | 2022-05-16 07:37 | Surgery Consultation ---
Date of Consultation May 16, 2022 Assessment & Plan (1) Cellulitis: There is no abscess that needs drained and there is no necrotic tissue that needs debrided. I believe the increased air on imaging is because the wound VAC is currently off and now without suction air can tunnel superiorly. I am not sure what I would have to offer him surgically. I would continue the wound VAC and encourage him to stop using tobacco and keep his sugars under control. 1 could consider plastic surgery consultation for potential muscle flap/closure of the wound. We will reinitiate diet. He should continue to follow-up at the wound clinic for placement of his wound VAC. (2) Surgical wound, non healing: (3) Diabetes mellitus type 2 in nonobese: (4) Tobacco abuse: History of Present Illness Attending Physician: Dewayne Lay MD History of Present Illness 66-year-old diabetic and smoker with a history of back issues with multiple spine surgeries. In December of this year he had a nonfunctioning pain pump removed and a new one placed. Shortly thereafter the surgical site became infected and the pain pump was removed. He has been dealing with trying to get this infected wound healed ever since. He has seen at our wound clinic and wound vacs have been initiated. He is also on antibiotics. We were requested to evaluate the wound for potential surgical intervention. Allergies Allergy/AdvReac Type Severity Reaction Status Date / Time ceftriaxone Allergy Severe Anaphylaxis Verified 05/14/22 16:51 ibuprofen Allergy Severe SWELLING, Verified 05/14/22 16:51 HIVES & SOB vancomycin Allergy Severe Anaphylaxis Unverified 05/14/22 16:51 adhesive tape Allergy Intermediate REDNESS & Verified 05/14/22 16:51 BLACK & BLUE procaine Allergy Unknown ON [facility] MED Verified 05/14/22 16:51 LIST Home Medications Medication Instructions Recorded Confirmed Type albuterol sulfate 90 mcg/actuation 2 inh inhalation UD PRN Shortness 01/30/21 05/14/22 History aerosol inhaler Of Breath Or Wheezing hydroxyzine HCl 50 mg tablet 75 - 100 mg PO HS PRN sleep/anxiety 01/30/21 05/14/22 History levothyroxine 75 mcg tablet 75 mcg PO DAILYBB 01/30/21 05/14/22 History pantoprazole 40 mg tablet,delayed 40 mg PO QAM 01/30/21 05/14/22 History release pregabalin 300 mg capsule (Lyrica) 300 mg PO BID 01/30/21 05/14/22 History sucralfate 1 gram tablet (Carafate) 1 g PO ACHS PRN ulcers 01/30/21 05/14/22 History umeclidinium 62.5 mcg-vilanterol 1 inh inhalation DAILY 01/30/21 05/14/22 History 25 mcg/actuation powdr for inhalation (Anoro Ellipta) polyethylene glycol 3350 17 17 g PO DAILY PRN Constipation 01/11/22 05/14/22 History gram/dose oral powder (Miralax) melatonin 10 mg tablet 10 mg PO HS PRN Sleep 01/22/22 05/14/22 History oxymetazoline 0.05 % nasal spray 2 spray intranasal Q12H PRN 01/22/22 05/14/22 History (Afrin Sinus (oxymetazoline)) Congestion peg 400-propylene glycol (PF) 0.4 1 drp OPB BID PRN Dry Eye(S) 01/22/22 05/14/22 History %-0.3 % eye drops in a dropperette (Systane (PF)) metformin 500 mg tablet 500 mg PO BIDM #60 tabs 01/28/22 05/14/22 Rx ondansetron HCl 4 mg tablet 4 mg PO Q6H PRN nausea and 02/08/22 05/14/22 Rx vomiting #20 tabs Patient History Medical History Anxiety with depression BPH w urinary obs/LUTS COPD (chronic obstructive pulmonary disease) Diabetes mellitus type 2 in nonobese GERD (gastroesophageal reflux disease) Hypothyroid Insomnia Lumbar post-laminectomy syndrome No pertinent family history Opioid dependence Postoperative abscess Presence of intrathecal pump Surgical wound dehiscence Surgical History History of lumbar fusion Hx of fusion of cervical spine S/P hip replacement Social History Smoking Status: Current every day smoker Tobacco Type: Cigarettes Cigarettes Per Day: 1 pack; Second Hand Exposure: Yes; Do You Dip or Chew Tobacco: No; Tobacco Cessation Education Requested by Patient: No Hx Alcohol Use: No Hx Substance Use: Yes Last Used Substance: Hours (ago) Preferred Language: Portuguese Communication Ability: Effective 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 Beliefs That Will Affect Care: None marital status: Current Living Situation: Spouse Other Information That Helps Us Care for You: No Feels Safe at Home: Yes Safety Concerns: Feels Safe At This Time Assistive Devices: Glasses and Walker Physical Exam Constitutional: WD/WN, vitals as above no acute distress and not ill appearing Eyes: PERRL, conjunctivae normal, anicteric sclerae EOM intact bilaterally ENMT: external ear and nose normal, oropharynx normal Ears: no hearing impairment Neck: trachea midline, no thyromegaly Respiratory: normal respiratory effort; no respiratory distress and does not use accessory muscles Cardiovascular: Rate/Rhythm: regular rate and regular rhythm Gastrointestinal (Abdomen): normal bowel sounds, soft, nontender, no hepatosplenomegaly Skin: On his low back there is an open wound. There is no necrotic tissue or eschar. There is no purulent drainage. The skin is not erythematous or warm to touch. The area is mildly tender. There is some tunneling primarily superiorly. Psychiatric: Orientation: alert, oriented x 3 and cooperative Results & Data ([facility]) Vital Signs (Past 12 Hours) Vital Signs Temp Pulse Resp BP Pulse Ox O2 Del Method 05/15/22 23:17 36.6 C 67 19 118/66 96 Room Air 05/15/22 22:06 36.8 C 73 18 142/75 H 96 Room Air PG Care Time/CCT Total # of Minutes Spent Total Time Spent with Patient: Total time spent is greater than 50% in coordination of care (as documented) at patient's floor/unit and/or counseling patient: Coding Level of Care Code 29523 Initial Inpt Care Lvl 3 Diagnoses Cellulitis L03.312 Site of cellulitis: trunk Site of cellulitis of trunk: back Surgical wound, non healing T81.89XA Diabetes mellitus type 2 in nonobese E11.9 Tobacco abuse Z72.0 (1) Cellulitis Site of cellulitis: trunk Site of cellulitis of trunk: back Qualified Code(s): L03.312 - Cellulitis of back [any part except buttock]
[2022-05-16 08:36] LABS: Hematocrit (blood only) 38.3 % (40.1-51.0); Mean Corpuscular Hemoglobin 26.1 pg (25.0-34.0); Mean Corpuscular Hgb Conc 31.3 g/dL (32.0-36.0); Mean Corpuscular Volume 83.4 fL (80.0-100.0); Mean Platelet Volume 11.2 fL (9.4-12.4); Platelet Count 220 K/uL (130-400); RDW Coefficient of Variation 15.8 % (11.5-14.5); RDW Standard Deviation 47.8 fL (36.4-46.3); Red Blood Count 4.59 M/uL (4.63-6.08); White Blood Count 5.95 K/ul (4.8-10.8)
[2022-05-16] MEDS: AVODART~ORDER AWAITING ACTION SCH ×3 (08:51→23:54)
[2022-05-16 08:55] LABS: Calcium 9.4 mg/dl (8.5-10.1); Creatinine Clr Calc Pharmacy 75.9 ml/min; Est GFR (African American) 97.5 ml/min; Est GFR (Non-African American) 84.2 ml/min; Magnesium 1.4 mg/dl (1.7-2.4); Potassium 4.6 mmol/L (3.5-5.1)
[2022-05-16] MEDS: VITAMIN B COMPLEX TAB PO SCH (09:12)
[2022-05-16] MEDS: PANTOprazole 40 MG TAB PO SCH (09:12)
[2022-05-16] MEDS: PIPERACILLIN/TAZOBACTAM 3.375 GM in DEXTROSE 5% 100 ML IV SCH ×3 (09:13→23:43)
[2022-05-16] MEDS: UMECLIDINIUM/VILANTEROL 62.5/25MCG 7 PUFFS/INHALER INH SCH (09:13)
[2022-05-16] MEDS: INSULIN ASPART PER UNIT SC SCH ×4 (09:16→23:44)
[2022-05-16] MEDS: PREGABALIN 150 MG CAP PO SCH ×2 (09:23→20:48)
[2022-05-16] MEDS: hydrOXYzine HCl 25 MG TAB PO PRN ×2 (11:27→20:55)
[2022-05-16] MEDS: MAGNESIUM SULFATE / D5W 1 GM/100 ML BAG IV SCH ×3 (13:05→16:54)
--- NOTE | 2022-05-16 13:05 | Hospitalist Progress Note ---
Date of Service May 16, 2022 Assessment & Plan (1) Surgical wound, non healing: Plan: -Patient had original intrathecal pain pump replaced in december of 2021, infectio n/abscess developed, removed and washed out by Dr. Kumar on 01/22/22. -Has been following in the wound clinic, was being treated with Doxy and Penicillin Vee-K for wound cultures from 04/26/22 growing Group B strep and MRSA, unfortunately the wound has not improved -CT imaging today showing cellulitis without signs of abscess or OM -Started on Dapto and Clinda in the ED as patient has allergies to ceftriaxone and vancomycin in his chart listed as anaphylaxis * Spoke with pharmacy as previous DC summary from 01/22 noted patient was on ceftriaxone but they were unable to confirm the reactions * Will continue with Daptomycin and Zosyn broadly for now, can tailor abx off cultures as able -Wound culture from 04/26/22 with growth of GBS and MRSA -Blood cultures thus far yield NGTD -Consulted Dr. Kumar to follow and assist with management, she recommended consulting orthopedic surgery in case I&D is needed, consult placed but Dr. Mahoney did not appreciate any need for orthopsine involvement, advised f/u with wound care center and if more extensive debridement needed to consult general s urgery -Consult general surgery for possible debridement & ID consult for IV v. PO abx choice/duration -Appreciate input from GS, no need for debridement (which I agree with based on appearance of wound) -Wound care to see tomorrow, anticipate replacement of wound vac--could consider referral to (2) Hypomagnesemia: Plan: -Found to be 0.9 today -ED gave 2G IV -Will repeat in the AM this morning better at 1.7, additional 1g of Mag Sulfate given -Repeat mag this AM 1.4, mag riders ordered for replacement (3) Diabetes mellitus type 2 in nonobese: Plan: -Hold metformin -Will start with correction of 35 and carb coverage of 11 -Adjust as needed -Continue carb consistent diet (4) Opioid dependence: Plan: -Continue pain regimen (5) Lumbar post-laminectomy syndrome: Plan: -pain regimen, Lyrica resumed 300mg BID (6) Tobacco abuse: Plan: -Ordered nicotine gum as the patch tears his skin (7) COPD (chronic obstructive pulmonary disease): Plan: -breathing treatments (8) Anxiety with depression: Plan: -continue hydroxyzine, increased to q6h prn anxiety while hospitalized and unable to smoke (9) BPH w urinary obs/LUTS: Plan: -flomax (10) GERD (gastroesophageal reflux disease): Plan: -protonix and carafate (11) Hypothyroid: Plan: -levothyroxine Plan Wound care, ID consult for antibiotic guidance. Suspect he can return home on oral antibiotics but will await input from ID. Repeat mag level in AM. Plan has been d/w Dr. Lay. Admission and Anticipated Discharge Date Admission Date: May 14, 2022 Subjective Patient seen on daily rounds this morning. He is resting in bed, apparently complaining to nursing that he wants to smoke. He denies fever/chills. Pt with chronic pain but no worse than usual. Denies cp or dyspnea. Notes that he has been following with wound care as outpatient but feels that his wound continues to be infected and needs IV antibiotics which his insurance would not authorize for him to get as an outpatient. He has been wearing a wound vac at home for the past few months and following with wound care as outpatient but has not had his wound vac on since he's been admitted. Review of Systems Review of Systems: All systems reviewed and are unremarkable except as noted in HPI and below. Denies fever, chills, fatigue, headache, nasal congestion, sore throat, cough, chest pain, shortness of breath, palpitations, orthopnea, PND, abdominal pain, n/v/d, constipation, dysuria, hematuria, frequency, back pain, joint pain or swelling, easy bruising or bleeding. Physical Exam Physical Exam: GENERAL: 66 yo Well-developed, well-nourished WM. NAD. LUNGS: Clear to auscultation bilaterally. No W/R/R. CARDIOVASCULAR: Regular rate and rhythm. No M/G/R. No JVD. ABDOMEN: Soft, non-tender and non-distended. BS normoactive x 4 quad. EXTREMITIES: No edema. Non-tender. Peripheral pulses +2/4. NEUROLOGIC: A&O x3. Nonfocal PSYCHIATRIC: Cooperative. Appropriate mood and affect. SKIN: Small 50 cent piece-dized Wound noted to lower midback with good granular tissue, no active bleeding/drainage or surrounding erythema. Results & Data Results & Data ([facility]) Vital Signs (Past 12 Hours) Vital Signs Temp Pulse Resp BP Pulse Ox O2 Del Method 05/16/22 07:35 36.9 C 67 20 128/79 93 Room Air Laboratory Results 05/16/22 08:10 05/16/22 08:10 PG Care Time/CCT Total # of Minutes Spent Total Time Spent with Patient: Total time spent is greater than 50% in coordination of care (as documented) at patient's floor/unit and/or counseling patient: Coding Level of Care Code 25877 Subseq Hosp Care Lvl 2 Diagnoses Surgical wound, non healing T81.89XA Hypomagnesemia E83.42 Diabetes mellitus type 2 in nonobese E11.9 Opioid dependence F11.20 Lumbar post-laminectomy syndrome M96.1 Tobacco abuse Z72.0 COPD (chronic obstructive pulmonary disease) J44.9 COPD type: unspecified COPD Anxiety with depression F41.8 BPH w urinary obs/LUTS N40.1; N13.8 GERD (gastroesophageal reflux disease) K21.9 Hypothyroid E03.9 (1) COPD (chronic obstructive pulmonary disease) COPD type: unspecified COPD Qualified Code(s): J44.9 - Chronic obstructive pulmonary disease, unspecified
[2022-05-16] MEDS: DAPTOmycin 275 MG in SYRINGE 0 ML IV SCH (17:00)
[2022-05-16] MEDS: ENOXAPARIN INJ 40 MG/0.4 ML SYR SQ SCH (20:49)
[2022-05-17] MEDS: NICOTINE POLACRILEX 2 MG GUM MT PRN ×6 (01:49→21:08)
[2022-05-17] MEDS: ACETAMINOPHEN 325 MG TAB PO SCH ×3 (06:47→18:03)
[2022-05-17] MEDS: AVODART~ORDER AWAITING ACTION SCH ×2 (07:27→15:59)
[2022-05-17] MEDS: LEVOTHYROXINE SODIUM 75 MCG TABLET PO SCH (07:38)
[2022-05-17 09:00] LABS: Hemoglobin 12.3 g/dl (14.0-18.0); Mean Corpuscular Hemoglobin 26.5 pg (25.0-34.0); Mean Corpuscular Hgb Conc 31.5 g/dL (32.0-36.0); Mean Corpuscular Volume 83.9 fL (80.0-100.0); Mean Platelet Volume 11.1 fL (9.4-12.4); Platelet Count 213 K/uL (130-400); RDW Coefficient of Variation 15.6 % (11.5-14.5); RDW Standard Deviation 46.8 fL (36.4-46.3); Red Blood Count 4.65 M/uL (4.63-6.08); White Blood Count 7.18 K/ul (4.8-10.8)
[2022-05-17] MEDS: INSULIN ASPART PER UNIT SC SCH ×4 (09:18→20:52)
[2022-05-17] MEDS: UMECLIDINIUM/VILANTEROL 62.5/25MCG 7 PUFFS/INHALER INH SCH (09:19)
[2022-05-17] MEDS: PREGABALIN 150 MG CAP PO SCH ×2 (09:19→20:16)
[2022-05-17] MEDS: PANTOprazole 40 MG TAB PO SCH (09:20)
[2022-05-17] MEDS: PIPERACILLIN/TAZOBACTAM 3.375 GM in DEXTROSE 5% 100 ML IV SCH (09:21)
[2022-05-17] MEDS: ADVANCED PROBIOTIC 1250 MG CAPSULE PO SCH (09:21)
[2022-05-17] MEDS: VITAMIN B COMPLEX TAB PO SCH (09:21)
[2022-05-17 09:27] LABS: BUN Creatinine Ratio 16.5 (10-20); Calcium 9.6 mg/dl (8.5-10.1); Creatinine Clr Calc Pharmacy 73.5 ml/min; Est GFR (African American) 93.9 ml/min; Magnesium 1.7 mg/dl (1.7-2.4); Potassium 4.6 mmol/L (3.5-5.1)
--- NOTE | 2022-05-17 10:16 | Pain Management Consultation ---
Date of Consultation May 17, 2022 Assessment & Plan (1) Antibiotic long-term use: (2) Surgical wound, non healing: (3) Tobacco abuse: (4) Opioid dependence: Plan 1. The entire intrathecal pump system was removed on 01/22/2022. Recommend continued antibiotics and wound care under the direction of the hospitalist and wound care service. No further input at this time from pain management. 2. Patient's pain is well controlled with current regimen. He should follow-up with his current prescriber for continued prescriptions. 3. Thank you for this consultation we will sign off at this time. History of Present Illness Attending Physician: Dewayne Lay MD History of Present Illness 66-year-old male with history of an intrathecal pump previously managed by Dr. Zhao (pain management in [place], [place]) had a replacement intrathecal catheter and intrathecal pump for malfunctioning pump on 12/25/2021. He presented to the [facility] wound clinic on 01/11/2022 with wound dehiscence. He was treated with various antibiotics and had explanation of his intrathecal pump on 01/22/22 with wound vac placement. He has been lb ged by the wound clinic since the time of explantation. He presented to the [facility] ER on 05/14/22 with ongoing low grade fevers. Pain is fairly well controlled with oxycodone 40 mg p.o. twice daily and oxycodone 5 to 10 mg p.o. every 4 as needed. He has pre-existing motor weakness in his left lower extremity status post his DOUG (per patient report). Pain Assessment [facility] Combined Pain Scale: 3-Mild - Interferes with pleasures of life. Stops some activities Allergies Allergy/AdvReac Type Severity Reaction Status Date / Time ceftriaxone Allergy Severe Anaphylaxis Verified 05/14/22 16:51 ibuprofen Allergy Severe SWELLING, Verified 05/14/22 16:51 HIVES & SOB vancomycin Allergy Severe Anaphylaxis Unverified 05/14/22 16:51 adhesive tape Allergy Intermediate REDNESS & Verified 05/14/22 16:51 BLACK & BLUE procaine Allergy Unknown ON [facility] MED Verified 05/14/22 16:51 LIST Home Medications Medication Instructions Recorded Confirmed Type albuterol sulfate 90 mcg/actuation 2 inh inhalation UD PRN Shortness 01/30/21 05/14/22 History aerosol inhaler Of Breath Or Wheezing hydroxyzine HCl 50 mg tablet 75 - 100 mg PO HS PRN sleep/anxiety 01/30/21 05/14/22 History levothyroxine 75 mcg tablet 75 mcg PO DAILYBB 01/30/21 05/14/22 History pantoprazole 40 mg tablet,delayed 40 mg PO QAM 01/30/21 05/14/22 History release pregabalin 300 mg capsule (Lyrica) 300 mg PO BID 01/30/21 05/14/22 History sucralfate 1 gram tablet (Carafate) 1 g PO ACHS PRN ulcers 01/30/21 05/14/22 History umeclidinium 62.5 mcg-vilanterol 1 inh inhalation DAILY 01/30/21 05/14/22 H istory 25 mcg/actuation powdr for inhalation (Anoro Ellipta) polyethylene glycol 3350 17 17 g PO DAILY PRN Constipation 01/11/22 05/14/22 History gram/dose oral powder (Miralax) melatonin 10 mg tablet 10 mg PO HS PRN Sleep 01/22/22 05/14/22 History oxymetazoline 0.05 % nasal spray 2 spray intranasal Q12H PRN 01/22/22 05/14/22 History (Afrin Sinus (oxymetazoline)) Congestion peg 400-propylene glycol (PF) 0.4 1 drp OPB BID PRN Dry Eye(S) 01/22/22 05/14/22 History %-0.3 % eye drops in a dropperette (Systane (PF)) metformin 500 mg tablet 500 mg PO BIDM #60 tabs 01/28/22 05/14/22 Rx ondansetron HCl 4 mg tablet 4 mg PO Q6H PRN nausea and 02/08/22 05/14/22 Rx vomiting #20 tabs Patient History Medical History Anxiety with depression BPH w urinary obs/LUTS COPD (chronic obstructive pulmonary disease) Diabetes mellitus type 2 in nonobese GERD (gastroesophageal reflux disease) Hypothyroid Insomnia Lumbar post-laminectomy syndrome No pertinent family history Opioid dependence Postoperative abscess Presence of intrathecal pump Surgical wound dehiscence Surgical History History of lumbar fusion Hx of fusion of cervical spine S/P hip replacement Social History Smoking Status: Current every day smoker Tobacco Type: Cigarettes Cigarettes Per Day: 1 pack; Second Hand Exposure: Yes; Do You Dip or Chew Tobacco: No; Tobacco Cessation Education Requested by Patient: No Hx Alcohol Use: No Hx Substance Use: Yes Last Used Substance: Hours (ago) Preferred Language: Italian Communication Ability: Effective 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 Beliefs That Will Affect Care: None marital status: Current Living Situation: Spouse Other Information That Helps Us Care for You: No Feels Safe at Home: Yes Safety Concerns: Feels Safe At This Time Assistive Devices: Glasses and Walker Physical Exam Constitutional: WD/WN, vitals as above well developed and well nourished; no acute distress Musculoskeletal: Head/Neck/Chest: normocephalic and head atraumatic Results (Pain Clinic) Diagnostic Review CT: enhanced, reports reviewed and findings discussed with patient CT Findings: 05/14/22 CT lumbar spine w con CLINICAL HISTORY: Follow-up posterior back infection. Evaluate for Osteomyelitis or abscess COMPARISON STUDY: 02/24/2022 CT DOSE: TECHNIQUE: Standard CT of the Lumbar Spine was performed with 94 mL of Optiray 320 IV contrast. A dose lowering technique was utilized adhering to the principles of ALARA. FINDINGS: Bones: Bones are osteopenic. There is again an old L1 compression fracture with vertebroplasty present. There is again an exaggerated kyphotic curvature of the thoracolumbar spine at this level. There is fusion of the L1 and L2 vertebral bodies again seen. There is no evidence for an acute fracture or malalignment. There is again degenerative retrolisthesis of L2 on L3 and L3 on L4 which is unchanged. There is again old compression deformity of L3. The heights of the remaining lumbar vertebral bodies are maintained. Disc spaces: Moderate to marked disc space narrowing is again seen of L2 on L3 and L3 on L4 with vacuum disc phenomena present. However, there is no change in appearance of the vertebral body endplates with no CT evidence for discitis. Patient is again status post laminectomies at L3 and L4. The vertebral body cortical margins are maintained with no CT evidence for osteomyelitis. Facet joints: Hypertrophic facet joint disease again seen involving the lumbar spine. There are again degenerative changes the SI joints. Soft tissues: Compared to the previous examination, increased subcutaneous soft tissue swelling is present along the midline of the back posterior to the spine. Fluid is again seen tracking along the deep subcutaneous fascial plane. There is diffuse enhancement of the soft tissues with air bubbles present. However, no focal fluid collection or enhancing abscess is seen. The findings are still most characteristic of an infectious inflammatory process. There is no enhancing paraspinal soft tissue swelling. IMPRESSION: 1. Compared to the previous examination, increased soft tissue swelling and inflammatory changes are present posterior to the spine with increasing air bubbles present. 2. Diffuse enhancement of the fluid is seen with no walled off focal abscess present. Findings are characteristic of worsening cellulitis, infection and inflammatory change. 3. There is no evidence for adjacent paraspinal abscess, discitis or osteomyelitis. 05/14/22 ADDENDUM This study was performed with 94 mL of Optiray 320 contrast. No abnormal enhancement is demonstrated. Electronically signed by: Jewel Escobar M.D. 05/14/2022 2:[address] thoracic spine w con CLINICAL HISTORY: Back pain. Evaluate for Osteomyelitis or abscess COMPARISON STUDY: No previous studies for comparison. CT DOSE: 1815.45 mGy.cm TECHNIQUE: Standard CT of the Thoracic Spine was performed without IV contrast. A dose lowering technique was utilized adhering to the principles of ALARA. FINDINGS: Bones: The bones are osteopenic. There is no evidence for an acute fracture or malalignment. There is no cortical destruction or CT evidence for osteomyelitis. The heights of the thoracic vertebral bodies are maintained. The vertebral bodies are in anatomic alignment. Disc spaces: There is mild to moderate disc space narrowing throughout the thoracic spine with moderate to marked disc space narrowing at T12-L1. Endplate sclerosis, vacuum disc phenomenon and osteophyte formation are seen at the T12- L1 level. Pedicles::The pedicles are intact bilaterally. Soft tissues: The paraspinal soft tissues are within normal limits. There is no paraspinal soft tissue swelling or evidence for abscess. IMPRESSION: 1. Osteopenia with no acute osseous pathology. 2. Degenerative disc disease. 3. No CT evidence for osteomyelitis or paraspinal abscess. Previous Records Review Previous Records: personally reviewed by me
--- NOTE | 2022-05-17 15:50 | Hospitalist Progress Note ---
Date of Service May 17, 2022 Assessment & Plan (1) Surgical wound, non healing: Plan: -Patient had original intrathecal pain pump replaced in december of 2021, infectio n/abscess developed, removed and washed out by Dr. Kumar on 01/22/22. -Has been following in the wound clinic, was being treated with Doxy and Penicillin Vee-K for wound cultures from 04/26/22 growing Group B strep and MRSA, unfortunately the wound has not improved -CT imaging today showing cellulitis without signs of abscess or OM -Started on Dapto and Clinda in the ED as patient has allergies to ceftriaxone and vancomycin in his chart listed as anaphylaxis * Spoke with pharmacy as previous DC summary from 01/22 noted patient was on ceftriaxone but they were unable to confirm the reactions * Will continue with Daptomycin and Zosyn broadly for now, can tailor abx off cultures as able -Wound culture from 04/26/22 with growth of GBS and MRSA -Blood cultures thus far yield NGTD -Consulted Dr. Kumar to follow and assist with management, she recommended consulting orthopedic surgery in case I&D is needed, consult placed but Dr. Mahoney did not appreciate any need for orthopsine involvement, advised f/u with wound care center and if more extensive debridement needed to consult general s urgery -Appreciate input from GS, no need for debridement (which I agree with based on appearance of wound) -Wound care saw today, will pack wound and refer back to wound clinic, will need to resume wound vac -ID consult completed today, given ongoing duration of this issue and persistent positive cultures, advising 6w of IV Daptomycin (will need 38 days after today's dose) -Stop Zosyn -Obtained consent for PICC and order placed (2) Hypomagnesemia: Plan: -Found to be 0.9 today -ED gave 2G IV -Will repeat in the AM this morning better at 1.7, additional 1g of Mag Sulfate given -Repeat mag this AM 1.4, mag riders ordered for replacement (3) Diabetes mellitus type 2 in nonobese: Plan: -Hold metformin -Will start with correction of 35 and carb coverage of 11 -Adjust as needed -Continue carb consistent diet (4) Opioid dependence: Plan: -Continue pain regimen (5) Lumbar post-laminectomy syndrome: Plan: -pain regimen, Lyrica resumed 300mg BID (6) Tobacco abuse: Plan: -Ordered nicotine gum as the patch tears his skin (7) COPD (chronic obstructive pulmonary disease): Plan: -breathing treatments (8) Anxiety with depression: Plan: -continue hydroxyzine, increased to q6h prn anxiety while hospitalized and unable to smoke (9) BPH w urinary obs/LUTS: Plan: -flomax (10) GERD (gastroesophageal reflux disease): Plan: -protonix and carafate (11) Hypothyroid: Plan: -levothyroxine Plan Continue local wound care. ID recommending 6w of IV antibiotics (daptomycin). Case management assisting in setting up home IV antibiotics. Plan d/w Dr. Lay. Admission and Anticipated Discharge Date Admission Date: May 14, 2022 Subjective Patient seen on daily rounds this morning. Pt in bed today, waiting for ID consult during my visit. He has no new complaints/concerns at present. No fever, chills. Pain is at baseline. Review of Systems Review of Systems: All systems reviewed and are unremarkable except as noted in HPI and below. Denies fever, chills, fatigue, headache, nasal congestion, sore throat, cough, chest pain, shortness of breath, palpitations, orthopnea, PND, abdominal pain, n/v/d, constipation, dysuria, hematuria, frequency, back pain, joint pain or swelling, easy bruising or bleeding. Physical Exam Physical Exam: GENERAL: 66 yo Well-developed, well-nourished WM. NAD. LUNGS: Clear to auscultation bilaterally. No W/R/R. CARDIOVASCULAR: Regular rate and rhythm. No M/G/R. No JVD. ABDOMEN: Soft, non-tender and non-distended. BS normoactive x 4 quad. EXTREMITIES: No edema. Non-tender. Peripheral pulses +2/4. NEUROLOGIC: A&O x3. Nonfocal PSYCHIATRIC: Cooperative. Appropriate mood and affect. SKIN: Small 50 cent piece-dized Wound noted to lower midback with good granular tissue, no active bleeding/drainage or surrounding erythema. Results & Data Results & Data ([facility]) Vital Signs (Past 12 Hours) Vital Signs Temp Pulse Resp BP Pulse Ox O2 Del Method 05/17/22 07:31 36.6 C 62 20 119/78 96 Room Air Laboratory Results 05/17/22 08:42 05/17/22 08:42 PG Care Time/CCT Total # of Minutes Spent Total Time Spent with Patient: Total time spent is greater than 50% in coordination of care (as documented) at patient's floor/unit and/or counseling patient: Coding Level of Care Code 72555 Subseq Hosp Care Lvl 2 Diagnoses Surgical wound, non healing T81.89XA Hypomagnesemia E83.42 Diabetes mellitus type 2 in nonobese E11.9 Opioid dependence F11.20 Lumbar post-laminectomy syndrome M96.1 Tobacco abuse Z72.0 COPD (chronic obstructive pulmonary disease) J44.9 COPD type: unspecified COPD Anxiety with depression F41.8 BPH w urinary obs/LUTS N40.1; N13.8 GERD (gastroesophageal reflux disease) K21.9 Hypothyroid E03.9 (1) COPD (chronic obstructive pulmonary disease) COPD type: unspecified COPD Qualified Code(s): J44.9 - Chronic obstructive pulmonary disease, unspecified
[2022-05-17] MEDS: DAPTOmycin 275 MG in SYRINGE 0 ML IV SCH (18:03)
[2022-05-17] MEDS: ENOXAPARIN INJ 40 MG/0.4 ML SYR SQ SCH (20:15)
[2022-05-17] MEDS ORDERED: NICOTINE POLACRILEX 2 MG GUM MT PRN (21:12)
[2022-05-18] MEDS: AVODART~ORDER AWAITING ACTION SCH ×2 (00:19→08:43)
[2022-05-18] MEDS: ACETAMINOPHEN 325 MG TAB PO SCH ×3 (00:24→12:16)
[2022-05-18] MEDS: LEVOTHYROXINE SODIUM 75 MCG TABLET PO SCH (05:47)
[2022-05-18] MEDS: ADVANCED PROBIOTIC 1250 MG CAPSULE PO SCH (08:43)
[2022-05-18] MEDS: UMECLIDINIUM/VILANTEROL 62.5/25MCG 7 PUFFS/INHALER INH SCH (08:44)
[2022-05-18] MEDS: VITAMIN B COMPLEX TAB PO SCH (08:44)
[2022-05-18] MEDS: PANTOprazole 40 MG TAB PO SCH (08:44)
[2022-05-18] MEDS: PREGABALIN 150 MG CAP PO SCH (08:44)
[2022-05-18] MEDS: INSULIN ASPART PER UNIT SC SCH ×2 (08:47→12:16)
[2022-05-18 08:50] LABS: Basophils # (auto) 0.06 K/uL (0-0.2); Basophils % (auto) 0.8 %; Eosinophils # (auto) 0.79 K/uL (0-0.50); Eosinophils % (auto) 10.6 %; Hematocrit (blood only) 38.6 % (40.1-51.0); Immature Granulocytes # (auto) 0.02 K/uL (0.00-0.02); Immature Granulocytes % (auto) 0.3 %; Lymphocytes # (auto) 3.05 K/uL (1.2-3.4); Lymphocytes % (auto) 40.9 %; Mean Corpuscular Hemoglobin 26.3 pg (25.0-34.0); Mean Corpuscular Hgb Conc 31.1 g/dL (32.0-36.0); Mean Corpuscular Volume 84.5 fL (80.0-100.0); Mean Platelet Volume 11.2 fL (9.4-12.4); Monocytes # (auto) 0.73 K/uL (0.24-0.82); Monocytes % (auto) 9.8 %; Neutrophils % (auto) 37.6 %; Platelet Count 224 K/uL (130-400); RDW Coefficient of Variation 15.5 % (11.5-14.5); RDW Standard Deviation 47.5 fL (36.4-46.3); Red Blood Count 4.57 M/uL (4.63-6.08); White Blood Count 7.45 K/ul (4.8-10.8)
[2022-05-18 09:16] LABS: Anion Gap 6 (3-11); BUN Creatinine Ratio 22.5 (10-20); Blood Urea Nitrogen 20 mg/dl (6-23); C Reactive Protein < 0.50 mg/dl (0-0.5); Calcium 9.7 mg/dl (8.5-10.1); Carbon Dioxide 27 mmol/L (21-32); Chloride 102 mmol/L (98-107); Creatinine Clr Calc Pharmacy 80.1 ml/min; Est GFR (African American) 103.3 ml/min; Est GFR (Non-African American) 89.1 ml/min; Glucose 168 mg/dl (70-99(Fasting)); Potassium 4.2 mmol/L (3.5-5.1); Sodium 135 mmol/L (136-145)
--- NOTE | 2022-05-18 12:15 | Discharge Summary ---
Date of Service May 18, 2022 Admission HPI Per Admitting Provider Manjeet is a 66 year old male with a PMH significant for Lumbar post laminectomy syndrome S/P intrathecal pain pump placement 12/25/21 with subsequent infection and abscess, COPD, hypothyroidism, DM who presents to the [facility] ED on 05/14/22 with a chief complaint of worsening lumbar back wound. Per chart review, the patient was admitted to [facility] for removal of the infected pump and washout of abscess by Dr. Kumar on. 01/22/22. Cultures from the abscess grew staph coagulase-negative. The patient was switched from Zosyn and Dapto to Rocephin. ID was consulted and recommended finishing treatment with a 14 day course of Zyvox. The patient has been folowed by the Wound Care clinic since discharge. Wound cultures from 04/26/22 grew Group B strep and MRSA, for which they started him on doxycycline and Pen-Vee K. In the ED the patient was found to be afebrile, hemodynamically stable, and stable on RA. CT of the thoracic and lumbar vertebrae W/Contrast revealed "increased soft tissue swelling and inflammatory changes are present posterior to the spine with increasing air bubbles present. Diffuse enhancement of the fluid is seen with no walled off focal abscess present. Findings are characteristic of worsening cellulitis, infection and inflammatory change.There is no evidence for adjacent paraspinal abscess, discitis or osteomyelitis". Due to the reported anaphylaxis with Vancomycin and ceftriaxone the patient was started on Clindamycin and Daptomycin, the patient was also give a 1L NSS bolus. At the time of the exam the patient was lying in bed in moderate distress due to pain. He states that his baseline pain since having the pump removed is an 8/10. The pain starts at the site of his procedure site and moves symmetrically down both legs. He also has diabetic neuropathy of both lower extremities, which is at it's baseline. He does not have new numbness or weakness since his procedure. he denies saddle anesthesia and loss of bowel/bladder control. He states that he has been having fevers over the past week but then states the highest temperature is 100.2F. He and his are frustrated with the issues he has been having with the wound. He currently ambulates with the assistance of a rolling walker. Principal Diagnosis 1. Nonhealing surgical wound with persistent infection- GBS + MRSA 2. Cellulitis of wound Discharge Exam GENERAL: 66 yo Well-developed, well-nourished WM. NAD. LUNGS: Clear to auscultation bilaterally. No W/R/R. CARDIOVASCULAR: Regular rate and rhythm. No M/G/R. No JVD. ABDOMEN: Soft, non-tender and non-distended. BS normoactive x 4 quad. EXTREMITIES: No edema. Non-tender. Peripheral pulses +2/4. NEUROLOGIC: A&O x3. Nonfocal PSYCHIATRIC: Cooperative. Appropriate mood and affect. SKIN: Small 50 cent piece-dized Wound noted to lower midback with good granular tissue, no active bleeding/drainage or surrounding erythema. Discharge Data Allergies Allergy/AdvReac Type Severity Reaction Status Date / Time ceftriaxone Allergy Severe Anaphylaxis Verified 05/21/22 13:17 ibuprofen Allergy Severe SWELLING, Verified 05/21/22 13:17 HIVES & SOB vancomycin Allergy Severe Anaphylaxis Unverified 05/21/22 13:17 adhesive tape Allergy Intermediate REDNESS & Verified 05/21/22 13:17 BLACK & BLUE procaine Allergy Unknown ON [facility] MED Verified 05/21/22 13:17 LIST Consultations 05/14/22 16:17 ED Decision to Admit Stat 05/14/22 17:31 Consult Orthopedic Surgery Routine Consult Pain Management Routine 05/15/22 17:02 Consult Infectious Diseases Routine 05/15/22 17:04 Consult General Surgery Routine Ordered Studies CT lumbar spine w con CLINICAL HISTORY: Follow-up posterior back infection. Evaluate for Osteomyelitis or abscess COMPARISON STUDY: 02/24/2022 CT DOSE: TECHNIQUE: Standard CT of the Lumbar Spine was performed with 94 mL of Optiray 320 IV contrast. A dose lowering technique was utilized adhering to the principles of ALARA. FINDINGS: Bones: Bones are osteopenic. There is again an old L1 compression fracture with vertebroplasty present. There is again an exaggerated kyphotic curvature of the thoracolumbar spine at this level. There is fusion of the L1 and L2 vertebral bodies again seen. There is no evidence for an acute fracture or malalignment. There is again degenerative retrolisthesis of L2 on L3 and L3 on L4 which is unchanged. There is again old compression deformity of L3. The heights of the remaining lumbar vertebral bodies are maintained. Disc spaces: Moderate to marked disc space narrowing is again seen of L2 on L3 and L3 on L4 with vacuum disc phenomena present. However, there is no change in appearance of the vertebral body endplates with no CT evidence for discitis. Patient is again status post laminectomies at L3 and L4. The vertebral body cortical margins are maintained with no CT evidence for osteomyelitis. Facet joints: Hypertrophic facet joint disease again seen involving the lumbar spine. There are again degenerative changes the SI joints. Soft tissues: Compared to the previous examination, increased subcutaneous soft tissue swelling is present along the midline of the back posterior to the spine. Fluid is again seen tracking along the deep subcutaneous fascial plane. There is diffuse enhancement of the soft tissues with air bubbles present. However, no focal fluid collection or enhancing abscess is seen. The findings are still most characteristic of an infectious inflammatory process. There is no enhancing paraspinal soft tissue swelling. IMPRESSION: 1. Compared to the previous examination, increased soft tissue swelling and inflammatory changes are present posterior to the spine with increasing air bubbles present. 2. Diffuse enhancement of the fluid is seen with no walled off focal abscess present. Findings are characteristic of worsening cellulitis, infection and inflammatory change. 3. There is no evidence for adjacent paraspinal abscess, discitis or osteomyelitis. A stat report will be called/faxed to the referring clinician. ACT 112: Positive. There are findings on this exam that require communication between the performing entity and the patient following Patient Test Result Information Act ([place] Act 112) guidelines. Electronically signed by: Jewel Escobar M.D. 05/14/2022 2:02 PM Chest X-Ray 05/14/22 15:50 XR chest 1V portable CLINICAL HISTORY: SEPSIS. COMPARISON STUDY: 02/24/2022 TECHNIQUE: 1 view of the chest FINDINGS: Single frontal view of the chest demonstrates the cardiomediastinal silhouette to be within normal limits. The lungs are clear of alveolar opacities. There is no evidence for pleural effusion. There is no evidence for vascular congestion. There is no acute osseous pathology. IMPRESSION: 1. No acute cardiopulmonary disease. ACT 112: Negative or not required by law. Electronically signed by: Jewel Escobar M.D. 05/14/2022 4:42 PM Hospital Course (1) Surgical wound, non healing: -Patient had original intrathecal pain pump replaced in december of 2021, infection/abscess developed, removed and washed out by Dr. Kumar on 01/22/22. -Has been following in the wound clinic, was being treated with Doxy and Penicillin Vee-K for wound cultures from 04/26/22 growing Group B strep and MRSA, unfortunately the wound has not improved -CT imaging today showing cellulitis without signs of abscess or OM -Started on Dapto and Clinda in the ED as patient has allergies to ceftriaxone and vancomycin in his chart listed as anaphylaxis * Spoke with pharmacy as previous DC summary from 01/22 noted patient was on ceftriaxone but they were unable to confirm the reactions * Continued with Daptomycin and Zosyn broadly upon admit with plans to tailor based on culture data -Wound culture from 04/26/22 with growth of GBS and MRSA -Blood cultures thus far yield NGTD -Consulted Dr. Kumar to follow and assist with management, she recommended consulting orthopedic surgery in case I&D is needed, consult placed but Dr. Mahoney did not appreciate any need for orthospine involvement, advised f/u with wound care center and if more extensive debridement needed to consult general surgery -Appreciate input from GS, no need for debridement (which I agree with based on appearance of wound) -Wound care saw on 05/17, packed wound and refer back to wound clinic, will need to resume wound vac. Appt scheduled for 05/21 -ID consult completed today, given ongoing duration of this issue and persistent positive cultures, advising 6w of IV Daptomycin (will need 38 days after today's dose) -Zosyn stopped -Obtained consent for PICC and underwent placement of picc in R arm on 05/17 (2) Hypomagnesemia: -Found to be 0.9 today -ED gave 2G IV -Will repeat in the AM this morning better at 1.7, additional 1g of Mag Sulfate given -Repeat mag this of 1.4 on 05/17, replacement ordered (3) Diabetes mellitus type 2 in nonobese: -Held metformin -Will start with correction of 35 and carb coverage of 11 -Continue carb consistent diet -seen by clinical systems educator, rx for lancets and test strips (4) Opioid dependence: -Continue pain regimen (5) Lumbar post-laminectomy syndrome: -pain regimen, Lyrica resumed 300mg BID (6) Tobacco abuse: -Ordered nicotine gum as the patch tears his skin (7) COPD (chronic obstructive pulmonary disease): -breathing treatments (8) Anxiety with depression: -continue hydroxyzine, increased to q6h prn anxiety while hospitalized and unable to smoke (9) BPH w urinary obs/LUTS: -flomax (10) GERD (gastroesophageal reflux disease): -protonix and carafate (11) Hypothyroid: -levothyroxine Plan Case management consulted for d/c planning - arrangements made for home IV antibiotics. 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 Home health is set up and will see him at home on 05/19. Pt is medically and hemodynamically stable for discharge. Plan has been d/w Dr. Roxy Hardin who has also seen and evaluated patient is in agreement with plan. Total Time Total Time Spent Total Time Spent (In Minutes): >30 minutes Discharge Plan Discharge Items Patient Disposition: Home - Home Health Services Reason For Visit: WOUND INFECTION Discharge Diagnosis: lower back wound infection Condition on Discharge: Good Activity: Resume your previous activity Non-emergency contact: Primary Care Provider Call non-emergency contact if: you have any medication questions and your symptoms worsen Follow-up/Referrals: Giovani Almonte PA-C [Primary Care Provider] - 05/25/22 10:30 am Diet: Carb Consistent or DM2 Addtl Attending Provider Instructions: you were hospitalized due to persistent infection in your lower back wound. you were treated with IV antibiotics and seen by infectious disease specialists who advised you continue antibiotics in the form of IV for a total of 6 weeks. a PICC line has been placed in your right upper arm. this will be the site used to infuse your antibiotic. please keep the mesh sleeve overtop of the iv site and keep a waterproof cover over it when you shower. avoid touching or manipulating the site in anyway as this can cause infection. your antibiotic will be given once a day at 6pm. your has verbalized that she is comfortable administering this medication to you. please continue this daily for the next 38 days. weekly labs will be collected by home health and sent to your primary care provider. please follow up in the wound clinic as scheduled on Tuesday05/21/22 at 1pm. they will resume your wound vac therapy. you can ask them about referral to plastic surgery to place a flap over the wound after you have completed your course of antibiotics. you are being provided a glucometer to check your blood sugar. please follow all instructions provided by the clinical systems educator during your stay. continue taking your Metformin 500mg, one tablet to be taken in the morning and one with dinner. check your blood sugar at least one time per day as instructed. following a low carbohydrate diet and increasing lean protein is essential to control your blood sugar. lastly, it is important to control your blood sugar as this has a direct effect on healing and when uncontrolled, increases your risk of infection. it is advised that you follow up with your primary care provider within 1 week of discharge. if you have any questions following your discharge, please call the nonemergency number listed on your discharge paperwork. in the event of a medical emergency, call 911. Pending Studies at Discharge: No Stand-Alone Forms: My [facility] AfterYes, Smoking Cessation Medications and DC Order Prescriptions: New Advanced Probiotic 625 mg (10 billion cell) Capsule 2 cap PO DAILY Qty: 60 0RF (DME) OneTouch Verio test strips Strip See Rx Instructions .Route Qty: 100 0RF Rx Instructions: check BSG one time per day (DME) lancets [OneTouch Delica Lancets] 33 gauge misc See Rx Instructions .Route Qty: 100 0RF Rx Instructions: Check BSG one time per day Continued polyethylene glycol 3350 [Miralax] 17 gram/dose powder 17 g PO DAILY PRN (Reason: Constipation) oxymetazoline [Afrin Sinus (oxymetazoline)] 0.05 % [place],Non-Aerosol 2 spray INTRANASAL Q12H PRN (Reason: Congestion) Systane (PF) 0.4-0.3 % Dropperette 1 drp OPB BID PRN (Reason: Dry Eye(S)) melatonin 10 mg Tablet 10 mg PO HS PRN (Reason: Sleep) ondansetron HCl 4 mg tablet 4 mg PO Q6H PRN (Reason: nausea and vomiting) Qty: 20 0RF metformin 500 mg Tablet 500 mg PO BIDM Qty: 60 0RF sucralfate [Carafate] 1 gram tablet 1 g PO ACHS PRN (Reason: ulcers) hydroxyzine HCl 50 mg tablet 75 - 100 mg PO HS PRN (Reason: sleep/anxiety) levothyroxine 75 mcg tablet 75 mcg PO DAILYBB pantoprazole 40 mg Tablet,Delayed Release (Dr/Ec) 40 mg PO QAM albuterol sulfate 90 mcg/actuation HFA aerosol inhaler 2 inh INHALATION UD PRN (Reason: Shortness Of Breath Or Wheezing) pregabalin [Lyrica] 300 mg capsule 300 mg PO BID Anoro Ellipta 62.5-25 mcg/actuation blister with device 1 inh INHALATION DAILY No Action daptomycin 500 mg recon soln 500 mg IV DAILY Rx Instructions: administer over 30 mins Discharge Orders: Discharge Order (Routine); Ordered 05/18/22 Ordered By: Lesvia Freire/Other Patient Handouts: Managing Type 2 Diabetes, Special Foot Care for Diabetes Admission Data Admit Date/Time: 05/14/22 17:26 Attending Provider: Byron Hardin Admit Provider: Braden Barahona Primary Care Provider: Giovani Almonte Other Providers: Braden Barahona ; Ketan Mahoney ; Christine Kumar ; Moises Kraus ; Octavia Rosario ; Siddhartha Lares I. ; Luke Cosby II ; Wendy De La Fuente ; Igor Collins ; Martinez Wilkerson ; Vijay Macdonald ; [facility] Other Interventions: Discharge Summary Assessment (RN) Last Done: 05/18/22 12:12 Supervising Physician Co-Signing Physician Notes I supervised Lesvia Martinez PA-C on the care of this patient. I interviewed and examined the patient independently of her. The plan is as written in her note except for any following changes/exceptions: None Doing well today. Will need long-term IV abx. Ready for discharge. Coding Level of Care Code D/C DAY MANAGEMENT >30 MINS Diagnoses Surgical wound, non healing T81.89XA Hypomagnesemia E83.42 Diabetes mellitus type 2 in nonobese E11.9 Opioid dependence F11.20 Lumbar post-laminectomy syndrome M96.1 Tobacco abuse Z72.0 COPD (chronic obstructive pulmonary disease) J44.9 COPD type: unspecified COPD Anxiety with depression F41.8 BPH w urinary obs/LUTS N40.1; N13.8 GERD (gastroesophageal reflux disease) K21.9 Hypothyroid E03.9
[2022-05-18] MEDS: ONDANSETRON INJ 2 MG/ML 2 ML VIAL IV PRN (16:00)
[2022-05-18] MEDS: DAPTOmycin 275 MG in SYRINGE 0 ML IV SCH (16:06)
== END 2022-05-18 16:13 | disposition home health service (06) | DRG 920 ==
LOC: ED 15:28 → 3W 17:26 → SUATTDRO 17:26 → 3W 18:55